=== PATIENT | female | born 1965 | race Caucasian/White ===

== ENCOUNTER → 2016-10-01 | Outpatient (CLI) | payer BC ==
--- NOTE | 2016-10-02 16:27 | MR ---
MRI brain with and without contrast, MR C-spine without contrast HISTORY: Multiple sclerosis, neck pain Multiplanar multisequence and postcontrast images obtained through the brain following 14 cc MultiHan ce IV, multiplanar multisequence imaging obtained through the cervical spine. Correlation to prior MR brain and cervical spine 17 September 2015 FINDINGS: MR brain with and without contrast: Corpus callosum, pituitary, cervical medullary junction are tristin l. There is no restricted diffusion to suggest subacute ischemia. No hemorrhage or hydrocephalus. Sca ttered hyperintensities within the deep white matter on inversion recovery sequences and T2-weighted sequences are noted, approximately 5-10 lesions are present in the frontal lobes. Findings are stable . No abnormal enhancement. The orbits show symmetric appearance. Mild mucosal disease present in the maxillary sinus, ethmoid air cells. IMPRESSION: Stable brain MRI, no significant interval change. Cervical spine MRI: Brain signal is stable. There is no significant spinal stenosis, neural foraminal encroachment, or evident disc herniation. Mild spondylosis is loss of disc height and signal especia lly at C5-6 is stable. IMPRESSION: Stable cervical spine MRI
== END | disposition home or self-care (01) ==
LOC: RADMRIMAIN 20:32
PROVIDERS: ATTEND Nurse Practitioner Acute Care
DX: G35 Multiple sclerosis (principal); M54.2 Cervicalgia
CPT/HCPCS: 70553; 72141; A9577

== ENCOUNTER → 2016-11-07 | Outpatient (CLI) | payer BC ==
[2016-11-07 12:39] LABS: Basophils % (A) 0 %; CH 28.9; CHCM 31.1; Eosinophils # (A) 0.1 k/uL (0-0.7); Eosinophils % (A) 1 %; HCT 48.7 % (34.0-46.0); HDW 2.52; Hypochromasia Slight; Luc # (Auto) 0.11; Luc % (Auto) 2; Lymphocytes # (A) 2.3 k/uL (1.0-4.8); Lymphocytes % (A) 31 %; MCH 28.7 pg (25.0-35.0); MCHC 30.8 g/dL (31.0-37.0); MCV 93.3 fL (80.0-100.0); Mean Platelet Volume 7.9; Monocytes # (A) 0.4 k/uL (0-1.0); Monocytes % (A) 5 %; Neutrophils # (A) 4.4 k/uL (1.3-7.7); Neutrophils % (A) 60 %; RBC 5.22 m/uL (3.80-5.40); RDW 14.1 % (11.5-15.5); WBC 7.3 k/uL (3.8-10.6); WBC (Perox) 7.26
[2016-11-18 10:24] LABS: Mis test requested (Blood) Stratify JCV w/Index
== END | disposition home or self-care (01) ==
LOC: LABWHC1 12:01
PROVIDERS: ATTEND Nurse Practitioner Acute Care
DX: G35 Multiple sclerosis (principal)
CPT/HCPCS: 36415; 85025

== ENCOUNTER → 2016-12-01 | Outpatient (CLI) | payer BC ==
[2016-12-01 12:55] LABS: CH 29.4; CHCM 33.3; HCT 46.3 % (34.0-46.0); HDW 2.78; HGB 15.4 gm/dL (11.4-16.0); MCH 29.5 pg (25.0-35.0); MCHC 33.3 g/dL (31.0-37.0); MCV 88.7 fL (80.0-100.0); Mean Platelet Volume 7.3; RBC 5.22 m/uL (3.80-5.40); RDW 14.2 % (11.5-15.5); WBC 7.5 k/uL (3.8-10.6)
[2016-12-01 13:18] LABS: ALT 18 U/L (9-52); AST 19 U/L (14-36); Alkaline Phosphatase 77 U/L (38-126); Anion Gap 7 mmol/L; Blood Urea Nitrogen 11 mg/dL (7-17); Calcium 9.6 mg/dL (8.4-10.2); Carbon Dioxide 24 mmol/L (22-30); Chloride 111 mmol/L (98-107); Cholesterol 207 mg/dL (<200); Glucose 94 mg/dL (74-99); HDL Cholesterol 44 mg/dL (40-60); Non-African American GFR(MDRD) 52 (>60 ml/min/1.73 sqM); Sodium 142 mmol/L (137-145); Total Bilirubin 0.6 mg/dL (0.2-1.3); Triglycerides 210 mg/dL (<150)
[2016-12-01 14:04] LABS: Hemoglobin A1C 4.9 % (4.2-6.1)
== END ==
LOC: LABWHC1 12:28
PROVIDERS: ATTEND Family Medicine
DX: Z00.00 Encounter for general adult medical examination without abnormal findings (principal); E04.9 Nontoxic goiter, unspecified
CPT/HCPCS: 36415; 80053; 80061; 82306; 83036; 84439; 84443; 85027

== ENCOUNTER → 2016-12-15 | Outpatient (CLI) | payer BC ==
--- NOTE | 2016-12-15 19:25 | US ---
EXAMINATION TYPE: US thyroid st tissue head/neck DATE OF EXAM: 12/15/2016 COMPARISON: 03/27/2013 CLINICAL HISTORY: Goiter E04.9. GLAND SIZE: Right Lobe: 6.3 x 1.8 x 2.4 cm Overall Parenchyma: heterogenous Left Lobe: 6.0 x 1.8 x 1.9 cm Overall Parenchyma: heterogeneous Isthmus Thickness: 0.3 cm NODULES RIGHT: # of nodules measured on right: 0 multiple subcentimeter nodules , nodular affect upper pole on traverse images does not reproduce on s agittal images. LEFT: # of nodules measured on left: 1 1. 1.0 X 0.9 x 0.8 cm isoechoic solid nodule at the upper pole with well-defined margins; . This n odule is taller than wide and shows no intranodular vascularity. Prior size: 0.9 x 1.0 x 0.8 cm ISTHMUS: # of nodules measured in the isthmus: 0 Bilateral neck scanned, no evidence of lymphadenopathy. IMPRESSION: Thyroid gland is large and somewhat heterogeneous consistent with multinodular goiter. No dominant th yroid mass. There is no change in size allowing for error of measurement compared to old exam.
== END | disposition home or self-care (01) ==
LOC: RADUSWWP 16:44
PROVIDERS: ATTEND Family Medicine
DX: E04.9 Nontoxic goiter, unspecified (principal)
CPT/HCPCS: 76536

== ENCOUNTER → 2017-09-03 | Outpatient (CLI) | payer BC ==
--- NOTE | 2017-09-03 09:35 | MR ---
EXAMINATION TYPE: MR brain/cspine wo/w DATE OF EXAM: 09/03/2017 COMPARISON: 10/01/2016 HISTORY: MS TECHNIQUE: Multiplanar, multisequence images of the brain and brainstem is performed without and with IV contras t, utilizing 7 mL intravenous Gadavist . FINDINGS: Diffusion weighted images demonstrate no evidence of a recent infarct or other diffusion ab normality. There is no extra-axial fluid collection or significant white matter signal abnormality. The ventricular system and cisternal spaces are normal in size and appearance. The brain volume is age appropriate. Midline structures demonstrate normal morphology. The craniocervical junction appears within normal limits. Post contrast images demonstrate no abnormal enhancement. WHITE MATTER: There are total of approximately 10 lesions within the white matter scattered bilaterally which are s table in size, morphology and position from the prior exam. No callosal lesions. No lesions perpendicular to ventricular system. No enhancing lesions IMPRESSION: 1. Stable white matter lesions unchanged in size, number or morphology from the prior exam. No enhanc ing lesions. EXAMINATION TYPE: MR brain/cspine wo/w DATE OF EXAM: 09/03/2017 COMPARISON: 10/01/2016 HISTORY: MS CONTRAST: 7 mL Gadavist TECHNIQUE: T1 sagittal and coronal, T2 sagittal, and gradient echo axial, postcontrast T1 axial and s agittal views of the cervical spine are submitted. FINDINGS: The cranial cervical junction is preserved. There is no abnormal signal seen within the sp inal cord or paraspinal soft tissues. Thyroid gland is heterogeneous and demonstrates subcentimeter n odularity bilaterally. At C2-3 there is no disc herniation, canal stenosis or foraminal encroachment. At C3-4 there is no disc herniation, canal stenosis or foraminal encroachment At C4-5 there is no disc herniation, canal stenosis or foraminal encroachment At C5-6 there is there is posterior spondylosis and mild degenerative disc disease. No Canal stenosis . Neural foramina remain patent. No focal disc herniation broad-based central disc bulging stable. At C6-7 there is no disc herniation, canal stenosis or foraminal encroachment At C7-T1 there is no disc herniation, canal stenosis or foraminal encroachment IMPRESSION: 1. Stable degenerative disc disease, disc bulging and cervical spondylosis C5-C6 unchanged from prio r exam. 2. Thyroid gland is heterogeneous with subcentimeter nodularity correlate for thyroiditis.
== END | disposition home or self-care (01) ==
LOC: RADMRIMAIN 07:59
PROVIDERS: ATTEND Psychiatry & Neurology Neurology
DX: G93.9 Disorder of brain, unspecified (principal); R90.82 White matter disease, unspecified; G35 Multiple sclerosis; M50.30 Other cervical disc degeneration, unspecified cervical region; M50.20 Other cervical disc displacement, unspecified cervical region; M47.812 Spondylosis without myelopathy or radiculopathy, cervical region; Z88.8 Allergy status to other drugs, medicaments and biological substances
CPT/HCPCS: 70553; 72156; A9581

== ENCOUNTER → 2017-09-21 | Outpatient (CLI) | payer BC | END | disposition home or self-care (01) | LOC: LABWHC1 11:26 | PROVIDERS: ATTEND Nurse Practitioner Acute Care | DX: G35 Multiple sclerosis (principal); E55.9 Vitamin D deficiency, unspecified | CPT/HCPCS: 36415; 82306 ==

== ENCOUNTER → 2017-09-21 | Outpatient (CLI) | payer BC ==
--- NOTE | 2017-09-21 22:45 | MR ---
EXAMINATION TYPE: MR thoracic spine wo/w con DATE OF EXAM: 09/21/2017 COMPARISON: MRI thoracic spine August 11, 2013. HISTORY: MS with pain in thoracic spine per order TECHNIQUE: Multiplanar, multisequence imaging of thoracic spine is performed without and with IV cont rast, patient is injected with 7 cc of gadavist for this study. MS protocol with additional PD sagitt al sequence of spine acquired. FINDINGS: Spinal cord shows redemonstrates overall diminished caliber as it courses the thoracic spin e without suspicious area of focal abnormal signal. No significant change from prior. Vertebral body heights and alignment are satisfactory. There is heterogeneous increased T1 and T2 signal involving T10 vertebra could reflect hemangioma or radiation treatment change and there is such history. This i s more prominent from prior. Disc space heights are maintained. No suspicious posterior disc herniati ons are identified on sagittal images. No abnormal postcontrast enhancement is seen. Review of the axial images shows no significant spinal canal stenosis or neural foraminal narrowing at any thoracic level. There is overall diminished AP diameter of 6 cord as it courses thoracic spin e, this is unchanged from prior MRI. Dependent small gallstones are identified and partially imaged g allbladder. IMPRESSION: Diffuse AP diameter narrowing of thoracic spinal cord unchanged from prior MRI without daily spicious focal cord signal or enhancement to suggest demyelinating disease involvement.
== END | disposition home or self-care (01) ==
LOC: RADMRIMAIN 09-20 12:16
PROVIDERS: ATTEND Psychiatry & Neurology Neurology
DX: M48.04 Spinal stenosis, thoracic region (principal); M54.2 Cervicalgia; G35 Multiple sclerosis; Z88.8 Allergy status to other drugs, medicaments and biological substances
CPT/HCPCS: 72157; A9581

== ENCOUNTER 2018-12-14 14:33 | Inpatient (IN) | payer BC ==
[2018-12-14] MEDS ORDERED: SODIUM CHLORIDE 0.9% 1,000 ML IV STA ×2 (15:05)
[2018-12-14] MEDS ORDERED: IPRATROPIUM-ALBUTEROL 3 ML NEB INHALATION STA (16:05)
[2018-12-14] MEDS ORDERED: ACETAMINOPHEN TAB 500 MG TAB PO STA (16:05)
[2018-12-14 16:11] LABS: Albumin 3.6 g/dL (3.5-5.0); Calcium 8.6 mg/dL (8.4-10.2); Potassium 3.9 mmol/L (3.5-5.1); Total Bilirubin 0.9 mg/dL (0.2-1.3); Total Protein 6.2 g/dL (6.3-8.2)
[2018-12-14 16:19] LABS: INR 0.9 (<1.2); Prothrombin Time 9.4 sec (9.0-12.0)
[2018-12-14 16:27] LABS: Partial Thromboplastin Time 21.3 sec (22.0-30.0)
[2018-12-14 16:37] LABS: Anisocytosis Slight; Basophils % (A) 0 %; Eosinophils # (A) 0.1 k/uL (0-0.7); Eosinophils % (A) 1 %; HCT 42.1 % (34.0-46.0); HGB 13.2 gm/dL (11.4-16.0); Hypochromasia Slight; Lymphocytes # (A) 0.8 k/uL (1.0-4.8); Lymphocytes % (A) 15 %; MCH 26.1 pg (25.0-35.0); MCHC 31.3 g/dL (31.0-37.0); MCV 83.4 fL (80.0-100.0); Mean Platelet Volume 6.9; Monocytes # (A) 0.2 k/uL (0-1.0); Monocytes % (A) 4 %; Neutrophils # (A) 4.2 k/uL (1.3-7.7); Neutrophils % (A) 78 %; Platelet Count 104 k/uL (150-450); RBC 5.04 m/uL (3.80-5.40); RDW 16.8 % (11.5-15.5); WBC 5.4 k/uL (3.8-10.6)
--- NOTE | 2018-12-14 16:40 | ED ---
Weakness HPI - General Chief complaint: Weakness Stated complaint: Numbness in Face/Arm/leg Time Seen by Provider: 12/14/18 15:05 Source: patient, RN notes reviewed, old records reviewed Mode of arrival: wheelchair Limitations: no limitations - History of Present Illness Initial comments: Patient is a 53-year-old female presents prescribed today with generalized joint pains, discomfort, weakness as well as numbness and tingling in her arms legs and face. She reports she has a history of MS. She was treated with IV steroids outpatient effusions and was recently started on oral steroids. She reports that she stopped these on Wednesday she felt like her throat was closing at that time. Patient that she's had occasional chest discomfort. She arrives emergency department somewhat tachycardic, complains of occasional shortness of breath coughing. She is a heavy smoker. - Related Data Home Medications Medication Instructions Recorded Confirmed Aspirin EC [Ecotrin Low Dose] 81 mg PO HS 11/02/13 12/14/18 Oxybutynin Chloride [Ditropan XL] 15 mg PO HS 11/02/13 12/14/18 Topiramate [Topamax] 25 mg PO HS 11/02/13 12/14/18 Cholecalciferol (Vitamin D3) 2,000 unit PO DAILY 12/14/18 12/14/18 [Vitamin D3] Citalopram Hydrobromide [CeleXA] 20 mg PO HS 12/14/18 12/14/18 Donepezil [Aricept] 5 mg PO DAILY 12/14/18 12/14/18 Gabapentin [Neurontin] 300 mg PO TID 12/14/18 12/14/18 Memantine [Namenda] 5 mg PO DAILY 12/14/18 12/14/18 QUEtiapine FUMARATE [SEROquel] 75 mg PO HS 12/14/18 12/14/18 Zolpidem [Ambien] 10 mg PO HS 12/14/18 12/14/18 fentaNYL [Duragesic 50MCG/HR] 1 patch TRANSDERM Q72H 12/14/18 12/14/18 risperiDONE [RisperDAL] 0.5 mg PO BID 12/14/18 12/14/18 Allergies Allergy/AdvReac Type Severity Reaction Status Date / Time blue dye Allergy Rash/Hives Verified 12/14/18 15:32 Neuromuscular Blockers, AdvReac Nausea & Verified 12/14/18 15:32 Steroidal Vomiting [Steroidal Neuromuscular Blockers] Review of Systems ROS Statement: Those systems with pertinent positive or pertinent negative responses have been documented in the HPI. ROS Other: All systems not noted in ROS Statement are negative. Past Medical History Past Medical History: Cancer, Deep Vein Thrombosis (DVT), Fibromyalgia, Memory Impairment, Pneumonia, Renal Disease Additional Past Medical History / Comment(s): MIGRANES, MULTIPLE SCLEROSIS, BRAIN LESIONS, PVD, SOB, CONSTIPATION, DIARRHEA, KIDNEY INFECTION, UTI, BACK PAIN, ANEMIA, HYPERTHYROID, CERVICAL CA, CARPAL TUNNEL,septicemia,polyneuropathy,HADHEMODIALYSIS TWICE, HAD CHEMOTHERAPY FOR TX OF MS, MOTORIZED CHAIR-ABLE TO STAND TO TRANSFER. History of Any Multi-Drug Resistant Organisms: None Reported Past Surgical History: Heart Catheterization, Tonsillectomy, Tubal Ligation Additional Past Surgical History / Comment(s): DIALYSIS CATHETER (REMOVED), BIOPSY (UNKNOWN TYPE), CRYO SURGERY FOR CERVICAL CA, D&C. Past Anesthesia/Blood Transfusion Reactions: No Reported Reaction Past Psychological History: Anxiety, Bipolar, Depression Smoking Status: Current every day smoker Past Alcohol Use History: None Reported Past Drug Use History: None Reported - Past Family History Father Family Medical History: Cancer Additional Family Medical History / Comment(s): BRAIN Mother Family Medical History: Cancer Additional Family Medical History / Comment(s): BREAST General Exam - General Exam Comments Initial Comments: Patient 3-year-old female. Patient has odor of smoke, and poor hygiene noted. Limitations: no limitations General appearance: alert, in no apparent distress Head exam: Present: atraumatic, normocephalic, normal inspection Eye exam: Present: normal appearance, PERRL, EOMI. Absent: scleral icterus, conjunctival injection, periorbital swelling ENT exam: Present: normal exam, mucous membranes moist Neck exam: Present: normal inspection. Absent: tenderness, meningismus, lymphadenopathy Respiratory exam: Present: normal lung sounds bilaterally. Absent: respiratory distress, wheezes, rales, rhonchi, stridor Cardiovascular Exam: Present: regular rate, normal rhythm, normal heart sounds. Absent: systolic murmur, diastolic murmur, rubs, gallop, clicks GI/Abdominal exam: Present: soft, normal bowel sounds. Absent: distended, tenderness, guarding, rebound, rigid Extremities exam: Present: normal inspection, full ROM, normal capillary refill. Absent: tenderness, pedal edema, joint swelling, calf tenderness Back exam: Present: normal inspection Neurological exam: Present: alert, oriented X3, CN II-XII intact Expanded Patient oriented to: Present: person, place, time Speech: Present: fluid speech Cranial nerves: EOM's Intact: Normal, Facial Sensation: Normal Cerebellar function: Finger to Nose: Normal Upper motor neuron: Tao Neglect: Normal, Pronator Drift: Normal Sensory exam: Upper Extremity Light Touch: Normal, Lower Extremity Light Touch: Normal Motor strength exam: RUE: 4, LUE: 4, RLE: 4, LLE: 4 (Patient denies generalized weakness in all 4 extremity's.) Eye Response: (4) open spontaneously Motor Response: (6) obeys commands Verbal Response: (5) oriented Servando Total: 15 Psychiatric exam: Present: normal affect, normal mood Skin exam: Present: warm, dry, intact, normal color. Absent: rash Course Vital Signs 12/14/18 12/14/18 12/14/18 14:41 15:02 16:20 Temperature 98.4 F Pulse Rate 127 H 98 Respiratory 18 18 Rate Blood Pressure 101/63 O2 Sat by Pulse 97 Oximetry 12/14/18 12/14/18 16:27 17:27 Temperature 98.2 F Pulse Rate 104 H 111 H Respiratory 18 Rate Blood Pressure 131/84 O2 Sat by Pulse 99 Oximetry Medical Decision Making - Medical Decision Making Patient is a 53-year-old female presents for insulin today for generalized weakness. She was tingling in her arms, and face. She states is different than previous MS exacerbations. She was treated on oral steroids for the past week. At this time is also complaining of slight chest pain, denies any significant coughing. She reports her generalized body aches and fatigue have been going on for the past 4 days. At this time patient's labwork was reviewed, unremarkable. Patient's EKG showed sinus tachycardia ossific ST-T that amount. Patient urinalysis negative for infection. Troponin test was auricular detoxification specialist. Blood cultures were completed on Patient. At this time Patient has no other significant complaints his hands weakness and body aches. Patient has 4/5 upper and lower extremity strength. Discussed possibility of MS exacerbation. We'll treat the Patient for MS with IV steroids. Consults having neurology for generalized weakness. - Lab Data Result diagrams: 12/14/18 15:46 12/14/18 15:46 Lab Results 12/14/18 12/14/18 12/14/18 Range/Units 15:46 15:46 15:46 WBC 5.4 (3.8-10.6) k/uL RBC 5.04 (3.80-5.40) m/uL Hgb 13.2 (11.4-16.0) gm/dL Hct 42.1 (34.0-46.0) % MCV 83.4 (80.0-100.0) fL MCH 26.1 (25.0-35.0) pg MCHC 31.3 (31.0-37.0) g/dL RDW 16.8 H (11.5-15.5) % Plt Count 104 L (150-450) k/uL Neutrophils % 78 % Lymphocytes % 15 % Monocytes % 4 % Eosinophils % 1 % Basophils % 0 % Neutrophils # 4.2 (1.3-7.7) k/uL Lymphocytes # 0.8 L (1.0-4.8) k/uL Monocytes # 0.2 (0-1.0) k/uL Eosinophils # 0.1 (0-0.7) k/uL Basophils # 0.0 (0-0.2) k/uL Hypochromasia Slight Anisocytosis Slight PT (9.0-12.0) sec INR (<1.2) APTT (22.0-30.0) sec Sodium 142 (137-145) mmol/L Potassium 3.9 (3.5-5.1) mmol/L Chloride 113 H (98-107) mmol/L Carbon Dioxide 26 (22-30) mmol/L Anion Gap 3 mmol/L BUN 9 (7-17) mg/dL Creatinine 1.03 (0.52-1.04) mg/dL Est GFR (CKD-EPI)AfAm 72 (>60 ml/min/1.73 sqM) Est GFR (CKD-EPI)NonAf 62 (>60 ml/min/1.73 sqM) Glucose 116 H (74-99) mg/dL Plasma Lactic Acid Dion 1.6 (0.7-2.0) mmol/L Calcium 8.6 (8.4-10.2) mg/dL Total Bilirubin 0.9 (0.2-1.3) mg/dL AST 20 (14-36) U/L ALT 7 L (9-52) U/L Alkaline Phosphatase 69 (38-126) U/L Troponin I (0.000-0.034) ng/mL Total Protein 6.2 L (6.3-8.2) g/dL Albumin 3.6 (3.5-5.0) g/dL Urine Color Urine Appearance (Clear) Urine pH (5.0-8.0) Ur Specific [place] (1.001-1.035) Urine Protein (Negative) Urine Glucose (UA) (Negative) Urine Ketones (Negative) Urine Blood (Negative) Urine Nitrite (Negative) Urine Bilirubin (Negative) Urine Urobilinogen (<2.0) mg/dL Ur Leukocyte Esterase (Negative) Urine RBC (0-5) /hpf Urine WBC (0-5) /hpf Ur Squamous Epith Cells (0-4) /hpf Urine Mucus (None) /hpf 12/14/18 12/14/18 12/14/18 Range/Units 15:46 15:46 16:45 WBC (3.8-10.6) k/uL RBC (3.80-5.40) m/uL Hgb (11.4-16.0) gm/dL Hct (34.0-46.0) % MCV (80.0-100.0) fL MCH (25.0-35.0) pg MCHC (31.0-37.0) g/dL RDW (11.5-15.5) % Plt Count (150-450) k/uL Neutrophils % % Lymphocytes % % Monocytes % % Eosinophils % % Basophils % % Neutrophils # (1.3-7.7) k/uL Lymphocytes # (1.0-4.8) k/uL Monocytes # (0-1.0) k/uL Eosinophils # (0-0.7) k/uL Basophils # (0-0.2) k/uL Hypochromasia Anisocytosis PT 9.4 (9.0-12.0) sec INR 0.9 (<1.2) APTT 21.3 L (22.0-30.0) sec Sodium (137-145) mmol/L Potassium (3.5-5.1) mmol/L Chloride (98-107) mmol/L Carbon Dioxide (22-30) mmol/L Anion Gap mmol/L BUN (7-17) mg/dL Creatinine (0.52-1.04) mg/dL Est GFR (CKD-EPI)AfAm (>60 ml/min/1.73 sqM) Est GFR (CKD-EPI)NonAf (>60 ml/min/1.73 sqM) Glucose (74-99) mg/dL Plasma Lactic Acid Dion (0.7-2.0) mmol/L Calcium (8.4-10.2) mg/dL Total Bilirubin (0.2-1.3) mg/dL AST (14-36) U/L ALT (9-52) U/L Alkaline Phosphatase (38-126) U/L Troponin I <0.012 (0.000-0.034) ng/mL Total Protein (6.3-8.2) g/dL Albumin (3.5-5.0) g/dL Urine Color Light Yellow Urine Appearance Clear (Clear) Urine pH 7.0 (5.0-8.0) Ur Specific [place] 1.003 (1.001-1.035) Urine Protein Negative (Negative) Urine Glucose (UA) Negative (Negative) Urine Ketones Negative (Negative) Urine Blood Small H (Negative) Urine Nitrite Negative (Negative) Urine Bilirubin Negative (Negative) Urine Urobilinogen <2.0 (<2.0) mg/dL Ur Leukocyte Esterase Negative (Negative) Urine RBC 4 (0-5) /hpf Urine WBC <1 (0-5) /hpf Ur Squamous Epith Cells 1 (0-4) /hpf Urine Mucus Rare H (None) /hpf 12/14/18 16:50 EKG shows sinus tachycardia, nonspecific ST and T-wave abnormality. Prolonged QT noted. Ventricular rate of 112 bpm. AL interval is 80 ms. QS duration 452/652 ms. - Radiology Data Radiology results: report reviewed Disposition Clinical Impression: Generalized weakness, Chest pain Disposition: ADMITTED IP TO THIS [facility] Condition: Stable Is patient prescribed a controlled substance at d/c from ED?: No Referrals: Abhishek Beltran DO [Primary Care Provider] - 1-2 days Time of Disposition: 17:54
--- NOTE | 2018-12-14 17:20 | XR ---
EXAMINATION: XR chest 2V DATE AND TIME: 12/14/2018 4:49 PM CLINICAL INDICATION: PHH; Pain TECHNIQUE: Departmental protocol COMPARISON: 09/12/2015 FINDINGS: The lungs are clear. The pleural spaces are negative. The cardiac silhouette is not enlarged. The remainder of the mediastinal silhouette is unremarkable. The skeletal structures and soft tissues are negative for acute findings. IMPRESSION: NO ACUTE PROCESS.
[2018-12-14 17:29] LABS: Appearance,Urine Clear (Clear); Bilirubin,Urine Negative (Negative); Blood,Urine Small (Negative); Color,Urine Light Yellow; Glucose,Urine (UA) Negative (Negative); Ketones,Urine Negative (Negative); Leukocyte Esterase,Urine Negative (Negative); Mucus,Urine Rare /hpf; Nitrite,Urine Negative (Negative); Protein,Urine Negative (Negative); RBC,Urine 4 /hpf (0-5); Specific Gravity,Urine 1.003 (1.001-1.035); Squamous Epithelial Cell,Urine 1 /hpf (0-4); Urobilinogen,Urine <2.0 mg/dL (<2.0); WBC,Urine <1 /hpf (0-5)
[2018-12-14] MEDS ORDERED: methylPREDNISolone SOD SUCCI 250 MG in SODIUM CHLORIDE 0.9% 100 ML IVPB STA (17:55)
[2018-12-14] MEDS ORDERED: NALOXONE 0.4 MG/ML 1 ML VIAL IV PRN (17:57)
[2018-12-14] MEDS ORDERED: MORPHINE SULFATE 4 MG/ML SYRINGE IV PRN (17:57)
[2018-12-14] MEDS ORDERED: ONDANSETRON 4 MG/2 ML VIAL IVP PRN (17:57)
[2018-12-14] MEDS ORDERED: IBUPROFEN 400 MG TAB PO PRN (17:57)
[2018-12-14] MEDS ORDERED: ACETAMINOPHEN TAB 325 MG TAB PO PRN (17:57)
[2018-12-14] MEDS ORDERED: KETOROLAC 30 MG/ML 1 ML VIAL IVP PRN (17:57)
[2018-12-14] MEDS: SODIUM CHLORIDE 0.9% 1,000 ML IV SCH (21:17)
[2018-12-15] MEDS ORDERED: ZOLPIDEM 5 MG TAB PO PRN (00:32)
[2018-12-15] MEDS: SODIUM CHLORIDE 0.9% 1,000 ML IV SCH ×3 (04:23→22:57)
[2018-12-15] MEDS ORDERED: PANTOPRAZOLE 40 MG/10 ML VIAL IV SCH (09:00)
--- NOTE | 2018-12-15 14:30 | P.HPIM ---
History of Present Illness 53-year-old the clinic [facility] female came in with the compressive generalized weakness in both hands and legs and tingling and numbness in the legs and face. Patient was started on IV steroids feeling much better now. Patient did not have any focal weakness APS to have some increased weakness in the right and right hand. Patient denied any fever chills dysuria cough runny nose. Patient can use to smoke. Review of Systems REVIEW OF SYSTEMS: CONSTITUTIONAL: No fever, no malaise, no fatigue. HEENT: No recent visual problems or hearing problems. Denied any sore throat. CARDIOVASCULAR: No chest pain, orthopnea, PND, no palpitations, no syncope. PULMONARY: No shortness of breath, no cough, no hemoptysis. GASTROINTESTINAL: No diarrhea, no nausea, no vomiting, no abdominal pain. NEUROLOGICAL: as mentioned in HPI HEMATOLOGICAL: Denies any bleeding or petechiae. GENITOURINARY: Denies any burning micturition, frequency, or urgency. MUSCULOSKELETAL/RHEUMATOLOGICAL: Denies any joint pain, swelling, or any muscle pain. ENDOCRINE: Denies any polyuria or polydipsia. The rest of the 14-point review of systems is negative. Past Medical History Past Medical History: Cancer, Deep Vein Thrombosis (DVT), Fibromyalgia, Memory Impairment, Pneumonia, Renal Disease Additional Past Medical History / Comment(s): MIGRANES, MULTIPLE SCLEROSIS, BRAIN LESIONS, PVD, SOB, CONSTIPATION, DIARRHEA, KIDNEY INFECTION, UTI, BACK PAIN, ANEMIA, HYPERTHYROID, CERVICAL CA, CARPAL TUNNEL,septicemia,polyneuropathy,HADHEMODIALYSIS TWICE, HAD CHEMOTHERAPY FOR TX OF MS, MOTORIZED CHAIR-ABLE TO STAND TO TRANSFER. History of Any Multi-Drug Resistant Organisms: None Reported Past Surgical History: Tonsillectomy, Tubal Ligation Additional Past Surgical History / Comment(s): DIALYSIS CATHETER (REMOVED), BIOPSY (UNKNOWN TYPE), CRYO SURGERY FOR CERVICAL CA, D&C. Past Anesthesia/Blood Transfusion Reactions: No Reported Reaction Past Psychological History: Anxiety, Bipolar, Depression Smoking Status: Current every day smoker Past Alcohol Use History: None Reported Past Drug Use History: None Reported - Past Family History Father Family Medical History: Cancer Additional Family Medical History / Comment(s): BRAIN Mother Family Medical History: Cancer Additional Family Medical History / Comment(s): BREAST Medications and Allergies Home Medications Medication Instructions Recorded Confirmed Type Aspirin EC [Ecotrin Low Dose] 81 mg PO HS 11/02/13 12/14/18 History Oxybutynin Chloride [Ditropan XL] 15 mg PO HS 11/02/13 12/14/18 History Topiramate [Topamax] 25 mg PO HS 11/02/13 12/14/18 History Cholecalciferol (Vitamin D3) 2,000 unit PO DAILY 12/14/18 12/14/18 History [Vitamin D3] Citalopram Hydrobromide [CeleXA] 20 mg PO HS 12/14/18 12/14/18 History Donepezil [Aricept] 5 mg PO DAILY 12/14/18 12/14/18 History Gabapentin [Neurontin] 300 mg PO TID 12/14/18 12/14/18 History Memantine [Namenda] 5 mg PO DAILY 12/14/18 12/14/18 History QUEtiapine FUMARATE [SEROquel] 75 mg PO HS 12/14/18 12/14/18 History Zolpidem [Ambien] 10 mg PO HS 12/14/18 12/14/18 History fentaNYL [Duragesic 50MCG/HR] 1 patch TRANSDERM Q72H 12/14/18 12/14/18 History risperiDONE [RisperDAL] 0.5 mg PO BID 12/14/18 12/14/18 History Allergies Allergy/AdvReac Type Severity Reaction Status Date / Time blue dye Allergy Rash/Hives Verified 12/14/18 20:50 Neuromuscular Blockers, AdvReac Nausea & Verified 12/14/18 20:50 Steroidal Vomiting [Steroidal Neuromuscular Blockers] Physical Exam Vitals: Vital Signs Temp Pulse Pulse Resp BP BP Pulse Ox 12/15/18 12:00 97 16 12/15/18 08:00 97.9 F 97 16 117/81 94 L 12/15/18 04:00 18 12/15/18 00:00 98.6 F 106 H 18 112/76 95 12/14/18 20:20 97.6 F 107 H 18 104/72 97 12/14/18 20:00 107 H 18 12/14/18 19:48 98.0 F 105 H 18 111/76 98 12/14/18 18:47 105 H 18 114/74 99 12/14/18 17:27 98.2 F 111 H 18 131/84 99 12/14/18 16:27 104 H 12/14/18 16:20 98 12/14/18 15:02 18 12/14/18 14:41 98.4 F 127 H 18 101/63 97 Intake and Output 12/14/18 12/15/18 12/15/18 22:59 06:59 14:59 Intake Total 1100 1200 Output Total 90 Balance -90 1100 1200 Intake: Intake, IV Titration 500 Amount Sodium Chloride 0.9% 1, 500 000 ml @ 100 mls/hr IV . Q10H [facility] Rx#:[id number] Oral 600 1200 Output: Urine 90 Other: Voiding Method Bedpan Bedpan Bedpan # Voids 1 1 2 PHYSICAL EXAMINATION: GENERAL: The patient is alert and oriented x3, not in any acute distress. Well developed, well nourished. HEENT: Pupils are round and equally reacting to light. EOMI. No scleral icterus. No conjunctival pallor. Normocephalic, atraumatic. No pharyngeal erythema. No thyromegaly. CARDIOVASCULAR: S1 and S2 present. No murmurs, rubs, or gallops. PULMONARY: Chest is clear to auscultation, no wheezing or crackles. ABDOMEN: Soft, nontender, nondistended, normoactive bowel sounds. No palpable organomegaly. MUSCULOSKELETAL: No joint swelling or deformity. EXTREMITIES: No cyanosis, clubbing, or pedal edema. NEUROLOGICAL: as mentioned in HPI SKIN: No rashes. Results CBC & Chem 7: 12/14/18 15:46 12/14/18 15:46 Labs: Abnormal Lab Results - Last 24 Hours (Table) 12/14/18 12/14/18 12/14/18 Range/Units 15:46 15:46 15:46 RDW 16.8 H (11.5-15.5) % Plt Count 104 L (150-450) k/uL Lymphocytes # 0.8 L (1.0-4.8) k/uL APTT 21.3 L (22.0-30.0) sec Chloride 113 H (98-107) mmol/L Glucose 116 H (74-99) mg/dL ALT 7 L (9-52) U/L Total Protein 6.2 L (6.3-8.2) g/dL Urine Blood (Negative) Urine Mucus (None) /hpf 12/14/18 Range/Units 16:45 RDW (11.5-15.5) % Plt Count (150-450) k/uL Lymphocytes # (1.0-4.8) k/uL APTT (22.0-30.0) sec Chloride (98-107) mmol/L Glucose (74-99) mg/dL ALT (9-52) U/L Total Protein (6.3-8.2) g/dL Urine Blood Small H (Negative) Urine Mucus Rare H (None) /hpf Thrombosis Risk Factor Assmnt - Choose All That Apply Each Factor Represents 1 point: Age 41-60 years Each Risk Factor Represents 3 Points: History of DVT/PE Thrombosis Risk Factor Assessment Total Risk Factor Score: 4 Thrombosis Risk Factor Assessment Level: Moderate Risk Assessment and Plan Plan: -possible multiple sclerosis exacerbation continued cystic steroids GI prophylaxis, further plan depending on neurological evaluation -history of DVT in the past patient is presently not on any anticoagulation patient will be on DVT prophylaxis next and haven't Vibramycin -Nicotine abuse: Counseling was provided -Bipolar disorder Patient will need pharmacologic GI and DVT prophylaxis
--- NOTE | 2018-12-15 15:46 | P.CNNES ---
History of Present Illness Consult date: 12/15/18 Reason for Consult: MS exacerbation History of Present Illness: Patient is a 53-year-old female who was diagnosed with MS about 10 years ago, when she had presented with numbness in the legs and hands. She had an abnormal MRI and lumbar puncture. She follows up with a neurologist, the name she does not remember. Patient states that she has been on injectables in the past, but lately has been on Tecfidera, however her insurance stoppe thed approving this medication and she has been off Tecfidera for the past 4 months. Patient states that she probably has an MS exacerbation that started on 12/11/2018. She woke up fine but as the day progressed, she started feeling exhausted, face was numb arms and legs felt numb. She was feeling generalized weakness, sore and achy. Yesterday was really bad, and she was feeling worse therefore she decided to come to the ER. Chest x-ray was normal, EKG showed sinus tachycardia, prolonged QT and nonspecific ST and T-wave abnormality. Patient's blood test shows normal CBC, normal differential. Normal PT/PTT,'s Chem-7 . Liver panel is normal. UA negative for any infection. Patient has smoked 2 packs per day since age 13, still actively smoker. She just has not smoked in the last 4 days. Denies any alcohol use. Patient states that she has been on a motorized wheelchair for last 5 years. Prior to that, she used a cane and a walker for brief period of time before she went directly to the motorized wheelchair. Patient's last thyroid functions were normal on 12/01/2016. Hemoglobin A1c 4.9. Patient had JCV antibodies checked 09/23/2017, which was 0.21, which is indete rminate level. Positive is >0.40. Patient's last MRI of the brain and cervical spine with and without contrast from showed stable white matter lesions unchanged in size, number or morphology from the prior exam. No enhancing lesions. Patient's last B12 was 465 on 03/05/2016. Review of Systems As per HPI. Denies any chest pain shortness of breath. Denies any diplopia. Denies any headache. Past Medical History Past Medical History: Cancer, Deep Vein Thrombosis (DVT), Fibromyalgia, Memory Impairment, Pneumonia, Renal Disease Additional Past Medical History / Comment(s): MIGRANES, MULTIPLE SCLEROSIS, BRAIN LESIONS, PVD, SOB, CONSTIPATION, DIARRHEA, KIDNEY INFECTION, UTI, BACK PAIN, ANEMIA, HYPERTHYROID, CERVICAL CA, CARPAL TUNNEL,septicemia,polyneuropathy,HADHEMODIALYSIS TWICE, HAD CHEMOTHERAPY FOR TX OF MS, MOTORIZED CHAIR-ABLE TO STAND TO TRANSFER. History of Any Multi-Drug Resistant Organisms: None Reported Past Surgical History: Tonsillectomy, Tubal Ligation Additional Past Surgical History / Comment(s): DIALYSIS CATHETER (REMOVED), BIOPSY (UNKNOWN TYPE), CRYO SURGERY FOR CERVICAL CA, D&C. Past Anesthesia/Blood Transfusion Reactions: No Reported Reaction Past Psychological History: Anxiety, Bipolar, Depression Smoking Status: Current every day smoker Past Alcohol Use History: None Reported Past Drug Use History: None Reported - Past Family History Father Family Medical History: Cancer Additional Family Medical History / Comment(s): BRAIN Mother Family Medical History: Cancer Additional Family Medical History / Comment(s): BREAST Medications and Allergies Home Medications Medication Instructions Recorded Confirmed Type Aspirin EC [Ecotrin Low Dose] 81 mg PO HS 11/02/13 12/14/18 History Oxybutynin Chloride [Ditropan XL] 15 mg PO HS 11/02/13 12/14/18 History Topiramate [Topamax] 25 mg PO HS 11/02/13 12/14/18 History Cholecalciferol (Vitamin D3) 2,000 unit PO DAILY 12/14/18 12/14/18 History [Vitamin D3] Citalopram Hydrobromide [CeleXA] 20 mg PO HS 12/14/18 12/14/18 History Donepezil [Aricept] 5 mg PO DAILY 12/14/18 12/14/18 History Gabapentin [Neurontin] 300 mg PO TID 12/14/18 12/14/18 History Memantine [Namenda] 5 mg PO DAILY 12/14/18 12/14/18 History QUEtiapine FUMARATE [SEROquel] 75 mg PO HS 12/14/18 12/14/18 History Zolpidem [Ambien] 10 mg PO HS 12/14/18 12/14/18 History fentaNYL [Duragesic 50MCG/HR] 1 patch TRANSDERM Q72H 12/14/18 12/14/18 History risperiDONE [RisperDAL] 0.5 mg PO BID 12/14/18 12/14/18 History Allergies Allergy/AdvReac Type Severity Reaction Status Date / Time blue dye Allergy Rash/Hives Verified 12/14/18 20:50 Neuromuscular Blockers, AdvReac Nausea & Verified 12/14/18 20:50 Steroidal Vomiting [Steroidal Neuromuscular Blockers] Physical Examination - Vital Signs Vital Signs: Vital Signs Temp Pulse Pulse Resp BP BP Pulse Ox 12/15/18 12:00 97 16 12/15/18 08:00 97.9 F 97 16 117/81 94 L 12/15/18 04:00 18 12/15/18 00:00 98.6 F 106 H 18 112/76 95 12/14/18 20:20 97.6 F 107 H 18 104/72 97 12/14/18 20:00 107 H 18 12/14/18 19:48 98.0 F 105 H 18 111/76 98 12/14/18 18:47 105 H 18 114/74 99 12/14/18 17:27 98.2 F 111 H 18 131/84 99 12/14/18 16:27 104 H 12/14/18 16:20 98 Intake and Output 12/15/18 12/15/18 12/15/18 06:59 14:59 22:59 Intake Total 1100 1200 Balance 1100 1200 Intake: Intake, IV Titration 500 Amount Sodium Chloride 0.9% 1, 500 000 ml @ 100 mls/hr IV . Q10H [facility] Rx#:[id number] Oral 600 1200 Other: Voiding Method Bedpan Bedpan # Voids 1 2 On examination patient is a middle aged female, in no acute distress. Patient is alert and awake. Speech and language functions are normal. Attention and concentration fund of knowledge adequate. On cranial nerve examination, her pupils are round and reacting visual orr are full. Extraocular muscles intact with no nystagmus. Face is symmetric and tongue protrudes midline. On muscle strength testing there is no drift. The strength appears normal in both arms distally and proximally. In the lower limbs her hip flexion is 4/4+, knee extension 5/5, ankle dorsiflexion 4/5, toe extension 4/5. Sensory touch is equal in the arms, but decreased in the right leg as compared to the left. Patient has some dysmetria for fcttly-is-puoc testing bilaterally. There is moderate ataxia for [id number] testing bilaterally. Tone is slightly increased in the legs. Reflexes are 1 in the upper limbs, 0 at the right knee, 1+ left knee. Ankles are absent. Plantars are upgoing bilaterally. Results - Laboratory Findings CBC and BMP: 12/14/18 15:46 12/14/18 15:46 Abnormal Lab Findings: Abnormal Labs 12/14/18 12/14/18 12/14/18 15:46 15:46 15:46 RDW 16.8 H Plt Count 104 L Lymphocytes # 0.8 L APTT 21.3 L Chloride 113 H Glucose 116 H ALT 7 L Total Protein 6.2 L Urine Blood Urine Mucus 12/14/18 16:45 RDW Plt Count Lymphocytes # APTT Chloride Glucose ALT Total Protein Urine Blood Small H Urine Mucus Rare H Assessment and Plan Assessment: * Probable MS exacerbation. No evidence of a metabolic dysfunction or UTI that would produce unmasking of old lesions. * Tobacco user. * Obesity. Plan: * Solu-Medrol 1 g IV PB daily for 5 days. * We will check TSH, free T4, B12, vitamin D level. * We will follow.
[2018-12-15] MEDS: GABAPENTIN 300 MG CAP PO SCH ×2 (16:14→22:57)
[2018-12-15] MEDS: HEPARIN SODIUM,PORCINE 5,000 UNIT/ML 1 ML VIAL SQ SCH ×2 (16:14→22:57)
[2018-12-15] MEDS: methylPREDNISolone SOD SUCC 1,000 MG in SODIUM CHLORIDE 0.9% 250 ML IVPB SCH (17:46)
[2018-12-15] MEDS: OXYBUTYNIN 15 MG TAB.ER.24 PO SCH (20:22)
[2018-12-15] MEDS: CITALOPRAM HYDROBROMIDE 20 MG TAB PO SCH (20:22)
[2018-12-15] MEDS: QUEtiapine 25 MG TAB PO SCH (20:22)
[2018-12-15] MEDS: ASPIRIN 81 MG PO SCH (20:22)
[2018-12-15] MEDS: TOPIRAMATE 25 MG TAB PO SCH (20:22)
[2018-12-15] MEDS: risperiDONE 0.5 MG TAB PO SCH (20:23)
[2018-12-15] MEDS ORDERED: ZOLPIDEM 10 MG TAB PO PRN (21:00)
[2018-12-16] MEDS: GABAPENTIN 300 MG CAP PO SCH ×3 (09:59→21:14)
[2018-12-16] MEDS: methylPREDNISolone SOD SUCC 1,000 MG in SODIUM CHLORIDE 0.9% 250 ML IVPB SCH (09:59)
[2018-12-16] MEDS: MEMANTINE 5 MG TAB PO SCH (10:00)
[2018-12-16] MEDS: risperiDONE 0.5 MG TAB PO SCH ×2 (10:00→21:14)
[2018-12-16] MEDS: HEPARIN SODIUM,PORCINE 5,000 UNIT/ML 1 ML VIAL SQ SCH ×3 (10:00→23:16)
[2018-12-16] MEDS: PANTOPRAZOLE 40 MG TABLET PO SCH (10:00)
[2018-12-16] MEDS: SODIUM CHLORIDE 0.9% 1,000 ML IV SCH (10:11)
[2018-12-16 11:09] LABS: Folate, Serum 1.9 ng/mL
[2018-12-16] MEDS: CYANOCOBALAMIN 1,000 MCG/ML 1 ML VIAL IM SCH (15:51)
--- NOTE | 2018-12-16 16:01 | P.PN ---
Subjective Progress Note Date: 12/16/18 No new complaints. Patient is tolerating Solu-Medrol 1 g IV PB daily. Patient's blood test shows vitamin B12 156 (200-944), folic acid 1.9 (> 5.38), TSH is normal. Vitamin D 36.9. Objective - Vital Signs Vital signs: Vital Signs Temp 98.1 F 12/16/18 08:00 Pulse 89 12/16/18 12:00 Resp 18 12/16/18 12:00 BP 107/71 12/16/18 08:00 Pulse Ox 92 L 12/16/18 08:00 Intake & Output 12/15/18 12/16/18 12/16/18 18:59 06:59 18:59 Intake Total 1440 Balance 1440 Intake: Oral 1440 Other: Voiding Method Bedpan Bedpan Bedpan Diaper Diaper # Voids 2 1 - Exam No change. - Labs CBC & Chem 7: 12/14/18 15:46 12/14/18 15:46 Labs: Abnormal Lab Results - Last 24 Hours (Table) 12/16/18 Range/Units 05:42 Vitamin B12 156.0 L (200.0-944.0) pg/mL Microbiology - Last 24 Hours (Table) 12/14/18 15:40 Blood Culture - Preliminary Blood No Growth after 24 hours Assessment and Plan Assessment: * Probable MS exacerbation. No evidence of a metabolic dysfunction or UTI that would produce unmasking of old lesions. * Vitamin B12 deficiency * Folate deficiency. * Tobacco user. * Obesity. Plan: * Solu-Medrol 1 g IV PB daily for 5 days. * TSH 1.9, vitamin D normal 36.9. * B12 very low 156 (200-944). Patient started on vitamin B12 replacement 1000 g IM daily for now. * Romo acid was also low 1.9 (> 5.3) patient will be started on folate 1 mg daily from tomorrow. * We will follow.
--- NOTE | 2018-12-16 16:30 | P.PN ---
Subjective 53-year-old was admitted for possible multiple sclerosis exacerbation and patient's symptoms improved significantly. Neurology is recommending continues to have antibiotics total of 5 days. Patient B12 and folate were low and these are being supplemented as well. Constitutional: Denied any fatigue denied any fever. Cardio vascular: denied any chest pain, palpitations Gastrointestinal denied any nausea vomiting Pulmonary: Denied any shortness of breath cough Neurologic denied any new focal deficits All inpatient medications were reviewed and appropriate changes in these medications as dictated in the interval history and assessment and plan. Objective - Vital Signs Vital signs: Vital Signs Temp 97.9 F 12/16/18 16:00 Pulse 92 12/16/18 16:00 Resp 18 12/16/18 12:00 BP 117/77 12/16/18 16:00 Pulse Ox 91 L 12/16/18 16:00 Intake & Output 12/15/18 12/16/18 12/16/18 18:59 06:59 18:59 Intake Total 1440 Balance 1440 Intake: Oral 1440 Other: Voiding Method Bedpan Bedpan Bedpan Diaper Diaper # Voids 2 1 - Exam PHYSICAL EXAMINATION: GENERAL: The patient is alert and oriented x3, not in any acute distress. Well developed, well nourished. HEENT: Pupils are round and equally reacting to light. EOMI. No scleral icterus. No conjunctival pallor. Normocephalic, atraumatic. No pharyngeal erythema. No thyromegaly. CARDIOVASCULAR: S1 and S2 present. No murmurs, rubs, or gallops. PULMONARY: Chest is clear to auscultation, no wheezing or crackles. ABDOMEN: Soft, nontender, nondistended, normoactive bowel sounds. No palpable organomegaly. MUSCULOSKELETAL: No joint swelling or deformity. EXTREMITIES: No cyanosis, clubbing, or pedal edema. NEUROLOGICAL: Patient's weakness improved SKIN: No rashes. - Labs CBC & Chem 7: 12/14/18 15:46 12/14/18 15:46 Labs: Abnormal Lab Results - Last 24 Hours (Table) 12/16/18 Range/Units 05:42 Vitamin B12 156.0 L (200.0-944.0) pg/mL Microbiology - Last 24 Hours (Table) 12/14/18 15:40 Blood Culture - Preliminary Blood No Growth after 24 hours Assessment and Plan Plan: -possible multiple sclerosis exacerbation continued to stomach steroids GI prophylaxis, plan is to continue with systemic steroids for total of 5 days -B12 deficiency which will be supplemented -history of DVT in the past patient is presently not on any anticoagulation patient will be on DVT prophylaxis next and haven't Vibramycin -Nicotine abuse: Counseling was provided -Bipolar disorder Patient will need pharmacologic GI and DVT prophylaxis
[2018-12-16] MEDS: QUEtiapine 25 MG TAB PO SCH (21:14)
[2018-12-16] MEDS: TOPIRAMATE 25 MG TAB PO SCH (21:14)
[2018-12-16] MEDS: CITALOPRAM HYDROBROMIDE 20 MG TAB PO SCH (21:14)
[2018-12-16] MEDS: OXYBUTYNIN 15 MG TAB.ER.24 PO SCH (21:14)
[2018-12-16] MEDS: ASPIRIN 81 MG PO SCH (21:14)
[2018-12-17] MEDS: SODIUM CHLORIDE 0.9% 1,000 ML IV SCH ×3 (00:39→20:02)
[2018-12-17 07:51] LABS: Glucose,Whole Blood 207 mg/dL (75-99)
[2018-12-17] MEDS: methylPREDNISolone SOD SUCC 1,000 MG in SODIUM CHLORIDE 0.9% 250 ML IVPB SCH (08:44)
[2018-12-17] MEDS: INSULIN ASPART (NovoLOG) 100 UNIT/ML VIAL SQ SCH ×4 (08:44→23:37)
[2018-12-17] MEDS: GABAPENTIN 300 MG CAP PO SCH ×3 (08:45→23:34)
[2018-12-17] MEDS: risperiDONE 0.5 MG TAB PO SCH ×2 (08:45→23:34)
[2018-12-17] MEDS: FOLIC ACID 1 MG TAB PO SCH (08:45)
[2018-12-17] MEDS: HEPARIN SODIUM,PORCINE 5,000 UNIT/ML 1 ML VIAL SQ SCH ×3 (08:45→23:36)
[2018-12-17] MEDS: PANTOPRAZOLE 40 MG TABLET PO SCH (08:45)
[2018-12-17] MEDS: MEMANTINE 5 MG TAB PO SCH (08:47)
[2018-12-17] MEDS: CYANOCOBALAMIN 1,000 MCG/ML 1 ML VIAL IM SCH (08:54)
--- NOTE | 2018-12-17 11:09 | P.PN ---
Subjective 53-year-old was admitted for possible multiple sclerosis exacerbation and patient's symptoms improved significantly. Neurology is recommending continues to have antibiotics total of 5 days. Patient B12 and folate were low and these are being supplemented as well. 12/17/2018 An overnight events patient is clinically doing well and the her strength in both upper limbs is cleared and she says she still has some weakness in lower limbs Constitutional: Denied any fatigue denied any fever. Cardio vascular: denied any chest pain, palpitations Gastrointestinal denied any nausea vomiting Pulmonary: Denied any shortness of breath cough Neurologic denied any new focal deficits All inpatient medications were reviewed and appropriate changes in these medications as dictated in the interval history and assessment and plan. Objective - Vital Signs Vital signs: Vital Signs Temp 98.0 F 12/17/18 08:00 Pulse 93 12/17/18 08:00 Resp 18 12/17/18 08:00 BP 120/80 12/17/18 08:00 Pulse Ox 92 L 12/17/18 08:00 Intake & Output 12/16/18 12/17/18 12/17/18 18:59 06:59 18:59 Intake Total 200 Balance 200 Intake: Oral 200 Other: Voiding Method Bedpan Bedpan Bedpan Diaper Diaper Diaper # Voids 1 1 - Exam PHYSICAL EXAMINATION: GENERAL: The patient is alert and oriented x3, not in any acute distress. Well developed, well nourished. HEENT: Pupils are round and equally reacting to light. EOMI. No scleral icterus. No conjunctival pallor. Normocephalic, atraumatic. No pharyngeal erythema. No thyromegaly. CARDIOVASCULAR: S1 and S2 present. No murmurs, rubs, or gallops. PULMONARY: Chest is clear to auscultation, no wheezing or crackles. ABDOMEN: Soft, nontender, nondistended, normoactive bowel sounds. No palpable organomegaly. MUSCULOSKELETAL: No joint swelling or deformity. EXTREMITIES: No cyanosis, clubbing, or pedal edema. NEUROLOGICAL: Patient's weakness improved SKIN: No rashes. - Labs CBC & Chem 7: 12/14/18 15:46 12/14/18 15:46 Labs: Abnormal Lab Results - Last 24 Hours (Table) 12/16/18 12/17/18 Range/Units 05:42 07:44 POC Glucose (mg/dL) 207 H (75-99) mg/dL Vitamin B12 156.0 L (200.0-944.0) pg/mL Microbiology - Last 24 Hours (Table) 12/14/18 15:40 Blood Culture - Preliminary Blood No Growth after 48 hours Assessment and Plan Plan: -possible multiple sclerosis exacerbation continued to stomach steroids GI prophylaxis, plan is to continue with systemic steroids for total of 5 days, Wednesday will be last dose and after that patient will be discharged -B12 deficiency which will be supplemented -history of DVT in the past patient is presently not on any anticoagulation patient will be on DVT prophylaxis next and haven't Vibramycin -Nicotine abuse: Counseling was provided -Bipolar disorder Patient will need pharmacologic GI and DVT prophylaxis
[2018-12-17 11:35] LABS: Glucose,Whole Blood 101 mg/dL (75-99)
--- NOTE | 2018-12-17 13:58 | P.PN ---
Subjective Progress Note Date: 12/17/18 No new complaints. Patient is tolerating Solu-Medrol 1 g IV PB daily. Patient's blood test shows vitamin B12 156 (200-944), folic acid 1.9 (> 5.38), TSH is normal. Vitamin D 36.9. RPR negative Patient has been started on B12 and folate replacement. Patient states her numbness of her lips, and face has improved. Her arms and legs feels stronger. Objective - Vital Signs Vital signs: Vital Signs Temp 97.8 F 12/17/18 12:33 Pulse 78 12/17/18 12:33 Resp 20 12/17/18 12:33 BP 127/65 12/17/18 12:33 Pulse Ox 92 L 12/17/18 12:33 Intake & Output 12/16/18 12/17/18 12/17/18 18:59 06:59 18:59 Intake Total 200 Balance 200 Intake: Oral 200 Other: Voiding Method Bedpan Bedpan Bedpan Diaper Diaper Diaper # Voids 1 1 - Exam Patient's mental status speech and language functions are normal. Cranial nerves are normal. Muscle strength appears stronger in the arms and legs. Patient has bilateral Babinski. - Labs CBC & Chem 7: 12/14/18 15:46 12/14/18 15:46 Labs: Abnormal Lab Results - Last 24 Hours (Table) 12/17/18 12/17/18 Range/Units 07:44 11:34 POC Glucose (mg/dL) 207 H 101 H (75-99) mg/dL Microbiology - Last 24 Hours (Table) 12/14/18 15:40 Blood Culture - Preliminary Blood No Growth after 48 hours Assessment and Plan Assessment: * Probable MS exacerbation. No evidence of a metabolic dysfunction or UTI that would produce unmasking of old lesions. * Vitamin B12 deficiency * Folate deficiency. * Tobacco user. * Obesity. Plan: * Solu-Medrol 1 g IV PB daily for 5 days, then may discharge. * TSH 1.9, vitamin D normal 36.9. RPR negative * B12 very low 156 (200-944). Continue vitamin B12 replacement 1000 g IM daily for now. * Folic acid was also low 1.9 (> 5.3), start folate 1 mg daily. * We will follow.
[2018-12-17 17:08] LABS: Glucose,Whole Blood 163 mg/dL (75-99)
[2018-12-17 20:09] LABS: Glucose,Whole Blood 167 mg/dL (75-99)
[2018-12-17] MEDS: ASPIRIN 81 MG PO SCH (23:32)
[2018-12-17] MEDS: CITALOPRAM HYDROBROMIDE 20 MG TAB PO SCH (23:32)
[2018-12-17] MEDS: QUEtiapine 25 MG TAB PO SCH (23:33)
[2018-12-17] MEDS: OXYBUTYNIN 15 MG TAB.ER.24 PO SCH (23:33)
[2018-12-17] MEDS: TOPIRAMATE 25 MG TAB PO SCH (23:34)
[2018-12-18] MEDS: SODIUM CHLORIDE 0.9% 1,000 ML IV SCH ×3 (03:16→21:14)
[2018-12-18 07:22] LABS: Glucose,Whole Blood 158 mg/dL (75-99)
[2018-12-18] MEDS: INSULIN ASPART (NovoLOG) 100 UNIT/ML VIAL SQ SCH ×4 (08:23→21:13)
[2018-12-18] MEDS: HEPARIN SODIUM,PORCINE 5,000 UNIT/ML 1 ML VIAL SQ SCH ×3 (08:23→23:08)
[2018-12-18] MEDS: GABAPENTIN 300 MG CAP PO SCH ×3 (08:24→21:14)
[2018-12-18] MEDS: methylPREDNISolone SOD SUCC 1,000 MG in SODIUM CHLORIDE 0.9% 250 ML IVPB SCH (08:24)
[2018-12-18] MEDS: PANTOPRAZOLE 40 MG TABLET PO SCH (08:24)
[2018-12-18] MEDS: CYANOCOBALAMIN 1,000 MCG/ML 1 ML VIAL IM SCH (08:30)
[2018-12-18] MEDS: risperiDONE 0.5 MG TAB PO SCH ×2 (08:31→21:14)
[2018-12-18] MEDS: FOLIC ACID 1 MG TAB PO SCH (08:31)
[2018-12-18] MEDS: MEMANTINE 5 MG TAB PO SCH (08:32)
[2018-12-18 11:05] LABS: Glucose,Whole Blood 107 mg/dL (75-99)
[2018-12-18 11:58] VITALS: RESP 18
--- NOTE | 2018-12-18 15:02 | P.PN ---
Subjective 53-year-old was admitted for possible multiple sclerosis exacerbation and patient's symptoms improved significantly. Neurology is recommending continues to have antibiotics total of 5 days. Patient B12 and folate were low and these are being supplemented as well. 12/17/2018 An overnight events patient is clinically doing well and the her strength in both upper limbs is cleared and she says she still has some weakness in lower limbs 12/18/2018 Patient the be discharged tomorrow after her fifth dose of Solu-Medrol no overnight events and increased weakness. Patient has physical therapy at home. Constitutional: Denied any fatigue denied any fever. Cardio vascular: denied any chest pain, palpitations Gastrointestinal denied any nausea vomiting Pulmonary: Denied any shortness of breath cough Neurologic denied any new focal deficits All inpatient medications were reviewed and appropriate changes in these medications as dictated in the interval history and assessment and plan. Objective - Vital Signs Vital signs: Vital Signs Temp 97.8 F 12/18/18 11:57 Pulse 76 12/18/18 11:57 Resp 18 12/18/18 11:57 BP 120/75 12/18/18 11:57 Pulse Ox 95 12/18/18 11:57 Intake & Output 12/17/18 12/18/18 12/18/18 18:59 06:59 18:59 Intake Total 250 1740 Balance 250 1740 Intake: Intake, IV Titration 250 1200 Amount Sodium Chloride 0.9% 1, 1200 000 ml @ 100 mls/hr IV . Q10H [facility] Rx#:[id number] methylPREDNISolone SOD 250 SUCC 1,000 mg In Sodium Chloride 0.9% 250 ml @ 125 mls/hr IVPB DAILY [facility] Rx#:[id number] Oral 540 Other: Voiding Method Bedpan Bedpan Bedpan Diaper Diaper Diaper # Voids 2 3 - Exam PHYSICAL EXAMINATION: GENERAL: The patient is alert and oriented x3, not in any acute distress. Well developed, well nourished. HEENT: Pupils are round and equally reacting to light. EOMI. No scleral icterus. No conjunctival pallor. Normocephalic, atraumatic. No pharyngeal erythema. No thyromegaly. CARDIOVASCULAR: S1 and S2 present. No murmurs, rubs, or gallops. PULMONARY: Chest is clear to auscultation, no wheezing or crackles. ABDOMEN: Soft, nontender, nondistended, normoactive bowel sounds. No palpable organomegaly. MUSCULOSKELETAL: No joint swelling or deformity. EXTREMITIES: No cyanosis, clubbing, or pedal edema. NEUROLOGICAL: Patient's weakness improved SKIN: No rashes. - Labs CBC & Chem 7: 12/14/18 15:46 12/14/18 15:46 Labs: Abnormal Lab Results - Last 24 Hours (Table) 12/17/18 12/17/18 12/18/18 Range/Units 17:06 20:07 07:21 POC Glucose (mg/dL) 163 H 167 H 158 H (75-99) mg/dL 12/18/18 Range/Units 11:03 POC Glucose (mg/dL) 107 H (75-99) mg/dL Microbiology - Last 24 Hours (Table) 12/14/18 15:40 Blood Culture - Preliminary Blood No Growth after 72 hours Assessment and Plan Plan: -possible multiple sclerosis exacerbation continued to stomach steroids GI prophylaxis, plan is to continue with systemic steroids for total of 5 days, Wednesday will be last dose and after that patient will be discharged -B12 deficiency which will be supplemented -history of DVT in the past patient is presently not on any anticoagulation patient will be on DVT prophylaxis next and haven't Vibramycin -Nicotine abuse: Counseling was provided -Bipolar disorder Patient will need pharmacologic GI and DVT prophylaxis
[2018-12-18 16:59] LABS: Glucose,Whole Blood 213 mg/dL (75-99)
[2018-12-18 20:28] LABS: Glucose,Whole Blood 237 mg/dL (75-99)
[2018-12-18] MEDS: ASPIRIN 81 MG PO SCH (21:13)
[2018-12-18] MEDS: CITALOPRAM HYDROBROMIDE 20 MG TAB PO SCH (21:13)
[2018-12-18] MEDS: OXYBUTYNIN 15 MG TAB.ER.24 PO SCH (21:13)
[2018-12-18] MEDS: QUEtiapine 25 MG TAB PO SCH (21:13)
[2018-12-18] MEDS: TOPIRAMATE 25 MG TAB PO SCH (21:14)
--- NOTE | 2018-12-18 22:19 | P.PN ---
Subjective Progress Note Date: 12/18/18 Patient complains of weakness in the legs, cannot pivot or walk. Patient is having significant pain in bilateral lower extremities. She is also feeling like a lump in the throat. Patient is tolerating Solu-Medrol 1 g IV PB daily. Patient's blood test shows vitamin B12 156 (200-944), folic acid 1.9 (> 5.38), TSH is normal. Vitamin D 36.9. RPR negative Patient has been started on B12 and folate replacement. Patient states her numbness of her lips, and face has improved. Also complaining of significant low back pain. Rates it 02/11. Objective - Vital Signs Vital signs: Vital Signs Temp 97.8 F 12/18/18 11:57 Pulse 76 12/18/18 11:57 Resp 18 12/18/18 11:57 BP 120/75 12/18/18 11:57 Pulse Ox 95 12/18/18 11:57 Intake & Output 12/18/18 12/18/18 12/19/18 06:59 18:59 06:59 Intake Total 1740 Balance 1740 Intake: Intake, IV Titration 1200 Amount Sodium Chloride 0.9% 1, 1200 000 ml @ 100 mls/hr IV . Q10H [facility] Rx#:[id number] Oral 540 Other: Voiding Method Bedpan Bedpan Diaper Diaper # Voids 2 3 - Exam Patient's mental status speech and language functions are normal. On oral examination patient has very obvious oral and pharyngeal thrush. Cranial nerves are normal. Muscle strength appears normal in the arms, and legs except right ankle dorsiflexion, which is slightly weak 5-on the right, normal on left. Patient has bilateral Babinski. - Labs CBC & Chem 7: 12/14/18 15:46 12/14/18 15:46 Labs: Abnormal Lab Results - Last 24 Hours (Table) 12/18/18 12/18/18 12/18/18 Range/Units 07:21 11:03 16:57 POC Glucose (mg/dL) 158 H 107 H 213 H (75-99) mg/dL Microbiology - Last 24 Hours (Table) 12/14/18 15:40 Blood Culture - Preliminary Blood No Growth after 96 hours Assessment and Plan Assessment: * Probable MS exacerbation. No evidence of a metabolic dysfunction or UTI that would produce unmasking of old lesions. * Oral thrush. * Significant low back pain with radiation to the legs. * Vitamin B12 deficiency * Folate deficiency. * Tobacco user. * Obesity. Plan: * Solu-Medrol 1 g IV PB daily for 5 days. Tomorrow will be the last dose. No further doses of steroids. * Patient needs treatment for oral thrush. Probably will need Diflucan. May need EGD. * MRI of the lumbar spine for severe pain with radicular features. * TSH 1.9, vitamin D normal 36.9. RPR negative * B12 very low 156 (200-944). Continue vitamin B12 replacement 1000 g IM daily for now. * Folic acid was also low 1.9 (> 5.3), start folate 1 mg daily. * Patient to follow up with Dr. Salomon Thomason from morning.
[2018-12-18] MEDS ORDERED: FLUCONAZOLE 100 MG TAB PO SCH (23:00)
[2018-12-19 06:45] LABS: Glucose,Whole Blood 330 mg/dL (75-99)
[2018-12-19] MEDS: INSULIN ASPART (NovoLOG) 100 UNIT/ML VIAL SQ SCH ×2 (07:50→11:09)
[2018-12-19] MEDS: MEMANTINE 5 MG TAB PO SCH (07:51)
[2018-12-19] MEDS: HEPARIN SODIUM,PORCINE 5,000 UNIT/ML 1 ML VIAL SQ SCH (07:51)
[2018-12-19] MEDS: CYANOCOBALAMIN 1,000 MCG/ML 1 ML VIAL IM SCH (07:51)
[2018-12-19] MEDS: PANTOPRAZOLE 40 MG TABLET PO SCH (07:51)
[2018-12-19] MEDS: GABAPENTIN 300 MG CAP PO SCH (07:51)
[2018-12-19] MEDS: risperiDONE 0.5 MG TAB PO SCH (07:52)
[2018-12-19] MEDS: SODIUM CHLORIDE 0.9% 1,000 ML IV SCH (07:52)
[2018-12-19] MEDS: FOLIC ACID 1 MG TAB PO SCH (07:52)
[2018-12-19] MEDS: methylPREDNISolone SOD SUCC 1,000 MG in SODIUM CHLORIDE 0.9% 250 ML IVPB SCH (07:52)
--- NOTE | 2018-12-19 08:08 | P.CONS ---
History of Present Illness - Chief Complaint Gait disturbance - History of Present Illness I had the opportunity to see patient for inpatient rehab consultation with regard to gait disturbance. She was admitted to [facility] December 15 acute onset gait disturbance. Chest x-ray negative. Seen by Dr. ott for neurology for MS exacerbation. PT reports supervision for bed mobility minimal assistance transfers. OT prescribed. Previous functional history as elicited from patient: 53-year-old left-handed white female who is lives in one floor home with and daughter and grandson. does the cooking, laundry, driving. Son does the driving of patient van. Daughter physically assist patient with bathing and dressing. Last week, patient performing pivot transfer in and out of [facility]. Review of Systems Review of systems: ENT: Denies sneezes or discharge. Eyes: Denies discharge or photophobia. Cardiac: Denies chest pain or palpitation. Pulmonary: Denies cough or shortness of breath. Breast: Denies discharge or lumps. Gastrointestinal: Denies nausea, emesis, constipation, diarrhea. Genitourinary: Denies discharge or frequency. Musculoskeletal: Denies muscle or bone aches. Neurologic: Weakness especially lowers. Numbness throughout. Endocrine: Denies shakes or sweats. Oncology: Denies cancers. Dermatologic: Denies rash, itching, pruritus. ALLERGY/immunology: Denies sneezes, rashes. Past Medical History Past Medical History: Cancer, Deep Vein Thrombosis (DVT), Fibromyalgia, Memory Impairment, Pneumonia, Renal Disease Additional Past Medical History / Comment(s): MIGRANES, MULTIPLE SCLEROSIS, BRAIN LESIONS, PVD, SOB, CONSTIPATION, DIARRHEA, KIDNEY INFECTION, UTI, BACK PAIN, ANEMIA, HYPERTHYROID, CERVICAL CA, CARPAL TUNNEL,septicemia,polyneuropathy,HADHEMODIALYSIS TWICE, HAD CHEMOTHERAPY FOR TX OF MS, MOTORIZED CHAIR-ABLE TO STAND TO TRANSFER. History of Any Multi-Drug Resistant Organisms: None Reported Past Surgical History: Tonsillectomy, Tubal Ligation Additional Past Surgical History / Comment(s): DIALYSIS CATHETER (REMOVED), BIOPSY (UNKNOWN TYPE), CRYO SURGERY FOR CERVICAL CA, D&C. Past Anesthesia/Blood Transfusion Reactions: No Reported Reaction Past Psychological History: Anxiety, Bipolar, Depression Smoking Status: Current every day smoker Past Alcohol Use History: None Reported Past Drug Use History: None Reported - Past Family History Father Family Medical History: Cancer Additional Family Medical History / Comment(s): BRAIN Mother Family Medical History: Cancer Additional Family Medical History / Comment(s): BREAST Medications and Allergies Home Medications Medication Instructions Recorded Confirmed Type Aspirin EC [Ecotrin Low Dose] 81 mg PO HS 11/02/13 12/14/18 History Oxybutynin Chloride [Ditropan XL] 15 mg PO HS 11/02/13 12/14/18 History Topiramate [Topamax] 25 mg PO HS 11/02/13 12/14/18 History Cholecalciferol (Vitamin D3) 2,000 unit PO DAILY 12/14/18 12/14/18 History [Vitamin D3] Citalopram Hydrobromide [CeleXA] 20 mg PO HS 12/14/18 12/14/18 History Donepezil [Aricept] 5 mg PO DAILY 12/14/18 12/14/18 History Gabapentin [Neurontin] 300 mg PO TID 12/14/18 12/14/18 History Memantine [Namenda] 5 mg PO DAILY 12/14/18 12/14/18 History QUEtiapine FUMARATE [SEROquel] 75 mg PO HS 12/14/18 12/14/18 History Zolpidem [Ambien] 10 mg PO HS 12/14/18 12/14/18 History fentaNYL [Duragesic 50MCG/HR] 1 patch TRANSDERM Q72H 12/14/18 12/14/18 History risperiDONE [RisperDAL] 0.5 mg PO BID 12/14/18 12/14/18 History Allergies Allergy/AdvReac Type Severity Reaction Status Date / Time blue dye Allergy Rash/Hives Verified 12/14/18 20:50 Neuromuscular Blockers, AdvReac Nausea & Verified 12/14/18 20:50 Steroidal Vomiting [Steroidal Neuromuscular Blockers] Physical Exam Vitals: Vital Signs Temp Pulse Pulse Resp BP Pulse Ox 12/19/18 04:55 97.9 F 111 H 18 127/81 92 L 12/18/18 21:00 98.5 F 96 18 119/80 94 L 12/18/18 11:57 97.8 F 76 18 120/75 95 Intake and Output 12/18/18 12/19/18 12/19/18 22:59 06:59 14:59 Intake Total 940 Balance 940 Intake: Intake, IV Titration 400 Amount Sodium Chloride 0.9% 1, 400 000 ml @ 100 mls/hr IV . Q10H GEM Rx#:[id number] Oral 540 Other: Voiding Method Bedpan Diaper Diaper Incontinent # Voids 2 3 Skin: Good color, texture, turgor. General: Obese build and comfortable appearance. Head: Normocephalic, atraumatic. Eyes: Symmetric. Pupils equal round. Ears: Symmetric. Hearing within normal limits. Mouth: Clear. Neck: Supple. Carotid without bruit. Cardiac: Regular rate and rhythm. Lungs: Clear anteriorly and posteriorly. Abdomen: Soft active nontender. Extremities: Normal tone. Neurological: Mental status: Alert, cooperative, pleasant. Cranial nerves: Symmetric facial tone and trapezius. Motor: Can actively elevate arms and legs are less than antigravity. Sensation: Intact throughout but at least mildly depressed. DTRs: Symmetric and equal throughout. Mobility: Requires physical assistance for bed mobility. Results CBC & Chem 7: 12/14/18 15:46 12/14/18 15:46 Labs: Abnormal Lab Results - Last 24 Hours (Table) 12/18/18 12/18/18 12/18/18 Range/Units 11:03 16:57 20:16 POC Glucose (mg/dL) 107 H 213 H 237 H (75-99) mg/dL 12/19/18 Range/Units 06:43 POC Glucose (mg/dL) 330 H (75-99) mg/dL Microbiology - Last 24 Hours (Table) 12/14/18 15:40 Blood Culture - Preliminary Blood No Growth after 96 hours Assessment and Plan (1) Generalized weakness Current Visit: Yes Status: Acute Code(s): R53.1 - WEAKNESS SNOMED Code(s): 79670840 Plan: Impression: 1. Gait disturbance. 2. MS exacerbation. 2. Chronic kidney disease. 4. Fibromyalgia. 5. History of cancer, DVT, memory impairment. Constant plan: At this time PT ongoing and OT prescribed. Have discussed with patient possible inpatient rehab goals and she suggests that she was transferr ing independently last week. This would be started developing inpatient rehab goals. Overweight OT evaluation.
[2018-12-19 11:04] LABS: Glucose,Whole Blood 81 mg/dL (75-99)
--- NOTE | 2018-12-19 11:12 | FL ---
EXAMINATION TYPE: FL barium swallow DATE OF EXAM: 12/19/2018 CLINICAL HISTORY: Difficulty swallowing. TECHNIQUE: A single contrast esophagram is performed utilizing barium. A total of 1.27 minutes of f luoroscopic time was utilized during procedure. 28 spot images are saved. COMPARISON: Prior esophagram April 26, 2013 FINDINGS: The esophagus shows marked dysmotility with poor peristalsis and abnormal secondary and ter tiary contractions. Drinking began at 10:52.44 and last images saved 4 minutes later showed persiste nt contrast filled mid to distal esophagus up to level of clavicles just above aortic knob. No eviden ce of esophageal stricture. Small sliding-type hiatal hernia identified. Some proximal reflux of cont rast was observed during real-time scanning. IMPRESSION: Marked esophageal dysmotility suspicious for underlying achalasia is likely culprit for p atient's symptoms.
[2018-12-19 12:12] VITALS: BP 131/84; PULSE 102; TEMP 98
--- NOTE | 2018-12-19 14:15 | P.DS ---
Providers Date of admission: 12/16/18 11:06 Attending physician: Mani Dockery Consults: 12/14/18 17:56 Consult Physician Stat Consulting Provider: Daniel Conroy Consult Reason/Comments: MS exacerbation Do you want consulting provider notified?: Yes 12/18/18 20:12 Consult Physician Routine Consulting Provider: Lisandro Tang Consult Reason/Comments: Weakness, MS exacerbation Do you want consulting provider notified?: Yes, Notify in am Primary care physician: [facility] Course: 53-year-old was admitted for possible multiple sclerosis exacerbation and patient's symptoms improved significantly. Neurology is recommending continues to have antibiotics total of 5 days. Patient B12 and folate were low and these are being supplemented as well. 12/17/2018 An overnight events patient is clinically doing well and the her strength in both upper limbs is cleared and she says she still has some weakness in lower limbs 12/18/2018 Patient the be discharged tomorrow after her fifth dose of Solu-Medrol no overnight events and increased weakness. Patient has physical therapy at home. 12/19/2018 Patient was comparing of swallow problems and global sensation in the throat area because of which obtained a barium esophagogram which showed esophageal dysmotility probably secondary to multiple sclerosis. Therapy will be consulted after that patient probably can be discharged home. Physical therapy evaluated the patient patient is declining to go to subacute rehab patient will be discharged home with home care. Patient doesn't have any more oral thrush will be discharged on 5 more days of nystatin swish and swallow PHYSICAL EXAMINATION: GENERAL: The patient is alert and oriented x3, not in any acute distress. Well developed, well nourished. HEENT: Pupils are round and equally reacting to light. EOMI. No scleral icterus. No conjunctival pallor. Normocephalic, atraumatic. No pharyngeal erythema. No thyromegaly. CARDIOVASCULAR: S1 and S2 present. No murmurs, rubs, or gallops. PULMONARY: Chest is clear to auscultation, no wheezing or crackles. ABDOMEN: Soft, nontender, nondistended, normoactive bowel sounds. No palpable organomegaly. MUSCULOSKELETAL: No joint swelling or deformity. EXTREMITIES: No cyanosis, clubbing, or pedal edema. NEUROLOGICAL: Patient's weakness improved SKIN: No rashes. Assessment and Plan Plan: -possible multiple sclerosis exacerbation, received 5 days of high-dose steroids. -B12 deficiency which will be supplemented -history of DVT in the past patient is presently not on any anticoagulation patient will be on DVT prophylaxis next and haven't Vibramycin -Nicotine abuse: Counseling was provided -Bipolar disorder -Oral thrush, nystatin swish and swallow -Mildly worsened the kidney function patient will be increased to drink water at home Patient Condition at Discharge: Stable Plan - Discharge Summary Discharge Rx Participant: No New Discharge Prescriptions: Continue Aspirin EC [Ecotrin Low Dose] 81 mg PO HS Topiramate [Topamax] 25 mg PO HS Oxybutynin Chloride [Ditropan XL] 15 mg PO HS risperiDONE [RisperDAL] 0.5 mg PO BID QUEtiapine FUMARATE [SEROquel] 75 mg PO HS Memantine [Namenda] 5 mg PO DAILY Zolpidem [Ambien] 10 mg PO HS Donepezil [Aricept] 5 mg PO DAILY Cholecalciferol (Vitamin D3) [Vitamin D3] 2,000 unit PO DAILY fentaNYL [Duragesic 50MCG/HR] 1 patch TRANSDERM Q72H Citalopram Hydrobromide [CeleXA] 20 mg PO HS Gabapentin [Neurontin] 300 mg PO TID Discharge Medication List Aspirin EC [Ecotrin Low Dose] 81 mg PO HS 11/02/13 [History] Oxybutynin Chloride [Ditropan XL] 15 mg PO HS 11/02/13 [History] Topiramate [Topamax] 25 mg PO HS 11/02/13 [History] Cholecalciferol (Vitamin D3) [Vitamin D3] 2,000 unit PO DAILY 12/14/18 [History] Citalopram Hydrobromide [CeleXA] 20 mg PO HS 12/14/18 [History] Donepezil [Aricept] 5 mg PO DAILY 12/14/18 [History] Gabapentin [Neurontin] 300 mg PO TID 12/14/18 [History] Memantine [Namenda] 5 mg PO DAILY 12/14/18 [History] QUEtiapine FUMARATE [SEROquel] 75 mg PO HS 12/14/18 [History] Zolpidem [Ambien] 10 mg PO HS 12/14/18 [History] fentaNYL [Duragesic 50MCG/HR] 1 patch TRANSDERM Q72H 12/14/18 [History] risperiDONE [RisperDAL] 0.5 mg PO BID 12/14/18 [History] Follow up Appointment(s)/Referral(s): Abhishek Beltran DO [Primary Care Provider] - 12/27/18 10:20 am (with [employer] Dionne) [facility] Visiting Nurse, [NON-STAFF] - 1-2 Days Patient Instructions/Handouts: Multiple Sclerosis (DC) Discharge Disposition: HOME WITH HOME HEALTH SERVICES
--- NOTE | 2018-12-19 15:12 | MR ---
EXAMINATION TYPE: MR lumbar spine wo/w con DATE OF EXAM: 12/19/2018 COMPARISON: MRI lumbar spine August 30, 2014 HISTORY: Low back pain TECHNIQUE: Multiplanar, multisequence images of the lumbar spine is performed without and with IV contrast, util izing 8.5 mL intravenous Gadavist FINDINGS: Sagittal images of the lumbar spine show vertebral body heights and alignment to remain sat isfactory. Multilevel disc desiccation is redemonstrated but this space heights are fairly well-maint ained. Annular tear L5-S1 level is redemonstrated. No new disc herniations are evident on sagittal im ages. The conus medullaris remains normal in position and signal ending at T12-L1 disc space level. T here is increased prominence of posterior epidural fat in the lower lumbar spine from prior MRI. The bone marrow signal intensity is within normal limits. No suspicious enhancement is seen. Axial images show the T12-L1, L1-L2, and L2-L3 levels all to appear within normal limits. Axial images at the L3-L4 level show facet degenerative changes bilaterally otherwise are unremarkabl e. Axial images at the L4-L5 level show increased prominence of epidural fat and mild facet degenerative change bilaterally. There is diminished size of spinal canal this level due to increased epidural fa t. Axial images at the L5-S1 level show marked prominence of epidural fat in the more prominent than jo or MRI. Bilateral neural foramina are patent. IMPRESSION: Increasing epidural lipomatosis lower lumbar spine causes spinal canal narrowing into the sacrum. Correlate clinically for possible causes of glucocorticoid excess.
== END 2018-12-19 14:55 | disposition home health service (06) | DRG 59 ==
LOC: EC 14:33 → 1SOBS 19:36 → OBSVTOIN 12-16 11:06 → 3NMEDONC 12-17 09:50
PROVIDERS: ADMIT Hospitalist; ATTEND Hospitalist
DX: G35 Multiple sclerosis (principal); B37.0 Candidal stomatitis; E53.8 Deficiency of other specified B group vitamins; E66.9 Obesity, unspecified; F17.200 Nicotine dependence, unspecified, uncomplicated; F31.9 Bipolar disorder, unspecified; F41.9 Anxiety disorder, unspecified; I73.9 Peripheral vascular disease, unspecified; K22.4 Dyskinesia of esophagus; M79.7 Fibromyalgia; N18.9 Chronic kidney disease, unspecified; Z79.899 Other long term (current) drug therapy; Z85.41 Personal history of malignant neoplasm of cervix uteri; Z86.718 Personal history of other venous thrombosis and embolism; Z79.82 Long term (current) use of aspirin; Z88.8 Allergy status to other drugs, medicaments and biological substances
CPT/HCPCS: 36415; 71046; 72158; 74220; 80053; 81001; 82306; 82565; 82607; 82746; 83605; 84443; 84484; 84520; 85025; 85379; 85610; 85730; 86780; 87040; 93005; 94640; 94760; 96360; 96361; 99285

== ENCOUNTER 2019-02-07 11:03 | Inpatient (IN) | payer BC ==
[2019-02-07] MEDS ORDERED: SODIUM CHLORIDE 0.9% 1,000 ML IV STA ×2 (11:33→12:52)
--- NOTE | 2019-02-07 11:38 | ED ---
General Adult HPI - General Chief complaint: Weakness Stated complaint: Hypotension Time Seen by Provider: 02/07/19 11:14 Source: patient, EMS, RN notes reviewed Mode of arrival: EMS Limitations: no limitations - History of Present Illness Initial comments: Patient is a pleasant 53-year-old female presenting to the emergency Department with generalized weakness. Symptoms are most part started this morning. Patient has had some increased weakness over the past month or couple of months associated with EMS. Patient has not been able to make it to the restroom by herself recently and needs help for activities of daily living. Patient did have some urinary incontinence today. No back pain. No abdominal pain or chest pain. No isolated area of weakness. No confusion. Patient does have severe multiple sclerosis. Patient went to her neurologist today was found to be hypotensive with systolic blood pressure in the 80s. No dyspnea. Patient states she has been not eating or drinking well the past several days. - Related Data Home Medications Medication Instructions Recorded Confirmed Aspirin EC [Ecotrin Low Dose] 81 mg PO HS 11/02/13 02/07/19 Topiramate [Topamax] 25 mg PO HS 11/02/13 02/07/19 Cholecalciferol (Vitamin D3) 2,000 unit PO DAILY 12/14/18 02/07/19 [Vitamin D3] Citalopram Hydrobromide [CeleXA] 40 mg PO HS 12/14/18 02/07/19 Donepezil [Aricept] 5 mg PO DAILY 12/14/18 02/07/19 Gabapentin [Neurontin] 300 mg PO TID 12/14/18 02/07/19 Memantine [Namenda] 5 mg PO DAILY 12/14/18 02/07/19 QUEtiapine FUMARATE [SEROquel] 75 mg PO HS 12/14/18 02/07/19 Zolpidem [Ambien] 10 mg PO HS 12/14/18 02/07/19 risperiDONE [RisperDAL] 0.5 mg PO BID 12/14/18 02/07/19 Baclofen 10 mg PO TID PRN 02/07/19 02/07/19 Dimethyl Fumarate [Tecfidera] 240 mg PO BID 02/07/19 02/07/19 Ibuprofen 800 mg PO BID PRN 02/07/19 02/07/19 Ranitidine HCl [Zantac] 150 mg PO DAILY 02/07/19 02/07/19 fentaNYL [Duragesic 37.5 MCG/HR] 1 patch TOPICAL Q72H 02/07/19 02/07/19 Allergies Allergy/AdvReac Type Severity Reaction Status Date / Time blue dye Allergy Rash/Hives Verified 02/07/19 13:15 Neuromuscular Blockers, AdvReac Nausea & Verified 02/07/19 13:15 Steroidal Vomiting [Steroidal Neuromuscular Blockers] Review of Systems ROS Statement: Those systems with pertinent positive or pertinent negative responses have been documented in the HPI. ROS Other: All systems not noted in ROS Statement are negative. Constitutional: Denies: fever Eyes: Denies: eye pain ENT: Denies: ear pain Respiratory: Denies: cough, dyspnea Cardiovascular: Denies: chest pain Endocrine: Reports: fatigue Gastrointestinal: Denies: abdominal pain, vomiting Genitourinary: Denies: dysuria Musculoskeletal: Denies: back pain Skin: Denies: rash Neurological: Reports: as per HPI, weakness. Denies: headache, confusion Past Medical History Past Medical History: Cancer, Deep Vein Thrombosis (DVT), Fibromyalgia, Memory Impairment, Pneumonia, Renal Disease Additional Past Medical History / Comment(s): MIGRANES, MULTIPLE SCLEROSIS, BRAIN LESIONS, PVD, SOB, CONSTIPATION, DIARRHEA, KIDNEY INFECTION, UTI, BACK PAIN, ANEMIA, HYPERTHYROID, CERVICAL CA, CARPAL TUNNEL,septicemia,polyneuropathy,HADHEMODIALYSIS TWICE, HAD CHEMOTHERAPY FOR TX OF MS, MOTORIZED CHAIR-ABLE TO STAND TO TRANSFER. History of Any Multi-Drug Resistant Organisms: None Reported Past Surgical History: Tonsillectomy, Tubal Ligation Additional Past Surgical History / Comment(s): DIALYSIS CATHETER (REMOVED), BIOP SY (UNKNOWN TYPE), CRYO SURGERY FOR CERVICAL CA, D&C. Past Anesthesia/Blood Transfusion Reactions: No Reported Reaction Past Psychological History: Anxiety, Bipolar, Depression Smoking Status: Former smoker Past Alcohol Use History: None Reported Past Drug Use History: None Reported - Past Family History Father Family Medical History: Cancer Additional Family Medical History / Comment(s): BRAIN Mother Family Medical History: Cancer Additional Family Medical History / Comment(s): BREAST General Exam Limitations: no limitations General appearance: alert, in no apparent distress Head exam: Present: atraumatic Eye exam: Present: normal appearance, PERRL, EOMI. Absent: nystagmus ENT exam: Present: normal oropharynx Neck exam: Present: normal inspection Respiratory exam: Present: rhonchi Cardiovascular Exam: Present: tachycardia GI/Abdominal exam: Present: soft. Absent: distended, tenderness, guarding, rebound, rigid, pulsatile mass Extremities exam: Present: normal inspection. Absent: pedal edema, calf tenderness Neurological exam: Present: alert, oriented X3, CN II-XII intact Expanded Neurological exam: Present: protecting the airway Patient oriented to: Present: person, place, time Speech: Present: fluid speech Cranial nerves: EOM's Intact: Normal Motor strength exam: RUE: 4, LUE: 4, RLE: 4, LLE: 4 Eye Response: (4) open spontaneously Motor Response: (6) obeys commands Verbal Response: (5) oriented Psychiatric exam: Present: normal affect, normal mood Skin exam: Present: normal color Course Vital Signs 02/07/19 02/07/19 02/07/19 11:06 11:10 11:30 Temperature 98.5 F Pulse Rate 130 H 130 H Respiratory 22 20 Rate Blood Pressure 104/93 122/90 O2 Sat by Pulse 87 L 92 L 92 L Oximetry 02/07/19 02/07/19 02/07/19 11:40 11:50 12:00 Temperature Pulse Rate 131 H 129 H Respiratory 20 22 Rate Blood Pressure 111/70 111/70 111/70 O2 Sat by Pulse 84 L Oximetry 02/07/19 02/07/19 02/07/19 12:10 13:00 13:10 Temperature Pulse Rate 130 H 123 H 123 H Respiratory 20 20 16 Rate Blood Pressure 112/83 128/95 98/82 O2 Sat by Pulse 95 96 Oximetry 02/07/19 02/07/19 02/07/19 13:40 13:50 16:03 Temperature Pulse Rate 118 H 118 H 115 H Respiratory 20 20 22 Rate Blood Pressure 103/91 104/71 118/82 O2 Sat by Pulse 96 98 97 Oximetry - Reevaluation(s) Reevaluation #1: 02/07/19 16:20 Patient reevaluated. Patient family updated. Daughter states patient has been drowsy intermittently. Patient and daughter are receptive to computed tomography scan of the head. Patient still denies dyspnea. After long discussion patient later states that earlier this morning she did feel somewhat short of breath. Case was discussed with Dr. hines, who will admit covering for Dr. Beltran. Pulmonary will be placed on consult. EKG Findings - EKG Comments: EKG Findings:: Sinus tachycardia 131. AR 122. QRS 82. QT 286. QTc 422. Normal axis. Normal QRS. No acute ST change Medical Decision Making - Lab Data Result diagrams: 02/07/19 11:16 02/07/19 11:16 Lab Results 02/07/19 02/07/19 02/07/19 Range/Units 11:16 11:16 11:16 WBC 7.9 (3.8-10.6) k/uL RBC 5.38 (3.80-5.40) m/uL Hgb 13.6 (11.4-16.0) gm/dL Hct 44.4 (34.0-46.0) % MCV 82.6 (80.0-100.0) fL MCH 25.3 (25.0-35.0) pg MCHC 30.6 L (31.0-37.0) g/dL RDW 15.8 H (11.5-15.5) % Plt Count 181 D (150-450) k/uL Neutrophils % 77 % Lymphocytes % 17 % Monocytes % 4 % Eosinophils % 1 % Basophils % 0 % Neutrophils # 6.1 (1.3-7.7) k/uL Lymphocytes # 1.3 (1.0-4.8) k/uL Monocytes # 0.3 (0-1.0) k/uL Eosinophils # 0.1 (0-0.7) k/uL Basophils # 0.0 (0-0.2) k/uL Hypochromasia Marked PT (9.0-12.0) sec INR (<1.2) APTT (22.0-30.0) sec Sodium 143 (137-145) mmol/L Potassium 3.3 L (3.5-5.1) mmol/L Chloride 107 (98-107) mmol/L Carbon Dioxide 25 (22-30) mmol/L Anion Gap 11 mmol/L BUN 11 (7-17) mg/dL Creatinine 1.65 H (0.52-1.04) mg/dL Est GFR (CKD-EPI)AfAm 41 (>60 ml/min/1.73 sqM) Est GFR (CKD-EPI)NonAf 35 (>60 ml/min/1.73 sqM) Glucose 160 H (74-99) mg/dL Plasma Lactic Acid Dion 1.8 (0.7-2.0) mmol/L Calcium 9.3 (8.4-10.2) mg/dL Phosphorus 4.5 (2.5-4.5) mg/dL Magnesium 1.6 (1.6-2.3) mg/dL Total Bilirubin 0.4 (0.2-1.3) mg/dL AST 18 (14-36) U/L ALT 13 (9-52) U/L Alkaline Phosphatase 90 (38-126) U/L Creatine Kinase 47 (30-135) U/L Troponin I (0.000-0.034) ng/mL Total Protein 6.4 (6.3-8.2) g/dL Albumin 3.6 (3.5-5.0) g/dL TSH 1.620 (0.465-4.680) mIU/L Free T4 1.41 (0.78-2.19) ng/dL Free T3 pg/mL 3.5 (2.8-5.3) pg/ml Urine Color Urine Appearance (Clear) Urine pH (5.0-8.0) Ur Specific [place] (1.001-1.035) Urine Protein (Negative) Urine Glucose (UA) (Negative) Urine Ketones (Negative) Urine Blood (Negative) Urine Nitrite (Negative) Urine Bilirubin (Negative) Urine Urobilinogen (<2.0) mg/dL Ur Leukocyte Esterase (Negative) Urine RBC (0-5) /hpf Urine WBC (0-5) /hpf Ur Squamous Epith Cells (0-4) /hpf Hyaline Casts (0-2) /lpf Urine Mucus (None) /hpf 02/07/19 02/07/19 02/07/19 Range/Units 11:16 11:16 12:57 WBC (3.8-10.6) k/uL RBC (3.80-5.40) m/uL Hgb (11.4-16.0) gm/dL Hct (34.0-46.0) % MCV (80.0-100.0) fL MCH (25.0-35.0) pg MCHC (31.0-37.0) g/dL RDW (11.5-15.5) % Plt Count (150-450) k/uL Neutrophils % % Lymphocytes % % Monocytes % % Eosinophils % % Basophils % % Neutrophils # (1.3-7.7) k/uL Lymphocytes # (1.0-4.8) k/uL Monocytes # (0-1.0) k/uL Eosinophils # (0-0.7) k/uL Basophils # (0-0.2) k/uL Hypochromasia PT 10.4 (9.0-12.0) sec INR 1.0 (<1.2) APTT 18.2 L (22.0-30.0) sec Sodium (137-145) mmol/L Potassium (3.5-5.1) mmol/L Chloride (98-107) mmol/L Carbon Dioxide (22-30) mmol/L Anion Gap mmol/L BUN (7-17) mg/dL Creatinine (0.52-1.04) mg/dL Est GFR (CKD-EPI)AfAm (>60 ml/min/1.73 sqM) Est GFR (CKD-EPI)NonAf (>60 ml/min/1.73 sqM) Glucose (74-99) mg/dL Plasma Lactic Acid Dion (0.7-2.0) mmol/L Calcium (8.4-10.2) mg/dL Phosphorus (2.5-4.5) mg/dL Magnesium (1.6-2.3) mg/dL Total Bilirubin (0.2-1.3) mg/dL AST (14-36) U/L ALT (9-52) U/L Alkaline Phosphatase (38-126) U/L Creatine Kinase (30-135) U/L Troponin I <0.012 (0.000-0.034) ng/mL Total Protein (6.3-8.2) g/dL Albumin (3.5-5.0) g/dL TSH (0.465-4.680) mIU/L Free T4 (0.78-2.19) ng/dL Free T3 pg/mL (2.8-5.3) pg/ml Urine Color Yellow Urine Appearance Clear (Clear) Urine pH 5.5 (5.0-8.0) Ur Specific [place] 1.009 (1.001-1.035) Urine Protein Trace H (Negative) Urine Glucose (UA) Negative (Negative) Urine Ketones Negative (Negative) Urine Blood Trace H (Negative) Urine Nitrite Negative (Negative) Urine Bilirubin Negative (Negative) Urine Urobilinogen <2.0 (<2.0) mg/dL Ur Leukocyte Esterase Negative (Negative) Urine RBC 1 (0-5) /hpf Urine WBC 5 (0-5) /hpf Ur Squamous Epith Cells <1 (0-4) /hpf Hyaline Casts 7 H (0-2) /lpf Urine Mucus Rare H (None) /hpf Disposition Clinical Impression: Generalized weakness, Hypotensive episode Disposition: ADMITTED IP TO THIS HOSP Is patient prescribed a controlled substance at d/c from ED?: No Referrals: Abhishek Beltran DO [Primary Care Provider] - 1-2 days Decision Time: 16:22
--- NOTE | 2019-02-07 11:54 | XR ---
EXAMINATION TYPE: XR chest 2V DATE OF EXAM: 02/07/2019 COMPARISON: 12/14/2018 TECHNIQUE: PA and lateral views submitted. HISTORY: Weakness and hypotension FINDINGS: The lungs are clear and there is no pneumothorax, pleural effusion, or focal pneumonia. IMPRESSION: 1. No acute process.
[2019-02-07 12:00] LABS: Albumin 3.6 g/dL (3.5-5.0); Calcium 9.3 mg/dL (8.4-10.2); Magnesium 1.6 mg/dL (1.6-2.3); Phosphorus 4.5 mg/dL (2.5-4.5); Potassium 3.3 mmol/L (3.5-5.1); Total Bilirubin 0.4 mg/dL (0.2-1.3); Total Protein 6.4 g/dL (6.3-8.2)
[2019-02-07 12:04] LABS: Basophils % (A) 0 %; Eosinophils # (A) 0.1 k/uL (0-0.7); Eosinophils % (A) 1 %; HCT 44.4 % (34.0-46.0); HGB 13.6 gm/dL (11.4-16.0); Hypochromasia Marked; Lymphocytes # (A) 1.3 k/uL (1.0-4.8); Lymphocytes % (A) 17 %; MCH 25.3 pg (25.0-35.0); MCHC 30.6 g/dL (31.0-37.0); MCV 82.6 fL (80.0-100.0); Mean Platelet Volume 7.4; Monocytes # (A) 0.3 k/uL (0-1.0); Monocytes % (A) 4 %; Neutrophils # (A) 6.1 k/uL (1.3-7.7); Neutrophils % (A) 77 %; RBC 5.38 m/uL (3.80-5.40); RDW 15.8 % (11.5-15.5); WBC 7.9 k/uL (3.8-10.6)
[2019-02-07 12:06] LABS: Platelet Count 181 k/uL (150-450)
[2019-02-07 12:08] LABS: Prothrombin Time 10.4 sec (9.0-12.0)
[2019-02-07 12:14] LABS: Partial Thromboplastin Time 18.2 sec (22.0-30.0)
[2019-02-07 12:16] LABS: T4, Free (Free Thyroxine) 1.41 ng/dL (0.78-2.19)
[2019-02-07 13:20] LABS: Appearance,Urine Clear (Clear); Bilirubin,Urine Negative (Negative); Blood,Urine Trace (Negative); Color,Urine Yellow; Glucose,Urine (UA) Negative (Negative); Hyaline Casts,Urine 7 /lpf (0-2); Ketones,Urine Negative (Negative); Leukocyte Esterase,Urine Negative (Negative); Mucus,Urine Rare /hpf; Nitrite,Urine Negative (Negative); PH, Urine 5.5 (5.0-8.0); Protein,Urine Trace (Negative); RBC,Urine 1 /hpf (0-5); Specific Gravity,Urine 1.009 (1.001-1.035); Squamous Epithelial Cell,Urine <1 /hpf (0-4); Urobilinogen,Urine <2.0 mg/dL (<2.0); WBC,Urine 5 /hpf (0-5)
--- NOTE | 2019-02-07 15:58 | NM ---
EXAMINATION TYPE: NM pul vent and perfuse DATE OF EXAM: 02/07/2019 COMPARISON: Chest x-ray 619 HISTORY: Hypoxia TECHNIQUE: Utilizing inhalation of 34.3 mCi Tc 99m DTPA aerosol and intravenous injection of 5.17 mC i of Tc 99m MAA, ventilation and perfusion images are acquired post injection in multiple projections . FINDINGS: There is very little uptake within the lungs on ventilation images due to central clumping of radiotr acer which results in nearly nondiagnostic. Could not exclude reduced perfusion of the right lower lo be. IMPRESSION: 1. Nearly nondiagnostic exam due to little or no uptake within the lungs secondary to central clumpin g of the radiotracer likely in the basis of COPD. Cannot exclude a area of reduced perfusion to the r ight lower lobe recommend pulmonary CTA given the limitation of this exam.
[2019-02-07] MEDS ORDERED: NALOXONE 0.4 MG/ML 1 ML VIAL IV PRN (16:23)
--- NOTE | 2019-02-07 17:39 | CT ---
EXAMINATION: CT brain wo con DATE AND TIME: 02/07/2019 5:23 PM CLINICAL INDICATION: PHH; ams TECHNIQUE: Standard departmental protocol.; 1115.4; COMPARISON: CT 09/07/2013 FINDINGS: The calvarium is intact. There is no intracranial hemorrhage. There is no intracranial mass or mass effect. No definite new intra-axial or extra-axial attenuation defect. The paranasal sinuses, middle ear cavities, and mastoid sinus air cells are clear. The orbits are unremarkable. IMPRESSION: NO ACUTE PROCESS.
[2019-02-07] MEDS: SODIUM CHLORIDE 0.9% 1,000 ML IV SCH (17:56)
[2019-02-07] MEDS ORDERED: HEPARIN SODIUM,PORCINE 5,000 UNIT/ML 1 ML VIAL IV PRN (18:04)
[2019-02-07] MEDS ORDERED: HEPARIN SODIUM,PORCINE 10,000 UNIT/ML 1 ML VIAL IV ONE ×2 (18:04→20:00)
[2019-02-07 19:22] VITALS: BMI 24.5
[2019-02-07] MEDS: HEPARIN SOD,PORK IN 0.45% NACL 25,000 UNIT in 0.45% NACL 1 250ML.BAG IV SCH (19:56)
[2019-02-07] MEDS ORDERED: IBUPROFEN 800 MG TAB PO PRN (20:33)
[2019-02-07] MEDS ORDERED: QUEtiapine 25 MG TAB PO SCH (21:00)
[2019-02-07] MEDS ORDERED: ZOLPIDEM 10 MG TAB PO SCH (21:00)
[2019-02-07] MEDS: ASPIRIN 81 MG PO SCH (21:37)
[2019-02-07] MEDS: GABAPENTIN 300 MG CAP PO SCH (21:37)
[2019-02-07] MEDS: risperiDONE 0.5 MG TAB PO SCH (21:38)
[2019-02-07] MEDS: CITALOPRAM HYDROBROMIDE 20 MG TAB PO SCH (21:38)
[2019-02-07] MEDS: TOPIRAMATE 25 MG TAB PO SCH (21:38)
[2019-02-07] MEDS ORDERED: Dimethyl Fumarate [Tecfidera] PO SCH (22:00)
[2019-02-08] MEDS: SODIUM CHLORIDE 0.9% 1,000 ML IV SCH ×3 (00:57→17:20)
[2019-02-08] MEDS: BACLOFEN 10 MG TAB PO PRN ×2 (01:01→22:00)
[2019-02-08] MEDS ORDERED: NON FORMULARY DRUG (Dimethyl Fumarate [Tecfidera] 240 MG) PO SCH (09:00)
[2019-02-08] MEDS ORDERED: MEMANTINE 5 MG TAB PO SCH (09:00)
[2019-02-08] MEDS: FAMOTIDINE 20 MG TAB PO SCH (09:13)
[2019-02-08] MEDS: DONEPEZIL 5 MG TAB PO SCH (09:13)
[2019-02-08] MEDS: CHOLECALCIFEROL 1,000 UNIT TAB PO SCH (09:13)
[2019-02-08] MEDS: GABAPENTIN 300 MG CAP PO SCH ×2 (09:14→21:58)
[2019-02-08] MEDS: risperiDONE 0.5 MG TAB PO SCH (09:15)
[2019-02-08 09:55] LABS: Calcium 8.3 mg/dL (8.4-10.2); Potassium 3.3 mmol/L (3.5-5.1)
[2019-02-08 10:03] LABS: Anisocytosis Slight; Basophils % (A) 0 %; Eosinophils # (A) 0.1 k/uL (0-0.7); Eosinophils % (A) 2 %; HCT 36.9 % (34.0-46.0); HGB 11.3 gm/dL (11.4-16.0); Hypochromasia Marked; Lymphocytes # (A) 1.8 k/uL (1.0-4.8); Lymphocytes % (A) 35 %; MCH 25.9 pg (25.0-35.0); MCHC 30.6 g/dL (31.0-37.0); MCV 84.7 fL (80.0-100.0); Mean Platelet Volume 7.8; Monocytes # (A) 0.2 k/uL (0-1.0); Monocytes % (A) 4 %; Neutrophils % (A) 58 %; Platelet Count 137 k/uL (150-450); Poikilocytosis Slight; RBC 4.36 m/uL (3.80-5.40); RDW 16.2 % (11.5-15.5); WBC 5.2 k/uL (3.8-10.6)
--- NOTE | 2019-02-08 12:05 | CONS ---
CONSULTATION PULMONARY/CRITICAL CARE CONSULTATION: DATE OF SERVICE: 02/08/2019 This is a 53-year-old female who we were asked to see in consultation. The patient is very lethargic and sleepy, barely arousable. I can get no history from her. Apparently she was placed on our list because of concerns of possible pulmonary embolism. The patient apparently mentioned in the emergency room that she had generalized weakness. Apparently, she has been weak for at least a day or so prior to admission and her weakness had apparently been going on for more than a month, but more so over the day prior to admission. Anyway, she was brought in by EMS. She apparently was not able to make it to the restroom by herself because of weakness and fatigue. She apparently also had some urinary incontinence. The history is very vague. The patient, like I say is currently very confused and disoriented. On deep sternal rub and yelling at the patient, she does arouse and seems very sleepy. Looking at her med list, she is on multiple drugs which have an effect on depressing the central nervous system. Anyway, apparently she was also found to have some mild desaturation or low blood oxygen levels, and for that reason I was consulted. A chest x-ray was done. Also a ventilation-perfusion lung scan was done and was nondiagnostic. The patient does have a history of MS. She also was seen by her neurologist on the day of admission. Blood pressure was apparently low and for that reason, she was directed to the ER by EMS. Again, she is barely arousable. She does arouse on deep sternal rub or when one yells at the patient. HOME MEDICATIONS: Include aspirin, Topamax, vitamin D3, Celexa, Aricept, Neurontin, Namenda, Seroquel, Ambien, Risperdal, baclofen, Tecfidera, ibuprofen, Zantac, and fentanyl patch. ALLERGIES: Include BLUE DYES, NEUROMUSCULAR BLOCKERS and STEROIDS. MEDICAL HISTORY: Positive for cervical cancer, deep venous thrombosis, fibromyalgia, dementia, pneumonia, chronic kidney disease, migraine, multiple sclerosis, peripheral vascular disease, constipation, diarrhea, UTI, kidney infection, back pain, hyperthyroidism, carpal tunnel syndrome, septicemia, neuropathy, and generalized muscle weakness. SURGICAL HISTORY: Includes among other things, tonsillectomy, tubal ligation, a dialysis catheter insertion and subsequent removal, some sort of biopsy, cryosurgery for cervical cancer, and D and C. SOCIAL HISTORY: Positive for previous tobacco use. Apparently there is no illicit drug use or alcohol use. FAMILY HISTORY: Positive for father with brain cancer and a mother with breast cancer. OCCUPATIONAL HISTORY: She currently is disabled and does not work. REVIEW OF SYSTEMS: The patient is barely able to give any sort of history at all. Review of systems accordingly is very limited. It appears based on the documentation so far in the medical record that her major reason for coming into the emergency room was weakness, particularly in her extremities. There is also some vague history of possible shortness of breath or low blood saturations. PHYSICAL EXAMINATION: Current vital signs are reviewed. Temperature is 98.6, heart rate 106, respiratory rate 18, blood pressure 102/69 mean 84, 4 L saturation 97%. Appears in no acute distress. Again she barely arouses. No audible wheezing. No use of accessory muscles. HEENT: Examination is grossly unremarkable. Nasal O2 in place. NECK: Supple. Full range of motion. No adenopathy or thyromegaly. Neck veins are flat. CARDIOVASCULAR: Examination reveals regular rhythm and rate. S1, S2 normal. No S3, S4, or murmur. Heart rate is 105 heart beats per minute. LUNGS: Reveal mostly clear breath sounds. She does not take real deep breaths. A few scattered rhonchi. No wheezes or crackles. ABDOMEN: Soft. Bowel sounds are heard. EXTREMITIES: Intact. Mild edema. SKIN: Without rash. NEUROLOGIC: Examination is very difficult to assess. LAB DATA: Reviewed. White count 5.6, hemoglobin 9.3, hematocrit 26.9, platelet count 137,000. PTT 53.6, INR is normal. Sodium 143, potassium 3.3, chloride is 112, CO2 is 27. BUN and creatinine were 10 and 1.55 and anion gap is 4. The rest of the metabolic profile is normal. Urine is essentially negative. Chest x-ray in my opinion is normal. Perfusion lung scan is certainly not diagnostic. Medications are reviewed. ASSESSMENT: 1. Mental status changes, which may be on the basis of hypoventilation from excessive medications which can be central to the pressing effect on the nervous system. 2. Suspect alveolar hypoventilation. 3. Excessive sedative drugs. 4. Multiple sclerosis. 5. History of cervical cancer. 6. History of deep venous thrombosis. 7. History of fibromyalgia. 8. History of dementia. 9. Previous history of pneumonia. 10.History of migraine cephalgia. 11.History of peripheral vascular disease. 12.History of constipation, history of kidney infections and urinary tract infections. 13.History of chronic back pain. 14.Hyperthyroidism. 15.History of carpal tunnel. PLAN: I am going to go through the medications and they should discontinue any medication that would have a central depressing effect. Will get a routine blood gas on the patient. I do not believe she has had a pulmonary embolism. If possible, CT angiogram should be done. Alternatively Dopplers of the lower extremities could be ordered. Additional recommendations and suggestions are forthcoming. She looks pretty stable to me at this time. Will continue to follow. MMODL / IJN: [id number] /
[2019-02-08] MEDS: HEPARIN SOD,PORK IN 0.45% NACL 25,000 UNIT in 0.45% NACL 1 250ML.BAG IV SCH (13:29)
[2019-02-08 13:58] LABS: ABG Base Excess -3.8 mmol/L; ABG HCO3 23 mmol/L (21-25); ABG Oxygen Saturation 95.4 % (94-97); ABG PCO2 51 mmHg (35-45); ABG PH 7.27 (7.35-7.45); ABG PO2 79 mmHg (83-108); ABG TCO2 25 mmol/L (19-24); Allen Test Performed? Yes
[2019-02-08] MEDS ORDERED: METOPROLOL TARTRATE 25 MG TAB PO STA (13:58)
--- NOTE | 2019-02-08 13:59 | P.CNNES ---
History of Present Illness Consult date: 02/08/19 Reason for Consult: MS; Generalized Weakness Chief complaint: MS; Generalized Weakness History of Present Illness: REFERRING PHYSICIAN: Dr. Timi Cervantes HISTORY OF PRESENT ILLNESS: Thank you for allowing me to evaluate Ms. Jada Faustin. Ms. Jada Faustin is a 53-year-old woman with past medical history of DVT, fibromyalgia, memory impairment, migraines, multiple sclerosis, polyneuropathy, renal disease, presented to the [facility] for generalized weakness. Patient states that she was diagnosed with multiple sclerosis about 10 years ago. Patient states that she only had one MS flare where she required IV steroids, and this was in December 2018. Prior to that, patient's initial symptoms were that of lotion when the weakness and difficulty with gait, and patient was never able to return to her baseline. Patient has been on Tecfidera, but because her insurance stopped approving this medication, patient had been off Tecfidera since about 5 months ago. During her last MS flare, patient felt exhausted when she woke up and her face arms and legs felt numb. At the time she was also feeling generalized weakness, sore and feeling achy. Patient states that the weakness she had yesterday was not like her MS flare. During her MS flare, patient felt like her arm were under a massive gravity effect where she could not move her arms against gravity. She had no worsening focal weakness of arms or legs with this episode. Patient denies any recent fever, sickness, coughing, sneezing. However patient reports nausea, vomiting, diarrhea and constipation for about a week. Patient remember eating a day out of the ordinary. No one is sick at home. Patient has not traveled recently. Patient denies ever having visual deficits. PAST MEDICAL HISTORY: DVT, fibromyalgia, memory impairment, migraines, multiple sclerosis, polyneuropathy, end-stage renal disease on hemodialysis PAST SURGICAL HISTORY: Tonsillectomy, tubal ligation HOME MEDICATIONS: Aspirin 81, Topamax 25 daily at bedtime, Risperdal 0.5 mg twice a day, Seroquel 75 mg daily at bedtime, Memantine 5 mg daily, donepezil 5 mg daily, zolpidem 10 mg daily at bedtime, vitamin D 3, citalopram 40 mg daily at bedtime, gabapentin 300 mg twice a day, Tecfidera 2040 mg daily, fentanyl patch to 72 hours, baclofen 10 mg when necessary, Zantac 150 mg daily, ibuprofen when necessary ALLERGIES: Blue dye, neuromuscular blockers, steroidal SOCIAL HISTORY: Current smoker. 2 packs per day since age 13. Denies any alcohol use. Patient has been using a motorized wheelchair for last 5 years. Patient lives with her and daughter and grandson, and the all help take care of the patient. FAMILY HISTORY: Father had brain cancer and mother had breast cancer REVIEW OF SYSTEMS: The 14 systems are reviewed and no additional points are identified compared to the review of systems documented history and physical PHYSICAL EXAMINATION: VITAL SIGNS: Temperature 98.6 pulse rate 106 respiratory rate 18 blood pressure 102/69 oxygen saturation 97% on nasal cannula 4 L GEN.: NAD, pleasant and cooperative HEENT: NCAT, sclera without icterus NECK: Supple SKIN AND EXTREMITIES: Warm to touch, no edema NEURO: MENTAL STATUS: Patient alert and oriented to self, place, time. Able to name the current president. Speech fluent, able to name and repeat, following all commands readily but at times takes a little time to answer questions. CRANIAL NERVES II THROUGH XII: II: Pupils are equal and reactive to light symmetrically. Visual orr are intact. III, IV, : No ptosis. Extraocular movements full. No nystagmus. V: Facial sensation intact from V1-3. VII. No clear facial asymmetry. VIII: Hearing intact to finger rub bilaterally. IX, X: Symmetric palate elevation. XII: Shoulder shrug intact. XII: Tongue midline without fasciculation or atrophy. MOTOR: Normal bulk/tone. No pronator drift or tremor. Strength is 5/5 grossly in her bilateral upper extremities except for her interossei which are about 4 minus/5. patient also has a mild wrist drop. 4+/5 strength in bilateral lower extremity SENSORY: Intact to light touch, temperature in all 4 extremities. REFLEXES: 1+ throughout. Toes are mute No clonus. Bambi's is absent COORDINATION: Finger to nose. No dysmetria. GAIT: Deferred as patient states that she is barely able to stand for about 2-3 seconds before she has to sit. Patient stated that she is unable to walk. DIAGNOSTIC TESTING: LABORATORY: WBC 7.9 1113.6 platelets 181 PT 10.4 INR 1.0 sodium 143 potassium 3.3 chloride 107 BUN 11 creatinine 1.65 calcium 9.3 AST 18 ALT 13 alk phos 90 troponins <0.012 TSH 1.62 free T4 1 0.41 urinalysis negative IMAGING: CT brain without contrast 02/07/2019: No acute process. MRI lumbar spine with and without contrast 12/19/2018: Increasing epidural lipomatosis lower lumbar spine causes spinal cord narrowing into the sacrum. Correlate clinically for possible cause of glucocorticoid excess. A few simple appearing cysts scattered throughout the visualized portion of the left kidney largest measures 2.7 cm. There is suggestion of spinal medical he was splenic study to lower pole level of left medial same axial image. ASSESSMENT and PLAN: Ms. Jada Faustin is a 53-year-old woman with past medical history of DVT, fibromyalgia, memory impairment, migraines, multiple sclerosis, polyneuropathy, renal disease, presented to the [facility] for generalized weakness. Patient reporting one week of nausea and vomiting along with diarrhea and constipation. Patient was found with systolic blood pressure in the 80s in outpatient clinic. Her blood pressure has been more stable in the 100-130s. Patient states that she feels better with extra oxygen being provided. Patient recently underwent 5 days of steroid course in December 2018. Patient continues to be off her MS medications. This patient states that she feels better already with oxygen, and this episode is very different from her previous MS flare, no history this time. Unclear what her last MRI of brain with and without contrast loss. On our record, last brain MRI and C-spine MRI was on 09/03/2017 which showed stable white matter lesions unchanged in size number morphology. Patient needs a follow-up neurology appointment with her primary neurologist for r estarting or choosing a different MS medication and also for repeat MRI brain and C-spine with and without contrast if not done recently. Neurology will sign off at this time. Please feel free to contact Neurology again if with additional questions or concerns. Past Medical History Past Medical History: Cancer, Deep Vein Thrombosis (DVT), Fibromyalgia, Memory Impairment, Pneumonia, Renal Disease Additional Past Medical History / Comment(s): MIGRANES, MULTIPLE SCLEROSIS, BRAIN LESIONS, PVD, SOB, CONSTIPATION, DIARRHEA, KIDNEY INFECTION, UTI, BACK PAIN, ANEMIA, HYPERTHYROID, CERVICAL CA, CARPAL TUNNEL,septicemia,danish yneuropathy,HADHEMODIALYSIS TWICE, HAD CHEMOTHERAPY FOR TX OF MS, MOTORIZED CHAIR-ABLE TO STAND TO TRANSFER. History of Any Multi-Drug Resistant Organisms: None Reported Past Surgical History: Tonsillectomy, Tubal Ligation Additional Past Surgical History / Comment(s): DIALYSIS CATHETER (REMOVED), BIOPSY (UNKNOWN TYPE), CRYO SURGERY FOR CERVICAL CA, D&C. Past Anesthesia/Blood Transfusion Reactions: No Reported Reaction Past Psychological History: Anxiety, Bipolar, Depression Smoking Status: Former smoker Past Alcohol Use History: None Reported Past Drug Use History: None Reported - Past Family History Father Family Medical History: Cancer Additional Family Medical History / Comment(s): BRAIN Mother Family Medical History: Cancer Additional Family Medical History / Comment(s): BREAST Medications and Allergies Home Medications Medication Instructions Recorded Confirmed Type Aspirin EC [Ecotrin Low Dose] 81 mg PO HS 11/02/13 02/07/19 History Topiramate [Topamax] 25 mg PO HS 11/02/13 02/07/19 History Cholecalciferol (Vitamin D3) 2,000 unit PO DAILY 12/14/18 02/07/19 History [Vitamin D3] Citalopram Hydrobromide [CeleXA] 40 mg PO HS 12/14/18 02/07/19 History Donepezil [Aricept] 5 mg PO DAILY 12/14/18 02/07/19 History Gabapentin [Neurontin] 300 mg PO BID 12/14/18 02/07/19 History Memantine [Namenda] 5 mg PO DAILY 12/14/18 02/07/19 History QUEtiapine FUMARATE [SEROquel] 75 mg PO HS 12/14/18 02/07/19 History Zolpidem [Ambien] 10 mg PO HS 12/14/18 02/07/19 History risperiDONE [RisperDAL] 0.5 mg PO BID 12/14/18 02/07/19 History Baclofen 10 mg PO TID PRN 02/07/19 02/07/19 History Dimethyl Fumarate [Tecfidera] 240 mg PO DAILY 02/07/19 02/07/19 History Ibuprofen 800 mg PO BID PRN 02/07/19 02/07/19 History Ranitidine HCl [Zantac] 150 mg PO DAILY 02/07/19 02/07/19 History fentaNYL [Duragesic 37.5 MCG/HR] 1 patch TOPICAL Q72H 02/07/19 02/07/19 History Allergies Allergy/AdvReac Type Severity Reaction Status Date / Time blue dye Allergy Rash/Hives Verified 02/07/19 19:01 Neuromuscular Blockers, AdvReac Nausea & Verified 02/07/19 19:01 Steroidal Vomiting [Steroidal Neuromuscular Blockers] Physical Examination - Vital Signs Vital Signs: Vital Signs Temp Pulse Pulse Resp BP BP Pulse Ox 02/08/19 04:35 98.6 F 106 H 18 102/69 97 02/07/19 22:03 14 94 L 02/07/19 21:59 12 79 L 02/07/19 19:58 97.9 F 115 H 18 116/78 91 L 02/07/19 18:14 113 H 16 117/79 99 02/07/19 17:20 98.0 F 110 H 18 118/86 99 02/07/19 17:00 112 H 18 115/79 99 02/07/19 16:40 113 H 20 119/91 96 02/07/19 16:20 115 H 20 118/76 92 L 02/07/19 16:03 115 H 22 118/82 97 02/07/19 14:00 118 H 18 104/71 96 02/07/19 13:50 118 H 20 104/71 98 02/07/19 13:40 118 H 20 103/91 96 02/07/19 13:10 123 H 16 98/82 96 02/07/19 13:00 123 H 20 128/95 95 02/07/19 12:10 130 H 20 112/83 02/07/19 12:00 129 H 22 111/70 02/07/19 11:50 111/70 02/07/19 11:40 131 H 20 111/70 84 L 02/07/19 11:30 130 H 20 122/90 92 L 02/07/19 11:10 98.5 F 130 H 22 104/93 92 L 02/07/19 11:06 87 L Intake and Output 02/07/19 02/08/19 02/08/19 22:59 06:59 14:59 Intake Total 1805 604.416 Balance 1805 604.416 Intake: Intake, IV Titration 625 604.416 Amount Heparin Sod,Pork in 0.45% 104.416 NaCl 25,000 unit In 0.45 % NaCl 1 250ml.bag @ 18 UNITS/KG/HR 13.59 mls/hr IV .[id number] [facility] Rx#: [id number] Sodium Chloride 0.9% 1, 625 500 000 ml @ 125 mls/hr IV . Q8H [facility] Rx#:[id number] Oral 1180 Other: Voiding Method Diaper Incontinent # Voids 1 1 Weight 75.5 kg Results - Laboratory Findings CBC and BMP: 02/08/19 08:41 02/08/19 08:41 Abnormal Lab Findings: Abnormal Labs 02/07/19 02/07/19 02/07/19 11:16 11:16 11:16 MCHC 30.6 L RDW 15.8 H APTT 18.2 L Potassium 3.3 L Creatinine 1.65 H Glucose 160 H Urine Protein Urine Blood Hyaline Casts Urine Mucus 02/07/19 02/08/19 12:57 02:07 MCHC RDW APTT 53.6 H Potassium Creatinine Glucose Urine Protein Trace H Urine Blood Trace H Hyaline Casts 7 H Urine Mucus Rare H
--- NOTE | 2019-02-08 14:14 | US ---
EXAMINATION TYPE: US venous doppler duplex LE BI DATE OF EXAM: 02/08/2019 1:59 PM COMPARISON: NONE CLINICAL HISTORY: R/O DVT. No pain, no hx of DVT SIDE PERFORMED: Bilateral TECHNIQUE: The lower extremity deep venous system is examined utilizing real time linear array sonog pardeep with graded compression, doppler sonography and color-flow sonography. VESSELS IMAGED: External Iliac Vein (EIV) Common Femoral Vein Deep Femoral Vein Greater Saphenous Vein * Femoral Vein Popliteal Vein Small Saphenous Vein * Proximal Calf Veins (* superficial vessels) Grayscale, color doppler, spectral doppler imaging performed of the deep veins of the lower extremiti es. There is normal flow, compressibility, vascular waveforms. Right Leg: Negative for DVT Left Leg: Negative for DVT IMPRESSION: No sonographic evidence of deep venous thrombosis within the bilateral lower extremities .
[2019-02-08] MEDS ORDERED: POTASSIUM CHLORIDE ER 20 MEQ TAB.ER PO STA (16:16)
--- NOTE | 2019-02-08 20:54 | P.HPIM ---
History of Present Illness H&P Date: 02/08/19 Chief Complaint: Weakness History of presenting complaint: This is a pleasant 52-year-old patient of Dr. Beltran. Follows with a neurologist Dr. Garsia. Patient presented to the ER. With her major complaint of feeling generalized weakness. Some the symptoms have been progressive coming on for close to a month. She says that she is able to get around [facility] with help for activities of daily living. There is no focal weakness. Just feel tired and rundown. She also went to see her neurologist yesterday was found to be hypertensive with a blood pressure running in the 80s. No shortness of breath. For last few days her appetite and oral intake is gone down. No fever and chills. There is no focal neurological weakness. No cough or shortness of breath. No palpitation. Patient is good chronic double incontinence. Some vision is also affected by the multiple sclerosis. She presented she was rather lethargic tired rundown. Admitted for the same. From the ER there was a question about pulmonary embolism and had ordered a VQ scan. Patient's Duragesi c patch had been held off. When I saw this patient this morning patient is actually able to give a historyi though bit tired. At a baseline patient has a motorized chair patient is able to stand and transfer Review of systems: GEN.: Generalized tiredness EYES: None HEENT: None NECK: None RESPIRATORY: None CARDIOVASCULAR: None GASTROINTESTINAL: Incontinence to GENITOURINARY: And continent urine MUSCULOSKELETAL: Generalized aches and pains LYMPHATICS: None HEMATOLOGICAL: None PSYCHIATRY: But anxious NEUROLOGICAL: MS has affected in different parts of the body including the vision Past medical history: DVT, fibromyalgia, memory impairment, multiple sclerosis, migraines, constipation, back pain, hypothyroid, cervical cancer, carpal tunnel, polyneuropathy, has had hemodialysis in the past chemotherapy treatment for MS, bipolar disorder Social history: Patient does smoke in the past. Lives with her . Family history: Brain cancer Physical examination: VITAL SIGNS: 98.5, 1:30, 22, 104/93, 92% room air. Was documented of a pulse ox of 84% on presentation GENERAL: BMI 24.6, laying in bed tired but able to answer questions. EYES: Pupils equal. Conjunctiva normal. HEENT: External appearance of nose and ears normal, oral cavity grossly normal. NECK: JVD not raised; masses not palpable. HEART: First and second heart sounds are normal; no edema. LUNGS: Respiratory rate normal; clear to auscultation. ABDOMEN: Soft, nontender, liver spleen not palpable, no masses palpable. PSYCH: Tired but able to answer questionsl. NEUROLOGICAL: Cranial nerves grossly intact; no facial asymmetry, power and sensation grossly intact. LYMPHATICS: No lymph nodes palpable in the axilla and neck EXTREMITY: Some abnormal contracture of the hands INVESTIGATIONS, reviewed in the clinical context: White count 7.9 potassium 3.3 creatinine 1.65 Creatinine 1.03 on December 14 Chest x-ray film personally reviewed by me shows lung orr to be clear EKG tracing personally reviewed by me shows sinus tachycardia Computed tomography scan of the brain unremarkable Assessment: -Acute on chronic metabolic encephalopathy from multiple sedating medications. Note that patient is on Risperdal, fentanyl patch of 37.5, Ambien 10 mg at night, Seroquel 75 mg at night Celexa and baclofen 10 mg 3 times a day when necessary when necessary. Patient's fentanyl patch was held on admission. And patient is more awake this morning. -Chronic kidney disease, possible stage III from nephrosclerosis. Also noted that patient is on Motrin at home. We'll check if there is an acute component. We'll hold off the same. -Chronic medical debility from underlying multiple sclerosis -Multiple sclerosis. This presentation does not appear to be that of MS. 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 There are no predominant was probably symptoms. Initial hypoxia could be from respiratory depression from multiple medications with the sedative effect. Plan: Patient Duragesic patch was discontinued. We'll also DC patient's Ambien at night. We'll try to adjust patient's sleep hygiene. Patient is Motrin also be discontinued. Patient is getting IV fluids. Repeat of that lites in the morning. Doppler ultrasound was ordered earlier today. Initially a consultatio n to pulmonary and neurology is was done. I did discuss this at length with the patient this morning. Questions were answered. Lovenox for DVT prophylaxis. Past Medical History Past Medical History: Cancer, Deep Vein Thrombosis (DVT), Fibromyalgia, Memory I mpairment, Pneumonia, Renal Disease Additional Past Medical History / Comment(s): MIGRANES, MULTIPLE SCLEROSIS, BRAIN LESIONS, PVD, SOB, CONSTIPATION, DIARRHEA, KIDNEY INFECTION, UTI, BACK PAIN, ANEMIA, HYPERTHYROID, CERVICAL CA, CARPAL TUNNEL,septicemia,polyneuropathy,HADHEMODIALYSIS TWICE, HAD CHEMOTHERAPY FOR TX OF MS, MOTORIZED CHAIR-ABLE TO STAND TO TRANSFER. History of Any Multi-Drug Resistant Organisms: None Reported Past Surgical History: Tonsillectomy, Tubal Ligation Additional Past Surgical History / Comment(s): DIALYSIS CATHETER (REMOVED), BIOPSY (UNKNOWN TYPE), CRYO SURGERY FOR CERVICAL CA, D&C. Past Anesthesia/Blood Transfusion Reactions: No Reported Reaction Past Psychological History: Anxiety, Bipolar, Depression Smoking Status: Former smoker Past Alcohol Use History: None Reported Past Drug Use History: None Reported - Past Family History Father Family Medical History: Cancer Additional Family Medical History / Comment(s): BRAIN Mother Family Medical History: Cancer Additional Family Medical History / Comment(s): BREAST Medications and Allergies Home Medications Medication Instructions Recorded Confirmed Type Aspirin EC [Ecotrin Low Dose] 81 mg PO HS 11/02/13 02/07/19 History Topiramate [Topamax] 25 mg PO HS 11/02/13 02/07/19 History Cholecalciferol (Vitamin D3) 2,000 unit PO DAILY 12/14/18 02/07/19 History [Vitamin D3] Citalopram Hydrobromide [CeleXA] 40 mg PO HS 12/14/18 02/07/19 History Donepezil [Aricept] 5 mg PO DAILY 12/14/18 02/07/19 History Gabapentin [Neurontin] 300 mg PO BID 12/14/18 02/07/19 History Memantine [Namenda] 5 mg PO DAILY 12/14/18 02/07/19 History QUEtiapine FUMARATE [SEROquel] 75 mg PO HS 12/14/18 02/07/19 History Zolpidem [Ambien] 10 mg PO HS 12/14/18 02/07/19 History risperiDONE [RisperDAL] 0.5 mg PO BID 12/14/18 02/07/19 History Baclofen 10 mg PO TID PRN 02/07/19 02/07/19 History Dimethyl Fumarate [Tecfidera] 240 mg PO DAILY 02/07/19 02/07/19 History Ibuprofen 800 mg PO BID PRN 02/07/19 02/07/19 History Ranitidine HCl [Zantac] 150 mg PO DAILY 02/07/19 02/07/19 History fentaNYL [Duragesic 37.5 MCG/HR] 1 patch TOPICAL Q72H 02/07/19 02/07/19 History Allergies Allergy/AdvReac Type Severity Reaction Status Date / Time blue dye Allergy Rash/Hives Verified 02/07/19 19:01 Neuromuscular Blockers, AdvReac Nausea & Verified 02/07/19 19:01 Steroidal Vomiting [Steroidal Neuromuscular Blockers] Physical Exam Vitals: Vital Signs Temp Pulse Pulse Resp BP BP Pulse Ox 02/08/19 04:35 98.6 F 106 H 18 102/69 97 02/07/19 22:03 14 94 L 02/07/19 21:59 12 79 L 02/07/19 19:58 97.9 F 115 H 18 116/78 91 L 02/07/19 18:14 113 H 16 117/79 99 02/07/19 17:20 98.0 F 110 H 18 118/86 99 02/07/19 17:00 112 H 18 115/79 99 02/07/19 16:40 113 H 20 119/91 96 02/07/19 16:20 115 H 20 118/76 92 L 02/07/19 16:03 115 H 22 118/82 97 02/07/19 14:00 118 H 18 104/71 96 02/07/19 13:50 118 H 20 104/71 98 02/07/19 13:40 118 H 20 103/91 96 02/07/19 13:10 123 H 16 98/82 96 02/07/19 13:00 123 H 20 128/95 95 02/07/19 12:10 130 H 20 112/83 02/07/19 12:00 129 H 22 111/70 02/07/19 11:50 111/70 02/07/19 11:40 131 H 20 111/70 84 L 02/07/19 11:30 130 H 20 122/90 92 L 02/07/19 11:10 98.5 F 130 H 22 104/93 92 L 02/07/19 11:06 87 L Intake and Output 02/07/19 02/08/19 02/08/19 22:59 06:59 14:59 Intake Total 1805 604.416 Balance 1805 604.416 Intake: Intake, IV Titration 625 604.416 Amount Heparin Sod,Pork in 0.45% 104.416 NaCl 25,000 unit In 0.45 % NaCl 1 250ml.bag @ 18 UNITS/KG/HR 13.59 mls/hr IV .[id number] GEM Rx#: [id number] Sodium Chloride 0.9% 1, 625 500 000 ml @ 125 mls/hr IV . Q8H GEM Rx#:[id number] Oral 1180 Other: Voiding Method Diaper Incontinent # Voids 1 1 Weight 75.5 kg Results CBC & Chem 7: 02/08/19 08:41 02/08/19 08:41 Labs: Abnormal Lab Results - Last 24 Hours (Table) 02/07/19 02/07/19 02/07/19 Range/Units 11:16 11:16 11:16 Hgb (11.4-16.0) gm/dL MCHC 30.6 L (31.0-37.0) g/dL RDW 15.8 H (11.5-15.5) % Plt Count (150-450) k/uL APTT 18.2 L (22.0-30.0) sec Potassium 3.3 L (3.5-5.1) mmol/L Chloride (98-107) mmol/L Creatinine 1.65 H (0.52-1.04) mg/dL Glucose 160 H (74-99) mg/dL Calcium (8.4-10.2) mg/dL Urine Protein (Negative) Urine Blood (Negative) Hyaline Casts (0-2) /lpf Urine Mucus (None) /hpf 02/07/19 02/08/19 02/08/19 Range/Units 12:57 02:07 08:41 Hgb 11.3 L (11.4-16.0) gm/dL MCHC 30.6 L (31.0-37.0) g/dL RDW 16.2 H (11.5-15.5) % Plt Count 137 L (150-450) k/uL APTT 53.6 H (22.0-30.0) sec Potassium (3.5-5.1) mmol/L Chloride (98-107) mmol/L Creatinine (0.52-1.04) mg/dL Glucose (74-99) mg/dL Calcium (8.4-10.2) mg/dL Urine Protein Trace H (Negative) Urine Blood Trace H (Negative) Hyaline Casts 7 H (0-2) /lpf Urine Mucus Rare H (None) /hpf 02/08/19 Range/Units 08:41 Hgb (11.4-16.0) gm/dL MCHC (31.0-37.0) g/dL RDW (11.5-15.5) % Plt Count (150-450) k/uL APTT (22.0-30.0) sec Potassium 3.3 L (3.5-5.1) mmol/L Chloride 112 H (98-107) mmol/L Creatinine 1.55 H (0.52-1.04) mg/dL Glucose (74-99) mg/dL Calcium 8.3 L (8.4-10.2) mg/dL Urine Protein (Negative) Urine Blood (Negative) Hyaline Casts (0-2) /lpf Urine Mucus (None) /hpf Thrombosis Risk Factor Assmnt - Choose All That Apply Any of the Below Risk Factors Present?: Yes Each Factor Represents 1 point: Age 41-60 years, Medical pt on bed rest, Obesity (BMI >25) Other Risk Factors: Yes Each Risk Factor Represents 2 Points: Patient confined to bed Each Risk Factor Represents 3 Points: History of DVT/PE Other congenital or acquired thrombophilia - If yes, enter type in comment: No Thrombosis Risk Factor Assessment Total Risk Factor Score: 8 Thrombosis Risk Factor Assessment Level: High Risk
[2019-02-08] MEDS: METOPROLOL TARTRATE 12.5 MG TAB PO SCH (21:57)
[2019-02-08] MEDS: Dimethyl Fumarate [Tecfidera] PO SCH (21:58)
[2019-02-08] MEDS: CITALOPRAM HYDROBROMIDE 20 MG TAB PO SCH (21:58)
[2019-02-08] MEDS: TOPIRAMATE 25 MG TAB PO SCH (21:58)
[2019-02-08] MEDS: QUEtiapine 50 MG TAB PO SCH (21:58)
[2019-02-08] MEDS: ASPIRIN 81 MG PO SCH (21:58)
[2019-02-09] MEDS: METOPROLOL TARTRATE 12.5 MG TAB PO SCH ×2 (07:55→21:25)
[2019-02-09] MEDS: Dimethyl Fumarate [Tecfidera] PO SCH ×2 (07:55→21:25)
[2019-02-09] MEDS: CHOLECALCIFEROL 1,000 UNIT TAB PO SCH (07:55)
[2019-02-09] MEDS: BACLOFEN 10 MG TAB PO PRN ×2 (07:55→17:02)
[2019-02-09] MEDS: DONEPEZIL 5 MG TAB PO SCH (07:56)
[2019-02-09] MEDS: FAMOTIDINE 20 MG TAB PO SCH (07:56)
[2019-02-09] MEDS: GABAPENTIN 300 MG CAP PO SCH ×2 (07:56→21:25)
[2019-02-09 08:46] LABS: Calcium 8.5 mg/dL (8.4-10.2); Potassium 3.9 mmol/L (3.5-5.1)
[2019-02-09] MEDS ORDERED: METOPROLOL TARTRATE 25 MG TAB PO SCH (09:00)
--- NOTE | 2019-02-09 10:48 | PN ---
PROGRESS NOTE DATE OF SERVICE: February 09, 2019 This is a 54-year-old female who we saw in consultation yesterday. We were asked to see her because of possible pulmonary embolism. The patient had a nondiagnostic V/Q scan and Dopplers of the lower extremities were negative. Her biggest issue was she was hypoxemic from alveolar hypoventilation secondary to excessive medications. She was on a whole host of different medications, most of which caused significant mental status changes and respiratory depression. We did a blood gas. Her pCO2 was elevated and her pH was a bit low confirming the diagnosis of drug-induced alveolar hypoventilation and I asked the nurse to talk to the primary service about stopping most or many of these medications. Surprisingly, this morning she is much more awake and alert. She is able to converse. The patient denies any difficulty breathing, chest pain, chest discomfort, cough, wheezing, phlegm production, or any other cardiopulmonary complaints. Yesterday, I could barely arouse her even on deep sternal rub. She does have a history of multiple medical problems including excessive sedative drugs, multiple sclerosis, cervical cancer, DVT, fibromyalgia, dementia, pneumonia, migraine cephalgia, PVOD, chronic constipation, kidney infections, urinary tract infections, chronic back pain, and carpal tunnel syndrome. Again currently, she is feeling much better. She is much more awake and alert. PHYSICAL EXAMINATION: VITAL SIGNS: Current vital signs include a temperature 97.8, heart rate 76, respiratory rate 18, blood pressure 104/66, mean 78 and 2 L saturation 97%. She really appears in no acute distress. She is much more awake and alert. She arouses appropriately. She appears oriented x3. HEENT: Examination is grossly unremarkable. Nasal O2 in place at 2 L. NECK: Supple. Full range of motion. No adenopathy, thyromegaly or neck vein distention. CARDIOVASCULAR: Examination reveals regular rhythm and rate. Heart rate 76. It is regular. S1, S2 normal. There is no murmur. LUNGS: Are clear. Breath sounds equal. ABDOMEN: Soft. Bowel sounds are heard. EXTREMITIES: Are intact. No cyanosis, clubbing, or edema. SKIN: Without rash. She had venous Dopplers of the lower extremities which were negative. Brain CT was negative. Lung scan was nondiagnostic. LABORATORY DATA: Laboratory data is reviewed. Her PTT was 21.5. Sodium 145, potassium 3.9, chloride 115, CO2 is 27. Anion gap 3. BUN and creatinine were 11 and 1.32. Blood gas yesterday on room air showed a pO2 of 79, pCO2 of 51, and pH 7.27. This suggests hypoxemia, hypercapnia and mild respiratory acidosis. This is all from alveolar hypoventilation. MEDICATIONS: Medications are reviewed. They have been pared down. ASSESSMENT: 1. Acute hypoxemia and acute hypercapnia with mild respiratory acidosis, related to alveolar hypoventilation, secondary to medications depressing the central nervous system and respiratory drive. 2. Mental status changes, likely on the basis of hypoventilation, acute hypercarbia and multiple medications which affect mental status. 3. Excessive sedative drugs. 4. Multiple sclerosis. 5. History of cervical cancer. 6. History of deep venous thrombosis. 7. History of fibromyalgia. 8. History of dementia. 9. Previous history of pneumonia. 10.History of migraine cephalgia. 11.Peripheral vascular occlusive disease. 12.History of chronic constipation. 13.History of kidney and urinary tract infections. 14.History of chronic back pain. 15.History of carpal tunnel. PLAN: The patient is doing much better today. Her medications have been tapered down. She is not short of breath. She is much more arousable, awake and alert. She is able to answer questions appropriately. Additional recommendations and suggestions forthcoming. Dopplers that I suggested were negative. I doubt that she has had a pulmonary embolism. Additional recommendations and suggestions are forthcoming. MMODL / IJN: [id number] /
[2019-02-09] MEDS: SODIUM CHLORIDE 0.9% 1,000 ML IV SCH ×2 (11:08→11:09)
[2019-02-09] MEDS: LACTATED RINGERS 1,000 ML IV SCH ×2 (12:00→21:29)
--- NOTE | 2019-02-09 15:11 | P.PN ---
Progress Note - Text Progress Note Date: 02/09/19 SUBJECTIVE/INTERVAL EVENTS: No acute overnight events. There was note from yesterday where patient apparently became somewhat confused. Unable to clarify this event. Patient states that she feels the same as she did yesterday. Patient and her sister noticed that her fingers going to a strange position (slightly like a [place]ington's sign). Patient reports that she has significant carpal tunnel syndrome in her left arm not so much on the right side. PHYSICAL EXAMINATION: VITAL SIGNS: Temperature 97.8 pulse rate 102 respiratory rate 16 blood pressure 89/50 02 saturation 67% on room air which resolved to 96% with 2 L of nasal cannula GEN.: NAD, pleasant and cooperative HEENT: NCAT, sclera without icterus NECK: Supple SKIN AND EXTREMITIES: Warm to touch, no edema NEURO: MENTAL STATUS: Patient alert and oriented to self, place, time. Able to name the current president. Speech fluent, able to name and repeat, following all commands readily but at times takes a little time to answer questions. CRANIAL NERVES II THROUGH XII: II: Pupils are equal and reactive to light symmetrically. Visual orr are intact. III, IV, : No ptosis. Extraocular movements full. No nystagmus. V: Facial sensation intact from V1-3. VII. No clear facial asymmetry. VIII: Hearing intact to finger rub bilaterally. IX, X: Symmetric palate elevation. XII: Shoulder shrug intact. XII: Tongue midline without fasciculation or atrophy. MOTOR: Normal bulk/tone. No pronator drift or tremor. Strength is 5/5 grossly in her bilateral upper extremities except for her interossei which are about 4 minus/5. patient also has a mild wrist drop. 4+/5 strength in bilateral lower extremity SENSORY: Intact to light touch, temperature in all 4 extremities. REFLEXES: 1+ throughout. Toes are mute No clonus. Bambi's is absent COORDINATION: Finger to nose. No dysmetria. GAIT: Deferred as patient states that she is barely able to stand for about 2-3 seconds before she has to sit. Patient stated that she is unable to walk. DIAGNOSTIC TESTING: IMAGING: CT brain without contrast 02/07/2019: No acute process. MRI lumbar spine with and without contrast 12/19/2018: Increasing epidural lipomatosis lower lumbar spine causes spinal cord narrowing into the sacrum. Correlate clinically for possible cause of glucocorticoid excess. A few simple appearing cysts scattered throughout the visualized portion of the left kidney largest measures 2.7 cm. There is suggestion of spinal medical he was splenic study to lower pole level of left medial same axial image. ASSESSMENT and PLAN: Ms. Jada Faustin is a 53-year-old woman with past medical history of DVT, fibromyalgia, memory impairment, migraines, multiple sclerosis, polyneuropathy, renal disease, presented to the [facility] for generalized weakness. I evaluated the patient yesterday, during which time I was not concerned about an MS flare in this patient. On chart review this morning, there was a note from pulmonary consultation stating the patient was less alert and having difficulty with breathing. Patient underwent possible pulmonary embolism rule out. US Doppler LE negative for DVT. Assist the patient again today. Patient states that she is feeling better today. Patient and sister noted some abnormal posturing of her hands bilaterally which patient states started about 2 days ago. Patient is still able to fully close it fully open her hands. When I checked for Tinel's sign, patient with carpal tunnel syndrome-like pain along with the positioning of her hand like that of Farm[place]'s sign, which could result from median nerve neuropathy. On our record, last brain MRI and C-spine MRI was on 09/03/2017 which showed stable white matter lesions unchanged in size number morphology. Patient states that she is actually on Tecfidera, was restarted after her MS flare. Patient should also get repeat MRI brain and C- spine with and without contrast as outpatient if not done recently. Neurology will sign off at this time. Please feel free to contact Neurology again if with additional questions or concerns.
[2019-02-09] MEDS: CITALOPRAM HYDROBROMIDE 20 MG TAB PO SCH (21:25)
[2019-02-09] MEDS: QUEtiapine 50 MG TAB PO SCH (21:25)
[2019-02-09] MEDS: ASPIRIN 81 MG PO SCH (21:25)
[2019-02-09] MEDS: TOPIRAMATE 25 MG TAB PO SCH (21:25)
--- NOTE | 2019-02-09 22:21 | P.PN ---
Progress Note - Text Progress Note Date: 02/09/19 Chief Complaint: Weakness History: This is a pleasant 52-year-old patient of Dr. Beltran. Follows with a neurologist Dr. Garsia. Patient presented to the ER. With her major complaint of feeling generalized weakness. Some the symptoms have been progressive coming on for close to a month. She says that she is able to get around [facility] with help for activities of daily living. There is no focal weakness. Just feel tired and rundown. She also went to see her neurologist yesterday was found to be hypertensive with a blood pressure running in the 80s. No shortness of breath. For last few days her appetite and oral intake is gone down. No fever and chills. There is no focal neurological weakness. No cough or shortness of breath. No palpitation. Patient is good chronic double incontinence. Some vision is also affected by the multiple sclerosis. She presented she was rather lethargic tired rundown. Admitted for the same. From the ER there was a question about pulmonary embolism and had ordered a VQ scan. Patient's Duragesic patch had been held off. At a baseline patient has a motorized chair patient is able to stand and transfer Today-more awake. Answering questions. Did tolerate her diet. Did not sleep well last night. Some cramping in the hands. Review of systems: Was done for constitutional, cardiovascular, GI, pulmonary. relevant finding as above Active Medications Aspirin (Aspirin) 81 mg PO [facility] Last Admin: 02/09/19 21:25 Dose: 81 mg Documented by: Baclofen (Lioresal) 10 mg PO TID PRN PRN Reason: Muscle Spasm Last Admin: 02/09/19 17:02 Dose: 10 mg Documented by: Cholecalciferol (Vitamin D3 (25 Mcg = 1000 Iu)) 2,000 unit PO DAILY [facility] Last Admin: 02/09/19 07:55 Dose: 2,000 unit Documented by: Citalopram Hydrobromide (Celexa) 40 mg PO [facility] Last Admin: 02/09/19 21:25 Dose: 40 mg Documented by: Donepezil HCl (Aricept) 5 mg PO DAILY [facility] Last Admin: 02/09/19 07:56 Dose: 5 mg Documented by: Famotidine (Pepcid) 20 mg PO DAILY [facility] Last Admin: 02/09/19 07:56 Dose: 20 mg Documented by: Gabapentin (Neurontin) 300 mg PO BID [facility] Last Admin: 02/09/19 21:25 Dose: 300 mg Documented by: Lactated Ringer's (Lactated Ringers) 1,000 mls @ 75 mls/hr IV .[id number] [facility] Last Admin: 02/09/19 21:29 Dose: 75 mls/hr Documented by: Metoprolol Tartrate (Lopressor) 12.5 mg PO BID [facility] Last Admin: 02/09/19 21:25 Dose: 12.5 mg Documented by: Naloxone HCl (Narcan) 0.2 mg IV Q2M PRN PRN Reason: Opioid Reversal Dimethyl Fumarate [ (Tecfidera]) 240 mg PO BID [facility] Last Admin: 02/09/19 21:25 Dose: 240 mg Documented by: Quetiapine Fumarate (Seroquel) 50 mg PO [facility] Last Admin: 02/09/19 21:25 Dose: 50 mg Documented by: Topiramate (Topamax) 25 mg PO HS [facility] Last Admin: 02/09/19 21:25 Dose: 25 mg Documented by: Physical examination: VITAL SIGNS: 97.8, 102, 16, 89 x 50, 96% on 2 L. Earlier patient was noted to be hypoxic. That record. GENERAL: Laying in bed, answering questions. EYES: Pupils equal. Conjunctiva normal. HEENT: External appearance of nose and ears normal, oral cavity grossly normal. NECK: JVD not raised; masses not palpable. HEART: First and second heart sounds are normal; no edema. LUNGS: Respiratory rate normal; clear to auscultation. ABDOMEN: Soft, nontender, liver spleen not palpable, no masses palpable. PSYCH: Tired but able to answer questionsl. NEUROLOGICAL: Cranial nerves grossly intact; no facial asymmetry, power and sensation grossly intact. EXTREMITY: Some abnormal contracture of the hands INVESTIGATIONS, reviewed in the clinical context: Creatinine 32 chloride 115 Previous labs White count 7.9 potassium 3.3 creatinine 1.65 Creatinine 1.03 on December 14 Chest x-ray film personally reviewed by me shows lung orr to be clear EKG tracing personally reviewed by me shows sinus tachycardia Computed tomography scan of the brain unremarkable Assessment: -Acute on chronic metabolic encephalopathy from multiple sedating medications. Note that patient is on Risperdal, fentanyl patch of 37.5, Ambien 10 mg at night, Seroquel 75 mg at night Celexa and baclofen 10 mg 3 times a day when necessary when necessary. Patient's fentanyl patch was held on admission. And patient is more awake this morning. -Chronic kidney disease, possible stage III from nephrosclerosis. Also noted that patient is on Motrin at home. We'll check if there is an acute component. We'll hold off the same. -Chronic medical debility from underlying multiple sclerosis -Multiple sclerosis. This presentation does not appear to be that of MS. 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 There are no predominant was probably symptoms. Initial hypoxia could be from respiratory depression from multiple medications with the sedative effect. Plan: We'll check patient's magnesium and ionized calcium. Continue with IV fluids. Change from normal saline to LR. Cut back on the fluid rate. We will let pulmonary follow-up with hypoxia. Spoke to the nurse Jada to convey this to Dr. Little.
[2019-02-10 07:36] LABS: Basophils % (A) 0 %; Eosinophils # (A) 0.1 k/uL (0-0.7); Eosinophils % (A) 3 %; HCT 34.6 % (34.0-46.0); HGB 10.7 gm/dL (11.4-16.0); Hypochromasia Marked; Lymphocytes % (A) 29 %; MCH 26.2 pg (25.0-35.0); MCV 84.3 fL (80.0-100.0); Mean Platelet Volume 7.7; Monocytes # (A) 0.3 k/uL (0-1.0); Monocytes % (A) 8 %; Neutrophils # (A) 2.1 k/uL (1.3-7.7); Neutrophils % (A) 59 %; Platelet Count 125 k/uL (150-450); Poikilocytosis Slight; RDW 15.8 % (11.5-15.5); WBC 3.5 k/uL (3.8-10.6)
[2019-02-10 07:43] LABS: Ionized Calcium 5.6 mg/dL (4.5-5.3)
[2019-02-10 07:55] LABS: Magnesium 1.7 mg/dL (1.6-2.3); Potassium 4.1 mmol/L (3.5-5.1)
--- NOTE | 2019-02-10 10:27 | CDI ---
Documentation Clarification Form Date: 02/10/2019 10:10:29 AM From: Sylvia Bonilla RN, CCDS Admit Date: 02/09/2019 2:47:00 PM Patient Name: Jada Faustin Visit Number: [id number] ATTENTION: The Clinical Documentation Specialists (CDI) and [facility] Coding Staff appreciate your assistance in clarifying documentation. Please respond to the clarification below the line at the bottom and electronically sign. The CDI & [facility] Coding staff will review the response and follow-up if needed. Please note: Queries are made part of the Legal Health Record. If you have any questions, please contact the author of this message via ITS. Dr. Kyle Delatorre A diagnosis of anemia lacks specificity to accurately reflect your patients severity of condition and clarification is needed. History/Risk Factors: Anemia, renal disease with a hx of hemodialysis, Migraines, MS, Fibromyalgia Clinical indicators: Hemoglobin: 13.6/11.3/10.7 Hematocrit: 44.4/36.9/34.6 Treatment: 2L IVF Bolus Iv Heparin Protocol AM Labs Daily In order to capture the severity of condition, please clarify the type of anemia and etiology if known: Acute blood loss anemia Acute on chronic blood loss anemia Chronic blood loss anemia Iron deficiency anemia Drug induced anemia Nutritional anemia Anemia of chronic kidney disease Anemia of chronic disease (please specify) Unable to determine Other, please specify (Last Revision: April 2017) anemia of chronic kidney disease MTDD
[2019-02-10] MEDS: CHOLECALCIFEROL 1,000 UNIT TAB PO SCH (10:28)
[2019-02-10] MEDS: FAMOTIDINE 20 MG TAB PO SCH (10:28)
[2019-02-10] MEDS: DONEPEZIL 5 MG TAB PO SCH (10:28)
[2019-02-10] MEDS: Dimethyl Fumarate [Tecfidera] PO SCH ×2 (10:28→20:54)
[2019-02-10] MEDS: METOPROLOL TARTRATE 12.5 MG TAB PO SCH ×2 (10:28→20:53)
[2019-02-10] MEDS: GABAPENTIN 300 MG CAP PO SCH ×2 (10:29→20:53)
--- NOTE | 2019-02-10 16:55 | P.PN ---
Subjective Progress Note Date: 02/10/19 Principal diagnosis: Acute hypoxemic/hypercapnic respiratory failure. Robert is seen today 02/10/2018 in follow-up on the regular medical floor. She is currently awake and alert and oriented 3. He denies any worsening shortness of breath, cough or congestion. Maintaining good O2 saturations in the 90s on 2 L/m per nasal cannula. She's been afebrile. Hemodynamically stable. I count 2.5. Hemoglobin 10.7. Platelet count 125,000. Bicarb 28. Creatinine 1.23. Objective - Vital Signs Vital signs: Vital Signs Temp 97.7 F 02/10/19 04:22 Pulse 89 02/10/19 04:22 Resp 16 02/10/19 09:20 BP 116/79 02/10/19 04:22 Pulse Ox 97 02/10/19 04:22 Intake & Output 02/09/19 02/10/19 02/10/19 18:59 06:59 18:59 Intake Total 850 940 Output Total 1100 1100 Balance -250 -160 Intake: Intake, IV Titration 500 350 Amount Lactated Ringers 1,000 ml 250 350 @ 75 mls/hr IV .[id number] EGM Rx#:[id number] Sodium Chloride 0.9% 1, 250 000 ml @ 125 mls/hr IV . Q8H GEM Rx#:[id number] Oral 350 590 Output: Urine 1100 1100 Other: Voiding Method Diaper Diaper Diaper Incontinent Incontinent Incontinent # Voids 2 4 # Bowel Movements 1 - Exam GENERAL EXAM: Alert, active, comfortable 54-year-old female patient in no apparent distress. HEAD: Normocephalic. EYES: Normal reaction of pupils, equal size. NOSE: Clear with pink turbinates. THROAT: No erythema or exudates. NECK: No masses, no JVD. CHEST: No chest wall deformity. LUNGS: Equal air entry with no crackles, wheeze, rhonchi or dullness. CVS: S1 and S2 normal with no audible murmur, regular rhythm. ABDOMEN: No hepatosplenomegaly, normal bowel sounds, no guarding or rigidity. SPINE: No scoliosis or deformity SKIN: No rashes CENTRAL NERVOUS SYSTEM: No focal deficits, tone is normal in all 4 extremities. EXTREMITIES: There is no peripheral edema. No clubbing, no cyanosis. Peripheral pulses are intact. - Labs CBC & Chem 7: 02/10/19 07:12 02/10/19 07:12 Labs: Abnormal Lab Results - Last 24 Hours (Table) 02/10/19 02/10/19 Range/Units 07:12 07:12 WBC 3.5 L (3.8-10.6) k/uL Hgb 10.7 L (11.4-16.0) gm/dL RDW 15.8 H (11.5-15.5) % Plt Count 125 L (150-450) k/uL Chloride 114 H (98-107) mmol/L Creatinine 1.23 H (0.52-1.04) mg/dL Ionized Calcium [place] 5.6 H (4.5-5.3) mg/dL Assessment and Plan Assessment: Impression: #1 Acute hypoxemic/hypercapnic respiratory failure with mild respiratory acidosis secondary to alveolar hypoventilation, secondary to medications depressed central nervous system the respiratory drive. Much more awake and alert after most of his medications have been discontinued. #2 Altered mental status secondary to hypoventilation, acute hypercarbia, recovered. #3 Multiple sclerosis. #4 History of cervical cancer. #5 History of DVT. #6 History of fibromyalgia. #7 History of dementia. #8 History of migraine cephalgia. #9 Peripheral vascular occlusive disease. #10 Chronic pain syndrome. Plan: The patient was seen and evaluated by Dr. Little. She is currently stable from the pulmonary standpoint. Recommendations have been made previously regarding cautious use of narcotics, anxiolytics and muscle relaxants. He is cleared for transfer to an inpatient rehabilitation once cleared medically. I, the cosigning physician, performed a history & physical examination of the patient. Lungs sounds are clear. Maintaining good O2 saturations in the 90s on 2 L per nasal cannula. I discussed the assessment and plan of care with my nurse practitioner, Kaur Parekh. I attest to the above note as dictated by her.
--- NOTE | 2019-02-10 19:13 | ECHOF ---
Referral Reason:Rule out shunt MEASUREMENTS -------- HEIGHT: 175.3 cm WEIGHT: 75.3 kg BP: IVSd: 1.4 cm (0.6 - 1.1) LVIDd: 4.5 cm (3.9 - 5.3) LVPWd: 1.0 cm (0.6 - 1.1) IVSs: 1.5 cm LVIDs: 3.2 cm LVPWs: 1.2 cm LA Diam: 3.4 cm (2.7 - 3.8) LAESV Index (A-L): 26.80 ml/m Ao Diam: 3.0 cm (2.0 - 3.7) AV Cusp: 1.8 cm (1.5 - 2.6) LA Diam: 2.6 cm (2.7 - 3.8) MV EXCURSION: 16.659 mm (> 18.000) MV EF SLOPE: 73 mm/s (70 - 150) EPSS: 0.4 cm MV E Fransico: 0.68 m/s MV DecT: 225 ms MV A Fransico: 0.73 m/s MV E/A Ratio: 0.93 RAP: 5.00 mmHg RVSP: 30.04 mmHg FINDINGS -------- Sinus rhythm. This was a technically adequate study. The left ventricular size is normal. There is mild concentric left ventricular hypertrophy. Overa ll left ventricular systolic function is low-normal with, an EF between 50 - 55 %. The right ventricle is normal in size. The left atrial size is normal. The right atrial size is normal. There is mild aortic valve sclerosis. Mild mitral annular calcification present. Mild mitral regurgitation is present. Mild tricuspid regurgitation present. There is no evidence of pulmonary hypertension. The right v entricular systolic pressure, as measured by Doppler, is 30.04mmHg. There is no pulmonic regurgitation present. There is no pericardial effusion. Bubble Study Done to R/O Shunt. CONCLUSIONS -------- 1. Sinus rhythm. 2. This was a technically adequate study. 3. The left ventricular size is normal. 4. There is mild concentric left ventricular hypertrophy. 5. Overall left ventricular systolic function is low-normal with, an EF between 50 - 55 %. 6. The right ventricle is normal in size. 7. The left atrial size is normal. 8. The right atrial size is normal. 9. There is mild aortic valve sclerosis. 10. Mild mitral annular calcification present. 11. Mild mitral regurgitation is present. 12. Mild tricuspid regurgitation present. 13. There is no evidence of pulmonary hypertension. 14. The right ventricular systolic pressure, as measured by Doppler, is 30.04mmHg. 15. There is no pulmonic regurgitation present. 16. There is no pericardial effusion. 17. Bubble Study Done to R/O Shunt. PIPING SUPERVISOR: Kaila Driscoll RDCS
[2019-02-10] MEDS: ASPIRIN 81 MG PO SCH (20:53)
[2019-02-10] MEDS: CITALOPRAM HYDROBROMIDE 20 MG TAB PO SCH (20:53)
[2019-02-10] MEDS: QUEtiapine 50 MG TAB PO SCH (20:55)
[2019-02-10] MEDS: TOPIRAMATE 25 MG TAB PO SCH (20:55)
[2019-02-10] MEDS ORDERED: SODIUM CHLORIDE 0.9% 1,000 ML IV SCH (21:30)
--- NOTE | 2019-02-10 21:30 | P.PN ---
Progress Note - Text Progress Note Date: 02/10/19 Chief Complaint: Weakness History: This is a pleasant 52-year-old patient of Dr. Beltran. Follows with a neurologist Dr. Garsia. Patient presented to the ER. With her major complaint of feeling generalized weakness. Some the symptoms have been progressive coming on for close to a month. She says that she is able to get around [facility] with help for activities of daily living. There is no focal weakness. Just feel tired and rundown. She also went to see her neurologist yesterday was found to be hypertensive with a blood pressure running in the 80s. No shortness of breath. For last few days her appetite and oral intake is gone down. No fever and chills. There is no focal neurological weakness. No cough or shortness of breath. No palpitation. Patient is good chronic double incontinence. Some vision is also affected by the multiple sclerosis. She presented she was rather lethargic tired rundown. Admitted for the same. From the ER there was a question about pulmonary embolism and had ordered a VQ scan. Clinical picture was not at all compatible with the same. Patient's Duragesic patch had been held off. At a baseline patient has a motorized chair patient is able to stand and transfer. Patient did well came around after that some of the medications were cut back. Awake alert Today-feeling much better. Seen by physical therapy. Looking at possibly into inpatient rehab. Tolerating a diet. Cramping in the limbs is much improved. Review of systems: Was done for constitutional, cardiovascular, GI, pulmonary. relevant finding as above Active Medications Aspirin (Aspirin) 81 mg PO [facility] Last Admin: 02/10/19 20:53 Dose: 81 mg Documented by: Baclofen (Lioresal) 10 mg PO TID PRN PRN Reason: Muscle Spasm Last Admin: 02/09/19 17:02 Dose: 10 mg Documented by: Cholecalciferol (Vitamin D3 (25 Mcg = 1000 Iu)) 2,000 unit PO DAILY [facility] Last Admin: 02/10/19 10:28 Dose: 2,000 unit Documented by: Citalopram Hydrobromide (Celexa) 40 mg PO [facility] Last Admin: 02/10/19 20:53 Dose: 40 mg Documented by: Donepezil HCl (Aricept) 5 mg PO DAILY [facility] Last Admin: 02/10/19 10:28 Dose: 5 mg Documented by: Famotidine (Pepcid) 20 mg PO DAILY [facility] Last Admin: 02/10/19 10:28 Dose: 20 mg Documented by: Gabapentin (Neurontin) 300 mg PO BID [facility] Last Admin: 02/10/19 20:53 Dose: 300 mg Documented by: Metoprolol Tartrate (Lopressor) 12.5 mg PO BID [facility] Last Admin: 02/10/19 20:53 Dose: 12.5 mg Documented by: Naloxone HCl (Narcan) 0.2 mg IV Q2M PRN PRN Reason: Opioid Reversal Dimethyl Fumarate [ (Tecfidera]) 240 mg PO BID [facility] Last Admin: 02/10/19 20:54 Dose: 240 mg Documented by: Quetiapine Fumarate (Seroquel) 50 mg PO [facility] Last Admin: 02/10/19 20:55 Dose: 50 mg Documented by: Topiramate (Topamax) 25 mg PO [facility] Last Admin: 02/10/19 20:55 Dose: 25 mg Documented by: Physical examination: VITAL SIGNS: 97.7, 89, 18, 11 6 x 79, 97% on 2 L GENERAL: Laying in bed, awake, more comfortable. EYES: Pupils equal. Conjunctiva normal. HEENT: External appearance of nose and ears normal, oral cavity grossly normal. NECK: JVD not raised; masses not palpable. HEART: First and second heart sounds are normal; no edema. LUNGS: Respiratory rate normal; clear to auscultation. ABDOMEN: Soft, nontender, liver spleen not palpable, no masses palpable. PSYCH: Tired but able to answer questionsl. NEUROLOGICAL: Cranial nerves grossly intact; no facial asymmetry, power and sensation grossly intact. EXTREMITY: No further cramping in the limbs INVESTIGATIONS, reviewed in the clinical context: White count 3.5 hemoglobin 10.7 platelets 125 Creatinine 1.23 Ionized calcium 5.6, magnesium 1.7 Previous labs White count 7.9 potassium 3.3 creatinine 1.65 Creatinine 1.03 on December 14 Chest x-ray film personally reviewed by me shows lung orr to be clear EKG tracing personally reviewed by me shows sinus tachycardia Computed tomography scan of the brain unremarkable Assessment: -Acute on chronic metabolic encephalopathy from multiple sedating medications. Note that patient is on Risperdal, fentanyl patch of 37.5, Ambien 10 mg at night, Seroquel 75 mg at night Celexa and baclofen 10 mg 3 times a day when necessary when necessary. Patient's fentanyl patch was held on admission. And patient is more awake this morning. -Chronic kidney disease, possible stage III from nephrosclerosis. Also noted that patient is on Motrin at home. We'll check if there is an acute component. We'll hold off the same. -Chronic medical debility from underlying multiple sclerosis -Multiple sclerosis. This presentation does not appear to be that of MS. 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 There are no predominant was probably symptoms. Initial hypoxia could be from respiratory depression from multiple medications with the sedative effect. -Hypercalcemia note patient is on vitamin D3. Plan: discontinue vitamin D3. Spoke to the hospice case manager and social director. Pending discharge to inpatient rehab. Pulmonary team aware of episode of hypoxia. Nothing further to be done at this point but then. Pulse ox to be followed.
[2019-02-11] MEDS: FAMOTIDINE 20 MG TAB PO SCH (09:01)
[2019-02-11] MEDS: Dimethyl Fumarate [Tecfidera] PO SCH ×2 (09:01→20:50)
[2019-02-11] MEDS: GABAPENTIN 300 MG CAP PO SCH ×2 (09:01→20:50)
[2019-02-11] MEDS: METOPROLOL TARTRATE 12.5 MG TAB PO SCH ×2 (09:01→20:50)
[2019-02-11] MEDS: DONEPEZIL 5 MG TAB PO SCH (09:02)
--- NOTE | 2019-02-11 09:37 | P.PN ---
Subjective Progress Note Date: 02/11/19 Principal diagnosis: Acute hypoxemic/hypercapnic respiratory failure. The patient is seen today 02/11/2019 in follow-up on the regular medical floor. She is currently sitting up in a chair at the bedside. Feeling better today as compared to yesterday. O2 saturations in the 90s on room air. She's afebrile. Hemodynamically stable. Objective - Vital Signs Vital signs: Vital Signs Temp 98.2 F 02/11/19 04:10 Pulse 98 02/11/19 04:10 Resp 17 02/11/19 04:10 BP 92/62 02/11/19 04:10 Pulse Ox 95 02/11/19 04:10 Intake & Output 02/10/19 02/11/19 02/11/19 18:59 06:59 18:59 Intake Total 840 Balance 840 Intake: Intake, IV Titration 600 Amount Sodium Chloride 0.9% 1, 600 000 ml @ 75 mls/hr IV . [id number] GEM Rx#:[id number] Oral 240 Other: Voiding Method Diaper Diaper Incontinent Incontinent # Voids 4 1 - Exam GENERAL EXAM: Alert, active, comfortable 54-year-old female patient in no apparent distress. On room air. HEAD: Normocephalic. EYES: Normal reaction of pupils, equal size. NOSE: Clear with pink turbinates. THROAT: No erythema or exudates. NECK: No masses, no JVD. CHEST: No chest wall deformity. LUNGS: Equal air entry with no crackles, wheeze, rhonchi or dullness. CVS: S1 and S2 normal with no audible murmur, regular rhythm. ABDOMEN: No hepatosplenomegaly, normal bowel sounds, no guarding or rigidity. SPINE: No scoliosis or deformity SKIN: No rashes CENTRAL NERVOUS SYSTEM: No focal deficits, tone is normal in all 4 extremities. EXTREMITIES: There is no peripheral edema. No clubbing, no cyanosis. Peripheral pulses are intact. - Labs CBC & Chem 7: 02/10/19 07:12 02/10/19 07:12 Assessment and Plan Assessment: Impression: #1 Acute hypoxemic/hypercapnic respiratory failure with mild respiratory acidosis secondary to alveolar hypoventilation, secondary to medications de pressed central nervous system the respiratory drive. Much more awake and alert after most of her medications have been discontinued. #2 Altered mental status secondary to hypoventilation, acute hypercarbia, recovered. #3 Multiple sclerosis. #4 History of cervical cancer. #5 History of DVT. #6 History of fibromyalgia. #7 History of dementia. #8 History of migraine cephalgia. #9 Peripheral vascular occlusive disease. #10 Chronic pain syndrome. Plan: The patient was seen and evaluated by Dr. Little. She is currently stable from the pulmonary standpoint. Recommendations have been made previously regarding cautious use of narcotics, anxiolytics and muscle relaxants. She is cleared for transfer to an inpatient rehabilitation. I, the cosigning physician, performed a history & physical examination of the patient. Lungs sounds are clear. Maintaining good O2 saturations in the 90s on room air. I discussed the assessment and plan of care with my nurse practitio babar, Kaur Parekh. I attest to the above note as dictated by her.
[2019-02-11] MEDS: PSYLLIUM HUSK 100% 6 GM PACKET PO SCH ×2 (17:33→20:59)
[2019-02-11] MEDS: TOPIRAMATE 25 MG TAB PO SCH (20:50)
[2019-02-11] MEDS: ASPIRIN 81 MG PO SCH (20:50)
[2019-02-11] MEDS: QUEtiapine 50 MG TAB PO SCH (20:50)
[2019-02-11] MEDS: CITALOPRAM HYDROBROMIDE 20 MG TAB PO SCH (20:50)
--- NOTE | 2019-02-11 21:54 | P.PN ---
Progress Note - Text Progress Note Date: 02/11/19 Chief Complaint: Weakness Interval History: This is a pleasant 52-year-old patient of Dr. Beltran. Follows with a neurologist Dr. Garsia. Patient presented to the ER. With her major complaint of feeling generalized weakness. Some the symptoms have been progressive coming on for close to a month. She says that she is able to get around [facility] with help for activities of daily living. There is no focal weakness. Just feel tired and rundown. She also went to see her neurologist yesterday was found to be hypertensive with a blood pressure running in the 80s. No shortness of breath. For last few days her appetite and oral intake is gone down. No fever and chills. There is no focal neurological weakness. No cough or shortness of breath. No palpitation. Patient is good chronic double incontinence. Some vision is also affected by the multiple sclerosis. She presented she was rather lethargic tired rundown. Admitted for the same. From the ER there was a question about pulmonary embolism and had ordered a VQ scan. Clinical picture was not at all compatible with the same. Patient's Duragesic patch had been held off. At a baseline patient has a motorized chair patient is able to stand and transfer. Patient did well came around after that some of the medications were cut back. Awake alert Today-feeling much better. Sitting up in a chair. Feeding to go to inpatient rehab. No new issues. Tolerating a diet. Cramping is gone. Review of systems: Was done for constitutional, cardiovascular, GI, pulmonary. relevant finding as above Active Medications Aspirin (Aspirin) 81 mg PO [facility] Last Admin: 02/11/19 20:50 Dose: 81 mg Documented by: Baclofen (Lioresal) 10 mg PO TID PRN PRN Reason: Muscle Spasm Last Admin: 02/09/19 17:02 Dose: 10 mg Documented by: Citalopram Hydrobromide (Celexa) 40 mg PO [facility] Last Admin: 02/11/19 20:50 Dose: 40 mg Documented by: Donepezil HCl (Aricept) 5 mg PO DAILY [facility] Last Admin: 02/11/19 09:02 Dose: 5 mg Documented by: Famotidine (Pepcid) 20 mg PO DAILY [facility] Last Admin: 02/11/19 09:01 Dose: 20 mg Documented by: Gabapentin (Neurontin) 300 mg PO BID [facility] Last Admin: 02/11/19 20:50 Dose: 300 mg Documented by: Metoprolol Tartrate (Lopressor) 12.5 mg PO BID [facility] Last Admin: 02/11/19 20:50 Dose: 12.5 mg Documented by: Naloxone HCl (Narcan) 0.2 mg IV Q2M PRN PRN Reason: Opioid Reversal Dimethyl Fumarate [ (Tecfidera]) 240 mg PO BID [facility] Last Admin: 02/11/19 20:50 Dose: 240 mg Documented by: Psyllium Hydrophilic Mucilloid (Metamucil) 6 gm PO BID [facility] Last Admin: 02/11/19 20:59 Dose: Not Given Documented by: Quetiapine Fumarate (Seroquel) 50 mg PO [facility] Last Admin: 02/11/19 20:50 Dose: 50 mg Documented by: Topiramate (Topamax) 25 mg PO [facility] Last Admin: 02/11/19 20:50 Dose: 25 mg Documented by: Physical examination: VITAL SIGNS: 98.2, 98, 17, 92 x 62, 95% on 2 L GENERAL: Sitting up in a chair, comfortable. EYES: Pupils equal. Conjunctiva normal. HEENT: External appearance of nose and ears normal, oral cavity grossly normal. NECK: JVD not raised; masses not palpable. HEART: First and second heart sounds are normal; no edema. LUNGS: Respiratory rate normal; clear to auscultation. ABDOMEN: Soft, nontender, liver spleen not palpable, no masses palpable. PSYCH: Tired but able to answer questionsl. NEUROLOGICAL: Cranial nerves grossly intact; no facial asymmetry, power and sensation grossly intact. INVESTIGATIONS, reviewed in the clinical context: Ionized calcium down to 5.3 Previous labs White count 7.9 potassium 3.3 creatinine 1.65 Creatinine 1.03 on December 14 Chest x-ray film personally reviewed by me shows lung orr to be clear EKG tracing personally reviewed by me shows sinus tachycardia Computed tomography scan of the brain unremarkable Ionized calcium 5.6, magnesium 1.7 Assessment: -Acute on chronic metabolic encephalopathy from multiple sedating medications. Note that patient is on Risperdal, fentanyl patch of 37.5, Ambien 10 mg at night, Seroquel 75 mg at night Celexa and baclofen 10 mg 3 times a day when necessary when necessary. Patient's fentanyl patch was held on admission. Patient much alert. -Chronic kidney disease, possible stage III from nephrosclerosis. Also noted that patient is on Motrin at home. -Acute renal failure likely prerenal creatinine did come down from 1.6-1.2 -Chronic medical debility from underlying multiple sclerosis -Multiple sclerosis. This presentation does not appear to be that of MS. 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 There are no predominant was probably symptoms. Initial hypoxia could be from respiratory depression from multiple medications with the sedative effect. -Hypercalcemia note patient is on vitamin D3., Improved Plan: looking much better. Awaiting to go to rehab. Care was discussed with the patient. Continue current medication treatment plan.
[2019-02-12] MEDS: FAMOTIDINE 20 MG TAB PO SCH (11:04)
[2019-02-12] MEDS: GABAPENTIN 300 MG CAP PO SCH ×2 (11:04→20:52)
[2019-02-12] MEDS: METOPROLOL TARTRATE 12.5 MG TAB PO SCH ×2 (11:04→20:52)
[2019-02-12] MEDS: DONEPEZIL 5 MG TAB PO SCH (11:05)
[2019-02-12] MEDS: Dimethyl Fumarate [Tecfidera] PO SCH ×2 (11:05→20:52)
[2019-02-12] MEDS: PSYLLIUM HUSK 100% 6 GM PACKET PO SCH ×2 (11:06→20:53)
--- NOTE | 2019-02-12 17:41 | P.PN ---
Progress Note - Text Progress Note Date: 02/12/19 Chief Complaint: Weakness Interval History: This is a pleasant 52-year-old patient of Dr. Beltran. Follows with a neurologist Dr. Garsia. Patient presented to the ER. With her major complaint of feeling generalized weakness. Some the symptoms have been progressive coming on for close to a month. She says that she is able to get around [facility] with help for activities of daily living. There is no focal weakness. Just feel tired and rundown. She also went to see her neurologist yesterday was found to be hypertensive with a blood pressure running in the 80s. No shortness of breath. For last few days her appetite and oral intake is gone down. No fever and chills. There is no focal neurological weakness. No cough or shortness of breath. No palpitation. Patient is good chronic double incontinence. Some vision is also affected by the multiple sclerosis. She presented she was rather lethargic tired rundown. Admitted for the same. From the ER there was a question about pulmonary embolism and had ordered a VQ scan. Clinical picture was not at all compatible with the same. Patient's Duragesic patch had been held off. At a baseline patient has a motorized chair patient is able to stand and transfer. Patient did well came around after that some of the medications were cut back. Awake alert Today-feeling much better. sitting up in a chair. Feeling much better tolerating a diet. Sleeping is improving Review of systems: Was done for constitutional, cardiovascular, GI, pulmonary. relevant finding as above Active Medications Aspirin (Aspirin) 81 mg PO [facility] Last Admin: 02/11/19 20:50 Dose: 81 mg Documented by: Baclofen (Lioresal) 10 mg PO TID PRN PRN Reason: Muscle Spasm Last Admin: 02/09/19 17:02 Dose: 10 mg Documented by: Citalopram Hydrobromide (Celexa) 40 mg PO [facility] Last Admin: 02/11/19 20:50 Dose: 40 mg Documented by: Donepezil HCl (Aricept) 5 mg PO DAILY [facility] Last Admin: 02/12/19 11:05 Dose: 5 mg Documented by: Famotidine (Pepcid) 20 mg PO DAILY [facility] Last Admin: 02/12/19 11:04 Dose: 20 mg Documented by: Gabapentin (Neurontin) 300 mg PO BID [facility] Last Admin: 02/12/19 11:04 Dose: 300 mg Documented by: Metoprolol Tartrate (Lopressor) 12.5 mg PO BID [facility] Last Admin: 02/12/19 11:04 Dose: 12.5 mg Documented by: Naloxone HCl (Narcan) 0.2 mg IV Q2M PRN PRN Reason: Opioid Reversal Dimethyl Fumarate [ (Tecfidera]) 240 mg PO BID [facility] Last Admin: 02/12/19 11:05 Dose: Not Given Documented by: Psyllium Hydrophilic Mucilloid (Metamucil) 6 gm PO BID [facility] Last Admin: 02/12/19 11:06 Dose: Not Given Documented by: Quetiapine Fumarate (Seroquel) 50 mg PO [facility] Last Admin: 02/11/19 20:50 Dose: 50 mg Documented by: Topiramate (Topamax) 25 mg PO [facility] Last Admin: 02/11/19 20:50 Dose: 25 mg Documented by: Physical examination: VITAL SIGNS: 96.7, 85, 18, 110/72, 96% on 2 L GENERAL: Sitting up in a chair, comfortable. EYES: Pupils equal. Conjunctiva normal. HEENT: External appearance of nose and ears normal, oral cavity grossly normal. NECK: JVD not raised; masses not palpable. HEART: First and second heart sounds are normal; no edema. LUNGS: Respiratory rate normal; clear to auscultation. ABDOMEN: Soft, nontender, liver spleen not palpable, no masses palpable. PSYCH: Tired but able to answer questionsl. NEUROLOGICAL: Cranial nerves grossly intact; no facial asymmetry, power and sensation grossly intact. INVESTIGATIONS, reviewed in the clinical context: Previous labs White count 7.9 potassium 3.3 creatinine 1.65 Creatinine 1.03 on December 14 Chest x-ray film personally reviewed by me shows lung orr to be clear EKG tracing personally reviewed by me shows sinus tachycardia Computed tomography scan of the brain unremarkable Ionized calcium 5.6, magnesium 1.7 Assessment: -Acute on chronic metabolic encephalopathy from multiple sedating medications. Note that patient is on Risperdal, fentanyl patch of 37.5, Ambien 10 mg at night, Seroquel 75 mg at night Celexa and baclofen 10 mg 3 times a day when nec essary when necessary. Patient's fentanyl patch was held on admission. Patient much alert.something medications were cut back -Chronic kidney disease, possible stage III from nephrosclerosis. Also noted that patient is on Motrin at home. -Acute renal failure likely prerenal creatinine did come down from 1.6-1.2 -Chronic medical debility from underlying multiple sclerosis -Multiple sclerosis. This presentation does not appear to be that of MS. 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 There are no predominant was probably symptoms. Initial hypoxia could be from respiratory depression from multiple medications with the sedative effect. -Hypercalcemia note patient is on vitamin D3., Improved Plan: continue current medication treatment plan. Awaiting patient to go to rehab.
[2019-02-12] MEDS: BACLOFEN 10 MG TAB PO PRN (19:29)
[2019-02-12] MEDS: ASPIRIN 81 MG PO SCH (20:52)
[2019-02-12] MEDS: CITALOPRAM HYDROBROMIDE 20 MG TAB PO SCH (20:52)
[2019-02-12] MEDS: QUEtiapine 50 MG TAB PO SCH (20:52)
[2019-02-12] MEDS: TOPIRAMATE 25 MG TAB PO SCH (20:52)
[2019-02-13] MEDS: Dimethyl Fumarate [Tecfidera] PO SCH ×2 (08:40→20:56)
[2019-02-13] MEDS: METOPROLOL TARTRATE 12.5 MG TAB PO SCH ×2 (08:41→20:56)
[2019-02-13] MEDS: PSYLLIUM HUSK 100% 6 GM PACKET PO SCH ×2 (08:41→20:58)
[2019-02-13] MEDS: GABAPENTIN 300 MG CAP PO SCH ×2 (08:41→20:56)
[2019-02-13] MEDS: FAMOTIDINE 20 MG TAB PO SCH (08:41)
[2019-02-13] MEDS: DONEPEZIL 5 MG TAB PO SCH (08:43)
--- NOTE | 2019-02-13 14:30 | P.PN ---
Progress Note - Text Progress Note Date: 02/13/19 SUBJECTIVE/INTERVAL EVENTS: No acute overnight events. Patient looks great today. The abnormal positioning of her hands have improved significantly. Pt answering questions readily. I was contacted by the nurse as there was concern about difficulty of administering patient's MS medication, Tecfidera, at the rehab facility. Also notified that patient has been taking it once a day. When I asked the patient about her reason for taking it once a day, she states that she's been taking it at that dose ever since she was diagnosed. However, her MS specialist does not know that she's been taking it once a day only. There was a time when she could not get her medication due to insurance denial. Informed patient about the importance of taking the medication at the recommended dose, and patient agreed. Also, patient has a hx of MS flare when patient came off Tecfidera (which occurred due to insurance denial of this medication). Patient needs to continue taking this medication. PHYSICAL EXAMINATION: VITAL SIGNS: Temperature 97.7 pulse rate 102 respiratory rate 16 blood pressure 98/64 O2 saturation 91% on nasal cannula at 2 L GEN.: NAD, pleasant and cooperative HEENT: NCAT, sclera without icterus NECK: Supple SKIN AND EXTREMITIES: Warm to touch, no edema NEURO: MENTAL STATUS: Patient alert and oriented to self, place, time. Able to name the current president. Speech fluent, able to name and repeat, following all commands readily but at times takes a little time to answer questions. CRANIAL NERVES II THROUGH XII: II: Pupils are equal and reactive to light symmetrically. Visual orr are intact. III, IV, : No ptosis. Extraocular movements full. No nystagmus. V: Facial sensation intact from V1-3. VII. No clear facial asymmetry. VIII: Hearing intact to finger rub bilaterally. IX, X: Symmetric palate elevation. XII: Shoulder shrug intact. XII: Tongue midline without fasciculation or atrophy. MOTOR: Normal bulk/tone. No pronator drift or tremor. Strength is 5/5 grossly in her bilateral upper extremities except for her interossei which are about 4 minus/5. patient also has a mild wrist drop. 4+/5 strength in bilateral lower extremity SENSORY: Intact to light touch, temperature in all 4 extremities. REFLEXES: 1+ throughout. Toes are mute No clonus. Bambi's is absent COORDINATION: Finger to nose. No dysmetria. GAIT: Deferred as patient states that she is barely able to stand for about 2-3 seconds before she has to sit. Patient stated that she is unable to walk. DIAGNOSTIC TESTING: IMAGING: CT brain without contrast 02/07/2019: No acute process. MRI lumbar spine with and without contrast 12/19/2018: Increasing epidural lipomatosis lower lumbar spine causes spinal cord narrowing into the sacrum. Correlate clinically for possible cause of glucocorticoid excess. A few simple appearing cysts scattered throughout the visualized portion of the left kidney largest measures 2.7 cm. There is suggestion of spinal medical he was splenic study to lower pole level of left medial same axial image. ASSESSMENT and PLAN: Ms. Jada Faustin is a 53-year-old woman with past medical history of DVT, fibromyalgia, memory impairment, migraines, multiple sclerosis, polyneuropathy, renal disease, presented to the [facility] for generalized weakness. I evaluated the patient yesterday, during which time I was not concerned about an MS flare in this patient. On chart review this morning, there was a note from pulmonary consultation stating the patient was less alert and having difficulty with breathing. Patient underwent possible pulmonary embolism rule out. US Doppler LE negative for DVT. Assist the patient again today. Patient states that she is feeling better today. Patient and sister noted some abnormal posturing of her hands bilaterally which patient states started about 2 days ago. Patient is still able to fully close it fully open her hands. When I checked for Tinel's sign, patient with carpal tunnel syndrome-like pain along with the positioning of her hand like that of [place]'s sign, which could result from median nerve neuropathy. On our record, last brain MRI and C-spine MRI was on 09/03/2017 which showed stable white matter lesions unchanged in size number morphology. Patient states that she is actually on Tecfidera, was restarted after her MS flare. Patient should also get repeat MRI brain and C- spine with and without contrast as outpatient if not done recently. Patient must continue to take her disease modifying medication, Tecfidera, this patient has a history of MS flare while off Tecfidera. Neurology will sign off at this time. Please feel free to contact Neurology again if with additional questions or concerns.
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
--- NOTE | 2019-02-13 18:03 | PN ---
PROGRESS NOTE ADDENDUM: Please add to the previous progress note: EXAM: Pulse is 102, blood pressure 98/64, respirations 16, temperature 97.7, pulse ox 91 percent on 2 L. HEENT is conjunctivae normal. NECK: No JVD. CARDIOVASCULAR: S1, S2 muffled. RESPIRATIONS: Breath sounds diminished in the bases. A few scattered rhonchi and crackles. ABDOMEN is soft, nontender. LEGS: No edema. No swelling. CENTRAL NERVOUS SYSTEM: Diffusely weak. Reflexes diminished. LAB INVESTIGATION: At this time shows: WBC 3.2, hemoglobin 10.7 and ABGs noted. Sodium 140, potassium 4.1. ASSESSMENT: 1. Multiple sclerosis, acute exacerbation. 2. Generalized weakness. 3. Change in mental status acute metabolic encephalopathy, possibly medication induced. 4. Chronic kidney disease stage III. 5. Acute renal failure possibly prerenal factors. 6. Chronic medical debility. 7. Chronic fibromyalgia. 8. Bkpy-ws-zergdeqz cognitive impairment. 9. Hypothyroidism. 10.Polyneuropathy. 11.History of bipolar. 12.Hypercalcemia. 13.Mild leukopenia. 14.Thrombocytopenia. RECOMMENDATIONS AND DISCUSSION: Recommend to continue current medications, management and symptomatic treatment, PT, OT evaluation as mentioned earlier. The patient requests a Tecfidera because of MS exacerbation as well as due to weakness during the hospitalization and needs nursing management for response to medications of the patient. Recur inpatient rehab or ECF rehab, which were discussed. I discussed at length with the patient as well as staff and we will continue to monitor. 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 We will continue to monitor. Further recommendations to follow. MMODL / IJN: [id number] / MTDD
--- NOTE | 2019-02-13 18:34 | PN ---
PROGRESS NOTE DATE OF SERVICE: 02/13/2019 I am covering for Dr. Delatorre. This 54-year-old woman who was admitted with acute on chronic metabolic encephalopathy, also had multiple episodes of acute exacerbation. Patient is extremely weak and unsteady. PT/OT is evaluating the patient and recommended rehab, but however the patient was also seen by Neurology and Neurology has recommended Tecfidera which is rather costly medication with the rehab but the local rehabs are not able to cover, however please refer to the case management. MMODL / IJN: [id number] /
[2019-02-13] MEDS: BACLOFEN 10 MG TAB PO PRN (20:56)
[2019-02-13] MEDS: CITALOPRAM HYDROBROMIDE 20 MG TAB PO SCH (20:56)
[2019-02-13] MEDS: ASPIRIN 81 MG PO SCH (20:56)
[2019-02-13] MEDS: TOPIRAMATE 25 MG TAB PO SCH (20:56)
[2019-02-13 21:00] VITALS: RESP 18; TEMP 98.4
[2019-02-13] MEDS: QUEtiapine 50 MG TAB PO SCH (22:34)
[2019-02-14 06:07] VITALS: BP 99/57
[2019-02-14] MEDS: GABAPENTIN 300 MG CAP PO SCH (08:42)
[2019-02-14] MEDS: METOPROLOL TARTRATE 12.5 MG TAB PO SCH (08:42)
[2019-02-14] MEDS: FAMOTIDINE 20 MG TAB PO SCH (08:42)
[2019-02-14] MEDS: DONEPEZIL 5 MG TAB PO SCH (08:42)
[2019-02-14] MEDS: Dimethyl Fumarate [Tecfidera] PO SCH (08:43)
[2019-02-14] MEDS: PSYLLIUM HUSK 100% 6 GM PACKET PO SCH (08:53)
[2019-02-14 10:31] VITALS: PULSE 81
--- NOTE | 2019-02-14 18:09 | P.DS ---
Providers Date of admission: 02/09/19 14:47 Attending physician: Kyle Delatorre Consults: 02/07/19 16:23 Consult Physician Urgent Consulting Provider: Bonnie Berg Consult Reason/Comments: ms, gen weakness Do you want consulting provider notified?: Yes 02/07/19 16:24 Consult Physician Urgent Consulting Provider: Jeff Little Consult Reason/Comments: dyspnea Do you want consulting provider notified?: Yes 02/13/19 14:40 Consult Physician Urgent Consulting Provider: Lisandro Tang Consult Reason/Comments: possible ipr Do you want consulting provider notified?: Yes Primary care physician: [facility] Course: was admitted for emesis exacerbation patient was evaluated by neurology in the recommending time with iron fumarate patient does have some chronic Sensorimotor deficits, her MS patient is cleared for discharge patient will be discharged today patient is requiring oxygen does have COPDtoday patient will be given prescription for as needed albuterol PHYSICAL EXAMINATION: GENERAL: The patient is alert and oriented x3, not in any acute distress. Well developed, well nourished. HEENT: Pupils are round and equally reacting to light. EOMI. No scleral icterus. No conjunctival pallor. Normocephalic, atraumatic. No pharyngeal erythema. No thyromegaly. CARDIOVASCULAR: S1 and S2 present. No murmurs, rubs, or gallops. PULMONARY: Chest is clear to auscultation, no wheezing or crackles. ABDOMEN: Soft, nontender, nondistended, normoactive bowel sounds. No palpable organomegaly. MUSCULOSKELETAL: No joint swelling or deformity. EXTREMITIES: No cyanosis, clubbing, or pedal edema. NEUROLOGICAL: patient does have focal deficits as mentioned above SKIN: No rashes. please refer to dictation from Dr. Dockery and Dr. barr further details of hospitalization course. Plan - Discharge Summary Discharge Rx Participant: Yes New Discharge Prescriptions: New Metoprolol Tartrate [Lopressor] 12.5 mg PO BID tab Continue Aspirin EC [Ecotrin Low Dose] 81 mg PO HS Topiramate [Topamax] 25 mg PO HS Memantine [Namenda] 5 mg PO DAILY Donepezil [Aricept] 5 mg PO DAILY Citalopram Hydrobromide [CeleXA] 40 mg PO HS Dimethyl Fumarate [Tecfidera] 240 mg PO DAILY Ranitidine HCl [Zantac] 150 mg PO DAILY Baclofen 10 mg PO TID PRN #9 tablet PRN Reason: Muscle Spasm Gabapentin [Neurontin] 300 mg PO BID #6 capsule Changed risperiDONE [RisperDAL] 0.5 mg PO HS #3 tab QUEtiapine FUMARATE [SEROquel] 50 mg PO HS #3 tablet Discontinued Zolpidem [Ambien] 10 mg PO HS Cholecalciferol (Vitamin D3) [Vitamin D3] 2,000 unit PO DAILY fentaNYL [Duragesic 37.5 MCG/HR] 1 patch TOPICAL Q72H Ibuprofen 800 mg PO BID PRN PRN Reason: Pain Discharge Medication List Aspirin EC [Ecotrin Low Dose] 81 mg PO HS 11/02/13 [History] Topiramate [Topamax] 25 mg PO HS 11/02/13 [History] Citalopram Hydrobromide [CeleXA] 40 mg PO HS 12/14/18 [History] Donepezil [Aricept] 5 mg PO DAILY 12/14/18 [History] Memantine [Namenda] 5 mg PO DAILY 12/14/18 [History] Dimethyl Fumarate [Tecfidera] 240 mg PO DAILY 02/07/19 [History] Ranitidine HCl [Zantac] 150 mg PO DAILY 02/07/19 [History] Baclofen 10 mg PO TID PRN #9 tablet 02/10/19 [Rx] Gabapentin [Neurontin] 300 mg PO BID #6 capsule 02/10/19 [Rx] Metoprolol Tartrate [Lopressor] 12.5 mg PO BID tab 02/10/19 [Rx] QUEtiapine FUMARATE [SEROquel] 50 mg PO HS #3 tablet 02/10/19 [Rx] risperiDONE [RisperDAL] 0.5 mg PO HS #3 tab 02/10/19 [Rx] Follow up Appointment(s)/Referral(s): Abhishek Beltran DO [Primary Care Provider] - 02/14/19 11:40 am Discharge Disposition: HOME WITH HOME HEALTH SERVICES
== END 2019-02-14 15:27 | disposition home health service (06) | DRG 91 ==
LOC: EC 11:03 → 3NMEDONC 16:32 → OBSVTOIN 02-09 14:47
PROVIDERS: ADMIT Hospitalist; ATTEND Hospitalist
DX: G92 Toxic encephalopathy (principal); J96.01 Acute respiratory failure with hypoxia; J96.02 Acute respiratory failure with hypercapnia; E87.2 Acidosis; N17.9 Acute kidney failure, unspecified; G35 Multiple sclerosis; G62.9 Polyneuropathy, unspecified; G89.4 Chronic pain syndrome; I73.9 Peripheral vascular disease, unspecified; M79.7 Fibromyalgia; D69.6 Thrombocytopenia, unspecified; D72.819 Decreased white blood cell count, unspecified; E05.90 Thyrotoxicosis, unspecified without thyrotoxic crisis or storm; T42.6X5A Adverse effect of other antiepileptic and sedative-hypnotic drugs, initial encounter; E88.2 Lipomatosis, not elsewhere classified; F03.90 Unspecified dementia, unspecified severity, without behavioral disturbance, psychotic disturbance, mood disturbance, and anxiety; Z87.891 Personal history of nicotine dependence; F31.9 Bipolar disorder, unspecified; F41.9 Anxiety disorder, unspecified; G43.909 Migraine, unspecified, not intractable, without status migrainosus; G56.02 Carpal tunnel syndrome, left upper limb; G56.10 Other lesions of median nerve, unspecified upper limb; K59.09 Other constipation; N28.1 Cyst of kidney, acquired; R32 Unspecified urinary incontinence; Z79.899 Other long term (current) drug therapy; Z80.3 Family history of malignant neoplasm of breast; Z80.8 Family history of malignant neoplasm of other organs or systems; Z85.41 Personal history of malignant neoplasm of cervix uteri; Z86.718 Personal history of other venous thrombosis and embolism; Z87.01 Personal history of pneumonia (recurrent); Z92.21 Personal history of antineoplastic chemotherapy; Z79.1 Long term (current) use of non-steroidal anti-inflammatories (NSAID); Z79.891 Long term (current) use of opiate analgesic; D63.1 Anemia in chronic kidney disease; N18.3 Chronic kidney disease, stage 3 (moderate); I95.2 Hypotension due to drugs; E83.51 Hypocalcemia
CPT/HCPCS: 36415; 36600; 51701; 70450; 71046; 78582; 80048; 80053; 81001; 82330; 82550; 82805; 83605; 83735; 84100; 84439; 84443; 84481; 84484; 85025; 85610; 85730; 93005; 93306; 93970; 94760; 96360; 96361; 99285

== ENCOUNTER 2019-09-23 22:56 | Inpatient (IN) | payer BC ==
[2019-09-23] MEDS ORDERED: SODIUM CHLORIDE 0.9% 1,000 ML IV STA (23:24)
[2019-09-23] MEDS ORDERED: HYDROmorphone 1 MG/ML 1 ML SYRINGE IVP STA (23:24)
[2019-09-23] MEDS ORDERED: ONDANSETRON 4 MG/2 ML VIAL IVP STA (23:24)
[2019-09-23] MEDS ORDERED: PANTOPRAZOLE 40 MG/10 ML VIAL IVP STA (23:24)
[2019-09-23 23:47] LABS: Basophils % (A) 0 %; Eosinophils # (A) 0.1 k/uL (0-0.7); Eosinophils % (A) 0 %; HCT 51.8 % (34.0-46.0); HGB 16.5 gm/dL (11.4-16.0); Lymphocytes # (A) 1.6 k/uL (1.0-4.8); Lymphocytes % (A) 6 %; MCH 25.7 pg (25.0-35.0); MCHC 31.9 g/dL (31.0-37.0); MCV 80.6 fL (80.0-100.0); Mean Platelet Volume 8.6; Monocytes # (A) 0.8 k/uL (0-1.0); Monocytes % (A) 3 %; Neutrophils # (A) 24.9 k/uL (1.3-7.7); Neutrophils % (A) 90 %; Platelet Count 347 k/uL (150-450); RBC 6.42 m/uL (3.80-5.40); RDW 14.6 % (11.5-15.5); WBC 27.7 k/uL (3.8-10.6)
[2019-09-23 23:58] LABS: Albumin 5.1 g/dL (3.5-5.0); Calcium 10.8 mg/dL (8.4-10.2); Potassium 3.5 mmol/L (3.5-5.1); Total Bilirubin 1.2 mg/dL (0.2-1.3); Total Protein 8.4 g/dL (6.3-8.2)
[2019-09-24] MEDS ORDERED: SODIUM CHLORIDE 0.9% 1,000 ML IV ONE (00:15)
--- NOTE | 2019-09-24 00:15 | XR ---
EXAMINATION TYPE: XR chest 2V DATE OF EXAM: 09/24/2019 COMPARISON: NONE HISTORY: cough TECHNIQUE: FINDINGS: Normal heart and mediastinum. Lungs clear. Diaphragm normal. Bony thorax normal. IMPRESSION: Normal chest. There is clearing of subsegmental atelectasis left lower lobe.
[2019-09-24] MEDS ORDERED: PIPERACILLIN-TAZOBACTAM 3.375 GM in SODIUM CHLORIDE 0.9% 100 ML IVPB ONE (00:30)
--- NOTE | 2019-09-24 00:43 | ED ---
General Adult HPI - General Chief complaint: Abdominal Pain Stated complaint: Vomiting, abdominal pain Time Seen by Provider: 09/23/19 23:13 Source: patient, RN notes reviewed, old records reviewed Mode of arrival: ambulatory Limitations: no limitations - History of Present Illness Initial comments: 54-year-old female patient with past history of multiple sclerosis, wheelchair- bound, incontinent of urine chronic kidney disease, patient reports that she had a provoked DVT in 1982 however is not had any blood clots and is not on any current blood thinners presents to ED for chief complaint 2 days of epigastric abdominal pain nausea and vomiting. Reports after vomiting she has coughed after emesis but denies any cough at baseline. Denies any chest pain or shortness of breath. Denies any headache or changes in vision. Denies any other complaints at this time. Systemic: Pt denies fatigue, fever/chills, rash. Pt denies weakness, night sweats, weight loss. Neuro: Pt denies headache, visual disturbances, syncope or pre-syncope. HEENT: Pt denies ocular discharge or irritation, otalgia, rhinorrhea, pharyngitis or notable lymphadenopathy. Cardiopulmonary: Pt denies chest pain, SOB, heart palpitations, dyspnea on exertion. : Pt denies dysuria, burning w/ urination, frequency/urgency. Denies new onset urinary or bowel incontinence. MSK: Pt denies myalgia, loss of strength or function in extremities. Neuro: Pt denies new onset weakness, paresthesias. - Related Data Home Medications Medication Instructions Recorded Confirmed Aspirin EC [Ecotrin Low Dose] 81 mg PO HS 11/02/13 02/07/19 Topiramate [Topamax] 25 mg PO HS 11/02/13 02/07/19 Citalopram Hydrobromide [CeleXA] 40 mg PO HS 12/14/18 02/07/19 Donepezil [Aricept] 5 mg PO DAILY 12/14/18 02/07/19 Memantine [Namenda] 5 mg PO DAILY 12/14/18 02/07/19 Dimethyl Fumarate [Tecfidera] 240 mg PO DAILY 02/07/19 02/07/19 Ranitidine HCl [Zantac] 150 mg PO DAILY 02/07/19 02/07/19 Previous Rx's Medication Instructions Recorded Baclofen 10 mg PO TID PRN #9 tablet 02/10/19 Gabapentin [Neurontin] 300 mg PO BID #6 capsule 02/10/19 Metoprolol Tartrate [Lopressor] 12.5 mg PO BID tab 02/10/19 QUEtiapine FUMARATE [SEROquel] 50 mg PO HS #3 tablet 02/10/19 risperiDONE [RisperDAL] 0.5 mg PO HS #3 tab 02/10/19 Albuterol Inhaler [Ventolin Hfa 1 - 2 puff INHALATION Q6HR PRN #1 02/14/19 Inhaler] inhaler Allergies Allergy/AdvReac Type Severity Reaction Status Date / Time blue dye Allergy Rash/Hives Verified 09/23/19 23:07 Neuromuscular Blockers, AdvReac Nausea & Verified 09/23/19 23:07 Steroidal Vomiting [Steroidal Neuromuscular Blockers] Review of Systems ROS Statement: Those systems with pertinent positive or pertinent negative responses have been documented in the HPI. ROS Other: All systems not noted in ROS Statement are negative. Past Medical History Past Medical History: Cancer, Deep Vein Thrombosis (DVT), Fibromyalgia, Memory Impairment, Pneumonia, Renal Disease Additional Past Medical History / Comment(s): MIGRANES, MULTIPLE SCLEROSIS, BRAIN LESIONS, PVD, SOB, CONSTIPATION, DIARRHEA, KIDNEY INFECTION, UTI, BACK PAIN, ANEMIA, HYPERTHYROID, CERVICAL CA, CARPAL TUNNEL,septice catarina,polyneuropathy,HADHEMODIALYSIS TWICE, HAD CHEMOTHERAPY FOR TX OF MS, MOTORIZED CHAIR-ABLE TO STAND TO TRANSFER. History of Any Multi-Drug Resistant Organisms: None Reported Past Surgical History: Tonsillectomy, Tubal Ligation Additional Past Surgical History / Comment(s): DIALYSIS CATHETER (REMOVED), BIOPSY (UNKNOWN TYPE), CRYO SURGERY FOR CERVICAL CA, D&C. Past Anesthesia/Blood Transfusion Reactions: No Reported Reaction Past Psychological History: Anxiety, Bipolar, Depression Smoking Status: Former smoker Past Alcohol Use History: None Reported Past Drug Use History: None Reported - Past Family History Father Family Medical History: Cancer Additional Family Medical History / Comment(s): BRAIN Mother Family Medical History: Cancer Additional Family Medical History / Comment(s): BREAST General Exam - General Exam Comments Initial Comments: Constitutional: NAD, AOX3, Pt has pleasant affect. HEENT: NC/AT, trachea midline, neck supple, no lymphadenopathy. Posterior p harynx non erythematous, without exudates. External ears appear normal, without discharge. Mucous membranes moist. Eyes PERRLA, EOM intact. There is no scleral icterus. No pallor noted. Cardiopulmonary: RRR, no murmurs, rubs or gallops, no JVD noted. Lungs CTAB in anterior and posterior orr. No peripheral edema. Abdominal exam: Abdomen soft and non-distended. Abdomen mildly tender to palpation epigastric region. No other areas of abdominal tenderness. No guarding or rigidity. RPt exam displayed nontender abdomen. Bowel sounds active in LLQ. No hepatosplenomegaly. No ecchymosis Neuro: CN II-XII grossly intact. No nuchal rigidity. No raccon eyes, no guzmán sign, no hemotympanum. No cervical spinal tenderness. MSK: No posterior calf tenderness bilaterally, homans sign negative bilaterally. Posterior tibialis and radial pulse +2 bilaterally. Sensation intact in upper and lower extremities. Full active ROM in upper and lower extremities, 5/5 stregnth. Limitations: no limitations Course Vital Signs 09/23/19 09/24/19 09/24/19 23:08 00:29 00:32 Temperature 98.2 F 98.8 F Pulse Rate 145 H 120 H Respiratory 20 18 Rate Blood Pressure 133/81 129/74 O2 Sat by Pulse 99 90 L 98 Oximetry 09/24/19 09/24/19 02:56 03:07 Temperature 100.2 F H Pulse Rate 112 H Respiratory 18 Rate Blood Pressure 122/91 O2 Sat by Pulse 95 Oximetry Medical Decision Making - Medical Decision Making 54-year-old female patient with past history of multiple sclerosis, wheelchair- bound, incontinent of urine chronic kidney disease, patient reports that she had a provoked DVT in 1982 however is not had any blood clots and is not on any current blood thinners presents to ED for chief complaint 2 days of epigastric abdominal pain nausea and vomiting. Reports after vomiting she has coughed after emesis but denies any cough at baseline. Denies any chest pain or shortness of breath. Denies any headache or changes in vision. Denies any other complaints at this time. Patient vital signs displayed Mild tachycardia. Physical exam initially displayed mild epigastric tenderness. Repeat abdominal exam revealed nontender abdomen. Laboratory investigations revealed a leukocytosis of 27.7, creatinine of 1.77, glucose of 234, lactic acid 12.5, troponin is negative. UA revealed tract infection. Patient was rehydrated with IV fluids, if he lactic acid is 5.8. CT abdomen and pelvis revealed nonacute abdomen pelvis. Mild splenomegaly is unchanged. Patient diagnosed with urosepsis. Patient initiated on Zosyn. Initially admitted , case discussed with Dr. Martin. - Lab Data Result diagrams: 09/23/19 23:32 09/23/19 23:32 Lab Results 09/23/19 09/23/19 09/23/19 Range/Units 23:32 23:32 23:32 WBC 27.7 H (3.8-10.6) k/uL RBC 6.42 H (3.80-5.40) m/uL Hgb 16.5 H (11.4-16.0) gm/dL Hct 51.8 H (34.0-46.0) % MCV 80.6 (80.0-100.0) fL MCH 25.7 (25.0-35.0) pg MCHC 31.9 (31.0-37.0) g/dL RDW 14.6 (11.5-15.5) % Plt Count 347 (150-450) k/uL Neutrophils % 90 % Lymphocytes % 6 % Monocytes % 3 % Eosinophils % 0 % Basophils % 0 % Neutrophils # 24.9 H (1.3-7.7) k/uL Lymphocytes # 1.6 (1.0-4.8) k/uL Monocytes # 0.8 (0-1.0) k/uL Eosinophils # 0.1 (0-0.7) k/uL Basophils # 0.0 (0-0.2) k/uL Sodium 142 (137-145) mmol/L Potassium 3.5 (3.5-5.1) mmol/L Chloride 96 L (98-107) mmol/L Carbon Dioxide 21 L (22-30) mmol/L Anion Gap 25 mmol/L BUN 14 (7-17) mg/dL Creatinine 1.77 H (0.52-1.04) mg/dL Est GFR (CKD-EPI)AfAm 37 (>60 ml/min/1.73 sqM) Est GFR (CKD-EPI)NonAf 32 (>60 ml/min/1.73 sqM) Glucose 234 H (74-99) mg/dL Plasma Lactic Acid Dion 12.5 H* (0.7-2.0) mmol/L Calcium 10.8 H (8.4-10.2) mg/dL Total Bilirubin 1.2 (0.2-1.3) mg/dL AST 45 H (14-36) U/L ALT 30 (4-34) U/L Alkaline Phosphatase 110 (38-126) U/L Troponin I (0.000-0.034) ng/mL Total Protein 8.4 H (6.3-8.2) g/dL Albumin 5.1 H (3.5-5.0) g/dL Lipase 80 (23-300) U/L Urine Color Urine Appearance (Clear) Urine pH (5.0-8.0) Ur Specific [facility] (1.001-1.035) Urine Protein (Negative) Urine Glucose (UA) (Negative) Urine Ketones (Negative) Urine Blood (Negative) Urine Nitrite (Negative) Urine Bilirubin (Negative) Urine Urobilinogen (<2.0) mg/dL Ur Leukocyte Esterase (Negative) Urine RBC (0-5) /hpf Urine WBC (0-5) /hpf Ur Squamous Epith Cells (0-4) /hpf Urine Bacteria (None) /hpf Urine Mucus (None) /hpf 09/23/19 09/24/19 09/24/19 Range/Units 23:32 01:10 01:22 WBC (3.8-10.6) k/uL RBC (3.80-5.40) m/uL Hgb (11.4-16.0) gm/dL Hct (34.0-46.0) % MCV (80.0-100.0) fL MCH (25.0-35.0) pg MCHC (31.0-37.0) g/dL RDW (11.5-15.5) % Plt Count (150-450) k/uL Neutrophils % % Lymphocytes % % Monocytes % % Eosinophils % % Basophils % % Neutrophils # (1.3-7.7) k/uL Lymphocytes # (1.0-4.8) k/uL Monocytes # (0-1.0) k/uL Eosinophils # (0-0.7) k/uL Basophils # (0-0.2) k/uL Sodium (137-145) mmol/L Potassium (3.5-5.1) mmol/L Chloride (98-107) mmol/L Carbon Dioxide (22-30) mmol/L Anion Gap mmol/L BUN (7-17) mg/dL Creatinine (0.52-1.04) mg/dL Est GFR (CKD-EPI)AfAm (>60 ml/min/1.73 sqM) Est GFR (CKD-EPI)NonAf (>60 ml/min/1.73 sqM) Glucose (74-99) mg/dL Plasma Lactic Acid Dion 5.8 H* (0.7-2.0) mmol/L Calcium (8.4-10.2) mg/dL Total Bilirubin (0.2-1.3) mg/dL AST (14-36) U/L ALT (4-34) U/L Alkaline Phosphatase (38-126) U/L Troponin I <0.012 (0.000-0.034) ng/mL Total Protein (6.3-8.2) g/dL Albumin (3.5-5.0) g/dL Lipase (23-300) U/L Urine Color Light Yellow Urine Appearance Clear (Clear) Urine pH 7.5 (5.0-8.0) Ur Specific [facility] 1.031 (1.001-1.035) Urine Protein Negative (Negative) Urine Glucose (UA) Negative (Negative) Urine Ketones Negative (Negative) Urine Blood Small H (Negative) Urine Nitrite Negative (Negative) Urine Bilirubin Negative (Negative) Urine Urobilinogen <2.0 (<2.0) mg/dL Ur Leukocyte Esterase Moderate H (Negative) Urine RBC 2 (0-5) /hpf Urine WBC 23 H (0-5) /hpf Ur Squamous Epith Cells 1 (0-4) /hpf Urine Bacteria Rare H (None) /hpf Urine Mucus Rare H (None) /hpf - EKG Data -: EKG Interpreted by Me (and Dr. Martin) EKG Comments: Ventricular 120, painful and 72, QRS 70, QT/QTc 436/616. Sinus tachycardia short CA. No concern for acute ischemia at this time. Critical Care Time Critical Care Time: Yes Total Critical Care Time: 33 Disposition Clinical Impression: Sepsis, UTI (urinary tract infection) Disposition: ADMITTED IP TO THIS HOSP Condition: Serious Is patient prescribed a controlled substance at d/c from ED?: No Referrals: Abhishek Beltran, [Primary Care Provider] - 1-2 days
--- NOTE | 2019-09-24 00:43 | CT ---
EXAMINATION TYPE: CT abdomen pelvis w con DATE OF EXAM: 09/24/2019 COMPARISON: 09.12.15. HISTORY: epigastric pain. CT DLP: mGycm Automated exposure control for dose reduction was used. CONTRAST: Performed , patient injected with mL of . isovue 80ml Mild subsegmental atelectasis right lung base. normal heart. no pleural fluid enlarged spleen 14.3cm. normal liver. normal bile ducts. normal gallbladder. Hiatal hernia increased compared to old exam. 2.5 cm left renal parapelvic cyst.multiple small left renal cysts. no solid renal mass. No hydroneph rosis. no retroperitoneal adenopathy. ureters are not dilated. normal retroverted uterus. normal urinary bladder. no inguinal hernia. no ascites or free air. No bow el obstruction. No sign of appendicitis. Bony structures intact. Impression: Mild atelectasis at the lung bases improved compared to old exam. Non acute abdomen and pelvis. Mild splenomegally unchanged. Hiatal hernia increased compared to old exam.
[2019-09-24 01:27] LABS: Appearance,Urine Clear (Clear); Bacteria,Urine Rare /hpf; Bilirubin,Urine Negative (Negative); Blood,Urine Small (Negative); Color,Urine Light Yellow; Glucose,Urine (UA) Negative (Negative); Ketones,Urine Negative (Negative); Leukocyte Esterase,Urine Moderate (Negative); Mucus,Urine Rare /hpf; Nitrite,Urine Negative (Negative); PH, Urine 7.5 (5.0-8.0); Protein,Urine Negative (Negative); RBC,Urine 2 /hpf (0-5); Specific Gravity,Urine 1.031 (1.001-1.035); Squamous Epithelial Cell,Urine 1 /hpf (0-4); Urobilinogen,Urine <2.0 mg/dL (<2.0); WBC,Urine 23 /hpf (0-5)
[2019-09-24] MEDS ORDERED: HYDROmorphone 0.5 MG/0.5 ML SYRINGE IVP STA (03:09)
[2019-09-24] MEDS ORDERED: METOCLOPRAMIDE 5 MG/ML 2 ML VIAL IVP STA (03:09)
[2019-09-24] MEDS ORDERED: ACETAMINOPHEN TAB 325 MG TAB PO STA (03:16)
[2019-09-24] MEDS ORDERED: ACETAMINOPHEN TAB 325 MG TAB PO PRN (03:17)
[2019-09-24] MEDS ORDERED: HYDROmorphone 0.5 MG/0.5 ML SYRINGE IVP PRN (03:29)
[2019-09-24] MEDS ORDERED: METOCLOPRAMIDE 5 MG/ML 2 ML VIAL IM PRN (03:34)
[2019-09-24] MEDS ORDERED: METOCLOPRAMIDE 5 MG/ML 2 ML VIAL IVP PRN (03:35)
[2019-09-24] MEDS ORDERED: TRIMETHOBENZAMIDE 100 MG/ML 2 ML VIAL IM PRN (03:36)
[2019-09-24] MEDS: SODIUM CHLORIDE 0.9% 1,000 ML IV SCH ×3 (03:43→17:36)
[2019-09-24 06:30] LABS: Basophils % (A) 0 %; Eosinophils % (A) 0 %; HCT 42.1 % (34.0-46.0); Lymphocytes # (A) 1.2 k/uL (1.0-4.8); Lymphocytes % (A) 8 %; MCH 25.6 pg (25.0-35.0); MCHC 31.8 g/dL (31.0-37.0); MCV 80.5 fL (80.0-100.0); Mean Platelet Volume 8.4; Monocytes # (A) 0.7 k/uL (0-1.0); Monocytes % (A) 5 %; Neutrophils % (A) 86 %; Platelet Count 210 k/uL (150-450); RBC 5.23 m/uL (3.80-5.40); RDW 14.6 % (11.5-15.5); WBC 15.2 k/uL (3.8-10.6)
[2019-09-24 06:43] LABS: Albumin 3.6 g/dL (3.5-5.0); Calcium 8.6 mg/dL (8.4-10.2); Potassium 3.5 mmol/L (3.5-5.1); Total Bilirubin 1.1 mg/dL (0.2-1.3); Total Protein 6.4 g/dL (6.3-8.2)
[2019-09-24 06:46] LABS: HGB 13.4 gm/dL (11.4-16.0)
[2019-09-24] MEDS: PIPERACILLIN-TAZOBACTAM 3.375 GM in SODIUM CHLORIDE 0.9% 100 ML IVPB SCH ×3 (08:12→22:18)
[2019-09-24] MEDS ORDERED: PANTOPRAZOLE 40 MG/10 ML VIAL IV SCH (09:00)
[2019-09-24] MEDS ORDERED: BACLOFEN 10 MG TAB PO PRN (11:13)
[2019-09-24] MEDS ORDERED: FAMOTIDINE 20 MG TAB PO SCH (11:15)
[2019-09-24] MEDS: Dimethyl Fumarate [Tecfidera] PO SCH (12:40)
[2019-09-24] MEDS: risperiDONE 0.5 MG TAB PO SCH ×2 (15:53→20:22)
[2019-09-24] MEDS: GABAPENTIN 300 MG CAP PO SCH ×3 (15:53→20:22)
[2019-09-24] MEDS: ENOXAPARIN 40 MG/0.4 ML SYRINGE SQ SCH (15:54)
[2019-09-24] MEDS: MONTELUKAST 10 MG TAB PO SCH (20:22)
[2019-09-24] MEDS: CITALOPRAM HYDROBROMIDE 20 MG TAB PO SCH (20:22)
[2019-09-24] MEDS: ASPIRIN 81 MG PO SCH (20:22)
[2019-09-24] MEDS: QUEtiapine 25 MG TAB PO SCH (20:22)
[2019-09-24] MEDS: DONEPEZIL 5 MG TAB PO SCH (20:23)
--- NOTE | 2019-09-24 20:35 | P.HPIM ---
History of Present Illness H&P Date: 09/24/19 Chief Complaint: Nausea vomiting abdominal pain History of presenting complaint: This is a pleasant 54-year-old patient of Dr. Beltran. Follows with a neurologist Dr. Garsia. Chronic stable medical conditions include chronic kidney disease stage III, chronic medical debility from multiple sclerosis, chronic fibromyalgia, cognitive impairment, hypothyroid, polyneuropathy, bipolar disorder, chronic double incontinence. baseline patient has a motorized chair patient is able to stand and transfer. At baseline she is weak in her arms but able to feed herself. Presents with one-day history of nausea vomiting or abdominal pain. Some fever. Had a bowel movement yesterday. No diarrhea. Had nausea today no vomiting. Some upper abdominal discomfort still present. Doing better Review of systems: GEN.: Generalized tiredness EYES: None HEENT: None NECK: None RESPIRATORY: None CARDIOVASCULAR: None GASTROINTESTINAL: As above GENITOURINARY: Double incontinence MUSCULOSKELETAL: Generalized aches and pains LYMPHATICS: None HEMATOLOGICAL: None PSYCHIATRY: But anxious NEUROLOGICAL: MS has affected in different parts of the body including weakness in the arms Past medical history: DVT, fibromyalgia, memory impairment, multiple sclerosis, migraines, constipation, back pain, hypothyroid, cervical cancer, carpal tunnel, polyneuropathy, has had hemodialysis in the past chemotherapy treatment for MS, bipolar disorder Social history: Patient does smoke in the past. Lives with her . Family history: Brain cancer Physical examination: VITAL SIGNS: 100.2, 112, 18, blood pressure 122/91, 95% room air GENERAL: BMI 19.5, laying in bed, tired appearing EYES: Pupils equal. Conjunctiva normal. HEENT: External appearance of nose and ears normal, oral cavity grossly normal. NECK: JVD not raised; masses not palpable. HEART: First and second heart sounds are normal; no edema. LUNGS: Respiratory rate normal; clear to auscultation. ABDOMEN: Soft, mild epigastric tenderness, no guarding or rigidity, liver spleen not palpable, no masses palpable. PSYCH: Able to answer questions NEUROLOGICAL: Cranial nerves grossly intact; no facial asymmetry, weakness of both the upper and lower extremities, generalized LYMPHATICS: No lymph nodes palpable in the axilla and neck EXTREMITY: Some contracture of the hands INVESTIGATIONS, reviewed in the clinical context: White count 27.7 hemoglobin 16.5 platelets 347 potassium 3.5 creatinine 1.77 lactic acid 12.5 UA positive for leukoesterase, WBC EKG tracing personally reviewed by me-normal sinus rhythm nonspecific changes Computed tomography scan abdomen and pelvis with contrast-hiatal hernia, mild splenomegaly Previous testing Labs from February 2019 Hemoglobin 10.7 creatinine 1.23 Assessment: -Acute kidney injury, likely prerenal from nausea vomiting diarrhea, POA -Suspect acute gastroenteritis with sepsis picture, POA -Chronic kidney disease, possible stage III from nephrosclerosis. Also noted t hat patient is on Motrin at home. -Chronic medical debility from underlying multiple sclerosis -Multiple sclerosis. 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 Home medications resumed. Scaled back to clear liquids and advance as tolerated. Lovenox for DVT prophylaxis. Care was discussed with the patient. Past Medical History Past Medical History: Cancer, Deep Vein Thrombosis (DVT), Fibromyalgia, Memory Impairment, Pneumonia, Renal Disease Additional Past Medical History / Comment(s): MIGRANES, MULTIPLE SCLEROSIS, BRAIN LESIONS, PVD, SOB, CONSTIPATION, DIARRHEA, KIDNEY INFECTION, UTI, BACK PAIN, ANEMIA, HYPERTHYROID, CERVICAL CA, CARPAL TUNNEL,septicemia,polyneuropathy,HADHEMODIALYSIS TWICE, HAD CHEMOTHERAPY FOR TX OF MS, MOTORIZED CHAIR-ABLE TO STAND TO TRANSFER. History of Any Multi-Drug Resistant Organisms: None Reported Past Surgical History: Tonsillectomy, Tubal Ligation Additional Past Surgical History / Comment(s): DIALYSIS CATHETER (REMOVED), BIOPSY (UNKNOWN TYPE), CRYO SURGERY FOR CERVICAL CA, D&C. Past Anesthesia/Blood Transfusion Reactions: No Reported Reaction Smoking Status: Former smoker - Past Family History Father Family Medical History: Cancer Additional Family Medical History / Comment(s): BRAIN Mother Family Medical History: Cancer Additional Family Medical History / Comment(s): BREAST Medications and Allergies Home Medications Medication Instructions Recorded Confirmed Type Aspirin EC [Ecotrin Low Dose] 81 mg PO HS 11/02/13 09/24/19 History Citalopram Hydrobromide [CeleXA] 40 mg PO HS 12/14/18 09/24/19 History Donepezil [Aricept] 5 mg PO HS 12/14/18 09/24/19 History Dimethyl Fumarate [Tecfidera] 240 mg PO DAILY 02/07/19 09/24/19 History Baclofen 10 mg PO TID PRN #9 tablet 02/10/19 09/24/19 Rx Albuterol Inhaler [Ventolin Hfa 1 - 2 puff INHALATION Q6HR PRN #1 02/14/19 09/24/19 Rx Inhaler] inhaler Famotidine 20 mg PO DAILY 09/24/19 09/24/19 History Gabapentin [Neurontin] 300 mg PO TID 09/24/19 09/24/19 History Montelukast [Singulair] 10 mg PO HS 09/24/19 09/24/19 History QUEtiapine FUMARATE [SEROquel] 75 mg PO HS 09/24/19 09/24/19 History risperiDONE [RisperDAL] 0.5 mg PO BID 09/24/19 09/24/19 History Allergies Allergy/AdvReac Type Severity Reaction Status Date / Time blue dye Allergy Rash/Hives Verified 09/24/19 10:44 Neuromuscular Blockers, AdvReac Nausea & Verified 09/24/19 10:44 Steroidal Vomiting [Steroidal Neuromuscular Blockers] Physical Exam Vitals: Vital Signs Temp Pulse Pulse Resp BP BP Pulse Ox 09/24/19 12:07 98.2 F 103 H 18 120/60 99 09/24/19 08:14 98.4 F 123 H 18 116/64 95 09/24/19 04:05 99.2 F 114 H 18 122/68 95 09/24/19 03:48 100.2 F H 112 H 18 122/91 95 09/24/19 03:07 112 H 18 122/91 95 09/24/19 02:56 100.2 F H 09/24/19 00:32 98 09/24/19 00:29 98.8 F 120 H 18 129/74 90 L 09/23/19 23:08 98.2 F 145 H 20 133/81 99 Intake and Output 09/23/19 09/24/19 09/24/19 22:59 06:59 14:59 Intake Total 110 230 Balance 110 230 Intake: Oral 110 230 Other: Voiding Method Indwelling Catheter Weight 60 kg Results CBC & Chem 7: 09/24/19 05:34 09/24/19 05:34 Labs: Abnormal Lab Results - Last 24 Hours (Table) 09/23/19 09/23/19 09/23/19 Range/Units 23:32 23:32 23:32 WBC 27.7 H (3.8-10.6) k/uL RBC 6.42 H (3.80-5.40) m/uL Hgb 16.5 H (11.4-16.0) gm/dL Hct 51.8 H (34.0-46.0) % Neutrophils # 24.9 H (1.3-7.7) k/uL Chloride 96 L (98-107) mmol/L Carbon Dioxide 21 L (22-30) mmol/L Creatinine 1.77 H (0.52-1.04) mg/dL Glucose 234 H (74-99) mg/dL Plasma Lactic Acid Dion 12.5 H* (0.7-2.0) mmol/L Calcium 10.8 H (8.4-10.2) mg/dL AST 45 H (14-36) U/L Total Protein 8.4 H (6.3-8.2) g/dL Albumin 5.1 H (3.5-5.0) g/dL Urine Blood (Negative) Ur Leukocyte Esterase (Negative) Urine WBC (0-5) /hpf Urine Bacteria (None) /hpf Urine Mucus (None) /hpf 09/24/19 09/24/19 09/24/19 Range/Units 01:10 01:22 05:34 WBC 15.2 H (3.8-10.6) k/uL RBC (3.80-5.40) m/uL Hgb (11.4-16.0) gm/dL Hct (34.0-46.0) % Neutrophils # 13.0 H (1.3-7.7) k/uL Chloride (98-107) mmol/L Carbon Dioxide (22-30) mmol/L Creatinine (0.52-1.04) mg/dL Glucose (74-99) mg/dL Plasma Lactic Acid Dion 5.8 H* (0.7-2.0) mmol/L Calcium (8.4-10.2) mg/dL AST (14-36) U/L Total Protein (6.3-8.2) g/dL Albumin (3.5-5.0) g/dL Urine Blood Small H (Negative) Ur Leukocyte Esterase Moderate H (Negative) Urine WBC 23 H (0-5) /hpf Urine Bacteria Rare H (None) /hpf Urine Mucus Rare H (None) /hpf 09/24/19 Range/Units 05:34 WBC (3.8-10.6) k/uL RBC (3.80-5.40) m/uL Hgb (11.4-16.0) gm/dL Hct (34.0-46.0) % Neutrophils # (1.3-7.7) k/uL Chloride (98-107) mmol/L Carbon Dioxide (22-30) mmol/L Creatinine 1.66 H (0.52-1.04) mg/dL Glucose (74-99) mg/dL Plasma Lactic Acid Dion (0.7-2.0) mmol/L Calcium (8.4-10.2) mg/dL AST (14-36) U/L Total Protein (6.3-8.2) g/dL Albumin (3.5-5.0) g/dL Urine Blood (Negative) Ur Leukocyte Esterase (Negative) Urine WBC (0-5) /hpf Urine Bacteria (None) /hpf Urine Mucus (None) /hpf Microbiology - Last 24 Hours (Table) 09/24/19 01:10 Urine Culture - Preliminary Urine,Catheterized Thrombosis Risk Factor Assmnt - Choose All That Apply Any of the Below Risk Factors Present?: Yes Each Factor Represents 1 point: Age 41-60 years, Medical pt on bed rest, Obesity (BMI >25), Sepsis (< 1month) Thrombosis Risk Factor Assessment Total Risk Factor Score: 4 Thrombosis Risk Factor Assessment Level: Moderate Risk
[2019-09-24] MEDS: LACTATED RINGERS 1,000 ML IV SCH (22:01)
[2019-09-25] MEDS: LACTATED RINGERS 1,000 ML IV SCH ×3 (05:56→18:07)
[2019-09-25] MEDS: PANTOPRAZOLE 40 MG TABLET PO SCH ×2 (05:57→09:58)
[2019-09-25 06:20] LABS: Calcium 8.3 mg/dL (8.4-10.2); Potassium 3.5 mmol/L (3.5-5.1)
[2019-09-25] MEDS: PIPERACILLIN-TAZOBACTAM 3.375 GM in SODIUM CHLORIDE 0.9% 100 ML IVPB SCH ×2 (09:55→18:19)
[2019-09-25] MEDS: ENOXAPARIN 40 MG/0.4 ML SYRINGE SQ SCH (09:58)
[2019-09-25] MEDS: GABAPENTIN 300 MG CAP PO SCH ×3 (09:59→20:22)
[2019-09-25] MEDS: Dimethyl Fumarate [Tecfidera] PO SCH (11:40)
[2019-09-25] MEDS: risperiDONE 0.5 MG TAB PO SCH ×2 (11:45→20:16)
--- NOTE | 2019-09-25 18:42 | P.PN ---
Progress Note - Text Progress Note Date: 09/25/19 Chief Complaint: Nausea vomiting abdominal pain History of presenting complaint: This is a pleasant 54-year-old patient of Dr. Beltran. Follows with a neurologist Dr. Garsia. Chronic stable medical conditions include chronic kidney disease stage III, chronic medical debility from multiple sclerosis, chronic fibromyalgia, cognitive impairment, hypothyroid, polyneuropathy, bipolar disorder, chronic double incontinence. baseline patient has a motorized chair patient is able to stand and transfer. At baseline she is weak in her arms but able to feed herself. Presents with one-day history of nausea vomiting or abdominal pain. Some fever. Had a bowel movement yesterday. No diarrhea. Had nausea today no vomiting. Some upper abdominal discomfort still present. Doing better Today-feeling better. No nausea vomiting. Abdominal pain greatly improved. Complaining of some pain across the chest. She feels it is gas pains. Overall feeling better. Review of systems: Was done for constitutional, cardiovascular, GI, pulmonary. relevant finding as above Active Medications Acetaminophen (Tylenol Tab) 650 mg PO Q6HR PRN PRN Reason: Fever and/ or Pain Aspirin (Aspirin) 81 mg PO [facility] Last Admin: 09/24/19 20:22 Dose: 81 mg Documented by: Baclofen (Lioresal) 10 mg PO TID PRN PRN Reason: Muscle Spasm Ciprofloxacin (Cipro) 500 mg PO BID [facility] Citalopram Hydrobromide (Celexa) 40 mg PO [facility] Last Admin: 09/24/19 20:22 Dose: 40 mg Documented by: Donepezil HCl (Aricept) 5 mg PO [facility] Last Admin: 09/24/19 20:23 Dose: 5 mg Documented by: Enoxaparin Sodium (Lovenox) 40 mg SQ DAILY [facility] Last Admin: 09/25/19 09:58 Dose: 40 mg Documented by: Gabapentin (Neurontin) 300 mg PO TID [facility] Last Admin: 09/25/19 18:19 Dose: 300 mg Documented by: Lactated Ringer's (Lactated Ringers) 1,000 mls @ 125 mls/hr IV .Q8H [facility] Last Admin: 09/25/19 18:07 Dose: 125 mls/hr Documented by: Metronidazole (Flagyl) 500 mg PO TID [facility] Montelukast Sodium (Singulair) 10 mg PO [facility] Last Admin: 09/24/19 20:22 Dose: 10 mg Documented by: Dimethyl Fumarate [ (Tecfidera]) 240 mg PO DAILY [facility] Last Admin: 09/25/19 11:40 Dose: Not Given Documented by: Pantoprazole Sodium (Protonix) 40 mg PO AC-BRKFST [facility] Last Admin: 09/25/19 09:58 Dose: 40 mg Documented by: Quetiapine Fumarate (Seroquel) 75 mg PO [facility] Last Admin: 09/24/19 20:22 Dose: 75 mg Documented by: Risperidone (Risperdal) 0.5 mg PO BID [facility] Last Admin: 09/25/19 11:45 Dose: 0.5 mg Documented by: Trimethobenzamide HCl (Tigan) 200 mg IM Q8HR PRN PRN Reason: nausea Last Admin: 09/24/19 13:00 Dose: 200 mg Documented by: Physical examination: VITAL SIGNS: 98.1, 104, 16, 96/67, 94% on room air GENERAL: BMI 19.5, laying in bed, more comfortable EYES: Pupils equal. Conjunctiva normal. HEENT: External appearance of nose and ears normal, oral cavity grossly normal. NECK: JVD not raised; masses not palpable. HEART: First and second heart sounds are normal; no edema. LUNGS: Respiratory rate normal; clear to auscultation. ABDOMEN: Soft, mild epigastric tenderness, no guarding or rigidity, liver spleen not palpable, no masses palpable. PSYCH: Able to answer questions NEUROLOGICAL: Cranial nerves grossly intact; no facial asymmetry, weakness of both the upper and lower extremities, generalized EXTREMITY: Some contracture of the hands INVESTIGATIONS, reviewed in the clinical context: Sodium 146 potassium 3.5 creatinine 1.54 Previous testing White count 27.7 hemoglobin 16.5 platelets 347 potassium 3.5 creatinine 1.77 lactic acid 12.5 UA positive for leukoesterase, WBC EKG tracing personally reviewed by me-normal sinus rhythm nonspecific changes Computed tomography scan abdomen and pelvis with contrast-hiatal hernia, mild splenomegaly Previous testing Labs from February 2019 Hemoglobin 10.7 creatinine 1.23 Assessment: -Acute kidney injury, likely prerenal from nausea vomiting diarrhea, POA -Suspect acute gastroenteritis with sepsis picture, POA -Anterior chest wall pain. Doubt cardiac.-Rule out the same -Chronic kidney disease, possible stage III from nephrosclerosis. Also noted that patient is on Motrin at home. -Chronic medical debility from underlying multiple sclerosis -Multiple sclerosis. 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 DC Zosyn. Start the patient on Cipro and Flagyl. EKG ordered did not show any acute findings. Troponin pending. Repeat labs in the morning.
[2019-09-25] MEDS: QUEtiapine 25 MG TAB PO SCH (20:16)
[2019-09-25] MEDS: DONEPEZIL 5 MG TAB PO SCH (20:16)
[2019-09-25] MEDS: metroNIDAZOLE 500 MG TAB PO SCH ×2 (20:16→20:19)
[2019-09-25] MEDS: CIPROFLOXACIN HCL 500 MG TAB PO SCH (20:16)
[2019-09-25] MEDS: CITALOPRAM HYDROBROMIDE 20 MG TAB PO SCH (20:16)
[2019-09-25] MEDS: ASPIRIN 81 MG PO SCH (20:16)
[2019-09-25] MEDS: MONTELUKAST 10 MG TAB PO SCH (20:16)
[2019-09-26] MEDS: LACTATED RINGERS 1,000 ML IV SCH (02:25)
[2019-09-26 06:02] LABS: Calcium 8.6 mg/dL (8.4-10.2); Potassium 3.5 mmol/L (3.5-5.1)
[2019-09-26] MEDS: CIPROFLOXACIN HCL 500 MG TAB PO SCH (09:07)
[2019-09-26] MEDS: ENOXAPARIN 40 MG/0.4 ML SYRINGE SQ SCH (09:07)
[2019-09-26] MEDS: metroNIDAZOLE 500 MG TAB PO SCH ×2 (09:08→14:50)
[2019-09-26] MEDS: GABAPENTIN 300 MG CAP PO SCH ×2 (09:08→14:50)
[2019-09-26] MEDS: risperiDONE 0.5 MG TAB PO SCH (09:08)
[2019-09-26 09:40] VITALS: RESP 16
[2019-09-26] MEDS: Dimethyl Fumarate [Tecfidera] PO SCH (11:12)
[2019-09-26 12:04] VITALS: BP 109/66; PULSE 89; TEMP 98.3
--- NOTE | 2019-09-26 20:16 | P.DS ---
Providers Date of admission: 09/24/19 02:59 Expected date of discharge: 09/26/19 Attending physician: Kyle Delatorre Primary care physician: Abhishek Beltran [facility] Course: Chief Complaint: Nausea vomiting abdominal pain History of presenting complaint: This is a pleasant 54-year-old patient of Dr. Beltran. Follows with a neurologist Dr. Garsia. Chronic stable medical conditions include chronic kidney disease stage III, chronic medical debility from multiple sclerosis, chronic fibromyalgia, cognitive impairment, hypothyroid, polyneuropathy, bipolar disorder, chronic double incontinence. baseline patient has a motorized chair patient is able to stand and transfer. At baseline she is weak in her arms but able to feed herself. Presents with one-day history of nausea vomiting or abdominal pain. Some fever. Had a bowel movement yesterday. No diarrhea. Had nausea today no vomiting. Some upper abdominal discomfort still present. Doing better Admitted with-acute kidney injury, from acute gastroenteritis. Treated with IV fluids and Cipro and Flagyl. Today-Much improved. Nearly back to baseline.. Eating better. Advised to remain on a soft bland diet Physical examination: VITAL SIGNS: 98.3, 89, 16, 109/66, 97% on 2 L GENERAL: Laying in bed, comfortable EYES: Pupils equal. Conjunctiva normal. HEENT: External appearance of nose and ears normal, oral cavity grossly normal. NECK: JVD not raised; masses not palpable. HEART: First and second heart sounds are normal; no edema. LUNGS: Respiratory rate normal; clear to auscultation. ABDOMEN: Soft, no tenderness, no guarding or rigidity, liver spleen not palpable, no masses palpable. PSYCH: Able to answer questions NEUROLOGICAL: Cranial nerves grossly intact; no facial asymmetry, weakness of both the upper and lower extremities, generalized EXTREMITY: Some contracture of the hands INVESTIGATIONS, reviewed in the clinical context: Potassium 3.5 creatinine 1.28 Previous testing White count 27.7 hemoglobin 16.5 platelets 347 potassium 3.5 creatinine 1.77 lactic acid 12.5 UA positive for leukoesterase, WBC EKG tracing personally reviewed by me-normal sinus rhythm nonspecific changes Computed tomography scan abdomen and pelvis with contrast-hiatal hernia, mild splenomegaly Labs from February 2019: Hemoglobin 10.7 creatinine 1.23 Assessment: -Acute kidney injury, likely prerenal from nausea vomiting diarrhea, POA -acute gastroenteritis with sepsis picture, POA -Musculoskeletal chest. -Chronic kidney disease, possible stage III from nephrosclerosis. Also noted that patient is on Motrin at home. -Chronic medical debility from underlying multiple sclerosis -Multiple sclerosis. 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 -Bipolar disorder Disposition: Home Patient Condition at Discharge: Stable Plan - Discharge Summary New Discharge Prescriptions: New Ciprofloxacin HCl [Cipro] 500 mg PO BID #4 tab metroNIDAZOLE [Flagyl] 500 mg PO TID #6 tab Continue Aspirin EC [Ecotrin Low Dose] 81 mg PO HS Donepezil [Aricept] 5 mg PO HS Citalopram Hydrobromide [CeleXA] 40 mg PO HS Dimethyl Fumarate [Tecfidera] 240 mg PO DAILY Baclofen 10 mg PO TID PRN #9 tablet PRN Reason: Muscle Spasm Albuterol Inhaler [Ventolin Hfa Inhaler] 1 - 2 puff INHALATION Q6HR PRN #1 inhaler PRN Reason: Shortness Of Breath Or Wheezing risperiDONE [RisperDAL] 0.5 mg PO BID QUEtiapine FUMARATE [SEROquel] 75 mg PO HS Gabapentin [Neurontin] 300 mg PO TID Famotidine 20 mg PO DAILY Montelukast [Singulair] 10 mg PO HS Discharge Medication List Aspirin EC [Ecotrin Low Dose] 81 mg PO HS 11/02/13 [History] Citalopram Hydrobromide [CeleXA] 40 mg PO HS 12/14/18 [History] Donepezil [Aricept] 5 mg PO HS 12/14/18 [History] Dimethyl Fumarate [Tecfidera] 240 mg PO DAILY 02/07/19 [History] Baclofen 10 mg PO TID PRN #9 tablet 02/10/19 [Rx] Albuterol Inhaler [Ventolin Hfa Inhaler] 1 - 2 puff INHALATION Q6HR PRN #1 inhaler 02/14/19 [Rx] Famotidine 20 mg PO DAILY 09/24/19 [History] Gabapentin [Neurontin] 300 mg PO TID 09/24/19 [History] Montelukast [Singulair] 10 mg PO HS 09/24/19 [History] QUEtiapine FUMARATE [SEROquel] 75 mg PO HS 09/24/19 [History] risperiDONE [RisperDAL] 0.5 mg PO BID 09/24/19 [History] Ciprofloxacin HCl [Cipro] 500 mg PO BID #4 tab 09/26/19 [Rx] metroNIDAZOLE [Flagyl] 500 mg PO TID #6 tab 09/26/19 [Rx] Follow up Appointment(s)/Referral(s): Abhishek Beltran DO [Primary Care Provider] - 09/28/19 10:00 am Patient Instructions/Handouts: Urinary Tract Infection in Women (GEN), Sepsis (GEN) Discharge Disposition: HOME SELF-CARE
== END 2019-09-26 15:35 | disposition home or self-care (01) | DRG 872 ==
LOC: EC 22:56 → 3SCARD 09-24 02:59
PROVIDERS: ADMIT Hospitalist; ATTEND Hospitalist
DX: A41.9 Sepsis, unspecified organism (principal); N17.9 Acute kidney failure, unspecified; E03.9 Hypothyroidism, unspecified; F31.9 Bipolar disorder, unspecified; G35 Multiple sclerosis; G62.9 Polyneuropathy, unspecified; I73.9 Peripheral vascular disease, unspecified; R53.81 Other malaise; R41.89 Other symptoms and signs involving cognitive functions and awareness; K52.9 Noninfective gastroenteritis and colitis, unspecified; M79.7 Fibromyalgia; R07.89 Other chest pain; N18.3 Chronic kidney disease, stage 3 (moderate); Z79.899 Other long term (current) drug therapy; Z80.8 Family history of malignant neoplasm of other organs or systems; Z85.41 Personal history of malignant neoplasm of cervix uteri; Z86.718 Personal history of other venous thrombosis and embolism; Z87.891 Personal history of nicotine dependence; Z92.21 Personal history of antineoplastic chemotherapy; Z88.8 Allergy status to other drugs, medicaments and biological substances; Z91.09 Other allergy status, other than to drugs and biological substances
CPT/HCPCS: 36415; 51702; 71046; 74177; 80048; 80053; 81001; 83605; 83690; 84484; 85025; 87040; 87086; 93005; 96361; 96365; 96375; 96376; 99291

== ENCOUNTER 2019-09-29 13:25 | Emergency (ER) | payer BC ==
[2019-09-29] MEDS ORDERED: SODIUM CHLORIDE 0.9% 1,000 ML IV STA (13:56)
[2019-09-29] MEDS ORDERED: ONDANSETRON 4 MG/2 ML VIAL IVP STA (13:56)
--- NOTE | 2019-09-29 14:08 | ED ---
Abdominal Pain HPI - General Chief Complaint: Abdominal Pain Stated Complaint: NVD Time Seen by Provider: 09/29/19 13:35 Source: patient Mode of arrival: wheelchair Limitations: no limitations - History of Present Illness Initial Comments: Patient is a 54-year-old female, with history of MS, presenting to emergency Department with complaints of abdominal pain, nausea, vomiting, diarrhea for one day. Patient states she was recently discharged 4 days ago after being admitted for urosepsis. She has completed all of her antibiotics. Patient states ye evening she started having nausea, vomiting. Patient states she has had diarrhea since being in the hospital earlier this week. She states she's been having 5-6 episodes a day. Denies hematochezia. She currently wears a diaper and does not know when she has to urinate or defecate. Patient denies having a fever. She denies chest pain, shortness of breath, cough. She states her belly pain is mostly on the top. She states it just started when the vomiting started. She has not been able to eat or drink much. She has no other complaints at this time. - Related Data Home Medications Medication Instructions Recorded Confirmed Aspirin EC [Ecotrin Low Dose] 81 mg PO HS 11/02/13 09/24/19 Citalopram Hydrobromide [CeleXA] 40 mg PO HS 12/14/18 09/24/19 Donepezil [Aricept] 5 mg PO HS 12/14/18 09/24/19 Dimethyl Fumarate [Tecfidera] 240 mg PO DAILY 02/07/19 09/24/19 Famotidine 20 mg PO DAILY 09/24/19 09/24/19 Gabapentin [Neurontin] 300 mg PO TID 09/24/19 09/24/19 Montelukast [Singulair] 10 mg PO HS 09/24/19 09/24/19 QUEtiapine FUMARATE [SEROquel] 75 mg PO HS 09/24/19 09/24/19 risperiDONE [RisperDAL] 0.5 mg PO BID 09/24/19 09/24/19 Previous Rx's Medication Instructions Recorded Baclofen 10 mg PO TID PRN #9 tablet 02/10/19 Albuterol Inhaler [Ventolin Hfa 1 - 2 puff INHALATION Q6HR PRN #1 02/14/19 Inhaler] inhaler Ciprofloxacin HCl [Cipro] 500 mg PO BID #4 tab 09/26/19 metroNIDAZOLE [Flagyl] 500 mg PO TID #6 tab 09/26/19 Ondansetron Odt [Zofran Odt] 4 mg PO Q8HR PRN #10 tab 09/29/19 Allergies Allergy/AdvReac Type Severity Reaction Status Date / Time blue dye Allergy Rash/Hives Verified 09/29/19 13:30 Neuromuscular Blockers, AdvReac Nausea & Verified 09/29/19 13:30 Steroidal Vomiting [Steroidal Neuromuscular Blockers] Review of Systems ROS Statement: Those systems with pertinent positive or pertinent negative responses have been documented in the HPI. ROS Other: All systems not noted in ROS Statement are negative. Past Medical History Past Medical History: Cancer, Deep Vein Thrombosis (DVT), Fibromyalgia, Memory Impairment, Pneumonia, Renal Disease Additional Past Medical History / Comment(s): MIGRANES, MULTIPLE SCLEROSIS, BRAIN LESIONS, PVD, SOB, CONSTIPATION, DIARRHEA, KIDNEY INFECTION, UTI, BACK PAIN, ANEMIA, HYPERTHYROID, CERVICAL CA, CARPAL TUNNEL,septicemia,polyneuro bhavesh,HADHEMODIALYSIS TWICE, HAD CHEMOTHERAPY FOR TX OF MS, MOTORIZED CHAIR-ABLE TO STAND TO TRANSFER. History of Any Multi-Drug Resistant Organisms: None Reported Past Surgical History: Tonsillectomy, Tubal Ligation Additional Past Surgical History / Comment(s): DIALYSIS CATHETER (REMOVED), BIOPSY (UNKNOWN TYPE), CRYO SURGERY FOR CERVICAL CA, D&C. Past Anesthesia/Blood Transfusion Reactions: No Reported Reaction Past Psychological History: Anxiety, Bipolar, Depression Smoking Status: Former smoker Past Alcohol Use History: None Reported Past Drug Use History: None Reported - Past Family History Father Family Medical History: Cancer Additional Family Medical History / Comment(s): BRAIN Mother Family Medical History: Cancer Additional Family Medical History / Comment(s): BREAST General Exam - General Exam Comments Initial Comments: GENERAL: Well-appearing, well-nourished and in no acute distress, appears uncomfortable. HEAD: Atraumatic, normocephalic. EYES: Pupils equal round and reactive to light, extraocular movements intact, sclera anicteric, conjunctiva are normal. ENT: TMs normal, nares patent, oropharynx clear without exudates. Moist mucous membranes. NECK: Normal range of motion, supple without lymphadenopathy or JVD. LUNGS: Breath sounds clear to auscultation bilaterally and equal. No wheezes rales or rhonchi. HEART: Regular rate and rhythm without murmurs, rubs or gallops. ABDOMEN: Generalized abdominal tenderness, increased upper portion. Soft, normoactive bowel sounds. No guarding, no rebound. No masses appreciated. : Deferred EXTREMITIES: Normal range of motion, no pitting or edema. No clubbing or cyanosis. PSYCH: Normal mood, normal affect. SKIN: Warm, Dry, normal turgor, no rashes or lesions noted. Limitations: no limitations Course Vital Signs 09/29/19 09/29/19 09/29/19 13:28 14:15 15:30 Temperature 98.4 F 97.9 F Pulse Rate 124 H 111 H 102 H Respiratory 22 18 18 Rate Blood Pressure 105/71 138/85 132/85 O2 Sat by Pulse 96 96 95 Oximetry Medical Decision Making - Medical Decision Making Patient is a 54-year-old female here for nausea, vomiting, diarrhea. Patient was slightly tachycardia at 124 on arrival, rest of vitals normal. Lab work shows no acute abnormalities. No leukocytosis, lactic acid is normal. Lipase is normal. Urine shows no signs of infection. Patient was given fluids as well as Protonix and Zofran. She reports improvement in her symptoms. I discussed with patient this most likely viral in nature or related to dehydration. Patient is stable for discharge at this time. We'll give her prescription for Zofran to use as needed for nausea. She will follow-up with her doctor. Return parameters were discussed with the patient she verbalized understanding. Case discussed with Dr. Schaefer. - Lab Data Result diagrams: 09/29/19 14:06 09/29/19 14:06 Lab Results 09/29/19 09/29/19 09/29/19 Range/Units 14:06 14:06 14:06 WBC 7.4 (3.8-10.6) k/uL RBC 5.39 (3.80-5.40) m/uL Hgb 13.9 (11.4-16.0) gm/dL Hct 43.3 (34.0-46.0) % MCV 80.3 (80.0-100.0) fL MCH 25.7 (25.0-35.0) pg MCHC 32.0 (31.0-37.0) g/dL RDW 15.1 (11.5-15.5) % Plt Count 209 (150-450) k/uL Neutrophils % 76 % Lymphocytes % 15 % Monocytes % 6 % Eosinophils % 1 % Basophils % 0 % Neutrophils # 5.6 (1.3-7.7) k/uL Lymphocytes # 1.1 (1.0-4.8) k/uL Monocytes # 0.4 (0-1.0) k/uL Eosinophils # 0.1 (0-0.7) k/uL Basophils # 0.0 (0-0.2) k/uL Sodium 142 (137-145) mmol/L Potassium 3.8 (3.5-5.1) mmol/L Chloride 109 H (98-107) mmol/L Carbon Dioxide 28 (22-30) mmol/L Anion Gap 5 mmol/L BUN 5 L (7-17) mg/dL Creatinine 1.22 H (0.52-1.04) mg/dL Est GFR (CKD-EPI)AfAm 58 (>60 ml/min/1.73 sqM) Est GFR (CKD-EPI)NonAf 50 (>60 ml/min/1.73 sqM) Glucose 119 H (74-99) mg/dL Plasma Lactic Acid Dion 1.9 (0.7-2.0) mmol/L Calcium 9.6 (8.4-10.2) mg/dL Total Bilirubin 0.6 (0.2-1.3) mg/dL AST 22 (14-36) U/L ALT 12 (4-34) U/L Alkaline Phosphatase 62 (38-126) U/L Total Protein 6.4 (6.3-8.2) g/dL Albumin 3.6 (3.5-5.0) g/dL Amylase <30 L (30-110) U/L Lipase 99 (23-300) U/L Urine Color Urine Appearance (Clear) Urine pH (5.0-8.0) Ur Specific Harbert (1.001-1.035) Urine Protein (Negative) Urine Glucose (UA) (Negative) Urine Ketones (Negative) Urine Blood (Negative) Urine Nitrite (Negative) Urine Bilirubin (Negative) Urine Urobilinogen (<2.0) mg/dL Ur Leukocyte Esterase (Negative) 09/29/19 Range/Units 14:06 WBC (3.8-10.6) k/uL RBC (3.80-5.40) m/uL Hgb (11.4-16.0) gm/dL Hct (34.0-46.0) % MCV (80.0-100.0) fL MCH (25.0-35.0) pg MCHC (31.0-37.0) g/dL RDW (11.5-15.5) % Plt Count (150-450) k/uL Neutrophils % % Lymphocytes % % Monocytes % % Eosinophils % % Basophils % % Neutrophils # (1.3-7.7) k/uL Lymphocytes # (1.0-4.8) k/uL Monocytes # (0-1.0) k/uL Eosinophils # (0-0.7) k/uL Basophils # (0-0.2) k/uL Sodium (137-145) mmol/L Potassium (3.5-5.1) mmol/L Chloride (98-107) mmol/L Carbon Dioxide (22-30) mmol/L Anion Gap mmol/L BUN (7-17) mg/dL Creatinine (0.52-1.04) mg/dL Est GFR (CKD-EPI)AfAm (>60 ml/min/1.73 sqM) Est GFR (CKD-EPI)NonAf (>60 ml/min/1.73 sqM) Glucose (74-99) mg/dL Plasma Lactic Acid Dion (0.7-2.0) mmol/L Calcium (8.4-10.2) mg/dL Total Bilirubin (0.2-1.3) mg/dL AST (14-36) U/L ALT (4-34) U/L Alkaline Phosphatase (38-126) U/L Total Protein (6.3-8.2) g/dL Albumin (3.5-5.0) g/dL Amylase (30-110) U/L Lipase (23-300) U/L Urine Color Light Yellow Urine Appearance Clear (Clear) Urine pH 8.0 (5.0-8.0) Ur Specific Harbert 1.003 (1.001-1.035) Urine Protein Negative (Negative) Urine Glucose (UA) Negative (Negative) Urine Ketones Negative (Negative) Urine Blood Negative (Negative) Urine Nitrite Negative (Negative) Urine Bilirubin Negative (Negative) Urine Urobilinogen <2.0 (<2.0) mg/dL Ur Leukocyte Esterase Negative (Negative) Disposition Clinical Impression: Abdominal pain, Nausea vomiting and diarrhea Disposition: HOME SELF-CARE Condition: Stable Instructions (If sedation given, give patient instructions): Acute Nausea and Vomiting (ED) Additional Instructions: Please return to the Emergency Department if symptoms worsen or any other concerns. Follow-up with PCP as discussed. Continue to increase fluid intake. Take Zofran as needed for additional nausea. Prescriptions: Ondansetron Odt [Zofran Odt] 4 mg PO Q8HR PRN #10 tab PRN Reason: Nausea Is patient prescribed a controlled substance at d/c from ED?: No Referrals: Abhishek Beltran DO [Primary Care Provider] - 1-2 days
[2019-09-29 14:35] VITALS: RESP 18
[2019-09-29 14:41] LABS: Basophils % (A) 0 %; Eosinophils # (A) 0.1 k/uL (0-0.7); Eosinophils % (A) 1 %; HCT 43.3 % (34.0-46.0); HGB 13.9 gm/dL (11.4-16.0); Lymphocytes # (A) 1.1 k/uL (1.0-4.8); Lymphocytes % (A) 15 %; MCH 25.7 pg (25.0-35.0); MCV 80.3 fL (80.0-100.0); Mean Platelet Volume 8.3; Monocytes # (A) 0.4 k/uL (0-1.0); Monocytes % (A) 6 %; Neutrophils # (A) 5.6 k/uL (1.3-7.7); Neutrophils % (A) 76 %; Platelet Count 209 k/uL (150-450); RBC 5.39 m/uL (3.80-5.40); RDW 15.1 % (11.5-15.5); WBC 7.4 k/uL (3.8-10.6)
--- NOTE | 2019-09-29 14:43 | XR ---
EXAMINATION TYPE: XR KUB DATE OF EXAM: 09/29/2019 Comparison: 09/06/2013 Clinical History: 54-year-old female pain, n/v/d Findings: Lung bases are clear. Supine imaging limited for assessment of free air. Scattered colonic air throughout. No dilated small bowel identified. Some vascular calcification suggested in the pelvis. Impression: Overall nonobstructive bowel gas pattern. No significant stool burden.
[2019-09-29 14:44] LABS: Appearance,Urine Clear (Clear); Bilirubin,Urine Negative (Negative); Blood,Urine Negative (Negative); Color,Urine Light Yellow; Glucose,Urine (UA) Negative (Negative); Ketones,Urine Negative (Negative); Leukocyte Esterase,Urine Negative (Negative); Nitrite,Urine Negative (Negative); Protein,Urine Negative (Negative); Specific Gravity,Urine 1.003 (1.001-1.035); Urobilinogen,Urine <2.0 mg/dL (<2.0)
[2019-09-29 14:52] LABS: ALT 12 U/L (4-34); AST 22 U/L (14-36); African American GFR (CKD) 58 (>60 ml/min/1.73 sqM); Albumin 3.6 g/dL (3.5-5.0); Alkaline Phosphatase 62 U/L (38-126); Amylase <30 U/L (30-110); Anion Gap 5 mmol/L; Blood Urea Nitrogen 5 mg/dL (7-17); Calcium 9.6 mg/dL (8.4-10.2); Carbon Dioxide 28 mmol/L (22-30); Chloride 109 mmol/L (98-107); Glucose 119 mg/dL (74-99); Non-African American GFR(CKD) 50 (>60 ml/min/1.73 sqM); Potassium 3.8 mmol/L (3.5-5.1); Sodium 142 mmol/L (137-145); Total Bilirubin 0.6 mg/dL (0.2-1.3); Total Protein 6.4 g/dL (6.3-8.2)
[2019-09-29] MEDS ORDERED: PANTOPRAZOLE 40 MG/10 ML VIAL IVP STA (15:45)
[2019-09-29 15:58] VITALS: BP 132/85; PULSE 102; TEMP 97.9
== END 2019-09-29 15:59 | disposition home or self-care (01) ==
LOC: EC 13:25
DX: R11.2 Nausea with vomiting, unspecified (principal); R10.9 Unspecified abdominal pain; R19.7 Diarrhea, unspecified; R00.0 Tachycardia, unspecified; M79.7 Fibromyalgia; G31.84 Mild cognitive impairment of uncertain or unknown etiology; G35 Multiple sclerosis; G62.9 Polyneuropathy, unspecified; F31.9 Bipolar disorder, unspecified; F41.9 Anxiety disorder, unspecified; Z87.891 Personal history of nicotine dependence; Z88.8 Allergy status to other drugs, medicaments and biological substances; Z91.048 Other nonmedicinal substance allergy status; Z79.82 Long term (current) use of aspirin; Z79.899 Other long term (current) drug therapy; Z87.01 Personal history of pneumonia (recurrent); Z86.69 Personal history of other diseases of the nervous system and sense organs; Z85.41 Personal history of malignant neoplasm of cervix uteri; Z92.21 Personal history of antineoplastic chemotherapy; Z87.448 Personal history of other diseases of urinary system; Z98.890 Other specified postprocedural states
CPT/HCPCS: 36415; 80053; 82150; 83605; 83690; 85025; 81003; 74018; 99284; 96374; 96375; 96361 ×2; J2405; C9113

== ENCOUNTER → 2020-03-12 | Outpatient (CLI) | payer BC ==
--- NOTE | 2020-03-13 08:02 | US ---
EXAMINATION TYPE: US kidneys/renal and bladder DATE OF EXAM: 03/12/2020 COMPARISON: CT 09/24/2019 CLINICAL HISTORY: 55-year-old female N18.3 chronic kidney disease. CKD stage 3 TECHNIQUE: Multiple sonographic images of the kidneys and bladder are obtained. FINDINGS: EXAM MEASUREMENTS: Right Kidney: 8.2 x 3.5 x 4.0 cm Left Kidney: 8.6 x 4.4 x 4.2 cm No hydronephrosis on either side. Right Kidney: small in size, cortical thinning Left Kidney: small in size, cortical thinning, multiple cysts seen with largest measuring 2.6cm Bladder: wnl Bilateral Jets seen: no IMPRESSION: Changes of chronic medical renal disease. No hydronephrosis. Left-sided renal cysts measuring up to 2 .6 cm.
== END | disposition home or self-care (01) ==
LOC: RADUSWWP 15:43
PROVIDERS: ATTEND Internal Medicine
DX: N28.1 Cyst of kidney, acquired (principal); N18.3 Chronic kidney disease, stage 3 (moderate)
CPT/HCPCS: 76770

== ENCOUNTER 2020-10-17 16:13 | Inpatient (IN) | payer BC ==
--- NOTE | 2020-10-17 17:12 | ED ---
General Adult HPI - General Chief complaint: Headache Stated complaint: Weakness Time Seen by Provider: 10/17/20 16:32 Source: patient, EMS Mode of arrival: EMS Limitations: no limitations - History of Present Illness Initial comments: Dictation was produced using [employer] dictation software. please excuse any grammatical, word or spelling errors. This patient was cared for during a federal and state declared state of emergency secondary to Covid 19 Chief Complaint: 55-year-old female past medical history of DVT, fibromyalgia, pneumonia presents with 9 days of generalized weakness. History of Present Illness: 55-year-old female she has multiple comorbidities. She wears 3 L of nasal cannula at home. She has chronic lung disease. She states that she is here in emergency department for feeling generally weak. She has poor appetite is been having these mild headaches. She received her vaccine 10 days ago. She began having symptoms 9 days ago. States that she got the first shot of a series of COVID-19 vaccine. She has no pain complaints. She does feel mildly short of breath. She read via ambulance. She denies taking any anticoagulation medications. The ROS documented in this emergency department record has been reviewed and confirmed by me. Those systems with pertinent positive or negative responses have been documented in the HPI. All other systems are other negative and/or noncontributory. PHYSICAL EXAM: General Impression: Alert and oriented x3, not in acute distress, resting comfortably at bedside watching TV, not dyspneic HEENT: Normocephalic atraumatic, extra-ocular movements intact, pupils equal and reactive to light bilaterally, mucous membranes moist. Cardiovascular: Heart regular rate and rhythm Chest: Able to complete full sentences, no retractions, no tachypnea, clear to auscultation bilaterally Abdomen: abdomen soft, non-tender, non-distended, no organomegaly Musculoskeletal: Pulses present and equal in all extremities, no peripheral edema Motor: no focal deficits noted Neurological: CN II-XII grossly intact, no focal motor or sensory deficits noted Skin: Intact with no visualized rashes Psych: Normal affect and mood ED course: 55-year-old male presents to the emergency department for generalized weakness, poor appetite. Vital signs upon arrival shows 90% on 3 L nasal ca nnula, rest of vital signs within acceptable limits. Physical examination is benign. Patient is well-appearing at bedside. Laboratory evaluation obtained. CBC within acceptable limits. D-dimer is 4.59. Metabolic panel shows potassium of 5.8. Creatinine is 2.54 which is increased from her baseline. Urinalysis negative. COVID-19 test is negative. Chest x- ray shows no acute processes. Given elevated dimer patient sent for VQ scan which showed low probability. Reevaluated at 9:20 PM found to be stable medical condition. Patient be admitted for acute kidney injury. Patient at bedside does not have any respiratory distress. Denies any cough. Patient given intravenous fluids. Case discussed with Dr. Fernandes who is willing to accept patient care behalf of Dr. Delatorre - Related Data Home Medications Medication Instructions Recorded Confirmed Aspirin EC [Ecotrin Low Dose] 81 mg PO HS 11/02/13 10/17/20 Citalopram Hydrobromide [CeleXA] 40 mg PO HS 12/14/18 10/17/20 Donepezil [Aricept] 5 mg PO HS 12/14/18 10/17/20 Dimethyl Fumarate [Tecfidera] 240 mg PO BID 02/07/19 10/17/20 Gabapentin [Neurontin] 300 mg PO TID PRN 09/24/19 10/17/20 Montelukast [Singulair] 5 mg PO HS 09/24/19 10/17/20 QUEtiapine FUMARATE [SEROquel] 75 mg PO HS 09/24/19 10/17/20 risperiDONE [RisperDAL] 0.5 mg PO BID 09/24/19 10/17/20 Diazepam [Valium] 5 mg PO BID PRN 10/17/20 10/17/20 Memantine [Namenda] 5 mg PO DAILY 10/17/20 10/17/20 Multivitamins, Thera [Multivitamin 1 tab PO DAILY 10/17/20 10/17/20 (formulary)] Topiramate [Topamax] 25 mg PO DAILY 10/17/20 10/17/20 Allergies Allergy/AdvReac Type Severity Reaction Status Date / Time blue dye Allergy Rash/Hives Verified 10/17/20 20:08 Neuromuscular Blockers, AdvReac Nausea & Verified 10/17/20 20:08 Steroidal Vomiting [Steroidal Neuromuscular Blockers] Review of Systems ROS Statement: Those systems with pertinent positive or pertinent negative responses have been documented in the HPI. ROS Other: All systems not noted in ROS Statement are negative. Past Medical History Past Medical History: Cancer, Deep Vein Thrombosis (DVT), Fibromyalgia, Memory Impairment, Pneumonia, Renal Disease Additional Past Medical History / Comment(s): MIGRANES, MULTIPLE SCLEROSIS, BRAIN LESIONS, PVD, SOB, CONSTIPATION, DIARRHEA, KIDNEY INFECTION, UTI, BACK PAIN, ANEMIA, HYPERTHYROID, CERVICAL CA, CARPAL TUNNEL,septicemia,polyneuropathy,HADHEMODIALYSIS TWICE, HAD CHEMOTHERAPY FOR TX OF MS, MOTORIZED CHAIR-ABLE TO STAND TO TRANSFER. History of Any Multi-Drug Resistant Organisms: None Reported Past Surgical History: Tonsillectomy, Tubal Ligation Additional Past Surgical History / Comment(s): DIALYSIS CATHETER (REMOVED), BI OPSY (UNKNOWN TYPE), CRYO SURGERY FOR CERVICAL CA, D&C. Past Anesthesia/Blood Transfusion Reactions: No Reported Reaction Past Psychological History: Anxiety, Bipolar, Depression Smoking Status: Former smoker Past Alcohol Use History: None Reported Past Drug Use History: None Reported - Past Family History Father Family Medical History: Cancer Additional Family Medical History / Comment(s): BRAIN Mother Family Medical History: Cancer Additional Family Medical History / Comment(s): BREAST General Exam Limitations: no limitations Course Vital Signs 10/17/20 10/17/20 16:21 18:35 Temperature 98.5 F Pulse Rate 97 86 Respiratory 16 18 Rate Blood Pressure 109/75 106/67 O2 Sat by Pulse 92 L 94 L Oximetry Medical Decision Making - Lab Data Result diagrams: 10/17/20 17:21 10/17/20 18:01 Lab Results 10/17/20 10/17/20 10/17/20 Range/Units 17:21 17:21 17:21 WBC 8.6 (3.8-10.6) k/uL RBC 4.53 (3.80-5.40) m/uL Hgb 10.9 L (11.4-16.0) gm/dL Hct 36.0 (34.0-46.0) % MCV 79.5 L (80.0-100.0) fL MCH 24.0 L (25.0-35.0) pg MCHC 30.2 L (31.0-37.0) g/dL RDW 16.7 H (11.5-15.5) % Plt Count 186 (150-450) k/uL MPV 8.7 Neutrophils % (Manual) 84 % Band Neuts % (Manual) 1 % Lymphocytes % (Manual) 11 % Monocytes % (Manual) 2 % Eosinophils % (Manual) 1 % Metamyelocytes % 1 % Neutrophils # (Manual) 7.30 (1.3-7.7) k/uL Lymphocytes # (Manual) 0.95 L (1.0-4.8) k/uL Monocytes # (Manual) 0.17 (0-1.0) k/uL Eosinophils # (Manual) 0.09 (0-0.7) k/uL Metamyelocytes # (Man) 0.09 H (0) k/uL Nucleated RBCs 7 H (0-0) /100 WBC Polychromasia Present Hypochromasia Moderate Poikilocytosis Slight Anisocytosis Slight Anisocytosis (manual) Present D-Dimer 4.59 H (<0.60) mg/L FEU Sodium 133 L (137-145) mmol/L Potassium 5.8 H (3.5-5.1) mmol/L Chloride 97 L (98-107) mmol/L Carbon Dioxide 30 (22-30) mmol/L Anion Gap 6 mmol/L BUN 37 H (7-17) mg/dL Creatinine 2.54 H (0.52-1.04) mg/dL Est GFR (CKD-EPI)AfAm 24 (>60 ml/min/1.73 sqM) Est GFR (CKD-EPI)NonAf 21 (>60 ml/min/1.73 sqM) Glucose 91 (74-99) mg/dL Calcium 8.2 L (8.4-10.2) mg/dL Magnesium 2.4 H (1.6-2.3) mg/dL Total Bilirubin 1.0 (0.2-1.3) mg/dL AST 25 (14-36) U/L ALT 16 (4-34) U/L Alkaline Phosphatase 65 (38-126) U/L Total Protein 6.0 L (6.3-8.2) g/dL Albumin 3.5 (3.5-5.0) g/dL Urine Color Urine Appearance (Clear) Urine pH (5.0-8.0) Ur Specific [place] (1.001-1.035) Urine Protein (Negative) Urine Glucose (UA) (Negative) Urine Ketones (Negative) Urine Blood (Negative) Urine Nitrite (Negative) Urine Bilirubin (Negative) Urine Urobilinogen (<2.0) mg/dL Ur Leukocyte Esterase (Negative) Urine RBC (0-5) /hpf Urine WBC (0-5) /hpf Ur Squamous Epith Cells (0-4) /hpf Urine Bacteria (None) /hpf Urine Mucus (None) /hpf Coronavirus (PCR) (Not Detectd) 10/17/20 10/17/20 10/17/20 Range/Units 17:21 18:01 18:19 WBC (3.8-10.6) k/uL RBC (3.80-5.40) m/uL Hgb (11.4-16.0) gm/dL Hct (34.0-46.0) % MCV (80.0-100.0) fL MCH (25.0-35.0) pg MCHC (31.0-37.0) g/dL RDW (11.5-15.5) % Plt Count (150-450) k/uL MPV Neutrophils % (Manual) % Band Neuts % (Manual) % Lymphocytes % (Manual) % Monocytes % (Manual) % Eosinophils % (Manual) % Metamyelocytes % % Neutrophils # (Manual) (1.3-7.7) k/uL Lymphocytes # (Manual) (1.0-4.8) k/uL Monocytes # (Manual) (0-1.0) k/uL Eosinophils # (Manual) (0-0.7) k/uL Metamyelocytes # (Man) (0) k/uL Nucleated RBCs (0-0) /100 WBC Polychromasia Hypochromasia Poikilocytosis Anisocytosis Anisocytosis (manual) D-Dimer (<0.60) mg/L FEU Sodium (137-145) mmol/L Potassium 5.7 H (3.5-5.1) mmol/L Chloride (98-107) mmol/L Carbon Dioxide (22-30) mmol/L Anion Gap mmol/L BUN (7-17) mg/dL Creatinine (0.52-1.04) mg/dL Est GFR (CKD-EPI)AfAm (>60 ml/min/1.73 sqM) Est GFR (CKD-EPI)NonAf (>60 ml/min/1.73 sqM) Glucose (74-99) mg/dL Calcium (8.4-10.2) mg/dL Magnesium (1.6-2.3) mg/dL Total Bilirubin (0.2-1.3) mg/dL AST (14-36) U/L ALT (4-34) U/L Alkaline Phosphatase (38-126) U/L Total Protein (6.3-8.2) g/dL Albumin (3.5-5.0) g/dL Urine Color Yellow Urine Appearance Clear (Clear) Urine pH 5.5 (5.0-8.0) Ur Specific [place] 1.003 (1.001-1.035) Urine Protein Negative (Negative) Urine Glucose (UA) Negative (Negative) Urine Ketones Negative (Negative) Urine Blood Trace H (Negative) Urine Nitrite Negative (Negative) Urine Bilirubin Negative (Negative) Urine Urobilinogen <2.0 (<2.0) mg/dL Ur Leukocyte Esterase Negative (Negative) Urine RBC 1 (0-5) /hpf Urine WBC <1 (0-5) /hpf Ur Squamous Epith Cells 1 (0-4) /hpf Urine Bacteria Rare H (None) /hpf Urine Mucus Rare H (None) /hpf Coronavirus (PCR) Not Detected (Not Detectd) Disposition Clinical Impression: DONALDO (acute kidney injury) Disposition: [facility] Condition: Fair Referrals: Abhishek Beltran DO [Primary Care Provider] - 1-2 days Decision Time: 21:23
[2020-10-17 17:31] LABS: Anisocytosis Slight; HGB 10.9 gm/dL (11.4-16.0); Hypochromasia Moderate; MCHC 30.2 g/dL (31.0-37.0); MCV 79.5 fL (80.0-100.0); Mean Platelet Volume 8.7; Platelet Count 186 k/uL (150-450); Poikilocytosis Slight; RBC 4.53 m/uL (3.80-5.40); RDW 16.7 % (11.5-15.5)
[2020-10-17 17:41] LABS: Albumin 3.5 g/dL (3.5-5.0); Calcium 8.2 mg/dL (8.4-10.2); Magnesium 2.4 mg/dL (1.6-2.3); Potassium 5.8 mmol/L (3.5-5.1)
[2020-10-17 18:00] LABS: Band Neutrophils % 1 %; Eosinophils # (M) 0.09 k/uL (0-0.7); Metamyelocytes # (M) 0.09 k/uL (0); Metamyelocytes % 1 %; Neutrophils % (M) 84 %; Nucleated Red Blood Cells 7 /100 WBC (0-0); Total Cells Counted 100
[2020-10-17 18:01] LABS: Anisocytosis (M) Present; Lymphocytes # (M) 0.95 k/uL (1.0-4.8); Monocytes # (M) 0.17 k/uL (0-1.0); Polychromasia Present; WBC 8.6 k/uL (3.8-10.6)
--- NOTE | 2020-10-17 18:03 | XR ---
EXAMINATION: XR chest 1V portable DATE AND TIME: 10/17/2020 5:33 PM CLINICAL INDICATION: PHH; covid symptoms TECHNIQUE: AP upright portable COMPARISON: 09/24/2019 FINDINGS: The radiograph is RPO rotated, and the overlying soft tissues are prominent. The left lung is clear. The right mid and lower lung zone shows consolidative opacity consistent with airlessness. Left pleural space is negative, but the lower right pleural space cannot be evaluated for effusion on this rotated radiograph. The study is negative for pneumothorax. The cardiac silhouette appears mildly enlarged, similar to the prior study. The remainder of the mediastinal silhouette is unremarkable. The skeletal structures and soft tissues are negative for acute findings. IMPRESSION: Airlessness throughout the right mid and lower lung zones with silhouetting right heart border and ri ght hemidiaphragm; consistent with prominent atelectasis with infiltrates consistent with a clinical diagnosis of bronchopneumonia.
[2020-10-17 18:26] LABS: Appearance,Urine Clear (Clear); Bacteria,Urine Rare /hpf; Bilirubin,Urine Negative (Negative); Blood,Urine Trace (Negative); Color,Urine Yellow; Glucose,Urine (UA) Negative (Negative); Ketones,Urine Negative (Negative); Leukocyte Esterase,Urine Negative (Negative); Mucus,Urine Rare /hpf; Nitrite,Urine Negative (Negative); PH, Urine 5.5 (5.0-8.0); Protein,Urine Negative (Negative); RBC,Urine 1 /hpf (0-5); Specific Gravity,Urine 1.003 (1.001-1.035); Squamous Epithelial Cell,Urine 1 /hpf (0-4); Urobilinogen,Urine <2.0 mg/dL (<2.0); WBC,Urine <1 /hpf (0-5)
[2020-10-17] MEDS ORDERED: SODIUM CHLORIDE 0.9% 1,000 ML IV STA (19:17)
[2020-10-17] MEDS ORDERED: SODIUM POLYSTYRENE SULFONATE 15 GM/60 ML BOTTLE PO STA (20:01)
--- NOTE | 2020-10-17 20:39 | NM ---
EXAMINATION TYPE: NM pul vent and perfuse DATE OF EXAM: 10/17/2020 COMPARISON: Chest radiograph 10/17/2020 HISTORY: Elevated d-dimer, dyspnea TECHNIQUE: Utilizing inhalation of 37.9 mCi Tc 99m DTPA aerosol and intravenous injection of 5.3 mCi of Tc 99m MAA, ventilation and perfusion images are acquired post injection in multiple projections. FINDINGS: 8 multiplanar perfusion scintigrams were obtained and 8 multiplanar ventilation scintigrams were obtained. On the right there are scattered matched defects within the mid and lower lung zone. There are no mis matched defects. On the left, there are no matched defects, but mild heterogeneity of the radiotracer is no evidence o f the images. IMPRESSION: Low probability for the diagnosis of pulmonary embolism.
[2020-10-17] MEDS ORDERED: ACETAMINOPHEN TAB 325 MG TAB PO PRN (21:20)
[2020-10-17] MEDS ORDERED: NALOXONE 0.4 MG/ML 1 ML VIAL IV PRN (21:20)
[2020-10-17] MEDS: SODIUM CHLORIDE 0.9% 1,000 ML IV SCH ×2 (22:53→23:00)
[2020-10-18 08:36] LABS: African American GFR (CKD) 31 (>60 ml/min/1.73 sqM); Anion Gap 3 mmol/L; Blood Urea Nitrogen 34 mg/dL (7-17); Calcium 8.1 mg/dL (8.4-10.2); Carbon Dioxide 33 mmol/L (22-30); Chloride 102 mmol/L (98-107); Glucose 128 mg/dL (74-99); Magnesium 2.3 mg/dL (1.6-2.3); Non-African American GFR(CKD) 27 (>60 ml/min/1.73 sqM); Potassium 3.8 mmol/L (3.5-5.1); Sodium 138 mmol/L (137-145)
[2020-10-18] MEDS ORDERED: diazePAM 5 MG TAB PO PRN (10:29)
[2020-10-18] MEDS: MULTIVITAMINS, THERA 1 EACH TAB PO SCH (11:22)
[2020-10-18] MEDS: DIMETHYL FUMARATE 240 MG PO SCH ×2 (11:23→20:28)
[2020-10-18] MEDS: METOPROLOL TARTRATE 12.5 MG TAB PO SCH ×2 (11:23→21:11)
[2020-10-18] MEDS: risperiDONE 0.5 MG TAB PO SCH ×2 (11:23→21:10)
--- NOTE | 2020-10-18 11:44 | P.NPCON ---
History of Present Illness - Reason for Consult acute renal failure, chronic renal failure - History of Present Illness Reason for consult: Acute kidney injury on chronic kidney disease History of present illness: Patient is a 55-year-old female seen in renal consultation for acute kidney injury on chronic kidney disease. Patient has chronic kidney disease stage IIIB with baseline creatinine near 1.4. Etiology is nephrosclerosis. Patient presented to the hospital with generalized weakness and poor appetite. She did receive the first coronavirus vaccine about 10 days ago. Over the last 1 week s he hasn't been feeling well overall. She does a history of COPD and is maintained on home oxygen. No history of diabetes. Does admit to taking ibuprofen daily at night. Currently on 2 L nasal cannula. Blood pressure this morning was 97/66. Has been voiding. No hematuria or dysuria. Creatinine was 2.54 on admission and is 2.04 today. She is maintained on IV fluids. She also received a bolus of normal saline on admission. Potassium was high at 5.8 on admission and is 3.8 today. Coronavirus PCR was negative. Vital signs are stable. General: The patient appeared well nourished and normally developed. HEENT: Head exam is unremarkable. Neck is without jugular venous distension. LUNGS: Breath sounds decreased. HEART: Rate and Rhythm are regular. ABDOMEN: Soft, no distention. EXTREMITITES: No edema. Past Medical History Past Medical History: Cancer, Deep Vein Thrombosis (DVT), Fibromyalgia, Memory Impairment, Pneumonia, Renal Disease Additional Past Medical History / Comment(s): MIGRANES, MULTIPLE SCLEROSIS, BRAIN LESIONS, PVD, SOB, CONSTIPATION, DIARRHEA, KIDNEY INFECTION, UTI, BACK PAIN, ANEMIA, HYPERTHYROID, CERVICAL CA, CARPAL TUNNEL,septicemia, polyneuropathy ,HADHEMODIALYSIS TWICE, HAD CHEMOTHERAPY FOR TX OF MS, MOTORIZED CHAIR-ABLE TO STAND TO TRANSFER. History of Any Multi-Drug Resistant Organisms: None Reported Past Surgical History: Tonsillectomy, Tubal Ligation Additional Past Surgical History / Comment(s): DIALYSIS CATHETER (REMOVED), BIOPSY (UNKNOWN TYPE), CRYO SURGERY FOR CERVICAL CA, D&C. Past Anesthesia/Blood Transfusion Reactions: No Reported Reaction Past Psychological History: Anxiety, Bipolar, Depression Smoking Status: Former smoker Past Alcohol Use History: None Reported Past Drug Use History: None Reported - Past Family History Father Family Medical History: Cancer Additional Family Medical History / Comment(s): BRAIN Mother Family Medical History: Cancer Additional Family Medical History / Comment(s): BREAST Medications and Allergies Home Medications Medication Instructions Recorded Confirmed Type Aspirin EC [Ecotrin Low Dose] 81 mg PO HS 11/02/13 10/17/20 History Citalopram Hydrobromide [CeleXA] 40 mg PO HS 12/14/18 10/17/20 History Donepezil [Aricept] 5 mg PO HS 12/14/18 10/17/20 History Dimethyl Fumarate [Tecfidera] 240 mg PO BID 02/07/19 10/17/20 History Gabapentin [Neurontin] 300 mg PO TID PRN 09/24/19 10/17/20 History Montelukast [Singulair] 5 mg PO HS 09/24/19 10/17/20 History QUEtiapine FUMARATE [SEROquel] 75 mg PO HS 09/24/19 10/17/20 History risperiDONE [RisperDAL] 0.5 mg PO BID 09/24/19 10/17/20 History Diazepam [Valium] 5 mg PO BID PRN 10/17/20 10/17/20 History Memantine [Namenda] 5 mg PO DAILY 10/17/20 10/17/20 History Metoprolol Tartrate [Lopressor] 25 mg PO DAILY 10/17/20 10/17/20 History Multivitamins, Thera [Multivitamin 1 tab PO DAILY 10/17/20 10/17/20 History (formulary)] Topiramate [Topamax] 25 mg PO HS 10/17/20 10/17/20 History Allergies Allergy/AdvReac Type Severity Reaction Status Date / Time blue dye Allergy Rash/Hives Verified 10/17/20 20:08 Neuromuscular Blockers, AdvReac Nausea & Verified 10/17/20 20:08 Steroidal Vomiting [Steroidal Neuromuscular Blockers] Physical Exam Vitals: Vital Signs Temp Pulse Pulse Resp BP BP Pulse Ox 10/18/20 11:23 114 H 97/66 94 L 10/18/20 05:00 98.3 F 110 H 18 99/66 94 L 10/17/20 23:45 18 10/17/20 22:40 98.4 F 103 H 18 103/56 93 L 10/17/20 21:42 103 H 16 125/73 98 10/17/20 18:35 86 18 106/67 94 L 10/17/20 16:21 98.5 F 97 16 109/75 92 L Intake and Output 10/17/20 10/18/20 10/18/20 22:59 06:59 14:59 Intake Total 1320 Balance 1320 Intake: Intake, IV Titration 1200 Amount Sodium Chloride 0.9% 1, 1200 000 ml @ 120 mls/hr IV . Q8H20M [facility] Rx#:[id number] Oral 120 Other: Voiding Method Diaper Diaper Incontinent Incontinent # Voids 1 # Bowel Movements 1 Weight 79.379 kg Results - Lab Results Most recent lab results Calcium 8.1 mg/dL (8.4-10.2) L 10/18/20 08:11 Magnesium 2.3 mg/dL (1.6-2.3) 10/18/20 08:11 10/17/20 17:21 10/18/20 08:11 Assessment and Plan Plan: Assessment: 1. Acute kidney injury mostly prerenal secondary to poor oral intake and nons teroidals, improving with IV hydration. Creatinine 2.54 on admission and is 2.04 today. 2. Chronic kidney disease stage III of a baseline creatinine near 1.4 secondary to nephrosclerosis. No proteinuria on UA. 3. Hyperkalemia secondary to acute kidney injury. Improved. 4. Home oxygen dependent COPD. 5. Questionable pneumonia. Plan: Decreased rate of normal saline to 75 mL an hour. Check renal ultrasound. Avoid nephrotoxins. Continue to monitor renal function and urine output. Thank you for the consultation. I will continue to follow the patient with you during her hospital stay.
--- NOTE | 2020-10-18 14:21 | US ---
EXAMINATION TYPE: US kidneys/renal and bladder DATE OF EXAM: 10/18/2020 COMPARISON: US & CT CLINICAL HISTORY: андрей. EXAM MEASUREMENTS: Right Kidney: 8.6 x 4.4 x 5.1 cm Left Kidney: 9.8 x 3.6 x 4.7 cm Right Kidney: No hydronephrosis or masses seen Left Kidney: lower pole cyst measures 2.6 x 2.4 x 2.2 cm Bladder: wnl Bilateral Jets seen: Yes Incidental note is made of gallstones and enlarged spleen. No hydronephrosis or nephrolithiasis. IMPRESSION: 1. No hydronephrosis or nephrolithiasis. Incidental note made of gallstones and splenomegaly. 2. Small left renal cyst.
[2020-10-18] MEDS: SODIUM CHLORIDE 0.9% 1,000 ML IV SCH (15:08)
--- NOTE | 2020-10-18 20:47 | P.HPIM ---
History of Present Illness H&P Date: 10/18/20 Chief Complaint: Tired History of presenting complaint: This is a pleasant 55-year-old patient of Dr. Beltran./ neurologist Dr. Garsia. Chronic stable medical conditions include chronic kidney disease stage III, chronic medical debility from multiple sclerosis, chronic fibromyalgia, cognitive impairment, hypothyroid, polyneuropathy, bipolar disorder, chronic double incontinence. baseline patient has a motorized chair patient is able to stand and transfer. At baseline she is weak in her arms but able to feed herself. Patient received a COVID-19 vaccine 10 days ago. Presented with feeling tired and sleepy slight cough no fever. Decreased appetite decreased oral intake. Normally has one bowel movement a day. Patient has urinary incontinence. Patient found to be an acute kidney injury. Denies any fever and chills. No respiratory symptoms Review of systems: GEN.: Generalized tiredness EYES: None HEENT: None NECK: None RESPIRATORY: None CARDIOVASCULAR: None GASTROINTESTINAL: As above GENITOURINARY: Double incontinence MUSCULOSKELETAL: Generalized aches and pains LYMPHATICS: None HEMATOLOGICAL: None PSYCHIATRY: But anxious NEUROLOGICAL: MS has affected in different parts of the body including weakness in the arms Past medical history: DVT, fibromyalgia, memory impairment, multiple sclerosis, migraines, constipation, back pain, hypothyroid, cervical cancer, carpal tunnel, polyneuropathy, has had hemodialysis in the past chemotherapy treatment for MS, bipolar disorder Social history: Patient does smoke in the past. Lives with her . Family history: Brain cancer Physical examination: VITAL SIGNS: 98.5, 77, 16, 109/75, 92% on 3 L GENERAL: BMI 25.8, laying in bed, tired EYES: Pupils equal. Conjunctiva normal. HEENT: External appearance of nose and ears normal, oral cavity dry mucous membranes NECK: JVD not raised; masses not palpable. HEART: First and second heart sounds are normal; no edema. LUNGS: Respiratory rate normal; clear to auscultation. ABDOMEN: Soft, mild epigastric tenderness, no guarding or rigidity, liver spleen not palpable, no masses palpable. PSYCH: Answering questions appropriately NEUROLOGICAL: Cranial nerves grossly intact; no facial asymmetry, weakness of both the upper and lower extremities, generalized LYMPHATICS: No lymph nodes palpable in the axilla and neck EXTREMITY: Some contracture of the hands INVESTIGATIONS, reviewed in the clinical context: WBC 8.6 hemoglobin 10.9 platelets 186 potassium 3.8 bun 34 creatinine 2.04 Admission labs: EKG tracing personally reviewed by me-normal sinus rhythm nonspecific T-wave changes VQ scan: Low probability PE Chest x-ray film personally reviewed by me-some haziness of the basis D-dimer: 4.59 Potassium 5.8 bun 37 creatinine 2.5 for Previous labs: Creatinine 1.28 on September 25 Assessment and plan: -Acute kidney injury, likely prerenal decreased oral intake IV fluids. Follow labs -Chronic kidney disease, possible stage III from nephrosclerosis. Follow labs -Hyperkalemia secondary to chronic kidney disease Received Kayexalate. Improved. IV fluids -Normocytic anemia of chronic kidney disease Follow H&H -Chronic medical debility from underlying multiple sclerosis Patient the baseline uses a wheelchair -Multiple sclerosis, but chronic paresis . 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 -Bipolar disorder On Risperdal, Seroquel, Celexa Care was discussed with the patient. Follow labs. IV fluids. Nephrology consultation. Patient clinically does not have any respiratory symptoms. Past Medical History Past Medical History: Cancer, Deep Vein Thrombosis (DVT), Fibromyalgia, Memory Impairment, Pneumonia, Renal Disease Additional Past Medical History / Comment(s): MIGRANES, MULTIPLE SCLEROSIS, BRAIN LESIONS, PVD, SOB, CONSTIPATION, DIARRHEA, KIDNEY INFECTION, UTI, BACK PAIN, ANEMIA, HYPERTHYROID, CERVICAL CA, CARPAL TUNNEL,septicemia, polyneuropathy ,HADHEMODIALYSIS TWICE, HAD CHEMOTHERAPY FOR TX OF MS, MOTORIZED CHAIR-ABLE TO STAND TO TRANSFER. History of Any Multi-Drug Resistant Organisms: None Reported Past Surgical History: Tonsillectomy, Tubal Ligation Additional Past Surgical History / Comment(s): DIALYSIS CATHETER (REMOVED), BIOPSY (UNKNOWN TYPE), CRYO SURGERY FOR CERVICAL CA, D&C. Past Anesthesia/Blood Transfusion Reactions: No Reported Reaction Past Psychological History: Anxiety, Bipolar, Depression Smoking Status: Former smoker Past Alcohol Use History: None Reported Past Drug Use History: None Reported - Past Family History Father Family Medical History: Cancer Additional Family Medical History / Comment(s): BRAIN Mother Family Medical History: Cancer Additional Family Medical History / Comment(s): BREAST Medications and Allergies Home Medications Medication Instructions Recorded Confirmed Type Aspirin EC [Ecotrin Low Dose] 81 mg PO HS 11/02/13 10/17/20 History Citalopram Hydrobromide [CeleXA] 40 mg PO HS 12/14/18 10/17/20 History Donepezil [Aricept] 5 mg PO HS 12/14/18 10/17/20 History Dimethyl Fumarate [Tecfidera] 240 mg PO BID 02/07/19 10/17/20 History Gabapentin [Neurontin] 300 mg PO TID PRN 09/24/19 10/17/20 History Montelukast [Singulair] 5 mg PO HS 09/24/19 10/17/20 History QUEtiapine FUMARATE [SEROquel] 75 mg PO HS 09/24/19 10/17/20 History risperiDONE [RisperDAL] 0.5 mg PO BID 09/24/19 10/17/20 History Diazepam [Valium] 5 mg PO BID PRN 10/17/20 10/17/20 History Memantine [Namenda] 5 mg PO DAILY 10/17/20 10/17/20 History Metoprolol Tartrate [Lopressor] 25 mg PO DAILY 10/17/20 10/17/20 History Multivitamins, Thera [Multivitamin 1 tab PO DAILY 10/17/20 10/17/20 History (formulary)] Topiramate [Topamax] 25 mg PO HS 10/17/20 10/17/20 History Allergies Allergy/AdvReac Type Severity Reaction Status Date / Time blue dye Allergy Rash/Hives Verified 10/17/20 20:08 Neuromuscular Blockers, AdvReac Nausea & Verified 10/17/20 20:08 Steroidal Vomiting [Steroidal Neuromuscular Blockers] Physical Exam Vitals: Vital Signs Temp Pulse Pulse Resp BP BP Pulse Ox 10/18/20 05:00 98.3 F 110 H 18 99/66 94 L 10/17/20 23:45 18 10/17/20 22:40 98.4 F 103 H 18 103/56 93 L 10/17/20 21:42 103 H 16 125/73 98 10/17/20 18:35 86 18 106/67 94 L 10/17/20 16:21 98.5 F 97 16 109/75 92 L Intake and Output 10/17/20 10/18/2021 22:59 06:59 14:59 Intake Total 1320 Balance 1320 Intake: Intake, IV Titration 1200 Amount Sodium Chloride 0.9% 1, 1200 000 ml @ 120 mls/hr IV . Q8H20M [facility] Rx#:[id number] Oral 120 Other: Voiding Method Diaper Diaper Incontinent Incontinent # Voids 1 # Bowel Movements 1 Weight 79.379 kg Results CBC & Chem 7: 10/17/20 17:21 10/18/20 08:11 Labs: Abnormal Lab Results - Last 24 Hours (Table) 10/17/20 10/17/20 10/17/20 Range/Units 17:21 17:21 17:21 Hgb 10.9 L (11.4-16.0) gm/dL MCV 79.5 L (80.0-100.0) fL MCH 24.0 L (25.0-35.0) pg MCHC 30.2 L (31.0-37.0) g/dL RDW 16.7 H (11.5-15.5) % Lymphocytes # (Manual) 0.95 L (1.0-4.8) k/uL Metamyelocytes # (Man) 0.09 H (0) k/uL Nucleated RBCs 7 H (0-0) /100 WBC D-Dimer 4.59 H (<0.60) mg/L FEU Sodium 133 L (137-145) mmol/L Potassium 5.8 H (3.5-5.1) mmol/L Chloride 97 L (98-107) mmol/L Carbon Dioxide (22-30) mmol/L BUN 37 H (7-17) mg/dL Creatinine 2.54 H (0.52-1.04) mg/dL Glucose (74-99) mg/dL Calcium 8.2 L (8.4-10.2) mg/dL Magnesium 2.4 H (1.6-2.3) mg/dL Total Protein 6.0 L (6.3-8.2) g/dL Urine Blood (Negative) Urine Bacteria (None) /hpf Urine Mucus (None) /hpf 10/17/20 10/17/20 10/18/20 Range/Units 18:01 18:19 08:11 Hgb (11.4-16.0) gm/dL MCV (80.0-100.0) fL MCH (25.0-35.0) pg MCHC (31.0-37.0) g/dL RDW (11.5-15.5) % Lymphocytes # (Manual) (1.0-4.8) k/uL Metamyelocytes # (Man) (0) k/uL Nucleated RBCs (0-0) /100 WBC D-Dimer (<0.60) mg/L FEU Sodium (137-145) mmol/L Potassium 5.7 H (3.5-5.1) mmol/L Chloride (98-107) mmol/L Carbon Dioxide 33 H (22-30) mmol/L BUN 34 H (7-17) mg/dL Creatinine 2.04 H (0.52-1.04) mg/dL Glucose 128 H (74-99) mg/dL Calcium 8.1 L (8.4-10.2) mg/dL Magnesium (1.6-2.3) mg/dL Total Protein (6.3-8.2) g/dL Urine Blood Trace H (Negative) Urine Bacteria Rare H (None) /hpf Urine Mucus Rare H (None) /hpf Thrombosis Risk Factor Assmnt - Choose All That Apply Any of the Below Risk Factors Present?: Yes Each Factor Represents 1 point: Age 41-60 years, Obesity (BMI >25) Each Risk Factor Represents 2 Points: Patient confined to bed Thrombosis Risk Factor Assessment Total Risk Factor Score: 4 Thrombosis Risk Factor Assessment Level: Moderate Risk
[2020-10-18] MEDS: QUEtiapine 25 MG TAB PO SCH (21:07)
[2020-10-18] MEDS: ENOXAPARIN 40 MG/0.4 ML SYRINGE SQ SCH (21:07)
[2020-10-18] MEDS: TOPIRAMATE 25 MG TAB PO SCH (21:08)
[2020-10-18] MEDS: MONTELUKAST 5 MG CHEWABLE PO SCH (21:10)
[2020-10-18] MEDS: ASPIRIN 81 MG PO SCH (21:10)
[2020-10-18] MEDS: DONEPEZIL 5 MG TAB PO SCH (21:11)
[2020-10-18] MEDS: CITALOPRAM HYDROBROMIDE 20 MG TAB PO SCH (21:11)
[2020-10-19] MEDS: SODIUM CHLORIDE 0.9% 1,000 ML IV SCH ×3 (01:57→14:29)
[2020-10-19 06:44] LABS: African American GFR (CKD) 38 (>60 ml/min/1.73 sqM); Anion Gap 4 mmol/L; Blood Urea Nitrogen 28 mg/dL (7-17); Calcium 7.9 mg/dL (8.4-10.2); Carbon Dioxide 30 mmol/L (22-30); Chloride 104 mmol/L (98-107); Glucose 116 mg/dL (74-99); Magnesium 2.2 mg/dL (1.6-2.3); Non-African American GFR(CKD) 33 (>60 ml/min/1.73 sqM); Potassium 3.9 mmol/L (3.5-5.1); Sodium 138 mmol/L (137-145)
[2020-10-19] MEDS: DIMETHYL FUMARATE 240 MG PO SCH ×2 (08:42→20:23)
[2020-10-19] MEDS: ENOXAPARIN 40 MG/0.4 ML SYRINGE SQ SCH (09:39)
[2020-10-19] MEDS: risperiDONE 0.5 MG TAB PO SCH ×2 (09:40→20:20)
[2020-10-19] MEDS: MULTIVITAMINS, THERA 1 EACH TAB PO SCH (09:40)
[2020-10-19] MEDS: METOPROLOL TARTRATE 12.5 MG TAB PO SCH ×2 (09:40→20:20)
--- NOTE | 2020-10-19 17:49 | PN ---
PROGRESS NOTE Patient is seen for followup for acute kidney injury. Her renal function continues to improve with serum creatinine down to 1.72 from about 2.5 mg/dL. She is currently maintained on IV fluids. Patient has had good urine output, although she is incontinent. PHYSICAL EXAMINATION: On examination today, blood pressure was 97/66, heart rate 102 per minute, she is afebrile. Examination of the heart S1, S2. Examination of the lungs, bilateral breath sounds are heard. Abdomen is soft. Examination of lower extremities, no significant edema. LABS: From today show sodium 138, potassium 3.9, chloride 104, CO2 is 30, BUN 28, creatinine 1.72. UA was completely benign. ASSESSMENT: 1. Acute kidney injury, mostly prerenal and secondary to NSAIDs currently improving, continue with IV fluids. 2. Chronic kidney disease stage 3 secondary to nephrosclerosis. Baseline creatinine 1.4. No evidence of proteinuria on UA. 3. Chronic obstructive pulmonary disease, home oxygen dependent. 4. Hyperkalemia associated acute kidney injury, currently improved. PLAN: Continue with IV fluids. Repeat labs in a.m. Continue to avoid nephrotoxic agents. MMODL / IJN: [id number] /
[2020-10-19] MEDS: CITALOPRAM HYDROBROMIDE 20 MG TAB PO SCH (20:20)
[2020-10-19] MEDS: TOPIRAMATE 25 MG TAB PO SCH (20:20)
[2020-10-19] MEDS: QUEtiapine 25 MG TAB PO SCH (20:20)
[2020-10-19] MEDS: MONTELUKAST 5 MG CHEWABLE PO SCH (20:20)
[2020-10-19] MEDS: ASPIRIN 81 MG PO SCH (20:20)
[2020-10-19] MEDS: DONEPEZIL 5 MG TAB PO SCH (20:21)
--- NOTE | 2020-10-19 23:25 | P.PN ---
Progress Note - Text Progress Note Date: 10/19/20 Chief Complaint: Tired History of presenting complaint: This is a pleasant 55-year-old patient of Dr. Beltran./ neurologist Dr. Garsia. Chronic stable medical conditions include chronic kidney disease stage III, chronic medical debility from multiple sclerosis, chronic fibromyalgia, cognitive impairment, hypothyroid, polyneuropathy, bipolar disorder, chronic double incontinence. baseline patient has a motorized chair patient is able to stand and transfer. At baseline she is weak in her arms but able to feed herself. Patient received a COVID-19 vaccine 10 days ago. Presented with feeling tired and sleepy slight cough no fever. Decreased appetite decreased oral intake. Normally has one bowel movement a day. Patient has urinary incontinence. Patient found to be an acute kidney injury. Denies any fever and chills. No respiratory symptoms Today: Feeling better. Decreased appetite. No nausea vomiting. More awake Review of systems: Was done for constitutional, cardiovascular, GI, pulmonary. relevant finding as above Active Medications Acetaminophen (Acetaminophen Tab 325 Mg Tab) 650 mg PO Q6HR PRN PRN Reason: Mild Pain or Fever > 100.5 Aspirin (Aspirin 81 Mg) 81 mg PO [facility] Last Admin: 10/19/20 20:20 Dose: 81 mg Documented by: Citalopram Hydrobromide (Citalopram Hydrobromide 20 Mg Tab) 40 mg PO [facility] Last Admin: 10/19/20 20:20 Dose: 40 mg Documented by: Diazepam (Diazepam 5 Mg Tab) 5 mg PO BID PRN PRN Reason: Anxiety Donepezil HCl (Donepezil 5 Mg Tab) 5 mg PO [facility] Last Admin: 10/19/20 20:21 Dose: 5 mg Documented by: Enoxaparin Sodium (Enoxaparin 40 Mg/0.4 Ml Syringe) 40 mg SQ DAILY [facility] Last Admin: 10/19/20 09:39 Dose: 40 mg Documented by: Sodium Chloride (Saline 0.9%) 1,000 mls @ 130 mls/hr IV .Q7H42M [facility] Last Admin: 10/19/20 14:29 Dose: 130 mls/hr Documented by: Metoprolol Tartrate (Metoprolol Tartrate 12.5 Mg Tab) 12.5 mg PO BID [facility] Last Admin: 10/19/20 20:20 Dose: 12.5 mg Documented by: Montelukast Sodium (Montelukast 5 Mg Chewable) 5 mg PO [facility] Last Admin: 10/19/20 20:20 Dose: 5 mg Documented by: Multivitamins (Multivitamins, Thera 1 Each Tab) 1 each PO DAILY [facility] Last Admin: 10/19/20 09:40 Dose: 1 each Documented by: Naloxone HCl (Naloxone 0.4 Mg/Ml 1 Ml Vial) 0.2 mg IV Q2M PRN PRN Reason: Opioid Reversal Dimethyl Fumarate [ Tecfidera] 240 Mg Capsule.Dr) 240 mg PO BID [facility] Last Admin: 10/19/20 20:23 Dose: Not Given Documented by: Quetiapine Fumarate (Quetiapine 25 Mg Tab) 75 mg PO [facility] Last Admin: 10/19/20 20:20 Dose: 75 mg Documented by: Risperidone (Risperidone 0.5 Mg Tab) 0.5 mg PO BID [facility] Last Admin: 10/19/20 20:20 Dose: 0.5 mg Documented by: Topiramate (Topiramate 25 Mg Tab) 25 mg PO [facility] Last Admin: 10/19/20 20:20 Dose: 25 mg Documented by: Past medical history: DVT, fibromyalgia, memory impairment, multiple sclerosis, migraines, constipation, back pain, hypothyroid, cervical cancer, carpal tunnel, polyneuropathy, has had hemodialysis in the past chemotherapy treatment for MS, bipolar disorder Social history: Patient does smoke in the past. Lives with her . Family history: Brain cancer Physical examination: VITAL SIGNS: 97.8, 87, 14, 88 x 57, 94% on 2 L GENERAL: BMI 25.8, laying in bed, tired EYES: Pupils equal. Conjunctiva normal. HEENT: External appearance of nose and ears normal, oral cavity dry mucous membranes NECK: JVD not raised; masses not palpable. HEART: First and second heart sounds are normal; no edema. LUNGS: Respiratory rate normal; clear to auscultation. ABDOMEN: Soft, mild epigastric tenderness, no guarding or rigidity, liver spleen not palpable, no masses palpable. PSYCH: Answering questions appropriately NEUROLOGICAL: Cranial nerves grossly intact; no facial asymmetry, weakness of both the upper and lower extremities, generalized INVESTIGATIONS, reviewed in the clinical context: October 19: Potassium 3.9 bun 28 creatinine 1.7 to WBC 8.6 hemoglobin 10.9 platelets 186 potassium 3.8 bun 34 creatinine 2.04 Admission labs: EKG tracing personally reviewed by me-normal sinus rhythm nonspecific T-wave changes VQ scan: Low probability PE Chest x-ray film personally reviewed by me-some haziness of the basis D-dimer: 4.59 Potassium 5.8 bun 37 creatinine 2.5 for Previous labs: Creatinine 1.28 on September 25 Assessment and plan: -Acute kidney injury, likely prerenal decreased oral intake-slowly improving Continue IV fluids. Follow labs -Chronic kidney disease, possible stage III from nephrosclerosis. Follow labs -Hyperkalemia secondary to chronic kidney disease Received Kayexalate. Improved. IV fluids -Normocytic anemia of chronic kidney disease Follow H&H -Chronic medical debility from underlying multiple sclerosis Patient the baseline uses a wheelchair -Multiple sclerosis, but chronic paresis . 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 Repeat labs in the morning. Hopefully home tomorrow.
[2020-10-20] MEDS: SODIUM CHLORIDE 0.9% 1,000 ML IV SCH ×3 (04:29→11:21)
[2020-10-20 06:00] LABS: African American GFR (CKD) 45 (>60 ml/min/1.73 sqM); Anion Gap 2 mmol/L; Blood Urea Nitrogen 22 mg/dL (7-17); Calcium 7.9 mg/dL (8.4-10.2); Carbon Dioxide 30 mmol/L (22-30); Chloride 105 mmol/L (98-107); Glucose 82 mg/dL (74-99); Non-African American GFR(CKD) 39 (>60 ml/min/1.73 sqM); Potassium 3.9 mmol/L (3.5-5.1); Sodium 137 mmol/L (137-145)
[2020-10-20] MEDS: MULTIVITAMINS, THERA 1 EACH TAB PO SCH (08:58)
[2020-10-20] MEDS: METOPROLOL TARTRATE 12.5 MG TAB PO SCH (08:58)
[2020-10-20] MEDS: ENOXAPARIN 40 MG/0.4 ML SYRINGE SQ SCH (08:58)
[2020-10-20] MEDS: risperiDONE 0.5 MG TAB PO SCH (08:59)
[2020-10-20] MEDS: DIMETHYL FUMARATE 240 MG PO SCH (08:59)
[2020-10-20 12:02] VITALS: BP 100/66; PULSE 96; RESP 20; TEMP 98.5
--- NOTE | 2020-10-20 12:41 | PN ---
PROGRESS NOTE Patient is seen for followup for acute kidney injury. Renal function continues to improve. Creatinine is down to 1.49. The patient is maintained on IV fluids. PHYSICAL EXAMINATION: On examination today, blood pressure 100/66, heart rate 96 per minute. She is afebrile. Examination of the heart S1, S2. Examination of the lungs, bilateral breath sounds are heard. Decreased breath sounds at bases. Abdomen is soft, nontender. Examination lower extremities shows no evidence of edema. TRIM SETTER exam grossly intact. LAB: Show sodium 137, potassium 3.9, BUN 22, creatinine 1.49. ASSESSMENT: 1. Acute kidney injury prerenal currently improving. Etiology also included NSAIDs. 2. Chronic kidney disease stage III, secondary to nephrosclerosis. Baseline creatinine about 1.4 with no evidence of proteinuria on UA and ultrasound of the kidneys was unremarkable. 3. Left renal cyst, benign appearing. 4. Hyperkalemia associated with acute kidney injury, now resolved. 5. Chronic obstructive pulmonary disease, home oxygen-dependent. PLAN: Encourage increased oral intake. May decrease IV fluids if patient tolerating oral intake well. MMODL / IJN: [id number] /
--- NOTE | 2020-10-22 17:52 | P.DS ---
Providers Date of admission: 10/17/20 21:20 Expected date of discharge: 10/20/20 Attending physician: Kyle Delatorre Consults: 10/17/20 21:21 Consult Physician Routine Consulting Provider: Tim Brumfield Consult Reason/Comments: acute kidney injury Do you want consulting provider notified?: Yes Primary care physician: [facility] Course: Chief Complaint: Tired History of presenting complaint: This is a pleasant 55-year-old patient of Dr. Beltran./ neurologist Dr. Garsia. Chronic stable medical conditions include chronic kidney disease stage III, chronic medical debility from multiple sclerosis, chronic fibromyalgia, cognitive impairment, hypothyroid, polyneuropathy, bipolar disorder, chronic double incontinence. baseline patient has a motorized chair patient is able to stand and transfer. At baseline she is weak in her arms but able to feed herself. Patient received a COVID-19 vaccine 10 days ago. Presented with feeling tired and sleepy slight cough no fever. Decreased appetite decreased oral intake. Normally has one bowel movement a day. Patient has urinary incontinence. Patient found to be an acute kidney injury. Denies any fever and chills. No respiratory symptoms. Given IV fluids. Creatinine initially was 2.54. Did drop down to 1.49. Patient has underlying chronic kidney disease. Hypokalemia corrected. Today: Feeling much improved. Oral intake fair. Care was discussed with the patient. Keen to go home. Consultation: Dr. Hathaway from nephrology Past medical history: DVT, fibromyalgia, memory impairment, multiple sclerosis, migraines, constipation, back pain, hypothyroid, cervical cancer, carpal tunnel, polyneuropathy, has had hemodialysis in the past chemotherapy treatment for MS, bipolar disorder Social history: Patient does smoke in the past. Lives with her . Family history: Brain cancer Physical examination: VITAL SIGNS: 98.5, 96, 20, 100/66, 96% room air GENERAL: BMI 25.8, laying in bed, tired EYES: Pupils equal. Conjunctiva normal. HEENT: External appearance of nose and ears normal, oral cavity dry mucous membranes NECK: JVD not raised; masses not palpable. HEART: First and second heart sounds are normal; no edema. LUNGS: Respiratory rate normal; clear to auscultation. ABDOMEN: Soft, mild epigastric tenderness, no guarding or rigidity, liver spleen not palpable, no masses palpable. PSYCH: AO 3, mood and affect normal NEUROLOGICAL: Cranial nerves grossly intact; no facial asymmetry, weakness of both the upper and lower extremities, generalized INVESTIGATIONS, reviewed in the clinical context: October 20: Potassium 3.9 creatinine 1.49 October 19: Potassium 3.9 bun 28 creatinine 1.7 to WBC 8.6 hemoglobin 10.9 platelets 186 potassium 3.8 bun 34 creatinine 2.04 Admission labs: EKG tracing personally reviewed by me-normal sinus rhythm nonspecific T-wave changes VQ scan: Low probability PE Chest x-ray film personally reviewed by me-some haziness of the basis D-dimer: 4.59 Potassium 5.8 bun 37 creatinine 2.5 for Previous labs: Creatinine 1.28 on September 25 Assessment and plan: -Acute kidney injury, likely prerenal decreased oral improved Continue IV fluids. Follow labs -Chronic kidney disease, possible stage III from nephrosclerosis. Follow labs -Hyperkalemia secondary to chronic kidney disease-corrected Received Kayexalate. Improved. IV fluids -Normocytic anemia of chronic kidney disease Follow H&H -Chronic medical debility from underlying multiple sclerosis Patient the baseline uses a wheelchair -Multiple sclerosis, but chronic paresis . 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 -Bipolar disorder On Risperdal, Seroquel, Celexa Disposition: Home Plan - Discharge Summary New Discharge Prescriptions: Continue Aspirin EC [Ecotrin Low Dose] 81 mg PO HS Donepezil [Aricept] 5 mg PO HS Citalopram Hydrobromide [CeleXA] 40 mg PO HS Dimethyl Fumarate [Tecfidera] 240 mg PO BID risperiDONE [RisperDAL] 0.5 mg PO BID QUEtiapine FUMARATE [SEROquel] 75 mg PO HS Gabapentin [Neurontin] 300 mg PO TID PRN PRN Reason: nerve pain Montelukast [Singulair] 5 mg PO HS Multivitamins, Thera [Multivitamin (formulary)] 1 tab PO DAILY Memantine [Namenda] 5 mg PO DAILY Diazepam [Valium] 5 mg PO BID PRN PRN Reason: Anxiety Topiramate [Topamax] 25 mg PO HS Changed Metoprolol Tartrate [Lopressor] 12.5 mg PO BID #0 Discharge Medication List Aspirin EC [Ecotrin Low Dose] 81 mg PO HS 11/02/13 [History] Citalopram Hydrobromide [CeleXA] 40 mg PO HS 12/14/18 [History] Donepezil [Aricept] 5 mg PO HS 12/14/18 [History] Dimethyl Fumarate [Tecfidera] 240 mg PO BID 02/07/19 [History] Gabapentin [Neurontin] 300 mg PO TID PRN 09/24/19 [History] Montelukast [Singulair] 5 mg PO HS 09/24/19 [History] QUEtiapine FUMARATE [SEROquel] 75 mg PO HS 09/24/19 [History] risperiDONE [RisperDAL] 0.5 mg PO BID 09/24/19 [History] Diazepam [Valium] 5 mg PO BID PRN 10/17/20 [History] Memantine [Namenda] 5 mg PO DAILY 10/17/20 [History] Multivitamins, Thera [Multivitamin (formulary)] 1 tab PO DAILY 10/17/20 [History] Topiramate [Topamax] 25 mg PO HS 10/17/20 [History] Metoprolol Tartrate [Lopressor] 12.5 mg PO BID #0 10/20/20 [Rx] Follow up Appointment(s)/Referral(s): Ariadne Hathaway MD [STAFF PHYSICIAN] - 10 Days (patient to call on wednesday for follow up appt) Abhishek Beltran DO [Primary Care Provider] - 1-2 days (patient to call on wednesday for follow up appt) Patient Instructions/Handouts: Acute Kidney Injury (DC) Activity/Diet/Wound Care/Special Instructions: bmp - 5 days Discharge Disposition: HOME SELF-CARE
== END 2020-10-20 14:26 | disposition home or self-care (01) | DRG 684 ==
LOC: EC 16:13 → 5NMEDONC 21:20
PROVIDERS: ADMIT Hospitalist; ATTEND Hospitalist
DX: N17.9 Acute kidney failure, unspecified (principal); M79.7 Fibromyalgia; G43.909 Migraine, unspecified, not intractable, without status migrainosus; F31.9 Bipolar disorder, unspecified; F41.9 Anxiety disorder, unspecified; G35 Multiple sclerosis; R53.81 Other malaise; E03.9 Hypothyroidism, unspecified; G62.9 Polyneuropathy, unspecified; R32 Unspecified urinary incontinence; E87.5 Hyperkalemia; D63.1 Anemia in chronic kidney disease; J44.9 Chronic obstructive pulmonary disease, unspecified; N18.32 Chronic kidney disease, stage 3b; N28.1 Cyst of kidney, acquired; T39.395A Adverse effect of other nonsteroidal anti-inflammatory drugs [NSAID], initial encounter; Z20.822 Contact with and (suspected) exposure to COVID-19; I73.9 Peripheral vascular disease, unspecified; Z86.718 Personal history of other venous thrombosis and embolism; Z85.41 Personal history of malignant neoplasm of cervix uteri; Z86.19 Personal history of other infectious and parasitic diseases; Z90.89 Acquired absence of other organs; Z98.51 Tubal ligation status; Z87.01 Personal history of pneumonia (recurrent); Z92.21 Personal history of antineoplastic chemotherapy; Z79.899 Other long term (current) drug therapy; Z87.891 Personal history of nicotine dependence; Z99.81 Dependence on supplemental oxygen; Z80.3 Family history of malignant neoplasm of breast; Z80.8 Family history of malignant neoplasm of other organs or systems; Z88.8 Allergy status to other drugs, medicaments and biological substances; Z91.041 Radiographic dye allergy status; Z79.82 Long term (current) use of aspirin
CPT/HCPCS: 36415; 71045; 76770; 78582; 80048; 80053; 81001; 83735; 84132; 84145; 85025; 85379; 87635; 93005; 96360; 96361; 99285

== ENCOUNTER 2020-10-29 15:45 | Inpatient (IN) | payer BC ==
--- NOTE | 2020-10-29 15:58 | ED ---
General Adult HPI - General Stated complaint: AMS Time Seen by Provider: 10/29/20 15:47 Source: patient, EMS, RN notes reviewed, old records reviewed Mode of arrival: EMS Limitations: no limitations - History of Present Illness Initial comments: Patient is a pleasant 55-year-old female presenting to the emergency department with fatigue. Patient is somewhat a poor historian. Unclear onset. Patient does admit to having some leg edema. Patient is having some mild dyspnea. Patient is fatigued and finds it difficult to perform ADLs. Patient does not feel confused. No isolated area of weakness. No chest pain. No fever. - Related Data Home Medications Medication Instructions Recorded Confirmed Aspirin EC [Ecotrin Low Dose] 81 mg PO HS 11/02/13 10/29/20 Citalopram Hydrobromide [CeleXA] 40 mg PO HS 12/14/18 10/29/20 Donepezil [Aricept] 5 mg PO HS 12/14/18 10/29/20 Dimethyl Fumarate [Tecfidera] 240 mg PO BID 02/07/19 10/29/20 Gabapentin [Neurontin] 300 mg PO TID PRN 09/24/19 10/29/20 Montelukast [Singulair] 5 mg PO HS 09/24/19 10/29/20 QUEtiapine FUMARATE [SEROquel] 75 mg PO HS 09/24/19 10/29/20 risperiDONE [RisperDAL] 0.5 mg PO BID 09/24/19 10/29/20 Diazepam [Valium] 5 mg PO BID PRN 10/17/20 10/29/20 Memantine [Namenda] 5 mg PO DAILY 10/17/20 10/29/20 Multivitamins, Thera [Multivitamin 1 tab PO DAILY 10/17/20 10/29/20 (formulary)] Topiramate [Topamax] 25 mg PO HS 10/17/20 10/29/20 Previous Rx's Medication Instructions Recorded Metoprolol Tartrate [Lopressor] 12.5 mg PO BID #0 10/20/20 Allergies Allergy/AdvReac Type Severity Reaction Status Date / Time blue dye Allergy Rash/Hives Verified 10/29/20 16:46 Neuromuscular Blockers, AdvReac Nausea & Verified 10/29/20 16:46 Steroidal Vomiting [Steroidal Neuromuscular Blockers] Review of Systems ROS Statement: Those systems with pertinent positive or pertinent negative responses have been documented in the HPI. ROS Other: All systems not noted in ROS Statement are negative. Constitutional: Denies: fever, chills Eyes: Denies: eye pain ENT: Denies: ear pain Respiratory: Denies: cough, dyspnea Cardiovascular: Denies: chest pain Endocrine: Reports: fatigue Gastrointestinal: Denies: abdominal pain Genitourinary: Reports: other (Decreased urination). Denies: dysuria Musculoskeletal: Denies: back pain Skin: Denies: rash Neurological: Denies: headache Past Medical History Past Medical History: Cancer, Deep Vein Thrombosis (DVT), Fibromyalgia, Memory Impairment, Pneumonia, Renal Disease Additional Past Medical History / Comment(s): MIGRANES, MULTIPLE SCLEROSIS, BRAIN LESIONS, PVD, SOB, CONSTIPATION, DIARRHEA, KIDNEY INFECTION, UTI, BACK PAIN, ANEMIA, HYPERTHYROID, CERVICAL CA, CARPAL TUNNEL,septicemia, polyneuropathy ,HADHEMODIALYSIS TWICE, HAD CHEMOTHERAPY FOR TX OF MS, MOTORIZED CHAIR-ABLE TO STAND TO TRANSFER. History of Any Multi-Drug Resistant Organisms: None Reported Past Surgical History: Tonsillectomy, Tubal Ligation Additional Past Surgical History / Comment(s): DIALYSIS CATHETER (REMOVED), BIOPSY (UNKNOWN TYPE), CRYO SURGERY FOR CERVICAL CA, D&C. Past Anesthesia/Blood Transfusion Reactions: No Reported Reaction Past Psychological History: Anxiety, Bipolar, Depression Smoking Status: Former smoker Past Alcohol Use History: None Reported Past Drug Use History: None Reported - Past Family History Father Family Medical History: Cancer Additional Family Medical History / Comment(s): BRAIN Mother Family Medical History: Cancer Additional Family Medical History / Comment(s): BREAST General Exam Limitations: no limitations General appearance: alert, in no apparent distress Head exam: Present: atraumatic Eye exam: Present: normal appearance, PERRL, EOMI ENT exam: Present: normal oropharynx Neck exam: Present: normal inspection. Absent: meningismus Respiratory exam: Present: rales (Mild bilateral bases) Cardiovascular Exam: Present: regular rate, normal rhythm GI/Abdominal exam: Present: soft. Absent: tenderness, pulsatile mass Extremities exam: Present: pedal edema. Absent: calf tenderness Neurological exam: Present: alert, oriented X3, CN II-XII intact. Absent: motor sensory deficit Psychiatric exam: Present: flat affect Skin exam: Present: normal color Course Vital Signs 10/29/20 10/29/20 10/29/20 15:48 16:07 17:16 Temperature 97.9 F Pulse Rate 103 H 98 Respiratory 20 18 Rate Blood Pressure 101/71 110/73 O2 Sat by Pulse 79 L 95 95 Oximetry EKG Findings - EKG Comments: EKG Findings:: Sinus tachycardia 11. AR 112. QRS 82. QT 326. QTc 422. Right axis. Poor R-wave progression. No acute ST change. Medical Decision Making - Medical Decision Making Chest x-ray with right-sided effusion. Patient is also having renal failure and heart failure. Case was discussed in detail with Dr. Minor, covering Dr. Delatorre, who admits for Dr. Beltran. He will admit. Consult will place with cardiology and nephrology. Potassium level does have some hemolysis and will need to be repeated. Possible consolidation right base. Patient will be covered with antibiotics. Patient does meet sepsis criteria. - Lab Data Result diagrams: 10/29/20 16:08 10/29/20 16:08 Lab Results 10/29/20 10/29/20 10/29/20 Range/Units 16:08 16:08 16:08 WBC 13.0 H (3.8-10.6) k/uL RBC 4.65 (3.80-5.40) m/uL Hgb 11.0 L (11.4-16.0) gm/dL Hct 37.7 (34.0-46.0) % MCV 81.2 (80.0-100.0) fL MCH 23.7 L (25.0-35.0) pg MCHC 29.1 L (31.0-37.0) g/dL RDW 17.5 H (11.5-15.5) % Plt Count 234 (150-450) k/uL MPV 9.4 Neutrophils % 83 % Lymphocytes % 11 % Monocytes % 5 % Eosinophils % 0 % Basophils % 0 % Neutrophils # 10.8 H (1.3-7.7) k/uL Lymphocytes # 1.4 (1.0-4.8) k/uL Monocytes # 0.6 (0-1.0) k/uL Eosinophils # 0.0 (0-0.7) k/uL Basophils # 0.1 (0-0.2) k/uL Hypochromasia Marked Poikilocytosis Moderate Anisocytosis Slight PT 13.1 H (9.0-12.0) sec INR 1.3 H (<1.2) APTT 21.5 L (22.0-30.0) sec Sodium (137-145) mmol/L Potassium (3.5-5.1) mmol/L Chloride (98-107) mmol/L Carbon Dioxide (22-30) mmol/L Anion Gap mmol/L BUN (7-17) mg/dL Creatinine (0.52-1.04) mg/dL Est GFR (CKD-EPI)AfAm (>60 ml/min/1.73 sqM) Est GFR (CKD-EPI)NonAf (>60 ml/min/1.73 sqM) Glucose (74-99) mg/dL Plasma Lactic Acid Dion (0.7-2.0) mmol/L Calcium (8.4-10.2) mg/dL Phosphorus (2.5-4.5) mg/dL Magnesium (1.6-2.3) mg/dL Total Bilirubin (0.2-1.3) mg/dL AST (14-36) U/L ALT (4-34) U/L Alkaline Phosphatase (38-126) U/L Creatine Kinase (30-135) U/L Troponin I (0.000-0.034) ng/mL NT-Pro-B Natriuret Pep pg/mL Total Protein (6.3-8.2) g/dL Albumin (3.5-5.0) g/dL TSH (0.465-4.680) mIU/L Free T4 (0.78-2.19) ng/dL Free T3 pg/mL (2.8-5.3) pg/ml Urine Color Yellow Urine Appearance Cloudy H (Clear) Urine pH 5.5 (5.0-8.0) Ur Specific Ralston 1.009 (1.001-1.035) Urine Protein Trace H (Negative) Urine Glucose (UA) Negative (Negative) Urine Ketones Trace H (Negative) Urine Blood Small H (Negative) Urine Nitrite Negative (Negative) Urine Bilirubin Negative (Negative) Urine Urobilinogen <2.0 (<2.0) mg/dL Ur Leukocyte Esterase Large H (Negative) Urine RBC 2 (0-5) /hpf Urine WBC 7 H (0-5) /hpf Urine WBC Clumps Few H (None) /hpf Ur Squamous Epith Cells 2 (0-4) /hpf Urine Bacteria Occasional H (None) /hpf Hyaline Casts 3 H (0-2) /lpf Urine Mucus Rare H (None) /hpf Urine Yeast (Budding) Few H (None) /hpf Influenza Type A (PCR) (Not Detectd) Influenza Type B (PCR) (Not Detectd) RSV (PCR) (Not Detectd) SARS-CoV-2 (PCR) (Not Detectd) 10/29/20 10/29/20 10/29/20 Range/Units 16:08 16:08 16:08 WBC (3.8-10.6) k/uL RBC (3.80-5.40) m/uL Hgb (11.4-16.0) gm/dL Hct (34.0-46.0) % MCV (80.0-100.0) fL MCH (25.0-35.0) pg MCHC (31.0-37.0) g/dL RDW (11.5-15.5) % Plt Count (150-450) k/uL MPV Neutrophils % % Lymphocytes % % Monocytes % % Eosinophils % % Basophils % % Neutrophils # (1.3-7.7) k/uL Lymphocytes # (1.0-4.8) k/uL Monocytes # (0-1.0) k/uL Eosinophils # (0-0.7) k/uL Basophils # (0-0.2) k/uL Hypochromasia Poikilocytosis Anisocytosis PT (9.0-12.0) sec INR (<1.2) APTT (22.0-30.0) sec Sodium 134 L (137-145) mmol/L Potassium 6.1 H* (3.5-5.1) mmol/L Chloride 102 (98-107) mmol/L Carbon Dioxide 17 L (22-30) mmol/L Anion Gap 15 mmol/L BUN 71 H (7-17) mg/dL Creatinine 3.44 H (0.52-1.04) mg/dL Est GFR (CKD-EPI)AfAm 16 (>60 ml/min/1.73 sqM) Est GFR (CKD-EPI)NonAf 14 (>60 ml/min/1.73 sqM) Glucose 84 (74-99) mg/dL Plasma Lactic Acid Dion 1.3 (0.7-2.0) mmol/L Calcium 8.4 (8.4-10.2) mg/dL Phosphorus 6.5 H (2.5-4.5) mg/dL Magnesium 2.5 H (1.6-2.3) mg/dL Total Bilirubin 2.3 H (0.2-1.3) mg/dL AST 46 H (14-36) U/L ALT 28 (4-34) U/L Alkaline Phosphatase 64 (38-126) U/L Creatine Kinase 30 (30-135) U/L Troponin I 0.079 H* (0.000-0.034) ng/mL NT-Pro-B Natriuret Pep pg/mL Total Protein 6.2 L (6.3-8.2) g/dL Albumin 3.5 (3.5-5.0) g/dL TSH 2.120 (0.465-4.680) mIU/L Free T4 1.30 (0.78-2.19) ng/dL Free T3 pg/mL 2.0 L (2.8-5.3) pg/ml Urine Color Urine Appearance (Clear) Urine pH (5.0-8.0) Ur Specific Ralston (1.001-1.035) Urine Protein (Negative) Urine Glucose (UA) (Negative) Urine Ketones (Negative) Urine Blood (Negative) Urine Nitrite (Negative) Urine Bilirubin (Negative) Urine Urobilinogen (<2.0) mg/dL Ur Leukocyte Esterase (Negative) Urine RBC (0-5) /hpf Urine WBC (0-5) /hpf Urine WBC Clumps (None) /hpf Ur Squamous Epith Cells (0-4) /hpf Urine Bacteria (None) /hpf Hyaline Casts (0-2) /lpf Urine Mucus (None) /hpf Urine Yeast (Budding) (None) /hpf Influenza Type A (PCR) (Not Detectd) Influenza Type B (PCR) (Not Detectd) RSV (PCR) (Not Detectd) SARS-CoV-2 (PCR) (Not Detectd) 10/29/20 10/29/20 Range/Units 16:08 16:08 WBC (3.8-10.6) k/uL RBC (3.80-5.40) m/uL Hgb (11.4-16.0) gm/dL Hct (34.0-46.0) % MCV (80.0-100.0) fL MCH (25.0-35.0) pg MCHC (31.0-37.0) g/dL RDW (11.5-15.5) % Plt Count (150-450) k/uL MPV Neutrophils % % Lymphocytes % % Monocytes % % Eosinophils % % Basophils % % Neutrophils # (1.3-7.7) k/uL Lymphocytes # (1.0-4.8) k/uL Monocytes # (0-1.0) k/uL Eosinophils # (0-0.7) k/uL Basophils # (0-0.2) k/uL Hypochromasia Poikilocytosis Anisocytosis PT (9.0-12.0) sec INR (<1.2) APTT (22.0-30.0) sec Sodium (137-145) mmol/L Potassium (3.5-5.1) mmol/L Chloride (98-107) mmol/L Carbon Dioxide (22-30) mmol/L Anion Gap mmol/L BUN (7-17) mg/dL Creatinine (0.52-1.04) mg/dL Est GFR (CKD-EPI)AfAm (>60 ml/min/1.73 sqM) Est GFR (CKD-EPI)NonAf (>60 ml/min/1.73 sqM) Glucose (74-99) mg/dL Plasma Lactic Acid Dion (0.7-2.0) mmol/L Calcium (8.4-10.2) mg/dL Phosphorus (2.5-4.5) mg/dL Magnesium (1.6-2.3) mg/dL Total Bilirubin (0.2-1.3) mg/dL AST (14-36) U/L ALT (4-34) U/L Alkaline Phosphatase (38-126) U/L Creatine Kinase (30-135) U/L Troponin I (0.000-0.034) ng/mL NT-Pro-B Natriuret Pep 94067 pg/mL Total Protein (6.3-8.2) g/dL Albumin (3.5-5.0) g/dL TSH (0.465-4.680) mIU/L Free T4 (0.78-2.19) ng/dL Free T3 pg/mL (2.8-5.3) pg/ml Urine Color Urine Appearance (Clear) Urine pH (5.0-8.0) Ur Specific R[place] (1.001-1.035) Urine Protein (Negative) Urine Glucose (UA) (Negative) Urine Ketones (Negative) Urine Blood (Negative) Urine Nitrite (Negative) Urine Bilirubin (Negative) Urine Urobilinogen (<2.0) mg/dL Ur Leukocyte Esterase (Negative) Urine RBC (0-5) /hpf Urine WBC (0-5) /hpf Urine WBC Clumps (None) /hpf Ur Squamous Epith Cells (0-4) /hpf Urine Bacteria (None) /hpf Hyaline Casts (0-2) /lpf Urine Mucus (None) /hpf Urine Yeast (Budding) (None) /hpf Influenza Type A (PCR) Not Detected (Not Detectd) Influenza Type B (PCR) Not Detected (Not Detectd) RSV (PCR) Not Detected (Not Detectd) SARS-CoV-2 (PCR) Not Detected (Not Detectd) - Radiology Data Radiology results: report reviewed (Computed tomography scan of the brain shows atrophy. No acute intercranial abdomen abnormality.), image reviewed (Two-view chest x-ray shows pleural fluid and consolidation right lung.) Critical Care Time Critical Care Time: Yes Total Critical Care Time: 32 Disposition Clinical Impression: DONALDO (acute kidney injury), Pleural effusion, CHF (congestive heart failure), Sepsis, Pneumonia Disposition: ADMITTED IP TO THIS [facility] Condition: Serious Is patient prescribed a controlled substance at d/c from ED?: No Referrals: Abhishek Beltran DO [Primary Care Provider] - 1-2 days Decision Time: 18:08
[2020-10-29 16:37] LABS: Albumin 3.5 g/dL (3.5-5.0); Calcium 8.4 mg/dL (8.4-10.2); Magnesium 2.5 mg/dL (1.6-2.3); Phosphorus 6.5 mg/dL (2.5-4.5); Total Bilirubin 2.3 mg/dL (0.2-1.3); Total Protein 6.2 g/dL (6.3-8.2)
--- NOTE | 2020-10-29 16:41 | CT ---
EXAMINATION TYPE: CT brain wo con DATE OF EXAM: 10/29/2020 COMPARISON: 02/07/2019 HISTORY: Patient poor historian. CT DLP: 1094.4 mGycm Automated exposure control for dose reduction was used. There is minimal cerebral atrophy. There is no mass effect nor midline shift. There is no sign of int racranial hemorrhage. Calvarium is intact. There is normal aeration of the mastoid sinuses. IMPRESSION: Cerebral mild atrophy. No acute intracranial abnormality. No change compared to old exam.
--- NOTE | 2020-10-29 16:43 | XR ---
EXAMINATION TYPE: XR chest 2V DATE OF EXAM: 10/29/2020 COMPARISON: 10/17/2020 HISTORY: Weakness TECHNIQUE: 2 views FINDINGS: Blunting right costophrenic angle. There is consolidation right lower lobe. There is opacif ication of 50% right hemithorax. Left lung is fairly clear. There is no heart failure. Heart and medi astinum are deviated to the right side. IMPRESSION: There is combination of pleural fluid and consolidation and atelectasis in the right lung which is slightly worse than recent exam. No heart failure seen.
[2020-10-29 16:44] LABS: Anisocytosis Slight; Basophils # (A) 0.1 k/uL (0-0.2); Basophils % (A) 0 %; Eosinophils % (A) 0 %; HCT 37.7 % (34.0-46.0); Hypochromasia Marked; Lymphocytes # (A) 1.4 k/uL (1.0-4.8); Lymphocytes % (A) 11 %; MCH 23.7 pg (25.0-35.0); MCHC 29.1 g/dL (31.0-37.0); MCV 81.2 fL (80.0-100.0); Mean Platelet Volume 9.4; Monocytes # (A) 0.6 k/uL (0-1.0); Monocytes % (A) 5 %; Neutrophils # (A) 10.8 k/uL (1.3-7.7); Neutrophils % (A) 83 %; Platelet Count 234 k/uL (150-450); Poikilocytosis Moderate; RBC 4.65 m/uL (3.80-5.40); RDW 17.5 % (11.5-15.5)
[2020-10-29 16:48] LABS: INR 1.3 (<1.2)
[2020-10-29 16:49] LABS: Partial Thromboplastin Time 21.5 sec (22.0-30.0); Prothrombin Time 13.1 sec (9.0-12.0)
[2020-10-29 16:50] LABS: Potassium 6.1 mmol/L (3.5-5.1)
[2020-10-29 16:53] LABS: T4, Free (Free Thyroxine) 1.3 ng/dL (0.78-2.19)
[2020-10-29 17:34] LABS: Appearance,Urine Cloudy (Clear); Bacteria,Urine Occasional /hpf; Bilirubin,Urine Negative (Negative); Blood,Urine Small (Negative); Budding Yeast,Urine Few /hpf; Color,Urine Yellow; Glucose,Urine (UA) Negative (Negative); Hyaline Casts,Urine 3 /lpf (0-2); Ketones,Urine Trace (Negative); Leukocyte Esterase,Urine Large (Negative); Mucus,Urine Rare /hpf; Nitrite,Urine Negative (Negative); PH, Urine 5.5 (5.0-8.0); Protein,Urine Trace (Negative); RBC,Urine 2 /hpf (0-5); Specific Gravity,Urine 1.009 (1.001-1.035); Squamous Epithelial Cell,Urine 2 /hpf (0-4); Urobilinogen,Urine <2.0 mg/dL (<2.0); WBC,Urine 7 /hpf (0-5)
[2020-10-29] MEDS ORDERED: AZITHROMYCIN 500 MG in SODIUM CHLORIDE 0.9% 250 ML IVPB STA (18:09)
[2020-10-29] MEDS ORDERED: ASPIRIN 325 MG TAB PO STA (18:09)
[2020-10-29] MEDS ORDERED: PNEUMONIA PROTOCOL UTILIZED 1 EACH MISC PO PRN (18:09)
[2020-10-29] MEDS ORDERED: SODIUM POLYSTYRENE SULFONATE 15 GM/60 ML BOTTLE PO ONE (18:13)
[2020-10-29] MEDS ORDERED: diazePAM 5 MG TAB PO PRN (18:14)
[2020-10-29] MEDS ORDERED: SODIUM POLYSTYRENE SULFONATE 15 GM/60 ML BOTTLE PO STA (18:24)
--- NOTE | 2020-10-29 18:29 | P.HPIM ---
History of Present Illness Patient is a pleasant 55-year-old female came to the emergency department with clear complaints of generalized fatigue and excessive sleepiness. Patient does have history of multiple sclerosis does have some chronic weakness denied any new weakness. Patient had a CT of the head which did not show any significant abnormality. Patient was having increasing pedal edema decreasing urination. Patient was on hemodialysis 2 years ago which was discontinued and the presently found to have elevated creatinine along with the pulmonary edema secondary to most probably end-stage renal disease. Echo cardiac exam is being obtained at this time. Patient also has a chest x-ray which showed significant pleural effusion although I did not see any infiltrate except for pleural effusion on the right side. Patient was given a dose of antibiotics azithromycin will be discontinued patient will be continued on the Rocephin as I cannot completely rule out parapneumonic effusion. Patient has moderate effusion on the right side patient has highly elevated BNP. Echocardiac exam is being obtained as well as echo cardiac exam which was done 2 years ago showed normal ejection fraction. Patient is a fatigued. Patient is also on multiple medications that can cause drowsiness including Seroquel, risperidone, diazepam, Neurontin. She does have leukocytosis no fever. Patient still urinates. is hypokalemic as well. Review of Systems REVIEW OF SYSTEMS: CONSTITUTIONAL: As mentioned in HPI. HEENT: No recent visual problems or hearing problems. Denied any sore throat. CARDIOVASCULAR: No chest pain, orthopnea, PND, no palpitations, no syncope. PULMONARY: No shortness of breath, no cough, no hemoptysis. GASTROINTESTINAL: No diarrhea, no nausea, no vomiting, no abdominal pain. NEUROLOGICAL: No headaches, no weakness, no numbness. HEMATOLOGICAL: Denies any bleeding or petechiae. GENITOURINARY: Denies any burning micturition, frequency, or urgency. MUSCULOSKELETAL/RHEUMATOLOGICAL: Denies any joint pain, swelling, or any muscle pain. ENDOCRINE: Denies any polyuria or polydipsia. The rest of the 14-point review of systems is negative. Past Medical History Past Medical History: Cancer, Deep Vein Thrombosis (DVT), Fibromyalgia, Memory Impairment, Pneumonia, Renal Disease Additional Past Medical History / Comment(s): MIGRANES, MULTIPLE SCLEROSIS, BRAIN LESIONS, PVD, SOB, CONSTIPATION, DIARRHEA, KIDNEY INFECTION, UTI, BACK PAIN, ANEMIA, HYPERTHYROID, CERVICAL CA, CARPAL TUNNEL,septicemia, polyneuropathy ,HADHEMODIALYSIS TWICE, HAD CHEMOTHERAPY FOR TX OF MS, MOTORIZED CHAIR-ABLE TO STAND TO TRANSFER. History of Any Multi-Drug Resistant Organisms: None Reported Past Surgical History: Tonsillectomy, Tubal Ligation Additional Past Surgical History / Comment(s): DIALYSIS CATHETER (REMOVED), BIOPSY (UNKNOWN TYPE), CRYO SURGERY FOR CERVICAL CA, D&C. Past Anesthesia/Blood Transfusion Reactions: No Reported Reaction Past Psychological History: Anxiety, Bipolar, Depression Smoking Status: Former smoker Past Alcohol Use History: None Reported Past Drug Use History: None Reported - Past Family History Father Family Medical History: Cancer Additional Family Medical History / Comment(s): BRAIN Mother Family Medical History: Cancer Additional Family Medical History / Comment(s): BREAST Medications and Allergies Home Medications Medication Instructions Recorded Confirmed Type Aspirin EC [Ecotrin Low Dose] 81 mg PO HS 11/02/13 10/29/20 History Citalopram Hydrobromide [CeleXA] 40 mg PO HS 12/14/18 10/29/20 History Donepezil [Aricept] 5 mg PO HS 12/14/18 10/29/20 History Dimethyl Fumarate [Tecfidera] 240 mg PO BID 02/07/19 10/29/20 History Gabapentin [Neurontin] 300 mg PO TID PRN 09/24/19 10/29/20 History Montelukast [Singulair] 5 mg PO HS 09/24/19 10/29/20 History QUEtiapine FUMARATE [SEROquel] 75 mg PO HS 09/24/19 10/29/20 History risperiDONE [RisperDAL] 0.5 mg PO BID 09/24/19 10/29/20 History Diazepam [Valium] 5 mg PO BID PRN 10/17/20 10/29/20 History Memantine [Namenda] 5 mg PO DAILY 10/17/20 10/29/20 History Multivitamins, Thera [Multivitamin 1 tab PO DAILY 10/17/20 10/29/20 History (formulary)] Topiramate [Topamax] 25 mg PO HS 10/17/20 10/29/20 History Metoprolol Tartrate [Lopressor] 12.5 mg PO BID #0 10/20/20 10/29/20 Rx Allergies Allergy/AdvReac Type Severity Reaction Status Date / Time blue dye Allergy Rash/Hives Verified 10/29/20 16:46 Neuromuscular Blockers, AdvReac Nausea & Verified 10/29/20 16:46 Steroidal Vomiting [Steroidal Neuromuscular Blockers] Physical Exam Vitals: Vital Signs Temp Pulse Resp BP Pulse Ox 10/29/20 17:16 98 18 110/73 95 10/29/20 16:07 95 10/29/20 15:48 97.9 F 103 H 20 101/71 79 L Intake and Output 10/29/20 10/29/20 10/29/20 06:59 14:59 22:59 Other: Weight 95.254 kg PHYSICAL EXAMINATION: GENERAL: The patient is drowsy and oriented x3, not in any acute distress. Well developed, well nourished. HEENT: Pupils are round and equally reacting to light. EOMI. No scleral icterus. No conjunctival pallor. Normocephalic, atraumatic. No pharyngeal erythema. No t hyromegaly. CARDIOVASCULAR: S1 and S2 present. No murmurs, rubs, or gallops. PULMONARY: Chest is clear to auscultation, no wheezing or crackles. ABDOMEN: Soft, nontender, nondistended, normoactive bowel sounds. No palpable organomegaly. MUSCULOSKELETAL: No joint swelling or deformity. EXTREMITIES: No cyanosis, clubbing, or pedal edema. NEUROLOGICAL: Gross neurological examination did not reveal any new new focal deficits. She does have significant bilateral lower limb muscle atrophy and ch ronic focal weaknesses. SKIN: No rashes. Results CBC & Chem 7: 10/29/20 16:08 10/29/20 16:08 Labs: Abnormal Lab Results - Last 24 Hours (Table) 10/29/20 10/29/20 10/29/20 Range/Units 16:08 16:08 16:08 WBC 13.0 H (3.8-10.6) k/uL Hgb 11.0 L (11.4-16.0) gm/dL MCH 23.7 L (25.0-35.0) pg MCHC 29.1 L (31.0-37.0) g/dL RDW 17.5 H (11.5-15.5) % Neutrophils # 10.8 H (1.3-7.7) k/uL PT 13.1 H (9.0-12.0) sec INR 1.3 H (<1.2) APTT 21.5 L (22.0-30.0) sec Sodium (137-145) mmol/L Potassium (3.5-5.1) mmol/L Carbon Dioxide (22-30) mmol/L BUN (7-17) mg/dL Creatinine (0.52-1.04) mg/dL Phosphorus (2.5-4.5) mg/dL Magnesium (1.6-2.3) mg/dL Total Bilirubin (0.2-1.3) mg/dL AST (14-36) U/L Troponin I (0.000-0.034) ng/mL Total Protein (6.3-8.2) g/dL Free T3 pg/mL (2.8-5.3) pg/ml Urine Appearance Cloudy H (Clear) Urine Protein Trace H (Negative) Urine Ketones Trace H (Negative) Urine Blood Small H (Negative) Ur Leukocyte Esterase Large H (Negative) Urine WBC 7 H (0-5) /hpf Urine WBC Clumps Few H (None) /hpf Urine Bacteria Occasional H (None) /hpf Hyaline Casts 3 H (0-2) /lpf Urine Mucus Rare H (None) /hpf Urine Yeast (Budding) Few H (None) /hpf 10/29/20 10/29/20 Range/Units 16:08 16:08 WBC (3.8-10.6) k/uL Hgb (11.4-16.0) gm/dL MCH (25.0-35.0) pg MCHC (31.0-37.0) g/dL RDW (11.5-15.5) % Neutrophils # (1.3-7.7) k/uL PT (9.0-12.0) sec INR (<1.2) APTT (22.0-30.0) sec Sodium 134 L (137-145) mmol/L Potassium 6.1 H* (3.5-5.1) mmol/L Carbon Dioxide 17 L (22-30) mmol/L BUN 71 H (7-17) mg/dL Creatinine 3.44 H (0.52-1.04) mg/dL Phosphorus 6.5 H (2.5-4.5) mg/dL Magnesium 2.5 H (1.6-2.3) mg/dL Total Bilirubin 2.3 H (0.2-1.3) mg/dL AST 46 H (14-36) U/L Troponin I 0.079 H* (0.000-0.034) ng/mL Total Protein 6.2 L (6.3-8.2) g/dL Free T3 pg/mL 2.0 L (2.8-5.3) pg/ml Urine Appearance (Clear) Urine Protein (Negative) Urine Ketones (Negative) Urine Blood (Negative) Ur Leukocyte Esterase (Negative) Urine WBC (0-5) /hpf Urine WBC Clumps (None) /hpf Urine Bacteria (None) /hpf Hyaline Casts (0-2) /lpf Urine Mucus (None) /hpf Urine Yeast (Budding) (None) /hpf Assessment and Plan Plan: -Altered mental status: Secondary to medications and renal failure. Patient appears to have acute renal failure patient baseline creatinine is around 1.2- 1.5 presently 3.44. -Renal failure: Patient was on hemodialysis at one point of time with she was discontinued about 2 years ago. Patient to creatinine has worsened patient may have a competent of acute renal failure. Will do workup with the ultrasound of the kidneys along with the urine random sodium urine random creatinine. Phosphorus levels will be obtained as well. -Anion gap metabolic acidosis secondary to uremia -Right-sided pleural effusion probably secondary to fluid retention from renal dysfunction which is most probably chronic. Patient has abated BNP as well which is secondary to fluid overload from end-stage renal disease patient was started on IV Lasix at a high dose. Although I cannot completely rule out parapneumonic effusion because of which I'll continue with Rocephin -Hyperkalemia secondary to renal failure and hyponatremia secondary to renal failure and the hypervolemic hyponatremia. Patient is presently on Lasix as mentioned above -Mildly elevated troponin secondary to renal failure -Asymptomatic bacteriuria will not require any antibiotics at this time -History of multiple sclerosis not in MS exacerbation at this time continue with home medications for this -History of DVT in the past presently not on any anti-correlation although patient will be started on subcutaneous heparin for DVT prophylaxis -Depression
[2020-10-29] MEDS: FUROSEMIDE 10 MG/ML 10 ML VIAL IV SCH (20:27)
[2020-10-29] MEDS: NITROGLYCERIN OINT 1 INCH/GM PACKET TOPICAL SCH ×2 (20:27→23:03)
[2020-10-29] MEDS: HEPARIN SODIUM,PORCINE/PF 5,000 UNIT/0.5 ML SYRINGE SQ SCH (20:31)
[2020-10-29] MEDS ORDERED: QUEtiapine 25 MG TAB PO SCH (21:00)
[2020-10-29] MEDS ORDERED: QUEtiapine 50 MG TAB PO SCH (21:00)
[2020-10-29] MEDS ORDERED: risperiDONE 0.5 MG TAB PO SCH (21:00)
[2020-10-29] MEDS: DONEPEZIL 5 MG TAB PO SCH (21:36)
[2020-10-29] MEDS: PATIENT'S OWN (Dimethyl Fumarate [Tecfidera] 240 MG Capsule.Dr) PO SCH (21:37)
[2020-10-29] MEDS: MONTELUKAST 10 MG TAB PO SCH (21:38)
[2020-10-29] MEDS: CITALOPRAM HYDROBROMIDE 20 MG TAB PO SCH (21:38)
[2020-10-29] MEDS: METOPROLOL TARTRATE 12.5 MG TAB PO SCH (21:39)
[2020-10-29] MEDS: TOPIRAMATE 25 MG TAB PO SCH (21:39)
--- NOTE | 2020-10-30 07:21 | US ---
EXAMINATION TYPE: US kidneys/renal and bladder DATE OF EXAM: 10/29/2020 COMPARISON: US CLINICAL HISTORY: DONALDO. DONALDO, poor historian. EXAM MEASUREMENTS: Right Kidney: 9.1 x 4.4 x 4.1 cm Left Kidney: 8.8 x 3.9 x 4.0 cm Right Kidney: Cortex appears thin. Left Kidney: Cortex appears thin. Appears slightly small in size. Hypoechoic areas seen. Largest scooter ures: 3.0 x 2.3 x 3.0 cm. Bladder: Appears anechoic. Bilateral Jets seen: No -Free fluid seen adjacent to bladder on right and left. Incidental finding: spleen appears enlarged: 16.9 cm in length. IMPRESSION: 1. Splenomegaly. 2. Bilateral renal cortical thinning. Renal cystic changes left kidney.
[2020-10-30 07:37] LABS: Albumin 3.6 g/dL (3.5-5.0); Calcium 8.4 mg/dL (8.4-10.2); Total Bilirubin 1.8 mg/dL (0.2-1.3); Total Protein 6.4 g/dL (6.3-8.2)
[2020-10-30 08:04] LABS: Anisocytosis Slight; HCT 36.4 % (34.0-46.0); HGB 11.1 gm/dL (11.4-16.0); Hypochromasia Marked; MCH 23.9 pg (25.0-35.0); MCHC 30.4 g/dL (31.0-37.0); MCV 78.6 fL (80.0-100.0); Mean Platelet Volume 9.5; Microcytosis Slight; Platelet Count 207 k/uL (150-450); Poikilocytosis Moderate; RBC 4.63 m/uL (3.80-5.40); RDW 17.7 % (11.5-15.5); WBC 11.2 k/uL (3.8-10.6)
--- NOTE | 2020-10-30 08:43 | US ---
EXAMINATION TYPE: US chest DATE OF EXAM: 10/30/2020 COMPARISON: NONE CLINICAL HISTORY: right pleural effusion. TECHNIQUE: Targeted ultrasound of the posterior lower right hemithorax EXAM MEASUREMENTS: Right Pleural Effusion pocket size: 9.8 cm Right skin surface to fluid distance: 3.2 cm Depth of lun.1cm Right side marked for possible thoracentesis outside the dept. Pulmonologists are able to review the images in the patient?s EMR. IMPRESSIONS: Right pleural effusion
--- NOTE | 2020-10-30 08:47 | XR ---
EXAMINATION TYPE: XR chest 1V DATE OF EXAM: 10/30/2020 COMPARISON: 10/29/2020 HISTORY: Cough TECHNIQUE: Single frontal view of the chest is obtained. FINDINGS: Right-sided consolidation and pleural effusion. Coarsened interstitium. Vague nodularity l ateral margin subsegmental changes left lung base. Heart is enlarged. No pneumothorax. IMPRESSION: Bilateral pleural effusion correlate for pneumonia otherwise consider CHF
[2020-10-30 08:49] LABS: Glucose,Whole Blood 97 mg/dL (75-99)
[2020-10-30] MEDS: MULTIVITAMINS, THERA 1 EACH TAB PO SCH (09:17)
[2020-10-30] MEDS: FUROSEMIDE 10 MG/ML 10 ML VIAL IV SCH ×4 (09:18→20:30)
[2020-10-30] MEDS: HEPARIN SODIUM,PORCINE/PF 5,000 UNIT/0.5 ML SYRINGE SQ SCH ×2 (09:23→20:30)
[2020-10-30] MEDS: METOPROLOL TARTRATE 12.5 MG TAB PO SCH ×2 (09:30→20:29)
[2020-10-30] MEDS: PATIENT'S OWN (Dimethyl Fumarate [Tecfidera] 240 MG Capsule.Dr) PO SCH ×2 (09:32→21:52)
[2020-10-30] MEDS: NITROGLYCERIN OINT 1 INCH/GM PACKET TOPICAL SCH ×3 (09:32→20:21)
--- NOTE | 2020-10-30 09:58 | P.NPCON ---
History of Present Illness - Reason for Consult acute renal failure, chronic renal failure - History of Present Illness Reason for consultation: Acute kidney injury on chronic kidney disease History of present illness: Patient is a 55-year-old female seen in renal consultation for acute kidney injury on chronic kidney disease. Patient has chronic kidney disease stage IIIB with baseline creatinine near 1.5 secondary to nephrosclerosis. No history of diabetes. Creatinine was 3.4 on admission is 2.73 today. Patient presented to the hospital for generalized weakness. She was also having vomiting prior to admission. No episodes of vomiting since she's been in the hospital. She also complains of worsening of swelling in her lower extremities. She is currently maintained on IV Lasix 80 mg twice daily. She has good urine output. No hematuria or dysuria. No history of coronary artery disease. Blood pressure is on the lower side in the systolic 90s to low 100s. No diarrhea. Denies use of nonsteroidals. Potassium was high on admission at 6.1 and is 4.0 this morning. She tested negative for coronavirus. Oral intake has been fair the last few days. No fever or chills. Vital signs are stable. General: The patient appeared well nourished and normally developed. HEENT: Head exam is unremarkable. Neck is without jugular venous distension. LUNGS: Breath sounds decreased. HEART: Rate and Rhythm are regular. ABDOMEN: Soft, nontender. EXTREMITITES: 1+ edema. Past Medical History Past Medical History: Cancer, Deep Vein Thrombosis (DVT), Fibromyalgia, Memory Impairment, Pneumonia, Renal Disease Additional Past Medical History / Comment(s): MIGRANES, MULTIPLE SCLEROSIS, BRAIN LESIONS, PVD, SOB, CONSTIPATION, DIARRHEA, KIDNEY INFECTION, UTI, BACK PAIN, ANEMIA, HYPERTHYROID, CERVICAL CA, CARPAL TUNNEL,septicemia, polyneuropathy ,HADHEMODIALYSIS TWICE, HAD CHEMOTHERAPY FOR TX OF MS, MOTORIZED CHAIR-ABLE TO STAND TO TRANSFER. History of Any Multi-Drug Resistant Organisms: None Reported Past Surgical History: Tonsillectomy, Tubal Ligation Additional Past Surgical History / Comment(s): DIALYSIS CATHETER (REMOVED), BIOPSY (UNKNOWN TYPE), CRYO SURGERY FOR CERVICAL CA, D&C. Past Anesthesia/Blood Transfusion Reactions: No Reported Reaction Past Psychological History: Anxiety, Bipolar, Depression Smoking Status: Former smoker Past Alcohol Use History: None Reported Past Drug Use History: None Reported - Past Family History Father Family Medical History: Cancer Additional Family Medical History / Comment(s): BRAIN Mother Family Medical History: Cancer Additional Family Medical History / Comment(s): BREAST Medications and Allergies Home Medications Medication Instructions Recorded Confirmed Type Aspirin EC [Ecotrin Low Dose] 81 mg PO HS 11/02/13 10/29/20 History Citalopram Hydrobromide [CeleXA] 40 mg PO HS 12/14/18 10/29/20 History Donepezil [Aricept] 5 mg PO HS 12/14/18 10/29/20 History Dimethyl Fumarate [Tecfidera] 240 mg PO BID 02/07/19 10/29/20 History Gabapentin [Neurontin] 300 mg PO TID PRN 09/24/19 10/29/20 History Montelukast [Singulair] 5 mg PO HS 09/24/19 10/29/20 History QUEtiapine FUMARATE [SEROquel] 75 mg PO HS 09/24/19 10/29/20 History risperiDONE [RisperDAL] 0.5 mg PO BID 09/24/19 10/29/20 History Diazepam [Valium] 5 mg PO BID PRN 10/17/20 10/29/20 History Memantine [Namenda] 5 mg PO DAILY 10/17/20 10/29/20 History Multivitamins, Thera [Multivitamin 1 tab PO DAILY 10/17/20 10/29/20 History (formulary)] Topiramate [Topamax] 25 mg PO HS 10/17/20 10/29/20 History Metoprolol Tartrate [Lopressor] 12.5 mg PO BID #0 10/20/20 10/29/20 Rx Allergies Allergy/AdvReac Type Severity Reaction Status Date / Time blue dye Allergy Rash/Hives Verified 10/29/20 16:46 Neuromuscular Blockers, AdvReac Nausea & Verified 10/29/20 16:46 Steroidal Vomiting [Steroidal Neuromuscular Blockers] Physical Exam Vitals: Vital Signs Temp Pulse Pulse Resp BP BP Pulse Ox 10/30/20 09:18 91 18 94/63 96 10/30/20 07:20 97.5 F L 96 18 106/63 98 10/30/20 04:00 98.1 F 95 19 92/60 98 10/30/20 00:00 97.5 F L 95 16 95/65 96 10/29/20 21:32 101/67 10/29/20 20:06 97.6 F 95 20 108/67 96 10/29/20 17:16 98 18 110/73 95 10/29/20 16:07 95 10/29/20 15:48 97.9 F 103 H 20 101/71 79 L Intake and Output 10/29/20 10/30/20 10/30/20 22:59 06:59 14:59 Output Total 700 Balance -700 Output: Urine 700 Other: # Voids 2 Weight 95.254 kg Results - Lab Results Most recent lab results Calcium 8.4 mg/dL (8.4-10.2) 10/30/20 07:05 Phosphorus 6.0 mg/dL (2.5-4.5) H 10/29/20 19:48 Magnesium 2.5 mg/dL (1.6-2.3) H 10/29/20 16:08 10/30/20 07:05 10/30/20 07:05 Assessment and Plan Plan: Assessment: 1. Acute kidney injury mostly prerenal secondary to cardiorenal syndrome. Creatinine 3.4 on admission and 2.73 this morning. Renal ultrasound revealed no evidence of hydronephrosis. Left kidney smaller in size. 2. Chronic kidney disease stage IIIB with baseline creatinine near 1.5 secondary to nephrosclerosis. 3. Volume overload. 4. Acute on chronic diastolic CHF. 5. Hyperkalemia secondary to acute kidney injury and metabolic acidosis. Resolved. 6. Hypotension. Likely from underlying cardiac status. Rule out adrenal insufficiency. 7. Metabolic acidosis secondary to acute kidney injury and Topamax. Improved. Plan: Decrease Lasix to 60 mg IV twice daily. Check a.m. cortisol level. Add midodrine. Avoid nephrotoxins. Continue to monitor renal function and urine output. Thank you for the consultation. I will continue to follow the patient with you during her hospital stay.
--- NOTE | 2020-10-30 10:30 | P.CNPUL ---
History of Present Illness Consult date: 10/30/20 Requesting physician: Kyle Delatorre Reason for consult: dyspnea, abnormal CXR/CT Chief complaint: Fatigue, weakness, shortness of breath History of present illness: This is a 55-year-old female patient who follows with Dr. Beltran as her primary care provider. She has a history of dementia, anxiety/depression, fibromyalgia, DVT, multiple sclerosis, renal failure, former smoker, home oxygen at 2 L/m. She was brought into the emergency room yesterday with altered mental status, fatigue, weakness. CAT scan of the brain revealed cerebral mild atrophy. No acute intracranial abnormality. Chest x-ray revealed a right-sided pleural effusion with some consolidation/atelectasis. White count 11.2. Hemoglobin 11.1. Sodium 142. Potassium 4.0. Creatinine 2.73. Glucose 68. Troponin 0.115, 0.109. ProBNP 23,800. INR 1.3. Influenza screen negative. COVID-19 screen negative. She is seen today in the emergency room. She is awake. Somewhat drowsy. Poor historian. Maintaining O2 saturations in the mid to upper 90s on 4 L/m per nasal cannula. Afebrile. Somewhat hypotensive. She's been initiated on IV diuretics, antibiotics, heparin for DVT prophylaxis. Review of Systems ROS unobtainable: due to mental status Past Medical History Past Medical History: Cancer, Deep Vein Thrombosis (DVT), Fibromyalgia, Memory Impairment, Pneumonia, Renal Disease Additional Past Medical History / Comment(s): MIGRANES, MULTIPLE SCLEROSIS, BRAIN LESIONS, PVD, SOB, CONSTIPATION, DIARRHEA, KIDNEY INFECTION, UTI, BACK PAIN, ANEMIA, HYPERTHYROID, CERVICAL CA, CARPAL TUNNEL,septicemia, poly neuropathy ,HADHEMODIALYSIS TWICE, HAD CHEMOTHERAPY FOR TX OF MS, MOTORIZED CHAIR-ABLE TO STAND TO TRANSFER. History of Any Multi-Drug Resistant Organisms: None Reported Past Surgical History: Tonsillectomy, Tubal Ligation Additional Past Surgical History / Comment(s): DIALYSIS CATHETER (REMOVED), BIOPSY (UNKNOWN TYPE), CRYO SURGERY FOR CERVICAL CA, D&C. Past Anesthesia/Blood Transfusion Reactions: No Reported Reaction Past Psychological History: Anxiety, Bipolar, Depression Smoking Status: Former smoker Past Alcohol Use History: None Reported Past Drug Use History: None Reported - Past Family History Father Family Medical History: Cancer Additional Family Medical History / Comment(s): BRAIN Mother Family Medical History: Cancer Additional Family Medical History / Comment(s): BREAST Medications and Allergies Home Medications Medication Instructions Recorded Confirmed Type Aspirin EC [Ecotrin Low Dose] 81 mg PO HS 11/02/13 10/29/20 History Citalopram Hydrobromide [CeleXA] 40 mg PO HS 12/14/18 10/29/20 History Donepezil [Aricept] 5 mg PO HS 12/14/18 10/29/20 History Dimethyl Fumarate [Tecfidera] 240 mg PO BID 02/07/19 10/29/20 History Gabapentin [Neurontin] 300 mg PO TID PRN 09/24/19 10/29/20 History Montelukast [Singulair] 5 mg PO HS 09/24/19 10/29/20 History QUEtiapine FUMARATE [SEROquel] 75 mg PO HS 09/24/19 10/29/20 History risperiDONE [RisperDAL] 0.5 mg PO BID 09/24/19 10/29/20 History Diazepam [Valium] 5 mg PO BID PRN 10/17/20 10/29/20 History Memantine [Namenda] 5 mg PO DAILY 10/17/20 10/29/20 History Multivitamins, Thera [Multivitamin 1 tab PO DAILY 10/17/20 10/29/20 History (formulary)] Topiramate [Topamax] 25 mg PO HS 10/17/20 10/29/20 History Metoprolol Tartrate [Lopressor] 12.5 mg PO BID #0 10/20/20 10/29/20 Rx Allergies Allergy/AdvReac Type Severity Reaction Status Date / Time blue dye Allergy Rash/Hives Verified 10/29/20 16:46 Neuromuscular Blockers, AdvReac Nausea & Verified 10/29/20 16:46 Steroidal Vomiting [Steroidal Neuromuscular Blockers] Physical Exam Vitals: Vital Signs Temp Pulse Pulse Resp BP BP Pulse Ox 10/30/20 09:18 91 18 94/63 96 10/30/20 07:20 97.5 F L 96 18 106/63 98 10/30/20 04:00 98.1 F 95 19 92/60 98 10/30/20 00:00 97.5 F L 95 16 95/65 96 04/27/21 21:32 101/67 10/29/20 20:06 97.6 F 95 20 108/67 96 10/29/20 17:16 98 18 110/73 95 10/29/20 16:07 95 10/29/20 15:48 97.9 F 103 H 20 101/71 79 L Intake and Output 10/29/20 10/30/20 10/30/20 22:59 06:59 14:59 Output Total 700 Balance -700 Output: Urine 700 Other: # Voids 2 Weight 95.254 kg GENERAL EXAM: Arousable, poor historian, 55-year-old female patient, on 4 L nasal cannula, fairly comfortable in no apparent distress. HEAD: Normocephalic. EYES: Normal reaction of pupils, equal size. NOSE: Clear with pink turbinates. THROAT: No erythema or exudates. NECK: No masses, no JVD. CHEST: No chest wall deformity. LUNGS: Equal air entry with crackles in the right base, diminished. CVS: S1 and S2 normal with no audible murmur, regular rhythm. ABDOMEN: No hepatosplenomegaly, normal bowel sounds, no guarding or rigidity. SPINE: No scoliosis or deformity SKIN: No rashes CENTRAL NERVOUS SYSTEM: No focal deficits, tone is normal in all 4 extremities. EXTREMITIES: There is 1-2+ peripheral edema. No clubbing, no cyanosis. Peripheral pulses are intact. Results - Laboratory Findings CBC and BMP: 10/30/20 07:05 10/30/20 07:05 PT/INR, D-dimer PT 13.1 sec (9.0-12.0) H 10/29/20 16:08 INR 1.3 (<1.2) H 10/29/20 16:08 Abnormal lab findings: Abnormal Labs 10/29/20 10/29/20 10/29/20 16:08 16:08 16:08 WBC 13.0 H Hgb 11.0 L MCV MCH 23.7 L MCHC 29.1 L RDW 17.5 H Neutrophils # 10.8 H PT 13.1 H INR 1.3 H APTT 21.5 L Sodium Potassium Carbon Dioxide BUN Creatinine Glucose Phosphorus Magnesium Total Bilirubin AST Troponin I Total Protein Free T3 pg/mL Urine Appearance Cloudy H Urine Protein Trace H Urine Ketones Trace H Urine Blood Small H Ur Leukocyte Esterase Large H Urine WBC 7 H Urine WBC Clumps Few H Urine Bacteria Occasional H Hyaline Casts 3 H Urine Mucus Rare H Urine Yeast (Budding) Few H 10/29/20 10/29/20 10/29/20 16:08 16:08 19:48 WBC Hgb MCV MCH MCHC RDW Neutrophils # PT INR APTT Sodium 134 L Potassium 6.1 H* Carbon Dioxide 17 L BUN 71 H Creatinine 3.44 H Glucose Phosphorus 6.5 H 6.0 H Magnesium 2.5 H Total Bilirubin 2.3 H AST 46 H Troponin I 0.079 H* Total Protein 6.2 L Free T3 pg/mL 2.0 L Urine Appearance Urine Protein Urine Ketones Urine Blood Ur Leukocyte Esterase Urine WBC Urine WBC Clumps Urine Bacteria Hyaline Casts Urine Mucus Urine Yeast (Budding) 10/29/20 10/29/20 10/29/20 20:13 20:13 22:47 WBC Hgb MCV MCH MCHC RDW Neutrophils # PT INR APTT Sodium Potassium 5.5 H Carbon Dioxide BUN Creatinine Glucose Phosphorus Magnesium Total Bilirubin AST Troponin I 0.115 H* 0.109 H* Total Protein Free T3 pg/mL Urine Appearance Urine Protein Urine Ketones Urine Blood Ur Leukocyte Esterase Urine WBC Urine WBC Clumps Urine Bacteria Hyaline Casts Urine Mucus Urine Yeast (Budding) 10/30/20 10/30/20 07:05 07:05 WBC 11.2 H Hgb 11.1 L MCV 78.6 L MCH 23.9 L MCHC 30.4 L RDW 17.7 H Neutrophils # PT INR APTT Sodium Potassium Carbon Dioxide BUN 70 H Creatinine 2.73 H Glucose 68 L Phosphorus Magnesium Total Bilirubin 1.8 H AST 41 H Troponin I Total Protein Free T3 pg/mL Urine Appearance Urine Protein Urine Ketones Urine Blood Ur Leukocyte Esterase Urine WBC Urine WBC Clumps Urine Bacteria Hyaline Casts Urine Mucus Urine Yeast (Budding) - Diagnostic Findings Chest x-ray: image reviewed Assessment and Plan Assessment: 1 Acute on chronic hypoxemic respiratory failure secondary to right-sided pleural effusion, systolic versus diastolic congestive heart failure 2 Acute on chronic renal failure 3 Troponin leak, echocardiogram pending 4 History of dementia, poor historian 5 Chronic hypoxemic respiratory failure, on 2 L the outpatient setting 6 Anxiety/depression 7 Urinary tract infection, culture pending 8 History of multiple sclerosis 9 Previous hemodialysis 10 Anxiety/depression 11 Former smoker Plan: The patient was seen and evaluated by Dr. Little Chest x-ray and labs reviewed Obtain ultrasound of the chest, may require thoracentesis Echocardiogram pending Continue IV diuretics Titrate the FiO2 as tolerated We will continue to follow and make further recommendations based on her clinical status I, the cosigning physician, performed a history & physical examination of the patient. Lungs sounds are positive for right base, diminished. Maintaining good O2 saturations in the 90s on 4 L/m per nasal cannula. I discussed the as sessment and plan of care with my nurse practitioner, Kaur Parekh. I attest to the above consultation as dictated by her. Time with Patient: Greater than 30
--- NOTE | 2020-10-30 10:39 | ECHOF ---
Referral Reason:CHF MEASUREMENTS -------- HEIGHT: 175.3 cm WEIGHT: 95.3 kg BP: RVIDd: 3.2 cm (< 3.3) IVSd: 1.1 cm (0.6 - 1.1) LVIDd: 4.1 cm (3.9 - 5.3) LVPWd: 1.4 cm (0.6 - 1.1) IVSs: 1.4 cm LVIDs: 3.3 cm LVPWs: 1.8 cm LA Diam: 4.0 cm (2.7 - 3.8) Ao Diam: 3.1 cm (2.0 - 3.7) AV Cusp: 2.0 cm (1.5 - 2.6) MV EXCURSION: 16.312 mm (> 18.000) MV EF SLOPE: 78 mm/s (70 - 150) EPSS: 0.4 cm MV E Fransico: 0.88 m/s MV DecT: 185 ms MV A Fransico: 0.96 m/s MV E/A Ratio: 0.92 RAP: 15.00 mmHg RVSP: 71.68 mmHg FINDINGS -------- Sinus rhythm. This was a technically adequate study. LV size, wall thickness and systolic function are normal, with an EF greater than 55%. The left lilian tricular size is normal. The right ventricle is normal in size. The right ventricular systolic function is moderately impair ed. The left atrium is mildly dilated. The right atrial size is normal. The aortic valve is trileaflet, and appears structurally normal. No aortic stenosis or regurgitation. There is no evidence of aortic regurgitation. The mitral valve is normal. Mild mitral regurgitation is present. The tricuspid valve appears structurally normal. Moderate tricuspid regurgitation present. There is moderate to severe pulmonary hypertension. The right ventricular systolic pressure, as measured by Doppler, is 71.68mmHg. There is no pulmonic regurgitation present. The aortic root size is normal. There is a small, generalized pericardial effusion present. CONCLUSIONS -------- 1. LV size, wall thickness and systolic function are normal, with an EF greater than 55%. 2. The right ventricular systolic function is moderately impaired. 3. The left atrium is mildly dilated. 4. The aortic valve is trileaflet, and appears structurally normal. No aortic stenosis or regurgitati on. 5. Mild mitral regurgitation is present. 6. Moderate tricuspid regurgitation present. 7. There is moderate to severe pulmonary hypertension. 8. There is a small, generalized pericardial effusion present. MORPHOLOGY TEACHER: Kaila Driscoll RDCS
--- NOTE | 2020-10-30 14:48 | P.CRDCN ---
History of Present Illness History of present illness: HISTORY OF PRESENTING ILLNESS This is a pleasant 55-year-old female past medical history significant for Takotsubo in the past with full recovery, DVT, former smoker, Dementia She used to follow in the office with Dr. Santillan. We have been asked to see in consultation for congestive heart failure and elevated troponin. Patient is seen and examined in the emergency department, presents with generalized fatigue, worsening swelling and lower extremities. He also endorses nausea. Denies his tory of HI, Stroke, Diabetes. Patient was on Hemodialysis about 2 years ago. Patient was recently admitted on 10/17/20-2 feeling tired and sleepy, and decreased appetite and was discharged. Laboratory data reviewed, BNP 23,800, trop 0.07-->0.115-->0.10, WBC 11.2, hemoglobin 11.1, platelets 207, sodium 134, potassium 3.5, serum chronic 2.44, magnesium 2.5, BNP 23,800, c ovid-19 negative. DIAGNOSTICS EKG reveals sinus tachycardia, heart rate 11, no significant STT wave abnormalities. Chest xray Right sided consolidation and bilateral pleural effusion. Heart appears enlarged. Right chest ultrasound- right pleural effusion Ultrasound of the kidneys- Splenomegaly, bilateral renal cortical thinning renal cystic changes in the left kidney Current cardiac medications include aspirin 81mg daily, Lopressor 12.5mg BID Last cardiac catheterization in 2013- no significant obstructive CAD Most recent echo 2019EF between 5055 percent, mild MR, mild TR, no evidence of pulmonary hypertension. Echo 2014 from outside hospital revealed- 35-40%, severe MR, small pericardial effusion, Question of diastolic dysfucntion with moderate tricuspid insufficiency. REVIEW OF SYSTEMS At the time of my exam: CONSTITUTIONAL: Denies fever or chills. CARDIOVASCULAR: +shortness of breath Denies chest pain, orthopnea, PND or palpitations. RESPIRATORY: Denies cough. GASTROINTESTINAL: Denies abdominal pain, diarrhea, constipation, nausea or vomiting. MUSCULOSKELETAL: Denies myalgias. NEUROLOGIC: Denies numbness, tingling, headacbe or weakness. ENDOCRINE: +fatigue, Denies weight change, polydipsia or polyurina. GENITOURINARY: Denies burning, hematuria or urgency with micturation. HEMATOLOGIC: Denies history of anemia or bleeding. PHYSICAL EXAMINATION Blood pressure 94/63 heart rate 91 afebrile and maintaining oxygen saturation on 4L nasal cannula CONSTITUTIONAL: No apparent distress. HEENT: Head is normocephalic. Pupils are equal, round. Sclerae anicteric. Mucous membranes of the mouth are moist. +JVD. No carotid bruit. CHEST EXAMINATION: Lungs are essentially clear to auscultation. No chest wall tenderness is noted on palpation or with deep breathing. HEART EXAMINATION: Regular rate and rhythm. S1, S2 heard. No murmurs, gallops or rub. ABDOMEN: Soft, nontender. Positive bowel sounds. EXTREMITIES: 2+ peripheral pulses, 1+ lower extremity edema and no calf tenderness. NEUROLOGIC EXAMINATION: Patient is awake, alert and oriented x3. ASSESSMENT Acute on Chronic Kidney Disease Acute on Chronic Diastolic Heart Failure History of Takotsubo in the past with full recovery Hypotension Hyperkalemia, resolved Metabolic acidosis PLAN -Obtained 2D echo- EF greater than 55%, right ventricular systolic pressure is mildly impaired, mild MR, moderate TR, moderate to severe pulmonary hypertension -Will continue IV Diuresis -Pulmonary being consulted, appreciate recs -Nephrology being consulted, appreciate recs -Continue metoprolol tartrate 12.5 mg twice a day -Monitor renal function and electrolytes -I/Os, Daily weights Nurse Practitioner note has been reviewed, I agree with a documented findings and plan of care. Patient was seen and examined. Past Medical History Past Medical History: Cancer, Deep Vein Thrombosis (DVT), Fibromyalgia, Memory Impairment, Pneumonia, Renal Disease Additional Past Medical History / Comment(s): MIGRANES, MULTIPLE SCLEROSIS, BRAIN LESIONS, PVD, SOB, CONSTIPATION, DIARRHEA, KIDNEY INFECTION, UTI, BACK PAIN, ANEMIA, HYPERTHYROID, CERVICAL CA, CARPAL TUNNEL,septicemia, poly neuropathy ,HADHEMODIALYSIS TWICE, HAD CHEMOTHERAPY FOR TX OF MS, MOTORIZED CHAIR-ABLE TO STAND TO TRANSFER. History of Any Multi-Drug Resistant Organisms: None Reported Past Surgical History: Tonsillectomy, Tubal Ligation Additional Past Surgical History / Comment(s): DIALYSIS CATHETER (REMOVED), BIOPSY (UNKNOWN TYPE), CRYO SURGERY FOR CERVICAL CA, D&C. Past Anesthesia/Blood Transfusion Reactions: No Reported Reaction Past Psychological History: Anxiety, Bipolar, Depression Smoking Status: Former smoker Past Alcohol Use History: None Reported Past Drug Use History: None Reported - Past Family History Father Family Medical History: Cancer Additional Family Medical History / Comment(s): BRAIN Mother Family Medical History: Cancer Additional Family Medical History / Comment(s): BREAST Medications and Allergies Home Medications Medication Instructions Recorded Confirmed Type Aspirin EC [Ecotrin Low Dose] 81 mg PO HS 11/02/13 10/29/20 History Citalopram Hydrobromide [CeleXA] 40 mg PO HS 12/14/18 10/29/20 History Donepezil [Aricept] 5 mg PO HS 12/14/18 10/29/20 History Dimethyl Fumarate [Tecfidera] 240 mg PO BID 02/07/19 10/29/20 History Gabapentin [Neurontin] 300 mg PO TID PRN 09/24/19 10/29/20 History Montelukast [Singulair] 5 mg PO HS 09/24/19 10/29/20 History QUEtiapine FUMARATE [SEROquel] 75 mg PO HS 09/24/19 10/29/20 History risperiDONE [RisperDAL] 0.5 mg PO BID 09/24/19 10/29/20 History Diazepam [Valium] 5 mg PO BID PRN 10/17/20 10/29/20 History Memantine [Namenda] 5 mg PO DAILY 10/17/20 10/29/20 History Multivitamins, Thera [Multivitamin 1 tab PO DAILY 10/17/20 10/29/20 History (formulary)] Topiramate [Topamax] 25 mg PO HS 10/17/20 10/29/20 History Metoprolol Tartrate [Lopressor] 12.5 mg PO BID #0 10/20/20 10/29/20 Rx Allergies Allergy/AdvReac Type Severity Reaction Status Date / Time blue dye Allergy Rash/Hives Verified 10/29/20 16:46 Neuromuscular Blockers, AdvReac Nausea & Verified 10/29/20 16:46 Steroidal Vomiting [Steroidal Neuromuscular Blockers] Physical Exam Vitals: Vital Signs Temp Pulse Pulse Resp BP BP Pulse Ox 10/30/20 04:00 98.1 F 95 19 92/60 98 10/30/20 00:00 97.5 F L 95 16 95/65 96 10/29/20 21:32 101/67 10/29/20 20:06 97.6 F 95 20 108/67 96 10/29/20 17:16 98 18 110/73 95 10/29/20 16:07 95 10/29/20 15:48 97.9 F 103 H 20 101/71 79 L Intake and Output 10/29/20 10/30/20 10/30/20 22:59 06:59 14:59 Output Total 700 Balance -700 Output: Urine 700 Other: # Voids 2 Weight 95.254 kg Results 10/30/20 07:05 10/30/20 07:05 Cardiac Enzymes 10/29/20 10/29/20 10/29/20 Range/Units 16:08 16:08 20:13 AST 46 H (14-36) U/L Troponin I 0.079 H* 0.115 H* (0.000-0.034) ng/mL 10/29/20 Range/Units 22:47 AST (14-36) U/L Troponin I 0.109 H* (0.000-0.034) ng/mL Coagulation 10/29/20 Range/Units 16:08 PT 13.1 H (9.0-12.0) sec APTT 21.5 L (22.0-30.0) sec CBC 10/29/20 Range/Units 16:08 WBC 13.0 H (3.8-10.6) k/uL RBC 4.65 (3.80-5.40) m/uL Hgb 11.0 L (11.4-16.0) gm/dL Hct 37.7 (34.0-46.0) % Plt Count 234 (150-450) k/uL Comprehensive Metabolic Panel 10/29/20 10/29/20 Range/Units 16:08 20:13 Sodium 134 L (137-145) mmol/L Potassium 6.1 H* 5.5 H (3.5-5.1) mmol/L Chloride 102 (98-107) mmol/L Carbon Dioxide 17 L (22-30) mmol/L BUN 71 H (7-17) mg/dL Creatinine 3.44 H (0.52-1.04) mg/dL Glucose 84 (74-99) mg/dL Calcium 8.4 (8.4-10.2) mg/dL AST 46 H (14-36) U/L ALT 28 (4-34) U/L Alkaline Phosphatase 64 (38-126) U/L Total Protein 6.2 L (6.3-8.2) g/dL Albumin 3.5 (3.5-5.0) g/dL Current Medications Generic Name Dose Route Start Last Admin Trade Name Freq PRN Reason Stop Dose Admin Aspirin 81 mg 10/30/20 21:00 Aspirin 81 Mg PO HS GEM Citalopram Hydrobromide 40 mg 10/29/20 21:00 10/29/20 21:38 Citalopram Hydrobromide 20 Mg Tab PO 40 mg HS GEM Administration Donepezil HCl 5 mg 10/29/20 21:00 10/29/20 21:36 Donepezil 5 Mg Tab PO 5 mg HS GEM Administration Furosemide 80 mg 10/29/20 21:00 10/29/20 20:27 Furosemide 10 Mg/Ml 10 Ml Vial IV 80 mg BID GEM Administration Heparin Sodium (Porcine) 5,000 unit 10/29/20 21:00 10/29/20 20:31 Heparin Sodium,Porcine/Pf 5,000 Unit/0.5 Ml Syringe SQ 5,000 unit Q12HR GEM Administration Ceftriaxone Sodium 1 gm/ 50 mls @ 100 mls/hr 10/30/20 09:00 Sodium Chloride IVPB Q24HR [facility] Metoprolol Tartrate 12.5 mg 10/29/20 21:00 10/29/20 21:39 Metoprolol Tartrate 12.5 Mg Tab PO Not Given BID GEM Miscellaneous Information 1 each 10/29/20 18:09 Pneumonia Protocol Utilized 1 Each Misc PO ONCE PRN Per Protocol Montelukast Sodium 5 mg 10/29/20 21:00 10/29/20 21:38 Montelukast 10 Mg Tab PO 5 mg HS GEM Administration Multivitamins 1 each 10/30/20 09:00 Multivitamins, Thera 1 Each Tab PO DAILY [facility] Nitroglycerin 1 inch 10/29/20 18:15 10/29/20 23:03 Nitroglycerin Oint 1 Inch/Gm Packet TOPICAL Not Given QID GEM Patient's Own ( 240 mg 10/29/20 21:00 10/29/20 21:37 Dimethyl Fumarate [ PO Not Given Tecfidera] 240 Mg BID GEM Capsule.) Quetiapine Fumarate 50 mg 10/29/20 21:00 10/29/20 21:38 Quetiapine 50 Mg Tab PO 50 mg HS GEM Administration Risperidone 0.5 mg 10/29/20 21:00 10/29/20 21:36 Risperidone 0.5 Mg Tab PO 0.5 mg BID GEM Administration Topiramate 25 mg 10/29/20 21:00 10/29/20 21:39 Topiramate 25 Mg Tab PO 25 mg HS GEM Administration Intake and Output 10/29/20 10/30/20 10/30/20 22:59 06:59 14:59 Output Total 700 Balance -700 Output: Urine 700 Other: # Voids 2 Weight 95.254 kg 10/29/20 16:08 10/29/20 20:13
[2020-10-30] MEDS: MIDODRINE 5 MG TAB PO SCH ×2 (18:26→20:29)
[2020-10-30] MEDS: TOPIRAMATE 25 MG TAB PO SCH (20:29)
[2020-10-30] MEDS: MONTELUKAST 10 MG TAB PO SCH (20:29)
[2020-10-30] MEDS: ASPIRIN 81 MG PO SCH (20:29)
[2020-10-30] MEDS: CITALOPRAM HYDROBROMIDE 20 MG TAB PO SCH (20:29)
[2020-10-30] MEDS ORDERED: hydrALAZINE HCL 10 MG TAB PO SCH (21:00)
[2020-10-30] MEDS: DONEPEZIL 5 MG TAB PO SCH (21:53)
--- NOTE | 2020-10-30 22:14 | P.PN ---
Progress Note - Text Progress Note Date: 10/30/20 History of presenting complaint: This is a pleasant 55-year-old patient of Dr. Beltran./ neurologist Dr. Garsia. Chronic stable medical conditions include chronic kidney disease stage III, chronic medical debility from multiple sclerosis, chronic fibromyalgia, cognitive impairment, hypothyroid, polyneuropathy, bipolar disorder, chronic double incontinence. baseline patient has a motorized chair patient is able to stand and transfer. At baseline she is weak in her arms but able to feed he rself. Recently admitted with acute kidney injury. Improved Now presented with increased weakness tightness. Finding it difficult to do her ADLs. She was discharged on October 20 with a creatinine of 1.49. This occasionally admitted with a creatinine of 3.44. Nephrology was consulted. Acute kidney injury was felt to be from cardiorenal syndrome. Patient was placed on IV Lasix. Today: Laying in bed. Tired. Decreased oral intake. Did not get out of bed Review of systems: Was done for constitutional, cardiovascular, GI, pulmonary. relevant finding as above Active Medications Aspirin (Aspirin 81 Mg) 81 mg PO [facility] Last Admin: 10/30/20 20:29 Dose: 81 mg Documented by: Citalopram Hydrobromide (Citalopram Hydrobromide 20 Mg Tab) 40 mg PO [facility] Last Admin: 10/30/20 20:29 Dose: 40 mg Documented by: Donepezil HCl (Donepezil 5 Mg Tab) 5 mg PO [facility] Last Admin: 10/30/20 21:53 Dose: 5 mg Documented by: Furosemide (Furosemide 10 Mg/Ml 10 Ml Vial) 60 mg IV Q12HR [facility] Last Admin: 10/30/20 20:30 Dose: 60 mg Documented by: Heparin Sodium (Porcine) (Heparin Sodium,Porcine/Pf 5,000 Unit/0.5 Ml Syringe) 5,000 unit SQ Q12HR [facility] Last Admin: 10/30/20 20:30 Dose: 5,000 unit Documented by: Ceftriaxone Sodium 1 gm/ (Sodium Chloride) 50 mls @ 100 mls/hr IVPB Q24HR [facility] Last Admin: 10/30/20 09:16 Dose: 100 mls/hr Documented by: Metoprolol Tartrate (Metoprolol Tartrate 12.5 Mg Tab) 12.5 mg PO BID [facility] Last Admin: 10/30/20 20:29 Dose: 12.5 mg Documented by: Midodrine (Midodrine 5 Mg Tab) 5 mg PO AC-TID [facility] Last Admin: 10/30/20 20: Dose: 5 mg Documented by: Miscellaneous Information (Pneumonia Protocol Utilized 1 Each Misc) 1 each PO ONCE PRN PRN Reason: Per Protocol Montelukast Sodium (Montelukast 10 Mg Tab) 5 mg PO [facility] Last Admin: 10/30/20 20:29 Dose: 5 mg Documented by: Multivitamins (Multivitamins, Thera 1 Each Tab) 1 each PO DAILY [facility] Last Admin: 10/30/20 09:17 Dose: 1 each Documented by: Nitroglycerin (Nitroglycerin Oint 1 Inch/Gm Packet) 1 inch TOPICAL QID [facility] Last Admin: 10/30/20 20: Dose: Not Given Documented by: Patient's Own ( Dimethyl Fumarate [ Tecfidera] 240 Mg Capsule.Dr) 240 mg PO BID [facility] Last Admin: 10/30/20 21:52 Dose: Not Given Documented by: Topiramate (Topiramate 25 Mg Tab) 25 mg PO [facility] Last Admin: 10/30/20 20:29 Dose: 25 mg Documented by: Past medical history: DVT, fibromyalgia, memory impairment, multiple sclerosis, migraines, constipation, back pain, hypothyroid, cervical cancer, carpal tunnel, polyneuropathy, has had hemodialysis in the past chemotherapy treatment for MS, bipolar disorder Social history: Patient does smoke in the past. Lives with her . Family history: Brain cancer Physical examination: VITAL SIGNS: 97.5, 101, 18, 100/56, 97% on 4 L GENERAL: Laying in bed, tired EYES: Pupils equal. Conjunctiva normal. NECK: JVD not raised; masses not palpable. HEART: First and second heart sounds are normal; no edema. LUNGS: Respiratory rate normal; clear to auscultation. ABDOMEN: Soft, mild epigastric tenderness, no guarding or rigidity, liver spleen not palpable, no masses palpable. PSYCH: Answering questions appropriately NEUROLOGICAL: Cranial nerves grossly intact; no facial asymmetry, weakness of both the upper and lower extremities, generalized EXTREMITY: Some contracture of the hands INVESTIGATIONS, reviewed in the clinical context: WBC 11.2 hemoglobin 11.1 platelets 207 potassium 4 bun 70 creatinine 2.73 Admission labs: BUN 71 creatinine 3.44 potassium 5.5 Chest x-ray: Pulmonary edema 2-D echocardiogram: EF greater than 55%. Moderate tricuspid regurgitation. Moderate to severe pulmonary hypertension Previous labs: On 10/20/2020: BUN 22 creatinine 1.49 Assessment and plan: -Acute kidney injury, likely cardiorenal syndrome On IV Lasix per nephrology. Follow renal function -Right pleural effusion secondary to congestive heart failure [place] for thoracentesis by pulmonary -Acute on chronic congestive heart failure from diastolic dysfunction EF greater than 55%-uncontrolled On IV Lasix -Chronic kidney disease, possible stage III from nephrosclerosis. Baseline creatinine of 1.4 Follow labs -Hyperkalemia secondary to chronic kidney improved Received IV Lasix -Normocytic anemia of chronic kidney disease Follow H&H -Chronic medical debility from underlying multiple sclerosis baseline uses a wheelchair -Multiple sclerosis, with chronic paresis . 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 -Bipolar disorder On Risperdal, Seroquel, Celexa -Chronic hypoxic respiratory failure on 2 L of oxygen Discussed with the patient. Continue with IV Lasix. Follow electrolytes closely
[2020-10-31] MEDS: NITROGLYCERIN OINT 1 INCH/GM PACKET TOPICAL SCH ×5 (03:36→20:45)
[2020-10-31] MEDS: MIDODRINE 5 MG TAB PO SCH ×3 (06:26→18:16)
[2020-10-31] MEDS ORDERED: ASPIRIN 325 MG TAB PO SCH (09:00)
[2020-10-31] MEDS ORDERED: AZITHROMYCIN 500 MG TAB PO SCH (09:00)
[2020-10-31] MEDS: HEPARIN SODIUM,PORCINE/PF 5,000 UNIT/0.5 ML SYRINGE SQ SCH ×2 (09:08→20:14)
[2020-10-31] MEDS: FUROSEMIDE 10 MG/ML 10 ML VIAL IV SCH ×2 (09:08→20:13)
[2020-10-31] MEDS: MULTIVITAMINS, THERA 1 EACH TAB PO SCH (09:09)
[2020-10-31] MEDS: METOPROLOL TARTRATE 12.5 MG TAB PO SCH ×2 (09:09→20:13)
[2020-10-31] MEDS: PATIENT'S OWN (Dimethyl Fumarate [Tecfidera] 240 MG Capsule.Dr) PO SCH ×2 (09:09→20:14)
[2020-10-31 11:08] LABS: Anisocytosis Slight; Basophils % (A) 0 %; Eosinophils # (A) 0.1 k/uL (0-0.7); Eosinophils % (A) 1 %; HCT 34.1 % (34.0-46.0); HGB 10.8 gm/dL (11.4-16.0); Hypochromasia Marked; Lymphocytes % (A) 13 %; MCH 24.4 pg (25.0-35.0); MCHC 31.6 g/dL (31.0-37.0); MCV 77.3 fL (80.0-100.0); Mean Platelet Volume 8.7; Microcytosis Slight; Monocytes # (A) 0.5 k/uL (0-1.0); Monocytes % (A) 7 %; Neutrophils # (A) 5.9 k/uL (1.3-7.7); Neutrophils % (A) 77 %; Platelet Count 196 k/uL (150-450); Poikilocytosis Moderate; RBC 4.41 m/uL (3.80-5.40); RDW 17.4 % (11.5-15.5); WBC 7.6 k/uL (3.8-10.6)
[2020-10-31 11:25] LABS: Albumin 3.1 g/dL (3.5-5.0); Calcium 8.1 mg/dL (8.4-10.2); Magnesium 1.7 mg/dL (1.6-2.3); Potassium 2.9 mmol/L (3.5-5.1); Total Bilirubin 1.3 mg/dL (0.2-1.3); Total Protein 5.7 g/dL (6.3-8.2)
[2020-10-31 11:36] VITALS: BMI 31.0
[2020-10-31] MEDS ORDERED: POTASSIUM CHLORIDE ER 20 MEQ TAB.ER PO STA (11:58)
--- NOTE | 2020-10-31 11:59 | P.PN ---
Subjective Patient is seen in follow-up for acute kidney injury on chronic kidney disease. Renal function improving. Good urine output. Edema improved. Currently on 2 L nasal cannula. No vomiting or diarrhea. Oral intake fair. Vital signs are stable. General: The patient appeared well nourished and normally developed. HEENT: Head exam is unremarkable. Neck is without jugular venous distension. LUNGS: Breath sounds decreased. HEART: Rate and Rhythm are regular. ABDOMEN: Soft, nontender. EXTREMITITES: 1+ edema. Objective - Vital Signs Vital signs: Vital Signs Temp 98.1 F 10/30/20 20:00 Pulse 94 10/31/20 03:34 Resp 18 10/31/20 03:34 BP 95/54 10/31/20 03:34 Pulse Ox 94 L 10/31/20 03:34 Intake & Output 10/30/20 10/31/20 10/31/20 18:59 06:59 18:59 Intake Total 600 240 Output Total 1750 Balance -1150 240 Weight 95.254 kg Intake: Oral 600 240 Output: Urine 1750 Other: Voiding Method External Catheter # Voids 1 # Bowel Movements 1 - Labs CBC & Chem 7: 10/31/20 10:35 10/31/20 10:35 Labs: Abnormal Lab Results - Last 24 Hours (Table) 10/31/20 10/31/20 Range/Units 10:35 10:35 Hgb 10.8 L (11.4-16.0) gm/dL MCV 77.3 L (80.0-100.0) fL MCH 24.4 L (25.0-35.0) pg RDW 17.4 H (11.5-15.5) % Potassium 2.9 L (3.5-5.1) mmol/L Carbon Dioxide 36 H (22-30) mmol/L BUN 49 H (7-17) mg/dL Creatinine 1.88 H (0.52-1.04) mg/dL Calcium 8.1 L (8.4-10.2) mg/dL Total Protein 5.7 L (6.3-8.2) g/dL Albumin 3.1 L (3.5-5.0) g/dL Microbiology - Last 24 Hours (Table) 10/29/20 20:08 Blood Culture - Preliminary Blood No Growth after 24 hours Assessment and Plan Plan: Assessment: 1. Acute kidney injury mostly prerenal secondary to cardiorenal syndrome. Creatinine 3.4 on admission and is 1.88 this morning. Renal ultrasound revealed no evidence of hydronephrosis. Left kidney smaller in size. 2. Chronic kidney disease stage IIIB with baseline creatinine near 1.5 secondary to nephrosclerosis. 3. Volume overload. Improving with diuresis. 4. Acute on chronic diastolic CHF. 5. Hyperkalemia secondary to acute kidney injury and metabolic acidosis. Now hypokalemic from diuresis. 6. Hypotension. Likely from underlying cardiac status. Cortisol level normal. 7. Metabolic acidosis secondary to acute kidney injury and Topamax. resolved. Plan: Maintain Lasix 60 mg IV twice daily. Increase dose of midodrine. Avoid nephrotoxins. Continue to monitor renal function and urine output. Replace potassium.
--- NOTE | 2020-10-31 13:22 | XR ---
EXAMINATION TYPE: XR chest 1V portable DATE OF EXAM: 10/31/2020 COMPARISON: Chest x-ray 10/30/2020 HISTORY: Postthoracentesis TECHNIQUE: Single frontal view of the chest is obtained. FINDINGS: There is improved aeration in the right hemithorax. No evident pneumothorax. Cardiac silho uette somewhat prominent although there is rotation. Patchy basilar density persists. IMPRESSION: No complication status post thoracentesis
--- NOTE | 2020-10-31 14:17 | P.PN ---
Subjective HISTORY OF PRESENTING ILLNESS This is a pleasant 55-year-old female past medical history significant for Takotsubo in the past with full recovery, DVT, former smoker, Dementia She used to follow in the office with Dr. Santillan. We have been asked to see in consultation for congestive heart failure and elevated troponin. Patient is seen and examined in the emergency department, presents with generalized fatigue, worsening swelling and lower extremities. Denies history of [place], Stroke, Diabetes. Patient was on Hemodialysis about 2 years ago. Laboratory data reviewed, BNP 23,800, trop 0.07-->0.115-->0.10. covid-19 negative. DIAGNOSTICS EKG reveals sinus tachycardia, heart rate 11, no significant STT wave abnormalities. Chest xray Right sided consolidation and bilateral pleural effusion. Heart appears enlarged. Right chest ultrasound- right pleural effusion Ultrasound of the kidneys- Splenomegaly, bilateral renal cortical thinning renal cystic changes in the left kidney Current cardiac medications include aspirin 81mg daily, Lopressor 12.5mg BID Last cardiac catheterization in 2013- no significant obstructive CAD Most recent echo 2019EF between 5055 percent, mild MR, mild TR, no evidence of pulmonary hypertension. Echo 2014 from outside hospital revealed- 35-40%, severe MR, small pericardial effusion, Question of diastolic dysfucntion with moderate tricuspid insufficiency. Repeat Echocardiogram EF greater than 55%, right ventricular systolic pressure is mildly impaired, mild MR, moderate TR, moderate to severe pulmonary hypertension 10/31/20: Patient seen and examined at bedside, no acute distress. BP 95/54, heart rate 94, maintaining oxygen saturations 2 L nasal cannula 94%. She is currently being maintained on aspirin 81 mg daily, Lasix 60 mg twice a day, metoprolol tartrate 12.5 mg twice a day, midodrine 10 mg 3 times a day. Patient with 1.7 L urine output over the past 24 hours, no change in weight. Sodium 141, potassium is 2.9, serum creatinine is improved at 1.88, BUN 49, magnesium is 1.7 GENERAL: Well-appearing, well-nourished and in no acute distress. NECK: Supple without JVD or thyromegaly. LUNGS: Breath sounds clear to auscultation bilaterally. Respiration equal and unlabored. No wheezes, rales or rhonchi. HEART: Regular rate and rhythm without murmurs, rubs or gallops. S1 and S2 heard. EXTREMITIES: Normal range of motion, 2+ lower extremity edema No clubbing or cyanosis. Peripheral pulses intact. ASSESSMENT Acute on Chronic Kidney Disease Acute on Chronic Diastolic Heart Failure History of Takotsubo in the past with full recovery Hypotension Hypokalemia- being replaced Metabolic acidosis PLAN -Patient contniues to be hypotensive, Midodrine started. -Will continue IV Diuresis -Pulmonary being consulted, appreciate recs -Nephrology being consulted, appreciate recs -Continue metoprolol tartrate 12.5 mg twice a day -Monitor renal function and electrolytes -I/Os, Daily weights Nurse Practitioner note has been reviewed, I agree with a documented findings and plan of care. Patient was seen and examin Objective - Vital Signs Vital signs: Vital Signs Temp 98.1 F 10/30/20 20:00 Pulse 94 10/31/20 03:34 Resp 18 10/31/20 03:34 BP 95/54 10/31/20 03:34 Pulse Ox 94 L 10/31/20 03:34 Intake & Output 10/30/20 10/31/20 10/31/20 18:59 06:59 18:59 Intake Total 600 358 Output Total 1750 Balance -1150 358 Weight 95.254 kg Intake: Oral 600 358 Output: Urine 1750 Other: Voiding Method External Catheter # Voids 1 # Bowel Movements 1 - Labs CBC & Chem 7: 10/31/20 10:35 10/31/20 10:35 Labs: Abnormal Lab Results - Last 24 Hours (Table) 10/31/20 10/31/20 Range/Units 10:35 10:35 Hgb 10.8 L (11.4-16.0) gm/dL MCV 77.3 L (80.0-100.0) fL MCH 24.4 L (25.0-35.0) pg RDW 17.4 H (11.5-15.5) % Potassium 2.9 L (3.5-5.1) mmol/L Carbon Dioxide 36 H (22-30) mmol/L BUN 49 H (7-17) mg/dL Creatinine 1.88 H (0.52-1.04) mg/dL Calcium 8.1 L (8.4-10.2) mg/dL Total Protein 5.7 L (6.3-8.2) g/dL Albumin 3.1 L (3.5-5.0) g/dL Microbiology - Last 24 Hours (Table) 10/29/20 20:08 Blood Culture - Preliminary Blood No Growth after 24 hours
--- NOTE | 2020-10-31 15:14 | P.PN ---
Subjective Progress Note Date: 10/31/20 Principal diagnosis: Shortness of breath. This is a 55-year-old female patient who follows with Dr. Beltran as her primary care provider. She has a history of dementia, anxiety/depression, fibromyalgia, DVT, multiple sclerosis, renal failure, former smoker, home oxygen at 2 L/m. She was brought into the emergency room yesterday with altered mental status, fatigue, weakness. CAT scan of the brain revealed cerebral mild atrophy. No acute intracranial abnormality. Chest x-ray revealed a right-sided pleural effusion with some consolidation/atelectasis. White count 11.2. Hemoglobin 11.1. Sodium 142. Potassium 4.0. Creatinine 2.73. Glucose 68. Troponin 0.115, 0.109. ProBNP 23,800. INR 1.3. Influenza screen negative. COVID-19 screen negative. She is seen today in the emergency room. She is awake. Somewhat drowsy. Poor historian. Maintaining O2 saturations in the mid to upper 90s on 4 L/m per nasal cannula. Afebrile. Somewhat hypotensive. She's been initiated on IV diuretics, antibiotics, heparin for DVT prophylaxis. Progress note dated 10/31/2020. 55-year-old female, who we saw yesterday in consultation. She has a history of dementia, anxiety/depression, fibromyalgia, DVT, multiple sclerosis, chronic kidney disease, former tobacco user, and chronic hypoxemic respiratory failure. She was seen in the emergency department with mental status changes, fatigue, and weakness. He was also noted that she had a large right-sided pleural effusi on. Today, we did a right-sided thoracentesis. 1200 mL of yellow/ brown fluid was removed. Her coronavirus screen was negative. The fluid was sent for analysis including cytology, microbiology, and chemistry. Laboratory data today includes a white count of 7.6, hemoglobin 10.8, hematocrit 34.1, and platelet count 196,000. Sodium 141, potassium 2.9, chlorides 99, CO2 36, anion gap 6, BUN 49, and creatinine 1.88. Chest x-ray following the right-sided thoracentesis shows improved aeration in the right chest, without complication. Objective - Vital Signs Vital signs: Vital Signs Temp 98.1 F 10/30/20 20:00 Pulse 94 10/31/20 03:34 Resp 18 10/31/20 03:34 BP 95/54 10/31/20 03:34 Pulse Ox 94 L 10/31/20 03:34 Intake & Output 10/30/20 10/31/20 10/31/20 18:59 06:59 18:59 Intake Total 600 358 Output Total 1750 Balance -1150 358 Weight 95.254 kg Intake: Oral 600 358 Output: Urine 1750 Other: Voiding Method External Catheter # Voids 1 # Bowel Movements 1 1 - Exam No acute distress, oriented 3. Much more awake and alert today. On 2 L, with saturations of 94-96%. HEENT examination is grossly unremarkable. Neck supple. Full range of motion. No adenopathy thyromegaly or neck vein distention. Cardiovascular examination reveals regular rhythm rate. S1-S2 normal. No S3 or S4. No discernible murmur noted. Heart rate 94 bpm. Lungs reveal diminished breath sounds at the right base. Dullness at the right base. No wheezes or rhonchi or crackles. Abdomen soft bowel sounds are heard. No masses or tenderness. Extremities are intact. No cyanosis clubbing or edema. Skin is without rash or lesion. Neurologic examination is brief but nonfocal. - Labs CBC & Chem 7: 10/31/20 10:35 10/31/20 10:35 Labs: Abnormal Lab Results - Last 24 Hours (Table) 10/31/20 10/31/20 Range/Units 10:35 10:35 Hgb 10.8 L (11.4-16.0) gm/dL MCV 77.3 L (80.0-100.0) fL MCH 24.4 L (25.0-35.0) pg RDW 17.4 H (11.5-15.5) % Potassium 2.9 L (3.5-5.1) mmol/L Carbon Dioxide 36 H (22-30) mmol/L BUN 49 H (7-17) mg/dL Creatinine 1.88 H (0.52-1.04) mg/dL Calcium 8.1 L (8.4-10.2) mg/dL Total Protein 5.7 L (6.3-8.2) g/dL Albumin 3.1 L (3.5-5.0) g/dL Microbiology - Last 24 Hours (Table) 04/27/21 20:08 Blood Culture - Preliminary Blood No Growth after 24 hours Assessment and Plan Assessment: 1 Acute on chronic hypoxemic respiratory failure secondary to right-sided pleural effusion, systolic versus diastolic congestive heart failure. Patient underwent right-sided thoracentesis on October 31, and 1200 mL of fluid was removed. 2 Acute on chronic renal failure. 3 Troponin leak, echocardiogram pending. 4 History of dementia, poor historian. 5 Chronic hypoxemic respiratory failure, on 2 L the outpatient setting. 6 Anxiety/depression. 7 Urinary tract infection, culture pending. 8 History of multiple sclerosis. 9 Previous hemodialysis. 10 Anxiety/depression. 11 Former smoker. Plan: Plan dated 10/31/2020. Currently, the patient's doing well. She underwent thoracentesis on the right side today. The post-thoracentesis chest x-ray showed almost complete removal of all fluid from the right chest. The patient tolerated the procedure well. The fluid was sent for analysis including chemistry, cytology, and microbiology. Currently, she is on 2 L. We will continue to follow. No additional recommendations are made. Prognosis is guarded. Time with Patient: Less than 30
--- NOTE | 2020-10-31 15:58 | PCN ---
PROCEDURE NOTE PROCEDURE: Right thoracentesis. PREOPERATIVE DIAGNOSIS: Right pleural effusion. POSTOPERATIVE DIAGNOSIS: Right pleural effusion. OPERATORS: 1. Dr. Little. 2. Dr. Parekh. PROCEDURE DESCRIPTION: The posterior right chest was marked by ultrasound. There was informed consent and universal timeout. The patient was prepared in the usual fashion. One liter of yellow fluid was removed from the right pleural space. The patient tolerated the procedure well. There was no immediate complication. The fluid will be sent for analysis, including chemistry, cytology and microbiology. A chest x-ray was ordered to rule out pneumothorax. There was no immediate complication. The patient tolerated the procedure very well. MMODL / IJN: [id number] /
[2020-10-31] MEDS ORDERED: POTASSIUM CHLORIDE 20 MEQ in WATER FOR INJECTION 1 100ML.BAG IVPB STA (18:06)
[2020-10-31] MEDS: ACETAMINOPHEN TAB 500 MG TAB PO PRN (18:26)
--- NOTE | 2020-10-31 19:57 | P.PN ---
Progress Note - Text Progress Note Date: 10/31/20 History of presenting complaint: This is a pleasant 55-year-old patient of Dr. Beltran./ neurologist Dr. Garsia. Chronic stable medical conditions include chronic kidney disease stage III, chronic medical debility from multiple sclerosis, chronic fibromyalgia, cognitive impairment, hypothyroid, polyneuropathy, bipolar disorder, chronic double incontinence. baseline patient has a motorized chair patient is able to stand and transfer. At baseline she is weak in her arms but able to feed he rself. Recently admitted with acute kidney injury. Improved Now presented with increased weakness tightness. Finding it difficult to do her ADLs. She was discharged on October 20 with a creatinine of 1.49. This occasionally admitted with a creatinine of 3.44. Nephrology was consulted. Acute kidney injury was felt to be from cardiorenal syndrome. Patient was placed on IV Lasix. Today: Laying in bed. Tired. Oral intake about 25%. Right-sided thoracentesis carried out, 1 thousand cc removed. Review of systems: Was done for constitutional, cardiovascular, GI, pulmonary. relevant finding as above Active Medications Acetaminophen (Acetaminophen Tab 500 Mg Tab) 500 mg PO Q6HR PRN PRN Reason: Fever and/ or Pain Last Admin: 10/31/20 18:26 Dose: 500 mg Documented by: Aspirin (Aspirin 81 Mg) 81 mg PO [facility] Last Admin: 10/30/20 20:29 Dose: 81 mg Documented by: Citalopram Hydrobromide (Citalopram Hydrobromide 20 Mg Tab) 40 mg PO [facility] Last Admin: 10/30/20 20:29 Dose: 40 mg Documented by: Donepezil HCl (Donepezil 5 Mg Tab) 5 mg PO [facility] Last Admin: 10/30/20 21:53 Dose: 5 mg Documented by: Furosemide (Furosemide 10 Mg/Ml 10 Ml Vial) 60 mg IV Q12HR [facility] Last Admin: 10/31/20 09:08 Dose: 60 mg Documented by: Heparin Sodium (Porcine) (Heparin Sodium,Porcine/Pf 5,000 Unit/0.5 Ml Syringe) 5,000 unit SQ Q12HR [facility] Last Admin: 10/31/20 09:08 Dose: 5,000 unit Documented by: Ceftriaxone Sodium 1 gm/ (Sodium Chloride) 50 mls @ 100 mls/hr IVPB Q24HR [facility] Last Admin: 10/31/20 09:08 Dose: 100 mls/hr Documented by: Potassium Chloride 20 meq/ IV (Solution) 100 mls @ 50 mls/hr IVPB ONCE STA Stop: 10/31/20 20:05 Metoprolol Tartrate (Metoprolol Tartrate 12.5 Mg Tab) 12.5 mg PO BID [facility] Last Admin: 10/31/20 09:09 Dose: 12.5 mg Documented by: Midodrine (Midodrine 5 Mg Tab) 10 mg PO AC-TID [facility] Last Admin: 10/31/20 18:16 Dose: Not Given Documented by: Miscellaneous Information (Pneumonia Protocol Utilized 1 Each Misc) 1 each PO ONCE PRN PRN Reason: Per Protocol Montelukast Sodium (Montelukast 10 Mg Tab) 5 mg PO [facility] Last Admin: 10/30/20 20:29 Dose: 5 mg Documented by: Multivitamins (Multivitamins, Thera 1 Each Tab) 1 each PO DAILY [facility] Last Admin: 10/31/20 09:09 Dose: 1 each Documented by: Nitroglycerin (Nitroglycerin Oint 1 Inch/Gm Packet) 1 inch TOPICAL QID [facility] Last Admin: 10/31/20 18:15 Dose: Not Given Documented by: Patient's Own ( Dimethyl Fumarate [ Tecfidera] 240 Mg Capsule.Dr) 240 mg PO BID [facility] Last Admin: 10/31/20 09:09 Dose: Not Given Documented by: Topiramate (Topiramate 25 Mg Tab) 25 mg PO [facility] Last Admin: 10/30/20 20:29 Dose: 25 mg Documented by: Past medical history: DVT, fibromyalgia, memory impairment, multiple sclerosis, migraines, constipation, back pain, hypothyroid, cervical cancer, carpal tunnel, polyneuropathy, has had hemodialysis in the past chemotherapy treatment for MS, bipolar disorder Social history: Patient does smoke in the past. Lives with her . Family history: Brain cancer Physical examination: VITAL SIGNS: 98, 92, 16, 84/53, 94% on 2 L GENERAL: Laying in bed, tired EYES: Pupils equal. Conjunctiva normal. NECK: JVD not raised; masses not palpable. HEART: First and second heart sounds are normal; no edema. LUNGS: Respiratory rate normal; clear to auscultation. ABDOMEN: Soft, mild epigastric tenderness, no guarding or rigidity, liver spleen not palpable, no masses palpable. PSYCH: Answering questions appropriately NEUROLOGICAL: Cranial nerves grossly intact; no facial asymmetry, weakness of both the upper and lower extremities, generalized EXTREMITY: Some contracture of the hands INVESTIGATIONS, reviewed in the clinical context: October 31: WBC 7.6 hemoglobin 10.8 potassium 2.9 creatinine 1.8 date WBC 11.2 hemoglobin 11.1 platelets 207 potassium 4 bun 70 creatinine 2.73 Admission labs: BUN 71 creatinine 3.44 potassium 5.5 Chest x-ray: Pulmonary edema 2-D echocardiogram: EF greater than 55%. Moderate tricuspid regurgitation. Moderate to severe pulmonary hypertension Previous labs: On 10/20/2020: BUN 22 creatinine 1.49 Assessment and plan: -Acute kidney injury, likely cardiorenal syndrome On IV Lasix per nephrology. Follow renal function -Right pleural effusion secondary to congestive heart failure 1 Thousand cc of right side is thoracentesis done on October 31 -Acute on chronic congestive heart failure from diastolic dysfunction EF greater than 55%-uncontrolled On IV Lasix -Chronic kidney disease, possible stage III from nephrosclerosis. Baseline creatinine of 1.4 Follow labs -Hyperkalemia secondary to chronic kidney improved Received IV Lasix -Normocytic anemia of chronic kidney disease Follow H&H -Chronic medical debility from underlying multiple sclerosis baseline uses a wheelchair -Multiple sclerosis, with chronic paresis . 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 -Bipolar disorder On Risperdal, Seroquel, Celexa -Chronic hypoxic respiratory failure on 2 L of oxygen Dose of Lasix increased by nephrology to 60 mg every 12. Follow electrolytes closely.
[2020-10-31] MEDS: MONTELUKAST 10 MG TAB PO SCH (20:13)
[2020-10-31] MEDS: CITALOPRAM HYDROBROMIDE 20 MG TAB PO SCH (20:13)
[2020-10-31] MEDS: ASPIRIN 81 MG PO SCH (20:13)
[2020-10-31] MEDS: TOPIRAMATE 25 MG TAB PO SCH (20:13)
[2020-10-31] MEDS: DONEPEZIL 5 MG TAB PO SCH (20:45)
[2020-11-01] MEDS: MIDODRINE 5 MG TAB PO SCH ×3 (05:51→17:03)
[2020-11-01] MEDS: ACETAMINOPHEN TAB 500 MG TAB PO PRN ×2 (05:52→14:34)
[2020-11-01] MEDS ORDERED: ONDANSETRON 4 MG/2 ML VIAL IVP PRN (06:13)
[2020-11-01] MEDS: MULTIVITAMINS, THERA 1 EACH TAB PO SCH (08:09)
[2020-11-01] MEDS: PATIENT'S OWN (Dimethyl Fumarate [Tecfidera] 240 MG Capsule.Dr) PO SCH ×2 (08:09→20:38)
[2020-11-01] MEDS: NITROGLYCERIN OINT 1 INCH/GM PACKET TOPICAL SCH ×5 (08:10→20:47)
[2020-11-01 08:53] LABS: Calcium 8.1 mg/dL (8.4-10.2); Magnesium 1.4 mg/dL (1.6-2.3)
[2020-11-01 09:01] LABS: Potassium 2.7 mmol/L (3.5-5.1)
[2020-11-01] MEDS: HEPARIN SODIUM,PORCINE/PF 5,000 UNIT/0.5 ML SYRINGE SQ SCH ×2 (09:34→20:36)
[2020-11-01] MEDS: PROCHLORPERAZINE INJ 10 MG/2 ML VIAL IVP PRN ×2 (09:34→15:15)
[2020-11-01] MEDS: FUROSEMIDE 10 MG/ML 10 ML VIAL IV SCH (09:34)
[2020-11-01] MEDS: METOPROLOL TARTRATE 12.5 MG TAB PO SCH ×2 (09:36→20:37)
[2020-11-01] MEDS ORDERED: Potassium Replacement Protocol 1 EACH MISC MISCELLANE PRN (09:39)
[2020-11-01] MEDS ORDERED: Magnesium Replacement Protocol 1 EACH MISC MISCELLANE PRN (09:40)
[2020-11-01] MEDS: POTASSIUM CHLORIDE 10 MEQ in WATER FOR INJECTION 1 100ML.BAG IVPB SCH ×9 (09:52→23:40)
[2020-11-01] MEDS: MAGNESIUM SULFATE-D5W PMX 1 GM in DEXTROSE/WATER 1 100ML.BAG IVPB SCH ×2 (10:18→14:33)
--- NOTE | 2020-11-01 11:16 | XR ---
EXAMINATION TYPE: XR abdomen acute w cxr DATE OF EXAM: 11/01/2020 COMPARISON: Chest x-ray dated 10/31/2020, CT 09/24/2019 HISTORY: Abdominal pain TECHNIQUE: Supine, upright, and frontal chest views of the abdomen and chest are obtained on 4 image s. FINDINGS: Minimal patchy basilar lung density is again noted on the right. There is no evidence for pneumoperitoneum. The bowel gas pattern is unremarkable as there is air throughout nondilated small and large bowel. No sizeable air fluid levels. There is prominence of the liver, known enlargement of the spleen No unusual calcifications. IMPRESSION: Probable basilar atelectasis, correlate to exclude pneumonia. Suspect hepatosplenomegaly. There are o verlying artifacts.
[2020-11-01] MEDS: GABAPENTIN 300 MG CAP PO SCH ×3 (12:36→20:37)
--- NOTE | 2020-11-01 12:59 | P.GSCN ---
<Padmini Marie - Last Filed: 11/01/20 12:37> History of Present Illness Consult date: 11/01/20 History of present illness: CHIEF COMPLAINT: Weakness and altered mental status changes Reason for consult: Abdominal pain HISTORY OF PRESENT ILLNESS: This is a 55-year-old female with a known history of chronic kidney disease, multiple sclerosis, fibromyalgia, dementia and bipolar. Past surgical history of tubal ligation. Patient is admitted to the hospital with CHF exacerbation right-sided pleural effusion status post thoracentesis and acute kidney injury. Patient followed by multiple consultants. Surgical service was consulted in regards to patient's abdominal pain. Apparently patien t started having abdominal pain right upper quadrant yesterday with nausea vomiting and diarrhea. She continues to have vomiting and diarrhea. Her last stool was this morning. She's had no blood in the stools or emesis. She also is currently on antibiotic for a possible UTI. Patient denies any fever, chills or sweats. PAST MEDICAL HISTORY: See list. PAST SURGICAL HISTORY: See list. MEDICATIONS: See list. ALLERGIES: See list. SOCIAL HISTORY: No illicit drug use. REVIEW OF SYSTEMS: CONSTITUTIONAL: Denies fever or chills. HEENT: Denies blurred vision, vision changes, or eye pain. Denies hemoptysis ENDOCRINE: Denies heat or cold intolerance. CARDIOVASCULAR: Denies chest pain or pressure. RESPIRATORY: No shortness of breath. GASTROINTESTINAL: Denies abdominal pain. Denies nausea or vomiting. NEURO: Denies history of seizures. PSYCH: No depression or suicidal ideation HEMATOLOGIC: Denies bleeding disorders. LYMPHATIC: The patient denies any lumps and bumps around the neck. GENITOURINARY: Denies any blood in urine or increased urinary frequency. MUSCULOSKELETAL: Denies myalgias. Denies joint swelling. Denies decreased range of motion beyond patients baseline. SKIN: Denies pruitis. Denies rash. PHYSICAL EXAM: VITAL SIGNS: Reviewed GENERAL: Well-developed in no acute distress. HEENT: No sclera icterus. Extraocular movements grossly intact. Moist buccal mucosa. Head is atraumatic, normocephalic. Hears conversational speech. No nasal drainage. NECK: Supple without lymphadenopathy. CHEST: Non-labored respirations and equal bilateral excursions. CARDIOVASCULAR: Palpable 2+ radial pulses. ABDOMEN: Soft. Nondistended. Right upper quadrant tenderness MUSCULOSKELETAL: No clubbing or cyanosis. NEUROLOGIC: No focal or lateralizing signs. Cranial nerves II through XII grossly intact. PSYCH: Appropriate affect. Alert and oriented to person, place and time. SKIN: Well perfused. Good skin turgor. LABORATORY DATA: WBC 7.6 hemoglobin 10.8 platelets 196 sodium 144 potassium 2.7 creatinine 1.47 magnesium 1.4 ALT 21 AST has come down from 41-25 total bili 2.3 on admission has come down to 1.3 IMAGING: Abdominal x-ray with chest x-ray probable basilar atelectasis, correlate to exclude pneumonia. Suspect hepatosplenomegaly. There are overlying artifacts. Bowel gas pattern is unremarkable ASSESSMENT: 1. Right upper quadrant abdominal pain with nausea, vomiting and diarrhea 2. Acute hypoxic respiratory failure secondary right-sided pleural effusion status post thoracentesis during this admission 3. Acute on chronic diastolic heart failure 4. Acute on chronic renal failure 5. Cardiorenal syndrome 6. Multiple sclerosis is mostly wheelchair or bedbound 7. Fibromyalgia 8. Bipolar 9. Dementia 10. Possible UTI 11. Hypokalemia and hypomagnesemia PLAN: -Abdominal ultrasound ordered for further evaluation of patient's abdominal pain -Continue to replace electrolytes -Continue antiemetics -Further recommendations forthcoming per surgeon Thank you for this consultation Physician Garment Form Assembler note has been reviewed by physician. Signing provider agrees with the documented findings, assessment, and plan of care. Past Medical History Past Medical History: Cancer, Deep Vein Thrombosis (DVT), Fibromyalgia, Memory Impairment, Pneumonia, Renal Disease Additional Past Medical History / Comment(s): MIGRANES, MULTIPLE SCLEROSIS, BRAIN LESIONS, PVD, SOB, CONSTIPATION, DIARRHEA, KIDNEY INFECTION, UTI, BACK PAIN, ANEMIA, HYPERTHYROID, CERVICAL CA, CARPAL TUNNEL,septicemia, polyneuropathy ,HADHEMODIALYSIS TWICE, HAD CHEMOTHERAPY FOR TX OF MS, MOTORIZED CHAIR-ABLE TO STAND TO TRANSFER. History of Any Multi-Drug Resistant Organisms: None Reported Past Surgical History: Tonsillectomy, Tubal Ligation Additional Past Surgical History / Comment(s): DIALYSIS CATHETER (REMOVED), BIOPSY (UNKNOWN TYPE), CRYO SURGERY FOR CERVICAL CA, D&C. Past Anesthesia/Blood Transfusion Reactions: No Reported Reaction Past Psychological History: Anxiety, Bipolar, Depression Smoking Status: Former smoker Past Alcohol Use History: None Reported Past Drug Use History: None Reported - Past Family History Father Family Medical History: Cancer Additional Family Medical History / Comment(s): BRAIN Mother Family Medical History: Cancer Additional Family Medical History / Comment(s): BREAST Medications and Allergies Home Medications Medication Instructions Recorded Confirmed Type Aspirin EC [Ecotrin Low Dose] 81 mg PO HS 11/02/13 10/29/20 History Citalopram Hydrobromide [CeleXA] 40 mg PO HS 12/14/18 10/29/20 History Donepezil [Aricept] 5 mg PO HS 12/14/18 10/29/20 History Dimethyl Fumarate [Tecfidera] 240 mg PO BID 02/07/19 10/29/20 History Gabapentin [Neurontin] 300 mg PO TID PRN 09/24/19 10/29/20 History Montelukast [Singulair] 5 mg PO HS 09/24/19 10/29/20 History QUEtiapine FUMARATE [SEROquel] 75 mg PO HS 09/24/19 10/29/20 History risperiDONE [RisperDAL] 0.5 mg PO BID 09/24/19 10/29/20 History Diazepam [Valium] 5 mg PO BID PRN 10/17/20 10/29/20 History Memantine [Namenda] 5 mg PO DAILY 10/17/20 10/29/20 History Multivitamins, Thera [Multivitamin 1 tab PO DAILY 10/17/20 10/29/20 History (formulary)] Topiramate [Topamax] 25 mg PO HS 10/17/20 10/29/20 History Metoprolol Tartrate [Lopressor] 12.5 mg PO BID #0 10/20/20 10/29/20 Rx Allergies Allergy/AdvReac Type Severity Reaction Status Date / Time blue dye Allergy Rash/Hives Verified 10/29/20 16:46 Neuromuscular Blockers, AdvReac Nausea & Verified 10/29/20 16:46 Steroidal Vomiting [Steroidal Neuromuscular Blockers] Surgical - Exam Vital Signs Temp Pulse Resp BP Pulse Ox 97.9 F 103 H 20 101/71 79 L 10/29/20 15:48 10/29/20 15:48 10/29/20 15:48 10/29/20 15:48 10/29/20 15:48 Results - Labs 10/31/20 10:35 11/01/20 07:25 Abnormal Lab Results - Last 24 Hours (Table) 11/01/20 Range/Units 07:25 Potassium 2.7 L* (3.5-5.1) mmol/L Carbon Dioxide 38 H (22-30) mmol/L BUN 43 H (7-17) mg/dL Creatinine 1.47 H (0.52-1.04) mg/dL Glucose 112 H (74-99) mg/dL Calcium 8.1 L (8.4-10.2) mg/dL Magnesium 1.4 L (1.6-2.3) mg/dL Microbiology - Last 24 Hours (Table) 10/29/20 20:08 Blood Culture - Preliminary Blood No Growth after 48 hours Diabetes panel 11/01/20 Range/Units 07:25 Sodium 144 (137-145) mmol/L Potassium 2.7 L* (3.5-5.1) mmol/L Chloride 98 (98-107) mmol/L Carbon Dioxide 38 H (22-30) mmol/L BUN 43 H (7-17) mg/dL Creatinine 1.47 H (0.52-1.04) mg/dL Glucose 112 H (74-99) mg/dL Calcium 8.1 L (8.4-10.2) mg/dL Calcium panel 11/01/20 Range/Units 07:25 Calcium 8.1 L (8.4-10.2) mg/dL Pituitary panel 11/01/20 Range/Units 07:25 Sodium 144 (137-145) mmol/L Potassium 2.7 L* (3.5-5.1) mmol/L Chloride 98 (98-107) mmol/L Carbon Dioxide 38 H (22-30) mmol/L BUN 43 H (7-17) mg/dL Creatinine 1.47 H (0.52-1.04) mg/dL Glucose 112 H (74-99) mg/dL Calcium 8.1 L (8.4-10.2) mg/dL Adrenal panel 11/01/20 Range/Units 07:25 Sodium 144 (137-145) mmol/L Potassium 2.7 L* (3.5-5.1) mmol/L Chloride 98 (98-107) mmol/L Carbon Dioxide 38 H (22-30) mmol/L BUN 43 H (7-17) mg/dL Creatinine 1.47 H (0.52-1.04) mg/dL Glucose 112 H (74-99) mg/dL Calcium 8.1 L (8.4-10.2) mg/dL <Miesha Neil N - Last Filed: 11/01/20 19:53> Surgical - Exam Vital Signs Temp Pulse Resp BP Pulse Ox 97.9 F 103 H 20 101/71 79 L 10/29/20 15:48 10/29/20 15:48 10/29/20 15:48 10/29/20 15:48 10/29/20 15:48 Results - Labs 10/31/20 10:35 11/01/20 07:25 Abnormal Lab Results - Last 24 Hours (Table) 11/01/20 Range/Units 07:25 Potassium 2.7 L* (3.5-5.1) mmol/L Carbon Dioxide 38 H (22-30) mmol/L BUN 43 H (7-17) mg/dL Creatinine 1.47 H (0.52-1.04) mg/dL Glucose 112 H (74-99) mg/dL Calcium 8.1 L (8.4-10.2) mg/dL Magnesium 1.4 L (1.6-2.3) mg/dL Microbiology - Last 24 Hours (Table) 10/29/20 20:08 Blood Culture - Preliminary Blood No Growth after 48 hours Diabetes panel 11/01/20 Range/Units 07:25 Sodium 144 (137-145) mmol/L Potassium 2.7 L* (3.5-5.1) mmol/L Chloride 98 (98-107) mmol/L Carbon Dioxide 38 H (22-30) mmol/L BUN 43 H (7-17) mg/dL Creatinine 1.47 H (0.52-1.04) mg/dL Glucose 112 H (74-99) mg/dL Calcium 8.1 L (8.4-10.2) mg/dL Calcium panel 11/01/20 Range/Units 07:25 Calcium 8.1 L (8.4-10.2) mg/dL Pituitary panel 11/01/20 Range/Units 07:25 Sodium 144 (137-145) mmol/L Potassium 2.7 L* (3.5-5.1) mmol/L Chloride 98 (98-107) mmol/L Carbon Dioxide 38 H (22-30) mmol/L BUN 43 H (7-17) mg/dL Creatinine 1.47 H (0.52-1.04) mg/dL Glucose 112 H (74-99) mg/dL Calcium 8.1 L (8.4-10.2) mg/dL Adrenal panel 11/01/20 Range/Units 07:25 Sodium 144 (137-145) mmol/L Potassium 2.7 L* (3.5-5.1) mmol/L Chloride 98 (98-107) mmol/L Carbon Dioxide 38 H (22-30) mmol/L BUN 43 H (7-17) mg/dL Creatinine 1.47 H (0.52-1.04) mg/dL Glucose 112 H (74-99) mg/dL Calcium 8.1 L (8.4-10.2) mg/dL
--- NOTE | 2020-11-01 13:29 | P.PN ---
Subjective Patient is seen in follow-up for acute kidney injury on chronic kidney disease. Renal function improving. Good urine output. Edema improved. Currently on 4 L nasal cannula. No vomiting or diarrhea. Oral intake fair. Complaining of abdominal discomfort. Surgery consulted. Vital signs are stable. General: The patient appeared well nourished and normally developed. HEENT: Head exam is unremarkable. Neck is without jugular venous distension. LUNGS: Breath sounds decreased. HEART: Rate and Rhythm are regular. ABDOMEN: Soft, nontender. EXTREMITITES: 1+ edema. Objective - Vital Signs Vital signs: Vital Signs Temp 98.0 F 11/01/20 08:00 Pulse 101 H 11/01/20 08:00 Resp 18 11/01/20 08:00 BP 116/68 11/01/20 08:00 Pulse Ox 96 11/01/20 08:00 Intake & Output 10/31/20 11/01/20 11/01/20 18:59 06:59 18:59 Intake Total 358 Output Total 300 1380 Balance 58 -1380 Weight 95.254 kg 94.5 kg Intake: Oral 358 Output: Urine 300 900 Stool 2 Emesis 478 Other: Voiding Method External Catheter External Catheter External Catheter # Bowel Movements 1 - Labs CBC & Chem 7: 10/31/20 10:35 11/01/20 07:25 Labs: Abnormal Lab Results - Last 24 Hours (Table) 11/01/20 Range/Units 07:25 Potassium 2.7 L* (3.5-5.1) mmol/L Carbon Dioxide 38 H (22-30) mmol/L BUN 43 H (7-17) mg/dL Creatinine 1.47 H (0.52-1.04) mg/dL Glucose 112 H (74-99) mg/dL Calcium 8.1 L (8.4-10.2) mg/dL Magnesium 1.4 L (1.6-2.3) mg/dL Microbiology - Last 24 Hours (Table) 10/29/20 20:08 Blood Culture - Preliminary Blood No Growth after 48 hours Assessment and Plan Plan: Assessment: 1. Acute kidney injury mostly prerenal secondary to cardiorenal syndrome. Creatinine 3.4 on admission and is 1.47 this morning. Renal ultrasound revealed no evidence of hydronephrosis. Left kidney smaller in size. 2. Chronic kidney disease stage IIIB with baseline creatinine near 1.5 secondary to nephrosclerosis. 3. Volume overload. Improving with diuresis. 4. Acute on chronic diastolic CHF. 5. Hyperkalemia secondary to acute kidney injury and metabolic acidosis. Now hypokalemic from diuresis. 6. Hypotension. Likely from underlying cardiac status. Cortisol level normal. Blood pressure stable. 7. Hypomagnesemia from diuresis. Plan: Decrease Lasix to 40 mg IV once daily. Replace potassium and magnesium. Avoid nephrotoxins. Continue to monitor renal function and urine output.
--- NOTE | 2020-11-01 14:47 | P.PN ---
Subjective Progress Note Date: 11/01/20 Principal diagnosis: Shortness of breath. This is a 55-year-old female patient who follows with Dr. Beltran as her primary care provider. She has a history of dementia, anxiety/depression, fibromyalgia, DVT, multiple sclerosis, renal failure, former smoker, home oxygen at 2 L/m. She was brought into the emergency room yesterday with altered mental status, fatigue, weakness. CAT scan of the brain revealed cerebral mild atrophy. No acute intracranial abnormality. Chest x-ray revealed a right-sided pleural effusion with some consolidation/atelectasis. White count 11.2. Hemoglobin 11.1. Sodium 142. Potassium 4.0. Creatinine 2.73. Glucose 68. Troponin 0.115, 0.109. ProBNP 23,800. INR 1.3. Influenza screen negative. COVID-19 screen negative. She is seen today in the emergency room. She is awake. Somewhat drowsy. Poor historian. Maintaining O2 saturations in the mid to upper 90s on 4 L/m per nasal cannula. Afebrile. Somewhat hypotensive. She's been initiated on IV diuretics, antibiotics, heparin for DVT prophylaxis. Progress note dated 10/31/2020. 55-year-old female, who we saw yesterday in consultation. She has a history of dementia, anxiety/depression, fibromyalgia, DVT, multiple sclerosis, chronic kidney disease, former tobacco user, and chronic hypoxemic respiratory failure. She was seen in the emergency department with mental status changes, fatigue, and weakness. He was also noted that she had a large right-sided pleural effusi on. Today, we did a right-sided thoracentesis. 1200 mL of yellow/ brown fluid was removed. Her coronavirus screen was negative. The fluid was sent for analysis including cytology, microbiology, and chemistry. Laboratory data today includes a white count of 7.6, hemoglobin 10.8, hematocrit 34.1, and platelet count 196,000. Sodium 141, potassium 2.9, chlorides 99, CO2 36, anion gap 6, BUN 49, and creatinine 1.88. Chest x-ray following the right-sided thoracentesis shows improved aeration in the right chest, without complication. Progress note dated 11/01/2020. 55-year-old female, seen in consultation at couple days ago. She has a history of dementia, anxiety/depression, fibromyalgia, DVT, multiple sclerosis, chronic kidney disease, former tobacco use, and chronic hypoxemic respiratory failure. She was initially seen in the emergency department with mental status changes. Should a large right pleural effusion. She underwent thoracentesis yesterday. 1200 mL of fluid was removed. Unfortunately, accidentally, the fluid was discarded. The fluid was initially sent for analysis including cytology, microbiology, and chemistry. Currently, she is not receiving any IV fluids. She is on nasal O2 at 4 L. Sodium 144, potassium 2.7, chlorides 98, CO2 38, anion gap 8, BUN 43, creatinine 1.47. The patient is not having any difficulty with her breathing. She feels much better after the thoracentesis. Her major issue now is abdominal pain. Objective - Vital Signs Vital signs: Vital Signs Temp 98.0 F 11/01/20 08:00 Pulse 101 H 11/01/20 08:00 Resp 18 11/01/20 08:00 BP 116/68 11/01/20 08:00 Pulse Ox 96 11/01/20 08:00 Intake & Output 10/31/20 11/01/20 11/01/20 18:59 06:59 18:59 Intake Total 358 Output Total 300 1380 Balance 58 -1380 Weight 95.254 kg 94.5 kg Intake: Oral 358 Output: Urine 300 900 Stool 2 Emesis 478 Other: Voiding Method External Catheter External Catheter External Catheter # Bowel Movements 1 - Exam No acute distress, oriented 3. Much more awake and alert today. On 4 L, with saturations of 96%. HEENT examination is grossly unremarkable. Neck supple. Full range of motion. No adenopathy thyromegaly or neck vein distention. Cardiovascular examination reveals regular rhythm rate. S1-S2 normal. No S3 or S4. No discernible murmur noted. Heart rate 98 bpm. Lungs reveal clear bilateral breath sounds. No wheezes rhonchi or crackles. The dullness that was present prior to thoracentesis is no longer present. Breath sounds equal bilaterally. Abdomen soft bowel sounds are heard. No masses or tenderness. Extremities are intact. No cyanosis clubbing or edema. Skin is without rash or lesion. Neurologic examination is brief but nonfocal. - Labs CBC & Chem 7: 10/31/20 10:35 11/01/20 07:25 Labs: Abnormal Lab Results - Last 24 Hours (Table) 11/01/20 Range/Units 07:25 Potassium 2.7 L* (3.5-5.1) mmol/L Carbon Dioxide 38 H (22-30) mmol/L BUN 43 H (7-17) mg/dL Creatinine 1.47 H (0.52-1.04) mg/dL Glucose 112 H (74-99) mg/dL Calcium 8.1 L (8.4-10.2) mg/dL Magnesium 1.4 L (1.6-2.3) mg/dL Microbiology - Last 24 Hours (Table) 10/29/20 20:08 Blood Culture - Preliminary Blood No Growth after 48 hours Assessment and Plan Assessment: 1 Acute on chronic hypoxemic respiratory failure secondary to right-sided pleural effusion, systolic versus diastolic congestive heart failure. Patient underwent right-sided thoracentesis on October 31, and 1200 mL of fluid was removed. 2 Acute on chronic renal failure. 3 Troponin leak, echocardiogram pending. 4 History of dementia, poor historian. 5 Chronic hypoxemic respiratory failure, on 2 L the outpatient setting. 6 Anxiety/depression. 7 Urinary tract infection, culture pending. 8 History of multiple sclerosis. 9 Previous hemodialysis. 10 Anxiety/depression. 11 Former smoker. Plan: Plan dated 10/31/2020. Currently, the patient's doing well. She underwent thoracentesis on the right side today. The post-thoracentesis chest x-ray showed almost complete removal of all fluid from the right chest. The patient tolerated the procedure well. The fluid was sent for analysis including chemistry, cytology, and microbiology. Currently, she is on 2 L. We will continue to follow. No additional recommendations are made. Prognosis is guarded. Plan dated 11/01/2020. The patient's doing well. She stable from the pulmonary standpoint. We likely will only see the patient as needed and follow-up. Prognosis is guarded. The primary service is currently working upper abdominal pain. She's not having any respiratory issues at this time. We will be happy to come back and see her should she develop respiratory problems. Time with Patient: Less than 30
--- NOTE | 2020-11-01 15:18 | US ---
EXAMINATION TYPE: US abdomen complete DATE OF EXAM: 11/01/2020 COMPARISON: US, CT CLINICAL HISTORY: RUQ abdominal pain. Severe right lateral abdomen pain with nausea and vomiting; MS; splenomegaly EXAM MEASUREMENTS: Liver Length: 18.2 cm Gallbladder Wall: 0.1 cm CBD: 0.3 cm Spleen: 13.7 x 14.3 x 7.1 cm Right Kidney: 8.7 x 5.7 x 3.9 cm Left Kidney: 9.5 x 4.9 x 3.6 cm Pancreas: hyperechoic with tail obscured by overlying bowel gas Liver: enlarged Gallbladder: multiple and mobile shadowing stones and sludge noted within gallbladder. Evidence for sonographic Silver's sign: yes CBD: wnl Spleen: enlarged Right Kidney: No hydronephrosis or masses seen Left Kidney: couple of renal cysts seen with larger cyst at inferior cortex = 3.1 x 2.6 x 2.5cm Upper IVC: wnl Abd Aorta: size is wnl but limitedly seen due to overlying bowel gas. IMPRESSION: 1. Hepatomegaly correlate for hepatocellular disease. 2. Multiple gallstones with sludge. 3. Mild splenomegaly.
--- NOTE | 2020-11-01 15:38 | P.PN ---
Subjective HISTORY OF PRESENTING ILLNESS This is a pleasant 55-year-old female past medical history significant for Takotsubo in the past with full recovery, DVT, former smoker, Dementia She used to follow in the office with Dr. Santillan. We have been asked to see in consultation for congestive heart failure and elevated troponin. Patient is seen and examined in the emergency department, presents with generalized fatigue, worsening swelling and lower extremities. Denies history of AR, Stroke, Diabetes. Patient was on Hemodialysis about 2 years ago. Laboratory data reviewed, BNP 23,800, trop 0.07-->0.115-->0.10. covid-19 negative. DIAGNOSTICS EKG reveals sinus tachycardia, heart rate 11, no significant STT wave abnormalities. Chest xray Right sided consolidation and bilateral pleural effusion. Heart appears enlarged. Right chest ultrasound- right pleural effusion Ultrasound of the kidneys- Splenomegaly, bilateral renal cortical thinning renal cystic changes in the left kidney Current cardiac medications include aspirin 81mg daily, Lopressor 12.5mg BID Last cardiac catheterization in 2013- no significant obstructive CAD Most recent echo 2019EF between 5055 percent, mild MR, mild TR, no evidence of pulmonary hypertension. Echo 2013 from outside hospital revealed- 35-40%, severe MR, small pericardial effusion, Question of diastolic dysfucntion with moderate tricuspid insufficiency. Repeat Echocardiogram EF greater than 55%, right ventricular systolic pressure is mildly impaired, mild MR, moderate TR, moderate to severe pulmonary hypertension 10/31/20: Patient underwent right sided thoracentesis with 1 L revealed fluid removed 11/01/20: Patient seen and examined at bedside. Patient complaining of nausea, shortness of breath. BP 116/68, heart rate 98 patient needing increased oxygen requirements to 4 L nasal cannula. She is currently being maintained on aspirin 81 mg daily, Lasix 60 mg twice a day, metoprolol tartrate 12.5 mg twice a day, midodrine 10 mg 3 times a day. Patient with 1.7 L urine output over the past 24 hours, patient with 1 kg weight loss since yesterday. Sodium 141, potassium is 2.7, serum creatinine is improved at 1.47 BUN 43, magnesium is 1.4 GENERAL: Well-appearing, well-nourished and in no acute distress. NECK: Supple without JVD or thyromegaly. LUNGS: Breath sounds clear to auscultation bilaterally. Respiration equal and unlabored. No wheezes, rales or rhonchi. HEART: Regular rate and rhythm without murmurs, rubs or gallops. S1 and S2 heard. EXTREMITIES: Normal range of motion, 2+ lower extremity edema No clubbing or cyanosis. Peripheral pulses intact. ASSESSMENT Acute on Chronic Kidney Disease Acute on Chronic Diastolic Heart Failure History of Takotsubo in the past with full recovery Hypotension Hypokalemia- being replaced Hypomagnesmia - being replaced Metabolic acidosis PLAN -Patient is undergoing an abdominal ultrasound today for abdominal pain -Patient contniues to be hypotensive, Midodrine started. -Will hold Diuretics due to hypokalemia -Pulmonary being consulted, appreciate recs -Nephrology being consulted, appreciate recs -Continue metoprolol tartrate 12.5 mg twice a day -Monitor renal function and electrolytes -I/Os, Daily weights Nurse Practitioner note has been reviewed, I agree with a documented findings and plan of care. Patient was seen and examin Objective - Vital Signs Vital signs: Vital Signs Temp 98.0 F 11/01/20 12:00 Pulse 80 11/01/20 14:00 Resp 18 11/01/20 14:00 BP 118/61 11/01/20 12:00 Pulse Ox 94 L 11/01/20 12:00 Intake & Output 10/31/20 11/01/20 11/01/20 18:59 06:59 18:59 Intake Total 358 Output Total 300 1382 Balance 58 -1382 Weight 95.254 kg 94.5 kg Intake: Oral 358 Output: Urine 300 900 Stool 4 Emesis 478 Other: Voiding Method External Catheter External Catheter External Catheter # Bowel Movements 1 - Labs CBC & Chem 7: 10/31/20 10:35 11/01/20 07:25 Labs: Abnormal Lab Results - Last 24 Hours (Table) 11/01/20 Range/Units 07:25 Potassium 2.7 L* (3.5-5.1) mmol/L Carbon Dioxide 38 H (22-30) mmol/L BUN 43 H (7-17) mg/dL Creatinine 1.47 H (0.52-1.04) mg/dL Glucose 112 H (74-99) mg/dL Calcium 8.1 L (8.4-10.2) mg/dL Magnesium 1.4 L (1.6-2.3) mg/dL Microbiology - Last 24 Hours (Table) 10/29/20 20:08 Blood Culture - Preliminary Blood No Growth after 48 hours
--- NOTE | 2020-11-01 19:19 | P.PN ---
Progress Note - Text Progress Note Date: 11/01/20 History of presenting complaint: This is a pleasant 55-year-old patient of Dr. Beltran./ neurologist Dr. Garsia. Chronic stable medical conditions include chronic kidney disease stage III, chronic medical debility from multiple sclerosis, chronic fibromyalgia, cognitive impairment, hypothyroid, polyneuropathy, bipolar disorder, chronic double incontinence. baseline patient has a motorized chair patient is able to stand and transfer. At baseline she is weak in her arms but able to feed he rself. Recently admitted with acute kidney injury. Improved Now presented with increased weakness tightness. Finding it difficult to do her ADLs. She was discharged on October 20 with a creatinine of 1.49. This occasionally admitted with a creatinine of 3.44. Nephrology was consulted. Acute kidney injury was felt to be from cardiorenal syndrome. Patient was placed on IV Lasix. Right-sided thoracentesis carried out, thousand cc removed. Today: Patient is getting IV Lasix. Today complaining of upper abdominal pain. Some nausea vomiting. No fever no chills. Review of systems: Was done for constitutional, cardiovascular, GI, pulmonary. relevant finding as above Active Medications Acetaminophen (Acetaminophen Tab 500 Mg Tab) 500 mg PO Q6HR PRN PRN Reason: Fever and/ or Pain Last Admin: 11/01/20 14:34 Dose: 500 mg Documented by: Aspirin (Aspirin 81 Mg) 81 mg PO HS [facility] Last Admin: 10/31/20 20:13 Dose: 81 mg Documented by: Citalopram Hydrobromide (Citalopram Hydrobromide 20 Mg Tab) 40 mg PO [facility] Last Admin: 10/31/20 20:13 Dose: 40 mg Documented by: Donepezil HCl (Donepezil 5 Mg Tab) 5 mg PO [facility] Last Admin: 10/31/20 20:45 Dose: 5 mg Documented by: Furosemide (Furosemide 10 Mg/Ml 4 Ml Vial) 40 mg IV DAILY [facility] Gabapentin (Gabapentin 300 Mg Cap) 300 mg PO TID [facility] Last Admin: 11/01/20 17:03 Dose: Not Given Documented by: Heparin Sodium (Porcine) (Heparin Sodium,Porcine/Pf 5,000 Unit/0.5 Ml Syringe) 5,000 unit SQ Q12HR [facility] Last Admin: 11/01/20 09:34 Dose: 5,000 unit Documented by: Ceftriaxone Sodium 1 gm/ (Sodium Chloride) 50 mls @ 100 mls/hr IVPB Q24HR [facility] Last Admin: 11/01/20 09:34 Dose: 100 mls/hr Documented by: Metoprolol Tartrate (Metoprolol Tartrate 12.5 Mg Tab) 12.5 mg PO BID [facility] Last Admin: 11/01/20 09:36 Dose: 12.5 mg Documented by: Midodrine (Midodrine 5 Mg Tab) 10 mg PO AC-TID [facility] Last Admin: 11/01/20 17:03 Dose: Not Given Documented by: Miscellaneous Information (Pneumonia Protocol Utilized 1 Each Misc) 1 each PO ONCE PRN PRN Reason: Per Protocol Miscellaneous Information (Potassium Replacement Protocol 1 Each Mis) 1 each MISCELLANE DAILY PRN; Protocol PRN Reason: Per Protocol Miscellaneous Information (Magnesium Replacement Protocol 1 Each Mis) 1 each MISCELLANE DAILY PRN; Protocol PRN Reason: Per Protocol Montelukast Sodium (Montelukast 10 Mg Tab) 5 mg PO [facility] Last Admin: 10/31/20 20:13 Dose: 5 mg Documented by: Multivitamins (Multivitamins, Thera 1 Each Tab) 1 each PO DAILY [facility] Last Admin: 11/01/20 08:09 Dose: Not Given Documented by: Nitroglycerin (Nitroglycerin Oint 1 Inch/Gm Packet) 1 inch TOPICAL QID [facility] Last Admin: 11/01/20 17:03 Dose: Not Given Documented by: Patient's Own ( Dimethyl Fumarate [ Tecfidera] 240 Mg Capsule.Dr) 240 mg PO BID [facility] Last Admin: 11/01/20 08:09 Dose: Not Given Documented by: Ondansetron HCl (Ondansetron 4 Mg/2 Ml Vial) 4 mg IVP Q4HR PRN PRN Reason: Nausea And Vomiting Last Admin: 11/01/20 06:18 Dose: 4 mg Documented by: Prochlorperazine Edisylate (Prochlorperazine Inj 10 Mg/2 Ml Vial) 10 mg IVP Q6H PRN PRN Reason: Nausea And Vomiting Last Admin: 11/01/20 15:15 Dose: 10 mg Documented by: Topiramate (Topiramate 25 Mg Tab) 25 mg PO [facility] Last Admin: 10/31/20 20:13 Dose: 25 mg Documented by: Past medical history: DVT, fibromyalgia, memory impairment, multiple sclerosis, migraines, constipation, back pain, hypothyroid, cervical cancer, carpal tunnel, polyneuropathy, has had hemodialysis in the past chemotherapy treatment for MS, bipolar disorder Social history: Patient does smoke in the past. Lives with her . Family history: Brain cancer Physical examination: VITAL SIGNS: 98, 80, 18, 118/61, 94% on 4 L GENERAL: Laying in bed, tired EYES: Pupils equal. Conjunctiva normal. NECK: JVD not raised; masses not palpable. HEART: First and second heart sounds are normal; no edema. LUNGS: Respiratory rate normal; clear to auscultation. ABDOMEN: Soft, mild epigastric tenderness, no guarding or rigidity, liver spleen not palpable, no masses palpable. PSYCH: Answering questions appropriately NEUROLOGICAL: Cranial nerves grossly intact; no facial asymmetry, weakness of both the upper and lower extremities, generalized EXTREMITY: Some contracture of the hands INVESTIGATIONS, reviewed in the clinical context: November 01: Potassium 2.7 creatinine 1.47 magnesia 1.4 Acute abdominal series: Nonspecific Abdominal ultrasound: Hepatomegaly, audible gallstones with sludge, mild splenomegaly October 31: WBC 7.6 hemoglobin 10.8 potassium 2.9 creatinine 1.8 date WBC 11.2 hemoglobin 11.1 platelets 207 potassium 4 bun 70 creatinine 2.73 Admission labs: BUN 71 creatinine 3.44 potassium 5.5 Chest x-ray: Pulmonary edema 2-D echocardiogram: EF greater than 55%. Moderate tricuspid regurgitation. Moderate to severe pulmonary hypertension Previous labs: On 10/20/2020: BUN 22 creatinine 1.49 Assessment and plan: -Acute kidney injury, likely cardiorenal syndrome slow improvement On IV Lasix per nephrology. Follow renal function -Right pleural effusion secondary to congestive heart failure 1 Thousand cc of right side is thoracentesis done on October 31 -Acute on chronic congestive heart failure from diastolic dysfunction EF greater than 55%-uncontrolled IV Lasix dose cut back. -Acute abdominal pain. Upper abdominal. Possibly from gallstones Abdominal x-ray unremarkable. Abdominal ultrasound showing gallstones with sludge -Chronic kidney disease, possible stage III from nephrosclerosis. Baseline creatinine of 1.4 Follow labs -Hyperkalemia secondary to chronic kidney improved Received IV Lasix -Normocytic anemia of chronic kidney disease Follow H&H -Chronic medical debility from underlying multiple sclerosis baseline uses a wheelchair -Multiple sclerosis, with chronic paresis . -Chronic fibromyalgia Pain medications -Hepatomegaly possibly for hepatocellular disease --moderate cognitive impairment On Namenda, Aricept -Hypothyroid Continue with Synthroid -Polyneuropathy secondary to multiple sclerosis -Bipolar disorder On Risperdal, Seroquel, Celexa -Chronic hypoxic respiratory failure on 2 L of oxygen Today I ordered abdominal x-rays and surgical consultation. Abdominal ultrasound results noted. Follow with surgery. Care discussed with the patient. Patient be put on clear liquids.
[2020-11-01] MEDS: CITALOPRAM HYDROBROMIDE 20 MG TAB PO SCH (20:36)
[2020-11-01] MEDS: MONTELUKAST 10 MG TAB PO SCH (20:37)
[2020-11-01] MEDS: TOPIRAMATE 25 MG TAB PO SCH (20:37)
[2020-11-01] MEDS: ASPIRIN 81 MG PO SCH (20:38)
[2020-11-01] MEDS: DONEPEZIL 5 MG TAB PO SCH (20:38)
[2020-11-02] MEDS: POTASSIUM CHLORIDE 10 MEQ in WATER FOR INJECTION 1 100ML.BAG IVPB SCH ×2 (00:39→01:50)
[2020-11-02 03:48] LABS: Calcium 8.5 mg/dL (8.4-10.2); Potassium 3.7 mmol/L (3.5-5.1)
[2020-11-02] MEDS: NITROGLYCERIN OINT 1 INCH/GM PACKET TOPICAL SCH ×4 (07:17→20:07)
[2020-11-02] MEDS: PATIENT'S OWN (Dimethyl Fumarate [Tecfidera] 240 MG Capsule.Dr) PO SCH ×2 (07:18→19:43)
[2020-11-02] MEDS: MIDODRINE 5 MG TAB PO SCH ×3 (07:32→17:29)
[2020-11-02] MEDS: HEPARIN SODIUM,PORCINE/PF 5,000 UNIT/0.5 ML SYRINGE SQ SCH ×2 (09:28→20:05)
[2020-11-02] MEDS: METOPROLOL TARTRATE 12.5 MG TAB PO SCH ×2 (09:28→20:05)
[2020-11-02] MEDS: FUROSEMIDE 10 MG/ML 4 ML VIAL IV SCH (09:28)
[2020-11-02] MEDS: GABAPENTIN 300 MG CAP PO SCH ×3 (09:28→20:05)
[2020-11-02] MEDS: MULTIVITAMINS, THERA 1 EACH TAB PO SCH (09:28)
--- NOTE | 2020-11-02 12:05 | P.PN ---
Subjective Progress Note Date: 11/02/20 Follow-up for acute kidney injury. Objective - Vital Signs Vital signs: Vital Signs Temp 98.0 F 11/02/20 08:00 Pulse 99 11/02/20 08:00 Resp 20 11/02/20 04:00 BP 117/65 11/02/20 08:00 Pulse Ox 95 11/02/20 08:00 Intake & Output 11/01/20 11/02/20 11/02/20 18:59 06:59 18:59 Intake Total 1344 Output Total 1382 2 1400 Balance -1382 -2 -56 Weight 94 kg Intake: Oral 1344 Output: Urine 900 1400 Stool 4 2 Emesis 478 Other: Voiding Method External Catheter External Catheter External Catheter # Bowel Movements 1 - Exam No acute distress S1-S2 heard Lungs clear Trace edema - Labs CBC & Chem 7: 10/31/20 10:35 11/02/20 02:30 Labs: Abnormal Lab Results - Last 24 Hours (Table) 11/01/20 11/02/20 Range/Units 20:45 02:30 Potassium 3.2 L (3.5-5.1) mmol/L Chloride 95 L (98-107) mmol/L Carbon Dioxide 38 H (22-30) mmol/L BUN 30 H (7-17) mg/dL Creatinine 1.31 H (0.52-1.04) mg/dL Glucose 157 H (74-99) mg/dL Microbiology - Last 24 Hours (Table) 10/29/20 20:08 Blood Culture - Preliminary Blood No Growth after 72 hours Assessment and Plan Assessment: #1 acute kidney injury secondary to CRS. Peak creatinine of 3.4 MG per DL. #2 CK D stage IIIB with a baseline creatinine of 1.5 MG per DL secondary to nephrosclerosis #3 volume overload #4 hyperkalemia resolved with diuresis #5 low normal blood pressures #6 diastolic CHF Plan: #1 renal function stable and improving, Around baseline #2 currently on Lasix 40 mg IV, can be changed to torsemide 20 mg by mouth daily at discharge. #3 avoid nephrotoxic agents and hypotensive episodes. #4 midodrine for hemodynamic support
--- NOTE | 2020-11-02 14:11 | P.PN ---
Subjective Progress Note Date: 11/02/20 Principal diagnosis: Shortness of breath. This is a 55-year-old female patient who follows with Dr. Beltran as her primary care provider. She has a history of dementia, anxiety/depression, fibromyalgia, DVT, multiple sclerosis, renal failure, former smoker, home oxygen at 2 L/m. She was brought into the emergency room yesterday with altered mental status, fatigue, weakness. CAT scan of the brain revealed cerebral mild atrophy. No acute intracranial abnormality. Chest x-ray revealed a right-sided pleural effusion with some consolidation/atelectasis. White count 11.2. Hemoglobin 11.1. Sodium 142. Potassium 4.0. Creatinine 2.73. Glucose 68. Troponin 0.115, 0.109. ProBNP 23,800. INR 1.3. Influenza screen negative. COVID-19 screen negative. She is seen today in the emergency room. She is awake. Somewhat drowsy. Poor historian. Maintaining O2 saturations in the mid to upper 90s on 4 L/m per nasal cannula. Afebrile. Somewhat hypotensive. She's been initiated on IV diuretics, antibiotics, heparin for DVT prophylaxis. Progress note dated 10/31/2020. 55-year-old female, who we saw yesterday in consultation. She has a history of dementia, anxiety/depression, fibromyalgia, DVT, multiple sclerosis, chronic kidney disease, former tobacco user, and chronic hypoxemic respiratory failure. She was seen in the emergency department with mental status changes, fatigue, and weakness. He was also noted that she had a large right-sided pleural effusi on. Today, we did a right-sided thoracentesis. 1200 mL of yellow/ brown fluid was removed. Her coronavirus screen was negative. The fluid was sent for analysis including cytology, microbiology, and chemistry. Laboratory data today includes a white count of 7.6, hemoglobin 10.8, hematocrit 34.1, and platelet count 196,000. Sodium 141, potassium 2.9, chlorides 99, CO2 36, anion gap 6, BUN 49, and creatinine 1.88. Chest x-ray following the right-sided thoracentesis shows improved aeration in the right chest, without complication. Progress note dated 11/01/2020. 55-year-old female, seen in consultation at couple days ago. She has a history of dementia, anxiety/depression, fibromyalgia, DVT, multiple sclerosis, chronic kidney disease, former tobacco use, and chronic hypoxemic respiratory failure. She was initially seen in the emergency department with mental status changes. Should a large right pleural effusion. She underwent thoracentesis yesterday. 1200 mL of fluid was removed. Unfortunately, accidentally, the fluid was discarded. The fluid was initially sent for analysis including cytology, microbiology, and chemistry. Currently, she is not receiving any IV fluids. She is on nasal O2 at 4 L. Sodium 144, potassium 2.7, chlorides 98, CO2 38, anion gap 8, BUN 43, creatinine 1.47. The patient is not having any difficulty with her breathing. She feels much better after the thoracentesis. Her major issue now is abdominal pain. Progress note dated 11/02/2020. 55-year-old female seen in consultation a few days ago. The patient underwent a right-sided thoracentesis for large right pleural effusion. 1200 mL was removed. Currently, patient's doing well. She is on 4 L nasal cannula. She was complaining of abdominal pain yesterday, and that has resolved. She's not short of breath. She getting saline at 10 mL an hour. Current labs include a sodium 142, potassium 3.7, chloride 95, CO2 38, anion gap 9, BUN 30, creatinine 1.31. Objective - Vital Signs Vital signs: Vital Signs Temp 98.0 F 11/02/20 08:00 Pulse 99 11/02/20 08:00 Resp 20 11/02/20 04:00 BP 117/65 11/02/20 08:00 Pulse Ox 95 11/02/20 08:00 Intake & Output 11/01/20 11/02/20 11/02/20 18:59 06:59 18:59 Intake Total 1344 Output Total 1382 2 1400 Balance -1382 -2 -56 Weight 94 kg Intake: Oral 1344 Output: Urine 900 1400 Stool 4 2 Emesis 478 Other: Voiding Method External Catheter External Catheter External Catheter # Bowel Movements 1 - Exam No acute distress, oriented 3. Much more awake and alert today. On 4 L, with saturations of 95%. HEENT examination is grossly unremarkable. Neck supple. Full range of motion. No adenopathy thyromegaly or neck vein distention. Cardiovascular examination reveals regular rhythm rate. S1-S2 normal. No S3 or S4. No discernible murmur noted. Heart rate 99 bpm. Lungs reveal clear bilateral breath sounds. No wheezes rhonchi or crackles. The dullness that was present prior to thoracentesis is no longer present. Breath sounds equal bilaterally. Abdomen soft bowel sounds are heard. No masses or tenderness. Extremities are intact. No cyanosis clubbing or edema. Skin is without rash or lesion. Neurologic examination is brief but nonfocal. - Labs CBC & Chem 7: 10/31/20 10:35 11/02/20 02:30 Labs: Abnormal Lab Results - Last 24 Hours (Table) 11/01/20 11/02/20 Range/Units 20:45 02:30 Potassium 3.2 L (3.5-5.1) mmol/L Chloride 95 L (98-107) mmol/L Carbon Dioxide 38 H (22-30) mmol/L BUN 30 H (7-17) mg/dL Creatinine 1.31 H (0.52-1.04) mg/dL Glucose 157 H (74-99) mg/dL Microbiology - Last 24 Hours (Table) 10/29/20 20:08 Blood Culture - Preliminary Blood No Growth after 72 hours Assessment and Plan Assessment: 1 Acute on chronic hypoxemic respiratory failure secondary to right-sided pleural effusion, systolic versus diastolic congestive heart failure. Patient underwent right-sided thoracentesis on October 31, and 1200 mL of fluid was removed. 2 Acute on chronic renal failure. 3 Troponin leak, echocardiogram pending. 4 History of dementia, poor historian. 5 Chronic hypoxemic respiratory failure, on 2 L the outpatient setting. 6 Anxiety/depression. 7 Urinary tract infection, culture pending. 8 History of multiple sclerosis. 9 Previous hemodialysis. 10 Anxiety/depression. 11 Former smoker. Plan: Plan dated 10/31/2020. Currently, the patient's doing well. She underwent thoracentesis on the right side today. The post-thoracentesis chest x-ray showed almost complete removal of all fluid from the right chest. The patient tolerated the procedure well. The fluid was sent for analysis including chemistry, cytology, and microbiology. Currently, she is on 2 L. We will continue to follow. No additional recommendations are made. Prognosis is guarded. Plan dated 11/01/2020. The patient's doing well. She stable from the pulmonary standpoint. We likely will only see the patient as needed and follow-up. Prognosis is guarded. The primary service is currently working upper abdominal pain. She's not having any respiratory issues at this time. We will be happy to come back and see her should she develop respiratory problems. Plan dated 11/02/2020. Currently, the patient's doing well. She's not having any respiratory issues at this time. Unfortunately, the fluid that was removed from the right pleural space, was accidentally discarded. Apparently was not properly labeled by the nurse. It appeared to be a transudate just visually. Nonetheless, the patient will be seen only as needed. Prognosis is guarded. We'll be happy to come back and see her in the future should she develop any respiratory problems Time with Patient: Less than 30
--- NOTE | 2020-11-02 14:14 | P.PN ---
Subjective Progress Note Date: 11/02/20 HISTORY OF PRESENTING ILLNESS This is a pleasant 55-year-old female past medical history significant for T akotsubo in the past with full recovery, DVT, former smoker, Dementia She used to follow in the office with Dr. Santillan. We have been asked to see in consultation for congestive heart failure and elevated troponin. Patient is seen and examined in the emergency department, presents with generalized fatigue, worsening swelling and lower extremities. Denies history of VA, Stroke, Diabetes. Patient was on Hemodialysis about 2 years ago. Laboratory data reviewed, BNP 23,800, trop 0.07-->0.115-->0.10. covid-19 negative. DIAGNOSTICS EKG reveals sinus tachycardia, heart rate 11, no significant STT wave abnormalities. Chest xray Right sided consolidation and bilateral pleural effusion. Heart emilee ears enlarged. Right chest ultrasound- right pleural effusion Ultrasound of the kidneys- Splenomegaly, bilateral renal cortical thinning renal cystic changes in the left kidney Current cardiac medications include aspirin 81mg daily, Lopressor 12.5mg BID Last cardiac catheterization in 2013- no significant obstructive CAD Most recent echo 2019EF between 5055 percent, mild MR, mild TR, no evidence of pulmonary hypertension. Echo 2013 from outside hospital revealed- 35-40%, severe MR, small pericardial effusion, Question of diastolic dysfucntion with moderate tricuspid insufficiency. Repeat Echocardiogram EF greater than 55%, right ventricular systolic pressure is mildly impaired, mild MR, moderate TR, moderate to severe pulmonary hypertension 10/31/20: Patient underwent right sided thoracentesis with 1 L revealed fluid removed 11/01/20: Patient seen and examined at bedside. Patient complaining of nausea, shortness of breath. BP 116/68, heart rate 98 patient needing increased oxygen requirements to 4 L nasal cannula. She is currently being maintained on aspirin 81 mg daily, Lasix 60 mg twice a day, metoprolol tartrate 12.5 mg twice a day, midodrine 10 mg 3 times a day. Patient with 1.7 L urine output over the past 24 hours, patient with 1 kg weight loss since yesterday. Sodium 141, potassium is 2.7, serum creatinine is improved at 1.47 BUN 43, magnesium is 1.4 11/02: Abdominal ultrasound reveals hepatomegaly correlate for hepatocellular disease. Multiple gallstones with sludge. Mild splenomegaly. Patient has been seen by general surgery Patient denies any complaints today. Patient is followed by nephrology with recommendations to continue Lasix 40 mg IV daily and plan for torsemide 20 mg oral for discharge. Repeat blood work reveals sodium 142, potassium 3.7, chloride 95, CO2 38, BUN 30 and creatinine 1.31. Blood sugar 157. Patient has been afebrile. Heart rate 99, blood pressure 117/65, pulse ox 95% on 4 L nasal cannula. GENERAL: Well-appearing, well-nourished and in no acute distress. NECK: Supple without JVD or thyromegaly. LUNGS: Breath sounds clear to auscultation bilaterally. Respiration equal and unlabored. No wheezes, rales or rhonchi. HEART: Regular rate and rhythm without murmurs, rubs or gallops. S1 and S2 heard. EXTREMITIES: Normal range of motion, 2+ lower extremity edema No clubbing or cyanosis. Peripheral pulses intact. ASSESSMENT Acute on Chronic Kidney Disease Acute on Chronic Diastolic Heart Failure History of Takotsubo in the past with full recovery Hypotension Hypokalemia- being replaced Hypomagnesmia - being replaced Metabolic acidosis PLAN -Continue Midodrine -Continue Lasix 40 mg IV daily per nephrology -Patient is followed by pulmonary medicine -Continue metoprolol tartrate 12.5 mg twice a day -Monitor renal function and electrolytes -I/Os, Daily weights Nurse Practitioner note has been reviewed, I agree with a documented findings and plan of care. Patient was seen and examined. Objective - Vital Signs Vital signs: Vital Signs Temp 98.0 F 11/02/20 08:00 Pulse 99 11/02/20 08:00 Resp 20 11/02/20 04:00 BP 117/65 11/02/20 08:00 Pulse Ox 95 11/02/20 08:00 Intake & Output 11/01/20 11/02/20 11/02/20 18:59 06:59 18:59 Intake Total 1344 Output Total 1382 2 1400 Balance -1382 -2 -56 Weight 94 kg Intake: Oral 1344 Output: Urine 900 1400 Stool 4 2 Emesis 478 Other: Voiding Method External Catheter External Catheter External Catheter # Bowel Movements 1 - Labs CBC & Chem 7: 10/31/20 10:35 11/02/20 02:30 Labs: Abnormal Lab Results - Last 24 Hours (Table) 11/01/20 11/02/20 Range/Units 20:45 02:30 Potassium 3.2 L (3.5-5.1) mmol/L Chloride 95 L (98-107) mmol/L Carbon Dioxide 38 H (22-30) mmol/L BUN 30 H (7-17) mg/dL Creatinine 1.31 H (0.52-1.04) mg/dL Glucose 157 H (74-99) mg/dL Microbiology - Last 24 Hours (Table) 10/29/20 20:08 Blood Culture - Preliminary Blood No Growth after 72 hours
--- NOTE | 2020-11-02 16:19 | P.PN ---
Subjective Progress Note Date: 11/02/20 CHIEF COMPLAINT: Abdominal pain HISTORY OF PRESENT ILLNESS: The patient is a 55 year old female being seen for abdominal pain. She had an ultrasound of the abdomen. She reports her abdominal pain has resolved. She is tolerating clear liquid diet. No recent nauseg. REVIEW OF ORGAN SYSTEMS: No fevers or chills. No recent nausea or vomiting. No shortness of breath at assessment. PHYSICAL EXAM: VITALS: Reviewed CONSTITUTIONAL: Well developed and in no acute distress. EYES: Conjuctivae without sclera icterus. Extraocular movements grossly intact. HEAD, EARS, NOSE, THROAT: Moist buccal mucosa. Head is atraumatic, normocephalic. Hears conversational speech. RESPIRATORY: Non-labored respirations and equal bilateral excursions. No gross wheezes. CARDIOVASCULAR: Regular rate and rhythm. Palpable 2+ radial pulses. ABDOMEN: No peritonitis. NEUROLOGIC: Cranial nerves II through XII grossly intact. No focal or lateralizing signs. PSYCH: Alert to self, place and time CLINCAL LABS: Reviewed. LFTs are normal. WBC normal. Hgb low less than 11.0 STUDIES: US gallbladder reviewed independently with gallstones. GB wall less than 3.5 mm. ECHO: EF greater than 55%. No pulmonary hyeprtension or aortic stenosis ASSESSMENT: 1. Right upper quadrant abdominal pain 2. Chronic kidney disease 3. Cardiorenal syndrome 4. Acute kidney injury PLAN: 1. She is high surgical risk with acute kidney injury 2. Low fat diet, renal diet 3. Recommend dietitian assessment 4. Overall, she reports improvement of her symptoms. Objective - Vital Signs Vital signs: Vital Signs Temp 98.0 F 11/02/20 08:00 Pulse 100 11/02/20 12:00 Resp 20 11/02/20 04:00 BP 91/53 11/02/20 12:00 Pulse Ox 96 11/02/20 12:00 Intake & Output 11/01/20 11/02/20 11/02/20 18:59 06:59 18:59 Intake Total 2039 Output Total 1382 2 2049 Balance -1382 -2 -10 Weight 94 kg Intake: Oral 2039 Output: Urine 900 2049 Stool 4 2 Emesis 478 Other: Voiding Method External Catheter External Catheter External Catheter # Bowel Movements 1 - Labs CBC & Chem 7: 10/31/20 10:35 11/02/20 02:30 Labs: Abnormal Lab Results - Last 24 Hours (Table) 11/01/20 11/02/20 Range/Units 20:45 02:30 Potassium 3.2 L (3.5-5.1) mmol/L Chloride 95 L (98-107) mmol/L Carbon Dioxide 38 H (22-30) mmol/L BUN 30 H (7-17) mg/dL Creatinine 1.31 H (0.52-1.04) mg/dL Glucose 157 H (74-99) mg/dL Microbiology - Last 24 Hours (Table) 10/29/20 20:08 Blood Culture - Preliminary Blood No Growth after 72 hours
--- NOTE | 2020-11-02 16:59 | P.PN ---
Progress Note - Text Progress Note Date: 11/02/20 History of presenting complaint: This is a pleasant 55-year-old patient of Dr. Beltran./ neurologist Dr. Garsia. Chronic stable medical conditions include chronic kidney disease stage III, chronic medical debility from multiple sclerosis, chronic fibromyalgia, cognitive impairment, hypothyroid, polyneuropathy, bipolar disorder, chronic double incontinence. baseline patient has a motorized chair patient is able to stand and transfer. At baseline she is weak in her arms but able to feed he rself. Recently admitted with acute kidney injury. Improved Now presented with increased weakness tightness. Finding it difficult to do her ADLs. She was discharged on October 20 with a creatinine of 1.49. This occasionally admitted with a creatinine of 3.44. Nephrology was consulted. Acute kidney injury was felt to be from cardiorenal syndrome. Patient was placed on IV Lasix. Right-sided thoracentesis carried out, thousand cc removed. Patient developed abdominal pain. Ultrasound did show gallstones. Seen by Dr. Sunshine from general surgery. Not any intervention at the present time. Today: Tolerated clear liquids. Feeling much better. Remains on IV Lasix. Abdominal pain is resolved Review of systems: Was done for constitutional, cardiovascular, GI, pulmonary. relevant finding as above Active Medications Acetaminophen (Acetaminophen Tab 500 Mg Tab) 500 mg PO Q6HR PRN PRN Reason: Fever and/ or Pain Last Admin: 11/01/20 14:34 Dose: 500 mg Documented by: Aspirin (Aspirin 81 Mg) 81 mg PO [facility] Last Admin: 11/01/20 20:38 Dose: 81 mg Documented by: Citalopram Hydrobromide (Citalopram Hydrobromide 20 Mg Tab) 40 mg PO [facility] Last Admin: 11/01/20 20:36 Dose: 40 mg Documented by: Donepezil HCl (Donepezil 5 Mg Tab) 5 mg PO [facility] Last Admin: 11/01/20 20:38 Dose: 5 mg Documented by: Furosemide (Furosemide 10 Mg/Ml 4 Ml Vial) 40 mg IV DAILY [facility] Last Admin: 11/02/20 09:28 Dose: 40 mg Documented by: Gabapentin (Gabapentin 300 Mg Cap) 300 mg PO TID [facility] Last Admin: 11/02/20 09:28 Dose: 300 mg Documented by: Heparin Sodium (Porcine) (Heparin Sodium,Porcine/Pf 5,000 Unit/0.5 Ml Syringe) 5,000 unit SQ Q12HR [facility] Last Admin: 11/02/20 09:28 Dose: 5,000 unit Documented by: Ceftriaxone Sodium 1 gm/ (Sodium Chloride) 50 mls @ 100 mls/hr IVPB Q24HR [facility] Last Admin: 11/02/20 09:27 Dose: 100 mls/hr Documented by: Metoprolol Tartrate (Metoprolol Tartrate 12.5 Mg Tab) 12.5 mg PO BID [facility] Last Admin: 11/02/20 09:28 Dose: 12.5 mg Documented by: Midodrine (Midodrine 5 Mg Tab) 10 mg PO AC-TID [facility] Last Admin: 11/02/20 13:09 Dose: 10 mg Documented by: Miscellaneous Information (Pneumonia Protocol Utilized 1 Each Misc) 1 each PO ONCE PRN PRN Reason: Per Protocol Miscellaneous Information (Potassium Replacement Protocol 1 Each Misc) 1 each MISCELLANE DAILY PRN; Protocol PRN Reason: Per Protocol Miscellaneous Information (Magnesium Replacement Protocol 1 Each Misc) 1 each MISCELLANE DAILY PRN; Protocol PRN Reason: Per Protocol Montelukast Sodium (Montelukast 10 Mg Tab) 5 mg PO HS [facility] Last Admin: 11/01/20 20:37 Dose: 5 mg Documented by: Multivitamins (Multivitamins, Thera 1 Each Tab) 1 each PO DAILY [facility] Last Admin: 11/02/20 09:28 Dose: 1 each Documented by: Nitroglycerin (Nitroglycerin Oint 1 Inch/Gm Packet) 1 inch TOPICAL QID [facility] Last Admin: 11/02/20 13:09 Dose: 1 inch Documented by: Patient's Own ( Dimethyl Fumarate [ Tecfidera] 240 Mg Capsule.Dr) 240 mg PO BID [facility] Last Admin: 11/02/20 07:18 Dose: Not Given Documented by: Ondansetron HCl (Ondansetron 4 Mg/2 Ml Vial) 4 mg IVP Q4HR PRN PRN Reason: Nausea And Vomiting Last Admin: 11/01/20 06:18 Dose: 4 mg Documented by: Prochlorperazine Edisylate (Prochlorperazine Inj 10 Mg/2 Ml Vial) 10 mg IVP Q6H PRN PRN Reason: Nausea And Vomiting Last Admin: 11/01/20 15:15 Dose: 10 mg Documented by: Topiramate (Topiramate 25 Mg Tab) 25 mg PO HS [facility] Last Admin: 11/01/20 20:37 Dose: 25 mg Documented by: Past medical history: DVT, fibromyalgia, memory impairment, multiple sclerosis, migraines, constipatio n, back pain, hypothyroid, cervical cancer, carpal tunnel, polyneuropathy, has had hemodialysis in the past chemotherapy treatment for MS, bipolar disorder Social history: Patient does smoke in the past. Lives with her . Family history: Brain cancer Physical examination: VITAL SIGNS: 98, 99, 117/65, 95% on 4 L GENERAL: Laying in bed, tired EYES: Pupils equal. Conjunctiva normal. NECK: JVD not raised; masses not palpable. HEART: First and second heart sounds are normal; no edema. LUNGS: Respiratory rate normal; clear to auscultation. ABDOMEN: Soft, no tenderness, no guarding or rigidity, liver spleen not palpable, no masses palpable. PSYCH: Answering questions appropriately NEUROLOGICAL: Cranial nerves grossly intact; no facial asymmetry, weakness of both the upper and lower extremities, generalized EXTREMITY: Some contracture of the hands INVESTIGATIONS, reviewed in the clinical context: November 02: Potassium 3.7 bun 20 creatinine 1.31 November 01: Potassium 2.7 creatinine 1.47 magnesia 1.4 Acute abdominal series: Nonspecific Abdominal ultrasound: Hepatomegaly, audible gallstones with sludge, mild splenomegaly October 31: WBC 7.6 hemoglobin 10.8 potassium 2.9 creatinine 1.8 date WBC 11.2 hemoglobin 11.1 platelets 207 potassium 4 bun 70 creatinine 2.73 Admission labs: BUN 71 creatinine 3.44 potassium 5.5 Chest x-ray: Pulmonary edema 2-D echocardiogram: EF greater than 55%. Moderate tricuspid regurgitation. Moderate to severe pulmonary hypertension Previous labs: On 10/20/2020: BUN 22 creatinine 1.49 Assessment and plan: -Acute kidney injury, likely cardiorenal syndrome slow improvement On IV Lasix per nephrology. Follow renal function -Right pleural effusion secondary to congestive heart failure 1 Thousand cc of right side is thoracentesis done on October 31 -Acute on chronic congestive heart failure from diastolic dysfunction EF greater than 55%-uncontrolled IV Lasix dose cut back. -Acute abdominal pain. Upper abdominal. Possibly from gallstones Abdominal x-ray unremarkable. Abdominal ultrasound showing gallstones with sludge. Seen by Dr. Sunshine. Note for further intervention. -Chronic kidney disease, possible stage III from nephrosclerosis. Baseline creatinine of 1.4 Follow labs -Hyperkalemia secondary to chronic kidney improved Received IV Lasix -Normocytic anemia of chronic kidney disease Follow H&H -Chronic medical debility from underlying multiple sclerosis baseline uses a wheelchair -Multiple sclerosis, with chronic paresis . -Chronic fibromyalgia Pain medications -Hepatomegaly possibly for hepatocellular disease --moderate cognitive impairment On Namenda, Aricept -Hypothyroid Continue with Synthroid -Polyneuropathy secondary to multiple sclerosis -Bipolar disorder On Risperdal, Seroquel, Celexa -Chronic hypoxic respiratory failure on 2 L of oxygen Patient clinically doing better. Diet to be advanced. Cutback FiO2
[2020-11-02] MEDS: TOPIRAMATE 25 MG TAB PO SCH (20:05)
[2020-11-02] MEDS: CITALOPRAM HYDROBROMIDE 20 MG TAB PO SCH (20:05)
[2020-11-02] MEDS: DONEPEZIL 5 MG TAB PO SCH (20:05)
[2020-11-02] MEDS: ASPIRIN 81 MG PO SCH (20:05)
[2020-11-02] MEDS: MONTELUKAST 10 MG TAB PO SCH (20:06)
[2020-11-03] MEDS: MIDODRINE 5 MG TAB PO SCH ×2 (06:35→13:08)
[2020-11-03] MEDS: MULTIVITAMINS, THERA 1 EACH TAB PO SCH (08:20)
[2020-11-03] MEDS: METOPROLOL TARTRATE 12.5 MG TAB PO SCH ×2 (08:20→20:23)
[2020-11-03] MEDS: NITROGLYCERIN OINT 1 INCH/GM PACKET TOPICAL SCH ×2 (08:20→13:09)
[2020-11-03] MEDS: GABAPENTIN 300 MG CAP PO SCH ×3 (08:20→20:23)
[2020-11-03] MEDS: HEPARIN SODIUM,PORCINE/PF 5,000 UNIT/0.5 ML SYRINGE SQ SCH ×2 (08:20→20:24)
[2020-11-03] MEDS: FUROSEMIDE 10 MG/ML 4 ML VIAL IV SCH (08:20)
[2020-11-03] MEDS: PATIENT'S OWN (Dimethyl Fumarate [Tecfidera] 240 MG Capsule.Dr) PO SCH ×2 (08:21→20:03)
[2020-11-03 11:37] LABS: Anisocytosis Slight; Basophils # (A) 0.1 k/uL (0-0.2); Basophils % (A) 0 %; Calcium 8.2 mg/dL (8.4-10.2); Eosinophils # (A) 0.4 k/uL (0-0.7); Eosinophils % (A) 3 %; HCT 39.4 % (34.0-46.0); HGB 11.9 gm/dL (11.4-16.0); Hypochromasia Marked; Lymphocytes # (A) 1.1 k/uL (1.0-4.8); Lymphocytes % (A) 8 %; MCH 23.5 pg (25.0-35.0); MCHC 30.2 g/dL (31.0-37.0); Mean Platelet Volume 6.9; Microcytosis Slight; Monocytes # (A) 0.8 k/uL (0-1.0); Monocytes % (A) 6 %; Neutrophils # (A) 11.2 k/uL (1.3-7.7); Neutrophils % (A) 82 %; Platelet Count 185 k/uL (150-450); Poikilocytosis Moderate; Potassium 3.4 mmol/L (3.5-5.1); RBC 5.05 m/uL (3.80-5.40); WBC 13.7 k/uL (3.8-10.6)
[2020-11-03] MEDS ORDERED: POTASSIUM CHLORIDE ER 20 MEQ TAB.ER PO STA (13:59)
--- NOTE | 2020-11-03 14:00 | P.PN ---
Subjective Progress Note Date: 11/03/20 Follow-up for acute kidney injury. Objective - Vital Signs Vital signs: Vital Signs Temp 99.4 F 11/03/20 08:00 Pulse 101 H 11/03/20 08:00 Resp 22 11/03/20 03:35 BP 97/54 11/03/20 08:00 Pulse Ox 95 11/03/20 08:00 Intake & Output 11/02/20 11/03/20 11/03/20 18:59 06:59 18:59 Intake Total 2650 1200 100 Output Total 2050 Balance 600 1200 100 Weight 79 kg Intake: Intake, IV Titration 50 Amount cefTRIAXone 1 gm In 50 Sodium Chloride 0.9% 50 ml @ 100 mls/hr IVPB Q24HR [facility] Rx#:[id number] Oral 2600 1200 100 Output: Urine 2049 Other: Voiding Method External Catheter External Catheter Diaper # Bowel Movements 1 1 - Exam No acute distress S1-S2 heard Lungs clear No edema - Labs CBC & Chem 7: 11/03/20 11:00 11/03/20 11:00 Labs: Abnormal Lab Results - Last 24 Hours (Table) 11/03/20 11/03/20 Range/Units 11:00 11:00 WBC 13.7 H (3.8-10.6) k/uL MCV 78.0 L (80.0-100.0) fL MCH 23.5 L (25.0-35.0) pg MCHC 30.2 L (31.0-37.0) g/dL RDW 17.0 H (11.5-15.5) % Neutrophils # 11.2 H (1.3-7.7) k/uL Potassium 3.4 L (3.5-5.1) mmol/L Chloride 93 L (98-107) mmol/L Carbon Dioxide 42 H* (22-30) mmol/L BUN 23 H (7-17) mg/dL Creatinine 1.30 H (0.52-1.04) mg/dL Glucose 114 H (74-99) mg/dL Calcium 8.2 L (8.4-10.2) mg/dL Microbiology - Last 24 Hours (Table) 10/29/20 20:08 Blood Culture - Preliminary Blood No Growth after 96 hours Assessment and Plan Assessment: #1 acute kidney injury secondary to CRS. Peak creatinine of 3.4 MG per DL. #2 CK D stage IIIB with a baseline creatinine of 1.5 MG per DL secondary to nephrosclerosis #3 volume overload, improved with diuresis #4 hyperkalemia resolved with diuresis #5 low normal blood pressures #6 diastolic CHF Plan: #1 renal function stable and improving, around baseline. #2 currently on Lasix 40 mg IV, he should torsemide 10 mg by mouth daily starting tomorrow. #3 avoid nephrotoxic agents and hypotensive episodes. #4 midodrine for hemodynamic support #5 replace KCl.
--- NOTE | 2020-11-03 14:03 | P.PN ---
Progress Note - Text Progress Note Date: 11/03/20 History of presenting complaint: This is a pleasant 55-year-old patient of Dr. Beltran./ neurologist Dr. Garsia. Chronic stable medical conditions include chronic kidney disease stage III, chronic medical debility from multiple sclerosis, chronic fibromyalgia, cognitive impairment, hypothyroid, polyneuropathy, bipolar disorder, chronic double incontinence. baseline patient has a motorized chair patient is able to stand and transfer. At baseline she is weak in her arms but able to feed he rself. Recently admitted with acute kidney injury. Improved Now presented with increased weakness tightness. Finding it difficult to do her ADLs. She was discharged on October 20 with a creatinine of 1.49. This occasionally admitted with a creatinine of 3.44. Nephrology was consulted. Acute kidney injury was felt to be from cardiorenal syndrome. Patient was placed on IV Lasix. Right-sided thoracentesis carried out, thousand cc removed. Patient developed abdominal pain. Ultrasound did show gallstones. Seen by Dr. Sunshine from general surgery. Not any intervention at the present time. Today: Oral intake better. Breathing better. On nasal cannula 2 L. On IV Lasix Review of systems: Was done for constitutional, cardiovascular, GI, pulmonary. relevant finding as above Active Medications Acetaminophen (Acetaminophen Tab 500 Mg Tab) 500 mg PO Q6HR PRN PRN Reason: Fever and/ or Pain Last Admin: 11/01/20 14:34 Dose: 500 mg Documented by: Aspirin (Aspirin 81 Mg) 81 mg PO [facility] Last Admin: 11/02/20 20:05 Dose: 81 mg Documented by: Citalopram Hydrobromide (Citalopram Hydrobromide 20 Mg Tab) 40 mg PO [facility] Last Admin: 11/02/20 20:05 Dose: 40 mg Documented by: Donepezil HCl (Donepezil 5 Mg Tab) 5 mg PO [facility] Last Admin: 11/02/20 20:05 Dose: 5 mg Documented by: Gabapentin (Gabapentin 300 Mg Cap) 300 mg PO TID [facility] Last Admin: 11/03/20 08:20 Dose: 300 mg Documented by: Heparin Sodium (Porcine) (Heparin Sodium,Porcine/Pf 5,000 Unit/0.5 Ml Syringe) 5,000 unit SQ Q12HR [facility] Last Admin: 11/03/20 08:20 Dose: 5,000 unit Documented by: Ceftriaxone Sodium 1 gm/ (Sodium Chloride) 50 mls @ 100 mls/hr IVPB Q24HR [facility] Last Admin: 11/03/20 08:20 Dose: 100 mls/hr Documented by: Metoprolol Tartrate (Metoprolol Tartrate 12.5 Mg Tab) 12.5 mg PO BID [facility] Last Admin: 11/03/20 08:20 Dose: 12.5 mg Documented by: Midodrine (Midodrine 5 Mg Tab) 5 mg PO AC-BID [facility] Miscellaneous Information (Pneumonia Protocol Utilized 1 Each Misc) 1 each PO ONCE PRN PRN Reason: Per Protocol Miscellaneous Information (Potassium Replacement Protocol 1 Each Misc) 1 each MISCELLANE DAILY PRN; Protocol PRN Reason: Per Protocol Miscellaneous Information (Magnesium Replacement Protocol 1 Each Misc) 1 each MISCELLANE DAILY PRN; Protocol PRN Reason: Per Protocol Montelukast Sodium (Montelukast 10 Mg Tab) 5 mg PO [facility] Last Admin: 11/02/20 20:06 Dose: 5 mg Documented by: Multivitamins (Multivitamins, Thera 1 Each Tab) 1 each PO DAILY [facility] Last Admin: 11/03/20 08:20 Dose: 1 each Documented by: Nitroglycerin (Nitroglycerin Oint 1 Inch/Gm Packet) 1 inch TOPICAL QID [facility] Last Admin: 11/03/20 13:09 Dose: 1 inch Documented by: Patient's Own ( Dimethyl Fumarate [ Tecfidera] 240 Mg Capsule.Dr) 240 mg PO BID [facility] Last Admin: 11/03/20 08:21 Dose: Not Given Documented by: Ondansetron HCl (Ondansetron 4 Mg/2 Ml Vial) 4 mg IVP Q4HR PRN PRN Reason: Nausea And Vomiting Last Admin: 11/01/20 06:18 Dose: 4 mg Documented by: Prochlorperazine Edisylate (Prochlorperazine Inj 10 Mg/2 Ml Vial) 10 mg IVP Q6H PRN PRN Reason: Nausea And Vomiting Last Admin: 11/01/20 15:15 Dose: 10 mg Documented by: Topiramate (Topiramate 25 Mg Tab) 25 mg PO [facility] Last Admin: 11/02/20 20:05 Dose: 25 mg Documented by: Torsemide (Torsemide 20 Mg Tab) 10 mg PO DAILY [facility] Past medical history: DVT, fibromyalgia, memory impairment, multiple sclerosis, migraines, constipation, back pain, hypothyroid, cervical cancer, carpal tunnel, polyneuropathy, has had hemodialysis in the past chemotherapy treatment for MS, bipolar disorder Social history: Patient does smoke in the past. Lives with her . Family history: Brain cancer Physical examination: VITAL SIGNS: 99.4, 101, 97/54, 95% 2 L GENERAL: Laying in bed, looking more comfortable EYES: Pupils equal. Conjunctiva normal. NECK: JVD not raised; masses not palpable. HEART: First and second heart sounds are normal; no edema. LUNGS: Respiratory rate normal; clear to auscultation. ABDOMEN: Soft, no tenderness, no guarding or rigidity, liver spleen not palpable, no masses palpable. PSYCH: Answering questions appropriately NEUROLOGICAL: Cranial nerves grossly intact; no facial asymmetry, weakness of both the upper and lower extremities, generalized EXTREMITY: Some contracture of the hands INVESTIGATIONS, reviewed in the clinical context: November 03: Hemoglobin 11.9 potassium 3.4 creatinine 1.3 November 02: Potassium 3.7 bun 20 creatinine 1.31 November 01: Potassium 2.7 creatinine 1.47 magnesia 1.4 Acute abdominal series: Nonspecific Abdominal ultrasound: Hepatomegaly, audible gallstones with sludge, mild splenomegaly October 31: WBC 7.6 hemoglobin 10.8 potassium 2.9 creatinine 1.8 date WBC 11.2 hemoglobin 11.1 platelets 207 potassium 4 bun 70 creatinine 2.73 Admission labs: BUN 71 creatinine 3.44 potassium 5.5 Chest x-ray: Pulmonary edema 2-D echocardiogram: EF greater than 55%. Moderate tricuspid regurgitation. Moderate to severe pulmonary hypertension Previous labs: On 10/20/2020: BUN 22 creatinine 1.49 Assessment and plan: -Acute kidney injury, likely cardiorenal syndrome slow improvement On IV Lasix per nephrology. -Discontinued. Demadex added by nephrology -Right pleural effusion secondary to congestive heart failure 1 Thousand cc of right side is thoracentesis done on October 31 -Acute on chronic congestive heart failure from diastolic dysfunction EF greater than 55%-uncontrolled IV Lasix dose cut back. -Acute abdominal pain. Upper abdominal. Possibly from gallstones Abdominal x-ray unremarkable. Abdominal ultrasound showing gallstones with sludge. Seen by Dr. Sunshine. Note for further intervention. -Chronic kidney disease, possible stage III from nephrosclerosis. Baseline creatinine of 1.4 Follow labs -Hyperkalemia secondary to chronic kidney improved Received IV Lasix -Normocytic anemia of chronic kidney disease Follow H&H -Chronic medical debility from underlying multiple sclerosis baseline uses a wheelchair -Multiple sclerosis, with chronic paresis . -Chronic fibromyalgia Pain medications -Hepatomegaly possibly for hepatocellular disease --moderate cognitive impairment On Namenda, Aricept -Hypothyroid Continue with Synthroid -Polyneuropathy secondary to multiple sclerosis -Bipolar disorder On Risperdal, Seroquel, Celexa -Chronic hypoxic respiratory failure on 2 L of oxygen -Acute UTI with cystitis On IV ceftriaxone-completed course Doing much better. IV Lasix to be discontinued.. DC IV ceftriaxone
--- NOTE | 2020-11-03 17:15 | P.PN ---
Subjective Progress Note Date: 11/03/20 CHIEF COMPLAINT: Abdominal pain HISTORY OF PRESENT ILLNESS: The patient is a 55 year old female being seen for abdominal pain. No further abdominal pain. REVIEW OF ORGAN SYSTEMS: No fevers or chills. No recent nausea or vomiting. No shortness of breath at assessment. PHYSICAL EXAM: VITALS: Reviewed CONSTITUTIONAL: Well developed and in no acute distress. EYES: Conjuctivae without sclera icterus. Extraocular movements grossly intact. HEAD, EARS, NOSE, THROAT: Moist buccal mucosa. Head is atraumatic, normocephalic. Hears conversational speech. RESPIRATORY: Non-labored respirations and equal bilateral excursions. No gross wheezes. CARDIOVASCULAR: Regular rate and rhythm. Palpable 2+ radial pulses. ABDOMEN: No peritonitis. NEUROLOGIC: Cranial nerves II through XII grossly intact. No focal or lateralizing signs. PSYCH: Alert to self, place and time CLINCAL LABS: Reviewed. LFTs are normal. WBC normal. Hgb low less than 11.0 ASSESSMENT: 1. Right upper quadrant abdominal pain 2. Chronic kidney disease 3. Cardiorenal syndrome 4. Acute kidney injury PLAN: 1. Conservative management Objective - Vital Signs Vital signs: Vital Signs Temp 99.4 F 11/03/20 08:00 Pulse 96 11/03/20 12:00 Resp 22 11/03/20 03:35 BP 94/53 11/03/20 12:00 Pulse Ox 95 11/03/20 12:00 Intake & Output 11/02/20 11/03/20 11/03/20 18:59 06:59 18:59 Intake Total 2650 1200 100 Output Total 2049 Balance 600 1200 100 Weight 79 kg Intake: Intake, IV Titration 50 Amount cefTRIAXone 1 gm In 50 Sodium Chloride 0.9% 50 ml @ 100 mls/hr IVPB Q24HR [facility] Rx#:[id number] Oral 2600 1200 100 Output: Urine 2049 Other: Voiding Method External Catheter External Catheter Diaper # Bowel Movements 1 1 - Labs CBC & Chem 7: 11/03/20 11:00 11/03/20 11:00 Labs: Abnormal Lab Results - Last 24 Hours (Table) 11/03/20 11/03/20 Range/Units 11:00 11:00 WBC 13.7 H (3.8-10.6) k/uL MCV 78.0 L (80.0-100.0) fL MCH 23.5 L (25.0-35.0) pg MCHC 30.2 L (31.0-37.0) g/dL RDW 17.0 H (11.5-15.5) % Neutrophils # 11.2 H (1.3-7.7) k/uL Potassium 3.4 L (3.5-5.1) mmol/L Chloride 93 L (98-107) mmol/L Carbon Dioxide 42 H* (22-30) mmol/L BUN 23 H (7-17) mg/dL Creatinine 1.30 H (0.52-1.04) mg/dL Glucose 114 H (74-99) mg/dL Calcium 8.2 L (8.4-10.2) mg/dL Microbiology - Last 24 Hours (Table) 10/29/20 20:08 Blood Culture - Preliminary Blood No Growth after 96 hours
[2020-11-03] MEDS ORDERED: MIDODRINE 5 MG TAB PO SCH (17:30)
--- NOTE | 2020-11-03 19:41 | P.PN ---
Subjective Progress Note Date: 11/03/20 This is a 55-year-old female with history of apical ballooning syndrome with full recovery who was admitted to the hospital with fluid overload, pleural effusion and shortness of breath and also acute on chronic renal failure. Echo Cardigan showed normal LV function. Patient had a pleural tap. Overall patient condition is improved. She is feeling much better. Her blood pressure 130/60. Heart rate is about 90 to 100 systolic. Lab values showed hemoglobin of 11.9. Her potassium is 3.4 There is significant improvement in the renal function. Overall patient appears to be stable. She is currently on metoprolol 12.5 mg by mouth twice a day, aspirin, Demadex 10 mg daily. Continue current medical therapy Objective - Vital Signs Vital signs: Vital Signs Temp 99.4 F 11/03/20 08:00 Pulse 109 H 11/03/20 16:00 Resp 22 11/03/20 03:35 BP 113/61 11/03/20 16:00 Pulse Ox 97 11/03/20 16:00 Intake & Output 11/03/20 11/03/20 11/04/20 06:59 18:59 06:59 Intake Total 1200 690 Balance 1200 690 Weight 79 kg Intake: Intake, IV Titration 50 Amount cefTRIAXone 1 gm In 50 Sodium Chloride 0.9% 50 ml @ 100 mls/hr IVPB Q24HR [facility] Rx#:[id number] Oral 1200 640 Other: Voiding Method External Catheter Diaper # Bowel Movements 1 - Exam GENERAL EXAM: Patient is alert and oriented and doesn't appear to be in any acute distress HEENT: Normocephalic. Normal reaction of pupils, equal size, normal range of extraocular motion. No erythema or exudates in the throat. NECK: No masses, no nuchal rigidity. CHEST: No chest wall deformity. LUNGS: Equal air entry with no crackles or wheeze. HEART: S1 and S2 normal with no audible mumurs or gallops. Regular rhythm, femorals equal on both sides.. ABDOMEN: No hepatosplenomegaly, normal bowel sounds, no guarding or rigidity. SKIN: No rashes CENTRAL NERVOUS SYSTEM: No focal deficits. EXTREMITIES: No cyanosis, clubbing or edema. - Labs CBC & Chem 7: 11/03/20 11:00 11/03/20 11:00 Labs: Abnormal Lab Results - Last 24 Hours (Table) 11/03/20 11/03/20 Range/Units 11:00 11:00 WBC 13.7 H (3.8-10.6) k/uL MCV 78.0 L (80.0-100.0) fL MCH 23.5 L (25.0-35.0) pg MCHC 30.2 L (31.0-37.0) g/dL RDW 17.0 H (11.5-15.5) % Neutrophils # 11.2 H (1.3-7.7) k/uL Potassium 3.4 L (3.5-5.1) mmol/L Chloride 93 L (98-107) mmol/L Carbon Dioxide 42 H* (22-30) mmol/L BUN 23 H (7-17) mg/dL Creatinine 1.30 H (0.52-1.04) mg/dL Glucose 114 H (74-99) mg/dL Calcium 8.2 L (8.4-10.2) mg/dL Microbiology - Last 24 Hours (Table) 10/29/20 20:08 Blood Culture - Preliminary Blood No Growth after 96 hours Assessment and Plan (1) Transient left ventricular apical ballooning syndrome Current Visit: Yes Status: Acute Code(s): I51.81 - TAKOTSUBO SYNDROME SNOMED Code(s): 353127697 (2) DONALDO (acute kidney injury) Current Visit: Yes Status: Acute Code(s): N17.9 - ACUTE KIDNEY FAILURE, UNSPECIFIED SNOMED Code(s): 32097844 (3) CHF (congestive heart failure) Current Visit: Yes Status: Acute Code(s): I50.9 - HEART FAILURE, UNSPECIFIED SNOMED Code(s): 52155728 (4) Pleural effusion Current Visit: Yes Status: Acute Code(s): J90 - PLEURAL EFFUSION, NOT ELSEWHERE CLASSIFIED SNOMED Code(s): 23990028 (5) COPD (chronic obstructive pulmonary disease) Current Visit: No Status: Acute Code(s): J44.9 - CHRONIC OBSTRUCTIVE PULMONARY DISEASE, UNSPECIFIED SNOMED Code(s): 32825114 Plan: Continue current medical therapy. Follow up with Dr. KAMERON Santillan
[2020-11-03] MEDS: TOPIRAMATE 25 MG TAB PO SCH (20:23)
[2020-11-03] MEDS: DONEPEZIL 5 MG TAB PO SCH (20:23)
[2020-11-03] MEDS: CITALOPRAM HYDROBROMIDE 20 MG TAB PO SCH (20:23)
[2020-11-03] MEDS: ASPIRIN 81 MG PO SCH (20:23)
[2020-11-03] MEDS: MONTELUKAST 10 MG TAB PO SCH (20:23)
[2020-11-03] MEDS: ACETAMINOPHEN TAB 500 MG TAB PO PRN (20:24)
[2020-11-04] MEDS ORDERED: TORSEMIDE 20 MG TAB PO SCH (09:00)
[2020-11-04 09:18] LABS: Calcium 8.6 mg/dL (8.4-10.2); Potassium 3.9 mmol/L (3.5-5.1)
[2020-11-04 09:38] VITALS: RESP 16; TEMP 98.8
[2020-11-04] MEDS: PATIENT'S OWN (Dimethyl Fumarate [Tecfidera] 240 MG Capsule.Dr) PO SCH (09:43)
[2020-11-04] MEDS: MULTIVITAMINS, THERA 1 EACH TAB PO SCH (09:47)
[2020-11-04] MEDS: METOPROLOL TARTRATE 12.5 MG TAB PO SCH (09:47)
[2020-11-04] MEDS: GABAPENTIN 300 MG CAP PO SCH (09:47)
[2020-11-04] MEDS: HEPARIN SODIUM,PORCINE/PF 5,000 UNIT/0.5 ML SYRINGE SQ SCH (09:47)
[2020-11-04] MEDS ORDERED: NYSTATIN 100,000 UNIT/GM POWD 15 GM TOPICAL SCH (11:45)
[2020-11-04 11:48] VITALS: BP 100/57; PULSE 97
[2020-11-04 12:09] LABS: Glucose,Whole Blood 107 mg/dL (75-99)
--- NOTE | 2020-11-04 12:37 | P.PN ---
Subjective Progress Note Date: 11/04/20 CHIEF COMPLAINT: Abdominal pain HISTORY OF PRESENT ILLNESS: Patient is admitted to the hospital with CHF exacerbation right-sided pleural effusion status post thoracentesis and acute kidney injury. Surgical service is following regards to patient's abdominal pain. She denies any abdominal pain. Denies any nausea or vomiting. She is tolerating diet. Afebrile. WBC 13.7 from yesterday creatinine 1.16 PHYSICAL EXAM: VITAL SIGNS: Reviewed GENERAL: Well-developed in no acute distress. HEENT: No sclera icterus. Extraocular movements grossly intact. Moist buccal mucosa. Head is atraumatic, normocephalic. Hears conversational speech. No nasal drainage. NECK: Supple without lymphadenopathy. CHEST: Non-labored respirations and equal bilateral excursions. CARDIOVASCULAR: Palpable 2+ radial pulses. ABDOMEN: Soft. Nondistended. Mild right upper quadrant tenderness with palpation MUSCULOSKELETAL: No clubbing or cyanosis. NEUROLOGIC: No focal or lateralizing signs. Cranial nerves II through XII grossly intact. PSYCH: Appropriate affect. Alert and oriented to person, place and time. SKIN: Well perfused. Good skin turgor. ASSESSMENT: 1. Right upper quadrant abdominal pain improved 2. Chronic kidney disease 3. Cardiorenal syndrome 4. Acute kidney injury PLAN: -Continue low-fat diet -Patient is stable for discharge from surgical standpoint -Continue supportive care Physician Manager Convention note has been reviewed by physician. Signing provider agrees with the documented findings, assessment, and plan of care. Objective - Vital Signs Vital signs: Vital Signs Temp 98.8 F 11/04/20 08:00 Pulse 97 11/04/20 11:47 Resp 16 11/04/20 11:47 BP 100/57 11/04/20 11:47 Pulse Ox 95 11/04/20 11:47 Intake & Output 11/03/20 11/04/20 11/04/20 18:59 06:59 18:59 Intake Total 690 1280 Output Total 2 2 Balance 690 -2 1278 Weight 78 kg Intake: Intake, IV Titration 50 Amount cefTRIAXone 1 gm In 50 Sodium Chloride 0.9% 50 ml @ 100 mls/hr IVPB Q24HR [facility] Rx#:[id number] Oral 640 1280 Output: Stool 2 2 Other: Voiding Method Diaper Diaper Diaper # Voids 1 1 # Bowel Movements 1 - Labs CBC & Chem 7: 11/03/20 11:00 11/04/20 07:45 Labs: Abnormal Lab Results - Last 24 Hours (Table) 11/04/20 11/04/20 Range/Units 07:45 11:40 Carbon Dioxide 36 H (22-30) mmol/L BUN 19 H (7-17) mg/dL Creatinine 1.16 H (0.52-1.04) mg/dL POC Glucose (mg/dL) 107 H (75-99) mg/dL Microbiology - Last 24 Hours (Table) 10/29/20 20:08 Blood Culture - Preliminary Blood No Growth after 120 hours
--- NOTE | 2020-11-04 14:04 | PN ---
PROGRESS NOTE Patient is seen for followup for acute kidney injury. Her renal function has improved. There are plans for possible discharge today. Overall, patient states she is feeling better. PHYSICAL EXAMINATION: This morning blood pressure was 100/57, heart rate 106 per minute. She is afebrile. EXAMINATION OF THE HEART: S1, S2. EXAMINATION OF THE LUNGS: Bilateral breath sounds are heard. Abdomen is soft, nontender. Examination of lower extremities shows no evidence of edema. TOBACCO STRIPPER exam grossly intact. LABS: Labs show sodium 141, potassium 3.9, BUN 19, creatinine 1.16, hemoglobin 11.9 g/dL. ASSESSMENT: 1. Acute kidney injury mostly prerenal currently improved. There was an element of cardiorenal syndrome as well. Creatinine had peaked at 3.4 mg/dL. 2. Chronic kidney disease stage 3B. Baseline creatinine about 1.5 secondary to nephrosclerosis. 3. Hyperkalemia associated with acute kidney injury, now improved with diuresis. 4. Diastolic congestive heart failure. 5. Volume overload currently improved. PLAN: Continue with oral diuretics and followup as outpatient for CKD. MMODL / IJN: [id number] /
--- NOTE | 2020-11-04 15:06 | P.PN ---
Subjective HISTORY OF PRESENTING ILLNESS This is a pleasant 55-year-old female past medical history significant for Takotsubo in the past with full recovery, DVT, former smoker, Dementia She used to follow in the office with Dr. Santillan. We have been asked to see in consultation for congestive heart failure and elevated troponin. Patient is seen and examined in the emergency department, presents with generalized fatigue, worsening swelling and lower extremities. Denies history of OR, Stroke, Diabetes. Patient was on Hemodialysis about 2 years ago. Laboratory data reviewed, BNP 23,800, trop 0.07-->0.115-->0.10. covid-19 negative. EKG reveals sinus tachycardia, heart rate 11, no significant STT wave abnormalities. Chest xray Right sided consolidation and bilateral pleural effusion. Heart appears enlarged. Right chest ultrasound- right pleural effusion Ultrasound of the kidneys- Splenomegaly, bilateral renal cortical thinning renal cystic changes in the left kidney. Last cardiac catheterization in 2013- no significant obstructive CAD Most recent echo 2019EF between 5055 percent, mild MR, mild TR, no evidence of pulmonary hypertension. Echo 2013 from outside hospital revealed- 35-40%, severe MR, small pericardial effusion, Question of diastolic dysfucntion with moderate tricuspid insufficiency. Repeat Echocardiogram EF greater than 55%, right ventricular systolic pressure is mildly impaired, mild MR, moderate TR, moderate to severe pulmonary hypertension 10/31/20: Patient underwent right sided thoracentesis with 1 L revealed fluid removed 11/04/20 Patient seen and examined at bedside, no acute distress. Blood pressure 100/57, heart rate 90-100s, afebrile maintaining oxygen saturation is 95% on 2 L nasal cannula. Laboratory data reviewed sodium 141, potassium 3.9, renal function improved serum creatinine 1.16 patient currently being maintained on aspirin 81 mg daily, metoprolol tartrate 12.5 mg twice a GENERAL: Well-appearing, well-nourished and in no acute distress. NECK: Supple without JVD or thyromegaly. LUNGS: Breath sounds clear to auscultation bilaterally. Respiration equal and unlabored. No wheezes, rales or rhonchi. HEART: Regular rate and rhythm without murmurs, rubs or gallops. S1 and S2 heard. EXTREMITIES: Normal range of motion, 2+ lower extremity edema No clubbing or cyanosis. Peripheral pulses intact. ASSESSMENT Acute on Chronic Kidney Disease Acute on Chronic Diastolic Heart Failure History of Takotsubo in the past with full recovery Hypotension Hypokalemia- being replaced Hypomagnesmia - being replaced Metabolic acidosis PLAN -Patient being discharged today -Increase metoprolol tartrate 25 mg TID -Continue current medical therapy -Patient to follow-up with Dr. Santillan in the office Nurse Practitioner note has been reviewed, I agree with a documented findings and plan of care. Patient was seen and examin Objective - Vital Signs Vital signs: Vital Signs Temp 98.8 F 11/04/20 08:00 Pulse 97 11/04/20 11:47 Resp 16 11/04/20 11:47 BP 100/57 11/04/20 11:47 Pulse Ox 95 11/04/20 11:47 Intake & Output 11/03/20 11/04/20 11/04/20 18:59 06:59 18:59 Intake Total 690 1520 Output Total 2 2 Balance 690 -2 1518 Weight 78 kg Intake: Intake, IV Titration 50 Amount cefTRIAXone 1 gm In 50 Sodium Chloride 0.9% 50 ml @ 100 mls/hr IVPB Q24HR [facility] Rx#:[id number] Oral 640 1520 Output: Stool 2 2 Other: Voiding Method Diaper Diaper Diaper # Voids 1 1 # Bowel Movements 1 - Labs CBC & Chem 7: 11/03/20 11:00 11/04/20 07:45 Labs: Abnormal Lab Results - Last 24 Hours (Table) 11/04/20 11/04/20 Range/Units 07:45 11:40 Carbon Dioxide 36 H (22-30) mmol/L BUN 19 H (7-17) mg/dL Creatinine 1.16 H (0.52-1.04) mg/dL POC Glucose (mg/dL) 107 H (75-99) mg/dL Microbiology - Last 24 Hours (Table) 10/29/20 20:08 Blood Culture - Preliminary Blood No Growth after 120 hours
[2020-11-04] MEDS ORDERED: METOPROLOL TARTRATE 25 MG TAB PO SCH (16:00)
--- NOTE | 2020-11-04 19:43 | P.DS ---
Providers Date of admission: 10/29/20 18:09 Expected date of discharge: 11/04/20 Attending physician: Kyle Delatorre Consults: 10/29/20 18:09 Consult Physician Routine Consulting Provider: Jeff Little Consult Reason/Comments: r effusion Do you want consulting provider notified?: Yes Consult Physician Routine Consulting Provider: Tim Brumfield Consult Reason/Comments: андрей Do you want consulting provider notified?: Yes 10/29/20 18:12 Consult Physician Urgent Consulting Provider: Maritza Escalona Consult Reason/Comments: r effusion, chf Do you want consulting provider notified?: Yes 11/01/20 10:00 Consult Physician Urgent Consulting Provider: Miesha Neil Consult Reason/Comments: abd pain Do you want consulting provider notified?: Yes Primary care physician: [facility] Course: History of presenting complaint: This is a pleasant 55-year-old patient of Dr. Beltran./ neurologist Dr. Garsia. Chronic stable medical conditions include chronic kidney disease stage III, chronic medical debility from multiple sclerosis, chronic fibromyalgia, cognitive impairment, hypothyroid, polyneuropathy, bipolar disorder, chronic double incontinence. baseline patient has a motorized chair patient is able to stand and transfer. At baseline she is weak in her arms but able to feed herself. Recently admitted with acute kidney injury. Improved Now presented with increased weakness tightness. Finding it difficult to do her ADLs. She was discharged on October 20 with a creatinine of 1.49. This occasionally admitted with a creatinine of 3.44. Nephrology was consulted. Acute kidney injury was felt to be from cardiorenal syndrome. Patient was placed on IV Lasix. Right-sided thoracentesis carried out, 1000 cc removed. Also found to have acute on chronic congestive heart failure exacerbation from diastolic dysfunction. Patient developed abdominal pain. Ultrasound did show gallstones. Seen by Dr. Sunshine from general surgery. Not any intervention at the present time. Abdominal pain resolved. Patient completed course of IV ceftriaxone for UTI with cystitis. Today: Changed from IV Lasix to Demadex. Eating well. Breathing stable. Back at the baseline oxygen requirement of 2 L. Care was discussed with the patient. Questions answered. Consultation: Nephrology Dr. Sunshine from [facility] Past medical history: DVT, fibromyalgia, memory impairment, multiple sclerosis, migraines, constipation, back pain, hypothyroid, cervical cancer, carpal tunnel, polyneuropathy, has had hemodialysis in the past chemotherapy treatment for MS, bipolar disorder Social history: Patient does smoke in the past. Lives with her . Family history: Brain cancer Physical examination: VITAL SIGNS: 97, 16, 100/57, 95% on 2 L GENERAL: Laying in bed, comfortable EYES: Pupils equal. Conjunctiva normal. NECK: JVD not raised; masses not palpable. HEART: First and second heart sounds are normal; no edema. LUNGS: Respiratory rate normal; clear to auscultation. ABDOMEN: Soft, no tenderness, no guarding or rigidity, liver spleen not palpable, no masses palpable. PSYCH: Answering questions appropriately NEUROLOGICAL: Cranial nerves grossly intact; no facial asymmetry, weakness of both the upper and lower extremities, generalized EXTREMITY: Some contracture of the hands INVESTIGATIONS, reviewed in the clinical context: November 04: Potassium 3.9 creatinine 1.16 BUN 19 bicarbonate 36 November 01: Potassium 2.7 creatinine 1.47 magnesia 1.4 Acute abdominal series: Nonspecific Abdominal ultrasound: Hepatomegaly, audible gallstones with sludge, mild splenomegaly October 31: WBC 7.6 hemoglobin 10.8 potassium 2.9 creatinine 1.8 date WBC 11.2 hemoglobin 11.1 platelets 207 potassium 4 bun 70 creatinine 2.73 Admission labs: BUN 71 creatinine 3.44 potassium 5.5 Chest x-ray: Pulmonary edema 2-D echocardiogram: EF greater than 55%. Moderate tricuspid regurgitation. Moderate to severe pulmonary hypertension Previous labs: On 10/20/2020: BUN 22 creatinine 1.49 Assessment and plan: -Acute kidney injury, likely cardiorenal syndrome -improved On IV Lasix per nephrology. -Discontinued. Demadex started -Right pleural effusion secondary to congestive heart failure 1 Thousand cc of right side is thoracentesis done on October 31 -Acute on chronic congestive heart failure from diastolic dysfunction EF greater than 55%-improved IV Lasix -changed to Demadex -Acute abdominal pain. Upper abdominal. Possibly from gallstones Abdominal x-ray unremarkable. Abdominal ultrasound showing gallstones with sludge. Seen by Dr. Sunshine. Not for any further intervention -Chronic kidney disease, possible stage III from nephrosclerosis. Baseline creatinine of 1.4 Follow labs -Hyperkalemia secondary to chronic kidney improved Received IV Lasix -Normocytic anemia of chronic kidney disease Follow H&H -Chronic medical debility from underlying multiple sclerosis baseline uses a wheelchair -Multiple sclerosis, with chronic paresis . -Chronic fibromyalgia Pain medications -Hepatomegaly possibly for hepatocellular disease --moderate cognitive impairment On Namenda, Aricept -Hypothyroid Continue with Synthroid -Polyneuropathy secondary to multiple sclerosis -Bipolar disorder On Risperdal, Seroquel, Celexa -Chronic hypoxic respiratory failure on 2 L of oxygen -Acute UTI with cystitis On IV ceftriaxone-completed course Disposition: Home Plan - Discharge Summary Discharge Rx Participant: No New Discharge Prescriptions: New Torsemide [Demadex] 10 mg PO DAILY #30 tab Potassium Chloride 10 meq PO DAILY #30 tablet.er Nystatin [Nystop] 1 applic TOPICAL BID #60 gm Continue Aspirin EC [Ecotrin Low Dose] 81 mg PO HS Donepezil [Aricept] 5 mg PO HS Citalopram Hydrobromide [CeleXA] 40 mg PO HS Dimethyl Fumarate [Tecfidera] 240 mg PO BID QUEtiapine FUMARATE [SEROquel] 75 mg PO HS Gabapentin [Neurontin] 300 mg PO TID PRN PRN Reason: nerve pain Montelukast [Singulair] 5 mg PO HS Multivitamins, Thera [Multivitamin (formulary)] 1 tab PO DAILY Memantine [Namenda] 5 mg PO DAILY Metoprolol Tartrate [Lopressor] 12.5 mg PO BID #0 Diazepam [Valium] 5 mg PO BID PRN PRN Reason: Anxiety Topiramate [Topamax] 25 mg PO HS Discontinued risperiDONE [RisperDAL] 0.5 mg PO BID Discharge Medication List Aspirin EC [Ecotrin Low Dose] 81 mg PO HS 11/02/13 [History] Citalopram Hydrobromide [CeleXA] 40 mg PO HS 12/14/18 [History] Donepezil [Aricept] 5 mg PO HS 12/14/18 [History] Dimethyl Fumarate [Tecfidera] 240 mg PO BID 02/07/19 [History] Gabapentin [Neurontin] 300 mg PO TID PRN 09/24/19 [History] Montelukast [Singulair] 5 mg PO HS 09/24/19 [History] QUEtiapine FUMARATE [SEROquel] 75 mg PO HS 03/22/20 [History] Diazepam [Valium] 5 mg PO BID PRN 10/17/20 [History] Memantine [Namenda] 5 mg PO DAILY 10/17/20 [History] Multivitamins, Thera [Multivitamin (formulary)] 1 tab PO DAILY 10/17/20 [History] Topiramate [Topamax] 25 mg PO HS 10/17/20 [History] Metoprolol Tartrate [Lopressor] 12.5 mg PO BID #0 10/20/20 [Rx] Nystatin [Nystop] 1 applic TOPICAL BID #60 gm 11/04/20 [Rx] Potassium Chloride 10 meq PO DAILY #30 tablet.er 11/04/20 [Rx] Torsemide [Demadex] 10 mg PO DAILY #30 tab 11/04/20 [Rx] Follow up Appointment(s)/Referral(s): Micah Santillan MD [STAFF PHYSICIAN] - 2 Weeks (Office will contact you with appointment ) Abhishek Beltran DO [Primary Care Provider] - 11/06/20 11:00 am (11am 11/06/20 ) Miesha Neil MD [STAFF PHYSICIAN] - 11/12/20 3:45 pm [facility], [NON-STAFF] - Tim Brumfield DO [STAFF PHYSICIAN] - 11/18/20 10:20 am (Over the phone. Office will call you) Patient Instructions/Handouts: Heart Failure (GEN), Acute Kidney Injury (GEN) Discharge Disposition: HOME SELF-CARE
== END 2020-11-04 16:15 | disposition home health service (06) | DRG 682 ==
LOC: EC 15:45 → 3SCARD 18:09
PROVIDERS: ADMIT Hospitalist; ATTEND Hospitalist
PROC: 0W993ZZ Drainage of Right Pleural Cavity, Percutaneous Approach (ICD-10-PCS; principal; 2020-10-31)
DX: N17.9 Acute kidney failure, unspecified (principal); I50.33 Acute on chronic diastolic (congestive) heart failure; J96.21 Acute and chronic respiratory failure with hypoxia; J18.9 Pneumonia, unspecified organism; J91.8 Pleural effusion in other conditions classified elsewhere; E87.2 Acidosis; I13.0 Hypertensive heart and chronic kidney disease with heart failure and stage 1 through stage 4 chronic kidney disease, or unspecified chronic kidney disease; E87.1 Hypo-osmolality and hyponatremia; J44.0 Chronic obstructive pulmonary disease with (acute) lower respiratory infection; N30.00 Acute cystitis without hematuria; J98.11 Atelectasis; D63.1 Anemia in chronic kidney disease; I27.20 Pulmonary hypertension, unspecified; I95.9 Hypotension, unspecified; F03.90 Unspecified dementia, unspecified severity, without behavioral disturbance, psychotic disturbance, mood disturbance, and anxiety; G83.9 Paralytic syndrome, unspecified; G35 Multiple sclerosis; I73.9 Peripheral vascular disease, unspecified; F31.9 Bipolar disorder, unspecified; N18.32 Chronic kidney disease, stage 3b; Z20.822 Contact with and (suspected) exposure to COVID-19; R16.2 Hepatomegaly with splenomegaly, not elsewhere classified; E87.5 Hyperkalemia; I08.1 Rheumatic disorders of both mitral and tricuspid valves; E83.42 Hypomagnesemia; E87.6 Hypokalemia; G62.9 Polyneuropathy, unspecified; M79.7 Fibromyalgia; E03.9 Hypothyroidism, unspecified; F41.9 Anxiety disorder, unspecified; R32 Unspecified urinary incontinence; G56.00 Carpal tunnel syndrome, unspecified upper limb; T50.2X5A Adverse effect of carbonic-anhydrase inhibitors, benzothiadiazides and other diuretics, initial encounter; K80.20 Calculus of gallbladder without cholecystitis without obstruction; E05.90 Thyrotoxicosis, unspecified without thyrotoxic crisis or storm; K59.00 Constipation, unspecified; M54.9 Dorsalgia, unspecified; R19.7 Diarrhea, unspecified; Z99.81 Dependence on supplemental oxygen; Z79.82 Long term (current) use of aspirin; Z79.899 Other long term (current) drug therapy; Z86.718 Personal history of other venous thrombosis and embolism; Z86.69 Personal history of other diseases of the nervous system and sense organs; Z87.440 Personal history of urinary (tract) infections; Z90.89 Acquired absence of other organs; Z98.51 Tubal ligation status; Z85.41 Personal history of malignant neoplasm of cervix uteri; Z92.21 Personal history of antineoplastic chemotherapy; Z87.891 Personal history of nicotine dependence; Z86.19 Personal history of other infectious and parasitic diseases; Z99.3 Dependence on wheelchair; Z74.01 Bed confinement status; Z88.8 Allergy status to other drugs, medicaments and biological substances; Z91.02 Food additives allergy status; Z80.8 Family history of malignant neoplasm of other organs or systems; Z80.3 Family history of malignant neoplasm of breast
CPT/HCPCS: 36415; 70450; 71045; 71046; 74022; 76604; 76700; 76770; 80048; 80053; 81001; 82533; 82550; 82570; 83605; 83735; 83880; 84100; 84132; 84300; 84439; 84443; 84481; 84484; 85025; 85027; 85610; 85730; 86769; 87040; 87636; 93005; 93306; 94760; 99285

== ENCOUNTER 2022-03-23 12:14 | Emergency (ER) | payer BC ==
[2022-03-23 12:35] VITALS: TEMP 98.3
[2022-03-23 13:48] LABS: Anisocytosis Slight; Basophils % (A) 1 %; Eosinophils # (A) 0.2 k/uL (0-0.7); Eosinophils % (A) 4 %; HCT 49.8 % (34.0-46.0); HGB 15.3 gm/dL (11.4-16.0); Hypochromasia Marked; Lymphocytes # (A) 0.9 k/uL (1.0-4.8); Lymphocytes % (A) 14 %; MCH 24.9 pg (25.0-35.0); MCHC 30.8 g/dL (31.0-37.0); MCV 80.7 fL (80.0-100.0); Mean Platelet Volume 8.4; Monocytes # (A) 0.5 k/uL (0-1.0); Monocytes % (A) 7 %; Neutrophils # (A) 4.8 k/uL (1.3-7.7); Neutrophils % (A) 73 %; Platelet Count 153 k/uL (150-450); RBC 6.17 m/uL (3.80-5.40); RDW 17.1 % (11.5-15.5); WBC 6.6 k/uL (3.8-10.6)
[2022-03-23 13:56] LABS: INR 0.9 (<1.2); Partial Thromboplastin Time 23.7 sec (22.0-30.0); Prothrombin Time 10.2 sec (9.0-12.0)
[2022-03-23 13:57] LABS: Albumin 4.1 g/dL (3.5-5.0); Magnesium 1.5 mg/dL (1.6-2.3); Potassium 3.9 mmol/L (3.5-5.1); Total Bilirubin 1.2 mg/dL (0.2-1.3); Total Protein 6.9 g/dL (6.3-8.2)
--- NOTE | 2022-03-23 14:08 | XR ---
EXAMINATION TYPE: XR chest 2V DATE OF EXAM: 03/23/2022 COMPARISON: Chest x-ray 10/31/2020 HISTORY: Difficulty breathing and shortness of breath TECHNIQUE: Frontal and lateral views of the chest are obtained. FINDINGS: Patient is rotated. There is no focal air space opacity, pleural effusion, or pneumothorax seen. The cardiac silhouette size is upper limits of normal. The osseous structures are intact. IMPRESSION: No acute cardiopulmonary process.
[2022-03-23] MEDS ORDERED: IPRATROPIUM-ALBUTEROL 3 ML NEB INHALATION STA (14:48)
[2022-03-23] MEDS ORDERED: methylPREDNISolone SOD SUCCI 125 MG/2 ML VIAL IV STA (14:48)
[2022-03-23] MEDS ORDERED: SODIUM CHLORIDE 0.9% 1,000 ML IV ONE (14:48)
--- NOTE | 2022-03-23 15:03 | ED ---
General Adult HPI - General Chief complaint: Upper Respiratory Infection Stated complaint: cough, CHF Time Seen by Provider: 03/23/22 13:00 Source: patient Mode of arrival: wheelchair Limitations: no limitations - History of Present Illness Initial comments: 57-year-old female past history of multiple sclerosis, COPD, cervical cancer who presents to the emergency department with a cough. Patient normally wears 2 L of oxygen at night. States that she has had a cough for the past several days. She admits to nonproductive cough. No fevers or chills. No sick contacts with similar symptoms. She does not have a nebulizer or an inhaler. She denies any chest pain. Denies shortness of breath. Has not been wearing her oxygen. Does admit to a history of congestive heart failure. No peripheral swelling. Patient does not take a diuretic. No other alleviating, precipitating of modifying factors - Related Data Home Medications Medication Instructions Recorded Confirmed Aspirin EC [Ecotrin Low Dose] 81 mg PO DAILY 11/02/13 03/23/22 Citalopram Hydrobromide [CeleXA] 40 mg PO HS 12/14/18 03/23/22 Donepezil [Aricept] 5 mg PO HS 12/14/18 03/23/22 Gabapentin [Neurontin] 300 mg PO TID 09/24/19 03/23/22 QUEtiapine FUMARATE [SEROquel] 75 mg PO HS 09/24/19 03/23/22 Memantine [Namenda] 5 mg PO HS 10/17/20 03/23/22 Topiramate [Topamax] 25 mg PO HS 10/17/20 03/23/22 diazePAM [Valium] 7.5 mg PO BID PRN 10/17/20 03/23/22 Ascorbic Acid [Vitamin C] 1,000 mg PO DAILY 03/23/22 03/23/22 Baclofen 10 mg PO TID PRN 03/23/22 03/23/22 Cholecalciferol [Vitamin D3 (25 25 mcg PO DAILY 03/23/22 03/23/22 Mcg = 1000 Iu)] Ofatumumab [Kesimpta Pen] 20 mg SQ Q28D 03/23/22 03/23/22 Phenyleph/Acetaminophn/Doxylam 1 cap PO BID PRN 03/23/22 03/23/22 [Vicks Dayquil-Nyquil Sinex Cap] Zinc Gluconate [Zinc] 50 mg PO DAILY 03/23/22 03/23/22 guaiFENesin-DM 600/30MG [Mucinex 1 tab PO BID PRN 03/23/22 03/23/22 Dm] Previous Rx's Medication Instructions Recorded Albuterol Sulfate [Proair Hfa] 1 - 2 puff INHALATION Q4HR PRN 03/23/22 #8.5 gm Doxycycline Hyclate 100 mg PO BID 1 Days #20 tab 03/23/22 methylPREDNISolone [Medrol Dose 0 mg PO DIRECTED #1 packet 03/23/22 Pack] Allergies Allergy/AdvReac Type Severity Reaction Status Date / Time blue dye Allergy Rash/Hives Verified 03/23/22 15:01 COVID-19 (SARS-CoV-2) Allergy Anaphylaxis Verified 03/23/22 15:01 vaccine, keren Neuromuscular Blockers, AdvReac Nausea & Verified 03/23/22 15:01 Steroidal Vomiting [Steroidal Neuromuscular Blockers] Review of Systems ROS Statement: Those systems with pertinent positive or pertinent negative responses have been documented in the HPI. ROS Other: All systems not noted in ROS Statement are negative. Past Medical History Past Medical History: Cancer, Deep Vein Thrombosis (DVT), Fibromyalgia, Memory Impairment, Pneumonia, Renal Disease Additional Past Medical History / Comment(s): MIGRANES, MULTIPLE SCLEROSIS, BRAIN LESIONS, PVD, SOB, CONSTIPATION, DIARRHEA, KIDNEY INFECTION, UTI, BACK PAIN, ANEMIA, HYPERTHYROID, CERVICAL CA, CARPAL TUNNEL,septicemia, polyneuropathy ,HADHEMODIALYSIS TWICE, HAD CHEMOTHERAPY FOR TX OF MS, MOTORIZED CHAIR-ABLE TO STAND TO TRANSFER. History of Any Multi-Drug Resistant Organisms: None Reported Past Surgical History: Tonsillectomy, Tubal Ligation Additional Past Surgical History / Comment(s): DIALYSIS CATHETER (REMOVED), BIOPSY (UNKNOWN TYPE), CRYO SURGERY FOR CERVICAL CA, D&C. Past Anesthesia/Blood Transfusion Reactions: No Reported Reaction Past Psychological History: Anxiety, Bipolar, Depression Smoking Status: Former smoker Past Alcohol Use History: None Reported Past Drug Use History: None Reported - Past Family History Father Family Medical History: Cancer Additional Family Medical History / Comment(s): BRAIN Mother Family Medical History: Cancer Additional Family Medical History / Comment(s): BREAST General Exam Limitations: no limitations General appearance: alert, in no apparent distress Head exam: Present: atraumatic, normocephalic, normal inspection Eye exam: Present: normal appearance, PERRL, EOMI. Absent: scleral icterus, conjunctival injection, periorbital swelling ENT exam: Present: normal exam, mucous membranes moist Neck exam: Present: normal inspection. Absent: tenderness, meningismus, lymphadenopathy Respiratory exam: Present: decreased breath sounds. Absent: respiratory distress, wheezes, rales, rhonchi, stridor Cardiovascular Exam: Present: regular rate, normal rhythm, normal heart sounds. Absent: systolic murmur, diastolic murmur, rubs, gallop, clicks GI/Abdominal exam: Present: soft, normal bowel sounds. Absent: distended, tenderness, guarding, rebound, rigid Extremities exam: Present: normal inspection, full ROM, normal capillary refill. Absent: tenderness, pedal edema, joint swelling, calf tenderness Back exam: Present: normal inspection Neurological exam: Present: alert, oriented X3, CN II-XII intact Psychiatric exam: Present: normal affect, normal mood Skin exam: Present: warm, dry, intact, normal color. Absent: rash Course Vital Signs 03/23/22 03/23/22 03/23/22 12:31 13:25 14:30 Temperature 98.3 F Pulse Rate 100 99 85 Respiratory 20 20 20 Rate Blood Pressure 84/60 94/81 107/70 O2 Sat by Pulse 92 L 93 L 91 L Oximetry 03/23/22 03/23/22 03/23/22 15:00 15:15 15:25 Temperature Pulse Rate 98 95 84 Respiratory 16 Rate Blood Pressure 103/70 O2 Sat by Pulse 89 L Oximetry 03/23/22 03/23/22 15:48 16:05 Temperature Pulse Rate 96 86 Respiratory 22 20 Rate Blood Pressure 106/65 O2 Sat by Pulse 75 L 77 L Oximetry EKG Findings - EKG Comments: EKG Findings:: EKG demonstrates sinus rhythm with a rate of 82. Urine of 150. QRS 93. QTC of 382. Inverted T waves with ST depression in lead V3. No acute ST segment elevations Medical Decision Making - Medical Decision Making Upon arrival patient is placed in room 27. A thorough history and physical exam is performed. IV access is established. Laboratory studies were conducted. Patient has slight андрей with a creatinine of 1.6. She is given intravenous fluids that she reports to decreased oral intake. Covid is negative. Influenza is negative. Chest x-ray demonstrates no acute process. Patient does have diffuse wheeze on physical exam and is given a DuoNeb breathing treatment. Patient also provided with a dose of steroids. I did discuss diagnosis, differential and treatment options. Patient wants to go home. Instructed that she needs to go home and where her 2 L of oxygen as they are instructed. She'll be placed on doxycycline and a Medrol Dosepak. Take the medications as directed. Follow up with her primary care doctor to 4 days and return should her pulse ox read below 88%. Patient understood and was discharged home in stable condition - Lab Data Result diagrams: 03/23/22 13:29 03/23/22 13:29 Lab Results 03/23/22 03/23/22 03/23/22 Range/Units 13:29 13:29 13:29 WBC 6.6 (3.8-10.6) k/uL RBC 6.17 H (3.80-5.40) m/uL Hgb 15.3 (11.4-16.0) gm/dL Hct 49.8 H (34.0-46.0) % MCV 80.7 (80.0-100.0) fL MCH 24.9 L (25.0-35.0) pg MCHC 30.8 L (31.0-37.0) g/dL RDW 17.1 H (11.5-15.5) % Plt Count 153 (150-450) k/uL MPV 8.4 Neutrophils % 73 % Lymphocytes % 14 % Monocytes % 7 % Eosinophils % 4 % Basophils % 1 % Neutrophils # 4.8 (1.3-7.7) k/uL Lymphocytes # 0.9 L (1.0-4.8) k/uL Monocytes # 0.5 (0-1.0) k/uL Eosinophils # 0.2 (0-0.7) k/uL Basophils # 0.0 (0-0.2) k/uL Hypochromasia Marked Anisocytosis Slight PT 10.2 (9.0-12.0) sec INR 0.9 (<1.2) APTT 23.7 (22.0-30.0) sec Sodium 139 (137-145) mmol/L Potassium 3.9 (3.5-5.1) mmol/L Chloride 103 (98-107) mmol/L Carbon Dioxide 26 (22-30) mmol/L Anion Gap 10 mmol/L BUN 17 (7-17) mg/dL Creatinine 1.69 H (0.52-1.04) mg/dL Est GFR (CKD-EPI)AfAm 38 (>60 ml/min/1.73 sqM) Est GFR (CKD-EPI)NonAf 33 (>60 ml/min/1.73 sqM) Glucose 100 H (74-99) mg/dL Plasma Lactic Acid Dion (0.7-2.0) mmol/L Calcium 9.0 (8.4-10.2) mg/dL Magnesium 1.5 L (1.6-2.3) mg/dL Total Bilirubin 1.2 (0.2-1.3) mg/dL AST 32 (14-36) U/L ALT 15 (4-34) U/L Alkaline Phosphatase 95 (38-126) U/L Troponin I (0.000-0.034) ng/mL NT-Pro-B Natriuret Pep pg/mL Total Protein 6.9 (6.3-8.2) g/dL Albumin 4.1 (3.5-5.0) g/dL Urine Color Urine Appearance (Clear) Urine pH (5.0-8.0) Ur Specific [place] (1.001-1.035) Urine Protein (Negative) Urine Glucose (UA) (Negative) Urine Ketones (Negative) Urine Blood (Negative) Urine Nitrite (Negative) Urine Bilirubin (Negative) Urine Urobilinogen (<2.0) mg/dL Ur Leukocyte Esterase (Negative) Urine RBC (0-5) /hpf Urine WBC (0-5) /hpf Ur Squamous Epith Cells (0-4) /hpf Urine Bacteria (None) /hpf Urine Mucus (None) /hpf Coronavirus (PCR) (Not Detectd) Influenza Type A RNA (Not Detectd) Influenza Type B (PCR) (Not Detectd) 03/23/22 03/23/22 03/23/22 Range/Units 13:29 13:29 13:29 WBC (3.8-10.6) k/uL RBC (3.80-5.40) m/uL Hgb (11.4-16.0) gm/dL Hct (34.0-46.0) % MCV (80.0-100.0) fL MCH (25.0-35.0) pg MCHC (31.0-37.0) g/dL RDW (11.5-15.5) % Plt Count (150-450) k/uL MPV Neutrophils % % Lymphocytes % % Monocytes % % Eosinophils % % Basophils % % Neutrophils # (1.3-7.7) k/uL Lymphocytes # (1.0-4.8) k/uL Monocytes # (0-1.0) k/uL Eosinophils # (0-0.7) k/uL Basophils # (0-0.2) k/uL Hypochromasia Anisocytosis PT (9.0-12.0) sec INR (<1.2) APTT (22.0-30.0) sec Sodium (137-145) mmol/L Potassium (3.5-5.1) mmol/L Chloride (98-107) mmol/L Carbon Dioxide (22-30) mmol/L Anion Gap mmol/L BUN (7-17) mg/dL Creatinine (0.52-1.04) mg/dL Est GFR (CKD-EPI)AfAm (>60 ml/min/1.73 sqM) Est GFR (CKD-EPI)NonAf (>60 ml/min/1.73 sqM) Glucose (74-99) mg/dL Plasma Lactic Acid Dion 0.9 (0.7-2.0) mmol/L Calcium (8.4-10.2) mg/dL Magnesium (1.6-2.3) mg/dL Total Bilirubin (0.2-1.3) mg/dL AST (14-36) U/L ALT (4-34) U/L Alkaline Phosphatase (38-126) U/L Troponin I <0.012 (0.000-0.034) ng/mL NT-Pro-B Natriuret Pep 177 pg/mL Total Protein (6.3-8.2) g/dL Albumin (3.5-5.0) g/dL Urine Color Urine Appearance (Clear) Urine pH (5.0-8.0) Ur Specific [place] (1.001-1.035) Urine Protein (Negative) Urine Glucose (UA) (Negative) Urine Ketones (Negative) Urine Blood (Negative) Urine Nitrite (Negative) Urine Bilirubin (Negative) Urine Urobilinogen (<2.0) mg/dL Ur Leukocyte Esterase (Negative) Urine RBC (0-5) /hpf Urine WBC (0-5) /hpf Ur Squamous Epith Cells (0-4) /hpf Urine Bacteria (None) /hpf Urine Mucus (None) /hpf Coronavirus (PCR) (Not Detectd) Influenza Type A RNA (Not Detectd) Influenza Type B (PCR) (Not Detectd) 03/23/22 03/23/22 03/23/22 Range/Units 13:29 13:29 13:29 WBC (3.8-10.6) k/uL RBC (3.80-5.40) m/uL Hgb (11.4-16.0) gm/dL Hct (34.0-46.0) % MCV (80.0-100.0) fL MCH (25.0-35.0) pg MCHC (31.0-37.0) g/dL RDW (11.5-15.5) % Plt Count (150-450) k/uL MPV Neutrophils % % Lymphocytes % % Monocytes % % Eosinophils % % Basophils % % Neutrophils # (1.3-7.7) k/uL Lymphocytes # (1.0-4.8) k/uL Monocytes # (0-1.0) k/uL Eosinophils # (0-0.7) k/uL Basophils # (0-0.2) k/uL Hypochromasia Anisocytosis PT (9.0-12.0) sec INR (<1.2) APTT (22.0-30.0) sec Sodium (137-145) mmol/L Potassium (3.5-5.1) mmol/L Chloride (98-107) mmol/L Carbon Dioxide (22-30) mmol/L Anion Gap mmol/L BUN (7-17) mg/dL Creatinine (0.52-1.04) mg/dL Est GFR (CKD-EPI)AfAm (>60 ml/min/1.73 sqM) Est GFR (CKD-EPI)NonAf (>60 ml/min/1.73 sqM) Glucose (74-99) mg/dL Plasma Lactic Acid Dion (0.7-2.0) mmol/L Calcium (8.4-10.2) mg/dL Magnesium (1.6-2.3) mg/dL Total Bilirubin (0.2-1.3) mg/dL AST (14-36) U/L ALT (4-34) U/L Alkaline Phosphatase (38-126) U/L Troponin I (0.000-0.034) ng/mL NT-Pro-B Natriuret Pep pg/mL Total Protein (6.3-8.2) g/dL Albumin (3.5-5.0) g/dL Urine Color Yellow Urine Appearance Cloudy H (Clear) Urine pH 5.5 (5.0-8.0) Ur Specific [place] 1.009 (1.001-1.035) Urine Protein Negative (Negative) Urine Glucose (UA) Negative (Negative) Urine Ketones Negative (Negative) Urine Blood Negative (Negative) Urine Nitrite Negative (Negative) Urine Bilirubin Negative (Negative) Urine Urobilinogen <2.0 (<2.0) mg/dL Ur Leukocyte Esterase Large H (Negative) Urine RBC 3 (0-5) /hpf Urine WBC 8 H (0-5) /hpf Ur Squamous Epith Cells 3 (0-4) /hpf Urine Bacteria Occasional H (None) /hpf Urine Mucus Rare H (None) /hpf Coronavirus (PCR) Not Detected (Not Detectd) Influenza Type A RNA Not Detected (Not Detectd) Influenza Type B (PCR) Not Detected (Not Detectd) Disposition Clinical Impression: COPD (chronic obstructive pulmonary disease), Cough Disposition: HOME SELF-CARE Condition: Stable Instructions (If sedation given, give patient instructions): Acute Bronchitis (ED) Additional Instructions: Please wearing your oxygen. Check your pulse ox. Take the steroids and anti biotics as directed. Follow up with your doctor in 2-4 days. Please return if your oxygen level is low (less than 85%) or you have any new or worsening symptoms Prescriptions: Doxycycline Hyclate 100 mg PO BID 1 Days #20 tab methylPREDNISolone [Medrol Dose Pack] 0 mg PO DIRECTED #1 packet Albuterol Sulfate [Proair Hfa] 1 - 2 puff INHALATION Q4HR PRN #8.5 gm PRN Reason: difficulty in breathing Is patient prescribed a controlled substance at d/c from ED?: No Referrals: Abhishek Beltran DO [Primary Care Provider] - 1-2 days Time of Disposition: 16:16
[2022-03-23 16:10] VITALS: BP 106/65; PULSE 86; RESP 20
[2022-03-23 16:37] LABS: Appearance,Urine Cloudy (Clear); Bacteria,Urine Occasional /hpf; Bilirubin,Urine Negative (Negative); Blood,Urine Negative (Negative); Color,Urine Yellow; Glucose,Urine (UA) Negative (Negative); Ketones,Urine Negative (Negative); Leukocyte Esterase,Urine Large (Negative); Mucus,Urine Rare /hpf; Nitrite,Urine Negative (Negative); PH, Urine 5.5 (5.0-8.0); Protein,Urine Negative (Negative); RBC,Urine 3 /hpf (0-5); Specific Gravity,Urine 1.009 (1.001-1.035); Squamous Epithelial Cell,Urine 3 /hpf (0-4); Urobilinogen,Urine <2.0 mg/dL (<2.0); WBC,Urine 8 /hpf (0-5)
== END 2022-03-23 16:40 | disposition home or self-care (01) ==
LOC: EC 12:14
DX: J44.9 Chronic obstructive pulmonary disease, unspecified (principal); Z86.718 Personal history of other venous thrombosis and embolism; N18.9 Chronic kidney disease, unspecified; I50.22 Chronic systolic (congestive) heart failure; F41.9 Anxiety disorder, unspecified; F31.9 Bipolar disorder, unspecified; Z87.891 Personal history of nicotine dependence; Z91.041 Radiographic dye allergy status; Z88.7 Allergy status to serum and vaccine; Z88.6 Allergy status to analgesic agent; Z79.82 Long term (current) use of aspirin; Z79.899 Other long term (current) drug therapy; Z20.822 Contact with and (suspected) exposure to COVID-19
CPT/HCPCS: 36415; 94640; 93005; 83880; 80053; 83605; 83735; 84484; 85025; 85610; 85730; 81001; 87040; 87502; 87635; 71046; 99284; 96374; 96361; J2930

== ENCOUNTER 2022-07-31 13:46 | Observation (INO) | payer BC ==
[2022-07-31 14:39] LABS: Anisocytosis Slight; Basophils % (A) 0 %; Eosinophils % (A) 0 %; HCT 48.8 % (34.0-46.0); HGB 15.5 gm/dL (11.4-16.0); Lymphocytes # (A) 0.9 k/uL (1.0-4.8); Lymphocytes % (A) 9 %; MCH 25.6 pg (25.0-35.0); MCHC 31.7 g/dL (31.0-37.0); MCV 80.7 fL (80.0-100.0); Mean Platelet Volume 8.2; Microcytosis Slight; Monocytes # (A) 0.5 k/uL (0-1.0); Monocytes % (A) 5 %; Neutrophils # (A) 8.9 k/uL (1.3-7.7); Neutrophils % (A) 85 %; Platelet Count 150 k/uL (150-450); Poikilocytosis Slight; RBC 6.04 m/uL (3.80-5.40); RDW 18.3 % (11.5-15.5); WBC 10.4 k/uL (3.8-10.6)
--- NOTE | 2022-07-31 14:42 | ED ---
General Adult HPI - General Chief complaint: Nausea/Vomiting/Diarrhea Stated complaint: Nausea vomiting hypoxia Time Seen by Provider: 07/31/22 14:00 Source: patient, family (daughter), RN notes reviewed Mode of arrival: ambulatory Limitations: no limitations - History of Present Illness Initial comments: Patient is a 57-year-old female presenting to the emergency room via EMS with concerns of hypoxia today along with associated nausea and vomiting which began approximately 48 hours ago. Her daughter reports that after dinner once a night, 2 nights ago she developed nausea and vomiting and has had the symptoms persist since. She denies any abdominal pain not directly related to nausea and vomiting. She denies any diarrhea. She wears 2 L of oxygen at home but is able to tolerate room air at times but overall over the last 24 hours she has had significant episodes of hypoxia with readings in the 60s to 70s on room air. Application of 2 L nasal cannula resulted in improved oxygenation 93-95%. She is immobile due to multiple sclerosis that has progressed. She has been on her current mobility status for approximately 5 years. She is also incontinent. She has a chronic cough that is slightly worsened recently, she denies any significant dyspnea. She denies any chest pain, flushing or chills. She has not had her temperature checked. She has baseline memory impairment with a history of dementia in addition to her progressive multiple sclerosis, neuropathy, fibromyalgia, combined congestive heart failure, previous renal failure r equiring dialysis secondary to lithium overdose, bipolar depression and anxiety, peripheral neuropathy, cervical cancer, migraines, DVT along with cholelithiasis previously and deemed not a surgical candidate. - Related Data Home Medications Medication Instructions Recorded Confirmed Aspirin EC [Ecotrin Low Dose] 81 mg PO DAILY 11/02/13 03/23/22 Citalopram Hydrobromide [CeleXA] 40 mg PO HS 12/14/18 03/23/22 Donepezil [Aricept] 5 mg PO HS 12/14/18 03/23/22 Gabapentin [Neurontin] 300 mg PO TID 09/24/19 03/23/22 QUEtiapine FUMARATE [SEROquel] 75 mg PO HS 09/24/19 03/23/22 Memantine [Namenda] 5 mg PO HS 10/17/20 03/23/22 Topiramate [Topamax] 25 mg PO HS 10/17/20 03/23/22 diazePAM [Valium] 7.5 mg PO BID PRN 10/17/20 03/23/22 Ascorbic Acid [Vitamin C] 1,000 mg PO DAILY 03/23/22 03/23/22 Baclofen 10 mg PO TID PRN 03/23/22 03/23/22 Cholecalciferol [Vitamin D3 (25 25 mcg PO DAILY 03/23/22 03/23/22 Mcg = 1000 Iu)] Ofatumumab [Kesimpta Pen] 20 mg SQ Q28D 03/23/22 03/23/22 Phenyleph/Acetaminophn/Doxylam 1 cap PO BID PRN 03/23/22 03/23/22 [Vicks Dayquil-Nyquil Sinex Cap] Zinc Gluconate [Zinc] 50 mg PO DAILY 03/23/22 03/23/22 guaiFENesin-DM 600/30MG [Mucinex 1 tab PO BID PRN 03/23/22 03/23/22 Dm] Previous Rx's Medication Instructions Recorded Albuterol Sulfate [Proair Hfa] 1 - 2 puff INHALATION Q4HR PRN 03/23/22 #8.5 gm Doxycycline Hyclate 100 mg PO BID 1 Days #20 tab 03/23/22 methylPREDNISolone [Medrol Dose 0 mg PO DIRECTED #1 packet 03/23/22 Pack] Allergies Allergy/AdvReac Type Severity Reaction Status Date / Time blue dye Allergy Rash/Hives Verified 07/31/22 13:51 COVID-19 (SARS-CoV-2) Allergy Anaphylaxis Verified 07/31/22 13:51 vaccine, keren Neuromuscular Blockers, AdvReac Nausea & Verified 07/31/22 13:51 Steroidal Vomiting [Steroidal Neuromuscular Blockers] Review of Systems ROS Statement: Those systems with pertinent positive or pertinent negative responses have been documented in the HPI. ROS Other: All systems not noted in ROS Statement are negative. Past Medical History Past Medical History: Cancer, Deep Vein Thrombosis (DVT), Fibromyalgia, Memory Impairment, Pneumonia, Renal Disease Additional Past Medical History / Comment(s): MIGRANES, MULTIPLE SCLEROSIS, BRAIN LESIONS, PVD, SOB, CONSTIPATION, DIARRHEA, KIDNEY INFECTION, UTI, BACK PAIN, ANEMIA, HYPERTHYROID, CERVICAL CA, CARPAL TUNNEL,septicemia, polyneuropathy ,HADHEMODIALYSIS TWICE, HAD CHEMOTHERAPY FOR TX OF MS, MOTORIZED CHAIR-ABLE TO STAND TO TRANSFER. History of Any Multi-Drug Resistant Organisms: None Reported Past Surgical History: Tonsillectomy, Tubal Ligation Additional Past Surgical History / Comment(s): DIALYSIS CATHETER (REMOVED), BIOPSY (UNKNOWN TYPE), CRYO SURGERY FOR CERVICAL CA, D&C. Past Anesthesia/Blood Transfusion Reactions: No Reported Reaction Past Psychological History: Anxiety, Bipolar, Depression Smoking Status: Former smoker Past Alcohol Use History: None Reported Past Drug Use History: None Reported - Past Family History Father Family Medical History: Cancer Additional Family Medical History / Comment(s): BRAIN Mother Family Medical History: Cancer Additional Family Medical History / Comment(s): BREAST General Exam - General Exam Comments Initial Comments: GENERAL: No acute distress, well developed, well nourished. Appears older than stated age. HEENT: Normocephalic, atraumatic. Pupils equal, round, reactive to light. Moist mucous membranes. LUNGS: No respiratory distress. Upper lobe scattered rhonchi, Diminished bibasilar; no wheeze or crackles. No use of accessory muscles. HEART: Regular rate and rhythm, systolic murmur without diastolic murmur, rub, or gallop. ABDOMEN: Normal bowel sounds. Soft, non-tender, non-distended. Rounded. BACK: Normal inspection. EXTREMITIES: No edema. No tenderness. Moves all extremities but with generalized weakness. NEUROLOGIC: Slow response alert and orientated 2. CN II-XII grossly intact. PSYCHIATRIC: Normal affect and behavior. DERMATOLOGIC: Skin intact, without rashes or lesions noted. Course Vital Signs 07/31/22 07/31/22 07/31/22 13:47 14:51 15:42 Temperature 98.2 F Pulse Rate 92 89 90 Respiratory 20 20 18 Rate Blood Pressure 129/79 127/76 135/78 O2 Sat by Pulse 93 L 94 L 94 L Oximetry Medical Decision Making - Medical Decision Making Was pt. sent in by a medical professional or institution (, PA, SAP SECURITY ARCHITECT, urgent care, hospital, or care home...) When possible be specific @ -No Did you speak to anyone other than the patient for history (EMS, parent, family, police, friend...)? What history was obtained from this source @ -Daughter Did you review nursing and triage notes (agree or disagree)? Why? @ -I reviewed and agree with nursing and triage notes Were old charts reviewed (outside hosp., previous admission, EMS record, old EKG, old radiological studies, urgent care reports/EKG's, care home records)? Report findings @ -Previous pulmonary consult from 2020 Differential Diagnosis (chest pain, altered mental status, abdominal pain women, abdominal pain men, vaginal bleeding, weakness, fever, dyspnea, syncope, headache, dizziness, GI bleed, back pain, seizure, CVA, palpatations, mental health)? @ -Differential Abdominal Pain Women: Appendicitis, Cholecystitis, diverticulosis, ischemic bowel, pancreatitis, hepatitis, UTI, gastroenteritis, AAA, incarcerated hernia, bowel obstruction, constipation, inflammatory bowel, hepatitis, peptic ulcer disease, splenic infarction, perforated viscus, vulvitis, ovarian torsion, PID, kidney stone, pl acenta abruption, this is not meant to be an all-inclusive list Differential Dyspnea: Coronary syndrome, arrhythmia, tamponade, asthma, COPD, pulmonary embolism, pneumonia, pneumothorax, pulmonary effusion, anaphylaxis, diabetic ketoacidosis, flailed chest, pulmonary contusion, diaphragmatic rupture, anemia, neuromuscular, this is not meant to be an all-inclusive list. EKG interpreted by me (3pts min.). @ -Sinus rhythm with occasional PACs, ventricular rate 91 bpm, AL interval 192 ms, QRS duration 87 ms, QT/QTC 341/389 ms, PRT axes 56, 56, 51 X-rays interpreted by me (1pt min.). @ -2 chest x-ray demonstrates left basilar atelectasis. CT interpreted by me (1pt min.). @ -None done U/S interpreted by me (1pt. min.). @ -None done What testing was considered but not performed or refused? (CT, X-rays, U/S, labs)? Why? @ -Abdominal imaging considered but deferred due to soft overall nontender abdomen and What meds were considered but not given or refused? Why? @ -None Did you discuss the management of the patient with other professionals (pr ofessionals i.e. , PA, SAP SECURITY ARCHITECT, lab, RT, psych nurse, perinatal social worker, director medical writing, teacher, risk control officer, case management associate)? Give summary @ -Dr. Dockery with [facility] in regards to workup and recommendations for admission for hypoxemia, nausea vomiting and acute renal failure. He is accepting of admission and requested nephrology consult to be placed with admission orders. Was smoking cessation discussed for >3mins.? @ -No Was critical care preformed (if so, how long)? @ -No Were there social determinants of health that impacted care today? How? (Homelessness, low income, unemployed, alcoholism, drug addiction, transportation, low edu. Level, literacy, decrease access to med. care, long term, rehab)? @ -No Was there de-escalation of care discussed even if they declined (Discuss DNR or withdrawal of care, Hospice)? DNR status @ -No What co-morbidities impacted this encounter? (DM, HTN, Smoking, COPD, CAD, Cancer, CVA, ARF, Chemo, Hep., AIDS, mental health diagnosis, sleep apnea, morbid obesity)? @ -Immobility, renal failure, Please quarantine for 5 days after testing positive and restart quarantine if symptoms worsen. Please utilize Tylenol as needed for fevers and pain. Taking vitamin C, Zinc, vitamin D 50 mcg, and melatonin may help symptom recovery. Was patient admitted / discharged? Hospital course, mention meds given and route, prescriptions, significant lab abnormalities, going to OR and other pertinent info. @ -57-year-old female presents to the emergency room with nausea vomiting and hypoxemia. Will start workup for nausea and vomiting along with hypoxemia with chest x-ray, EKG, CBC, CMP, lactic acid, amylase, lipase, viral swab, and urinalysis. No current vomiting at this time. No indication for anti-medics. Hypoxemia improved on 2 L nasal cannula with oxygen saturation 93- 95%. CMP reveals acute renal failure on CKG stage III. BUN elevated at 27, creatinine elevated at 2.1, unknown urinary output due to urinary incontinence. Potassium slightly elevated at 5.2, sodium normal, bicarb elevated at 31. AST elevated at 45, amylase, lipase, AST and alkaline phosphatase all normal. CBC without significant abnormalities. Lactic acid elevated at 2.4. Will insert Romo catheter for accurate I's and O's and urine sample. Will give cautious hydration of 1 L normal saline at 125 an hour due to history of combined congestive heart failure previous pleural effusions. Increase in nausea will give Zofran. No episodes of vomiting. We catheter inserted without complication, urine sample obtained. Urinalysis without any leukocyte Estrace, moderate broad likely traumatic, +1 protein. Rare bacteria. No indication for treatment for UTI. At this time viral swab for COVID, RSV and flu still pending however will need admission for further evaluation of hypoxemia along with treatment for acute renal failure. Spoke with Dr. Dockery who is covering for Dr. Delatorre admitting for Dr. Beltran in regards to recommendation for admission of monitoring of nausea and vomiting and acute renal failure. He is accepting of admission. He requested nephrology consult. He agrees with deferring abdominal imaging at this time. No other orders received at this time. Undiagnosed new problem with uncertain prognosis? @ -No Drug Therapy requiring intensive monitoring for toxicity (Heparin, Nitro, Insulin, Cardizem)? @ -No Were any procedures done? @ -No Diagnosis/symptom? @ -Acute renal failure Acute, or Chronic, or Acute on Chronic? @ -Acute on chronic Uncomplicated (without systemic symptoms) or Complicated (systemic symptoms)? @ -Complicated Side effects of treatment? @ -No Exacerbation, Progression, or Severe Exacerbation? @ -No Poses a threat to life or bodily function? How? (Chest pain, [place], [place], pneumonia, PE, COPD, DKA, ARF, appy, cholecystitis, CVA, Diverticulitis, Homicidal, Suicidal, threat to staff... and all critical care pts) @ -Yes Diagnosis/symptom? @ -Left basilar atelectasis with hypoxemia Acute, or Chronic, or Acute on Chronic? @ -Acute on chronic Uncomplicated (without systemic symptoms) or Complicated (systemic symptoms)? @ -Complicated Side effects of treatment? @ -none Exacerbation, Progression, or Severe Exacerbation] @ -no Poses a threat to life or bodily function? @ -Yes Diagnosis/symptom? @ -Nausea vomiting Acute, or Chronic, or Acute on Chronic? @ -Acute Uncomplicated (without systemic symptoms) or Complicated (systemic symptoms)? @ -Complicated Side effects of treatment? @ -none Exacerbation, Progression, or Severe Exacerbation] @ -no Poses a threat to life or bodily function? @ -no Case discussed with Dr. Rios - Lab Data Result diagrams: 07/31/22 14:01 07/31/22 14:01 Lab Results 07/31/22 07/31/22 07/31/22 Range/Units 14:01 14:01 14:06 WBC 10.4 (3.8-10.6) k/uL RBC 6.04 H (3.80-5.40) m/uL Hgb 15.5 (11.4-16.0) gm/dL Hct 48.8 H (34.0-46.0) % MCV 80.7 (80.0-100.0) fL MCH 25.6 (25.0-35.0) pg MCHC 31.7 (31.0-37.0) g/dL RDW 18.3 H (11.5-15.5) % Plt Count 150 (150-450) k/uL MPV 8.2 Neutrophils % 85 % Lymphocytes % 9 % Monocytes % 5 % Eosinophils % 0 % Basophils % 0 % Neutrophils # 8.9 H (1.3-7.7) k/uL Lymphocytes # 0.9 L (1.0-4.8) k/uL Monocytes # 0.5 (0-1.0) k/uL Eosinophils # 0.0 (0-0.7) k/uL Basophils # 0.0 (0-0.2) k/uL Poikilocytosis Slight Anisocytosis Slight Microcytosis Slight Sodium 139 (137-145) mmol/L Potassium 5.2 H (3.5-5.1) mmol/L Chloride 102 (98-107) mmol/L Carbon Dioxide 31 H (22-30) mmol/L Anion Gap 6 mmol/L BUN 27 H (7-17) mg/dL Creatinine 2.12 H (0.52-1.04) mg/dL Est GFR (CKD-EPI)AfAm 29 (>60 ml/min/1.73 sqM) Est GFR (CKD-EPI)NonAf 25 (>60 ml/min/1.73 sqM) Glucose 159 H (74-99) mg/dL Plasma Lactic Acid Dion 2.4 H* (0.7-2.0) mmol/L Calcium 8.6 (8.4-10.2) mg/dL Total Bilirubin 1.0 (0.2-1.3) mg/dL AST 45 H (14-36) U/L ALT 20 (4-34) U/L Alkaline Phosphatase 86 (38-126) U/L Total Protein 7.3 (6.3-8.2) g/dL Albumin 4.2 (3.5-5.0) g/dL Amylase 49 (30-110) U/L Lipase 83 (23-300) U/L Urine Color Urine Appearance (Clear) Urine pH (5.0-8.0) Ur Specific [place] (1.001-1.035) Urine Protein (Negative) Urine Glucose (UA) (Negative) Urine Ketones (Negative) Urine Blood (Negative) Urine Nitrite (Negative) Urine Bilirubin (Negative) Urine Urobilinogen (<2.0) mg/dL Ur Leukocyte Esterase (Negative) Urine RBC (0-5) /hpf Urine WBC (0-5) /hpf Ur Squamous Epith Cells (0-4) /hpf Urine Bacteria (None) /hpf Hyaline Casts (0-2) /lpf Urine Mucus (None) /hpf Influenza Type A (PCR) (Not Detectd) Influenza Type B (PCR) (Not Detectd) RSV (PCR) (Not Detectd) SARS-CoV-2 (PCR) (Not Detectd) 07/31/22 07/31/22 Range/Units 14:51 15:38 WBC (3.8-10.6) k/uL RBC (3.80-5.40) m/uL Hgb (11.4-16.0) gm/dL Hct (34.0-46.0) % MCV (80.0-100.0) fL MCH (25.0-35.0) pg MCHC (31.0-37.0) g/dL RDW (11.5-15.5) % Plt Count (150-450) k/uL MPV Neutrophils % % Lymphocytes % % Monocytes % % Eosinophils % % Basophils % % Neutrophils # (1.3-7.7) k/uL Lymphocytes # (1.0-4.8) k/uL Monocytes # (0-1.0) k/uL Eosinophils # (0-0.7) k/uL Basophils # (0-0.2) k/uL Poikilocytosis Anisocytosis Microcytosis Sodium (137-145) mmol/L Potassium (3.5-5.1) mmol/L Chloride (98-107) mmol/L Carbon Dioxide (22-30) mmol/L Anion Gap mmol/L BUN (7-17) mg/dL Creatinine (0.52-1.04) mg/dL Est GFR (CKD-EPI)AfAm (>60 ml/min/1.73 sqM) Est GFR (CKD-EPI)NonAf (>60 ml/min/1.73 sqM) Glucose (74-99) mg/dL Plasma Lactic Acid Dion (0.7-2.0) mmol/L Calcium (8.4-10.2) mg/dL Total Bilirubin (0.2-1.3) mg/dL AST (14-36) U/L ALT (4-34) U/L Alkaline Phosphatase (38-126) U/L Total Protein (6.3-8.2) g/dL Albumin (3.5-5.0) g/dL Amylase (30-110) U/L Lipase (23-300) U/L Urine Color Yellow Urine Appearance Clear (Clear) Urine pH 6.0 (5.0-8.0) Ur Specific [place] 1.012 (1.001-1.035) Urine Protein 1+ H (Negative) Urine Glucose (UA) Negative (Negative) Urine Ketones Negative (Negative) Urine Blood Moderate H (Negative) Urine Nitrite Negative (Negative) Urine Bilirubin Negative (Negative) Urine Urobilinogen 2.0 (<2.0) mg/dL Ur Leukocyte Esterase Negative (Negative) Urine RBC 5 (0-5) /hpf Urine WBC 1 (0-5) /hpf Ur Squamous Epith Cells 2 (0-4) /hpf Urine Bacteria Rare H (None) /hpf Hyaline Casts 1 (0-2) /lpf Urine Mucus Rare H (None) /hpf Influenza Type A (PCR) Not Detected (Not Detectd) Influenza Type B (PCR) Not Detected (Not Detectd) RSV (PCR) Not Detected (Not Detectd) SARS-CoV-2 (PCR) Not Detected (Not Detectd) - Radiology Data Radiology results: report reviewed, image reviewed Disposition Clinical Impression: DONALDO (acute kidney injury), Nausea & vomiting, Atelectasis of left lung Disposition: ADMITTED IP TO THIS HOSP Condition: Fair Is patient prescribed a controlled substance at d/c from ED?: No Referrals: Abhishek Beltran DO [Primary Care Provider] - 1-2 days Time of Disposition: 16:12
[2022-07-31 14:46] LABS: Albumin 4.2 g/dL (3.5-5.0); Calcium 8.6 mg/dL (8.4-10.2); Potassium 5.2 mmol/L (3.5-5.1); Total Protein 7.3 g/dL (6.3-8.2)
[2022-07-31] MEDS ORDERED: SODIUM CHLORIDE 0.9% 1,000 ML IV STA (14:54)
--- NOTE | 2022-07-31 15:09 | XR ---
EXAMINATION TYPE: XR chest 2V DATE OF EXAM: 07/31/2022 COMPARISON: Chest x-ray March 23, 2022 HISTORY: Hypoxia. TECHNIQUE: Frontal and lateral views of the chest are obtained. FINDINGS: There is chronic parenchymal change with new left basilar linear scarring and/or atelectas is. The cardiac silhouette size is stable and mildly enlarged. The osseous structures are intact. IMPRESSION: Mild cardiomegaly and chronic parenchymal changes with new lateral left basilar linear s carring and/or atelectasis.
[2022-07-31] MEDS ORDERED: ONDANSETRON 4 MG/2 ML VIAL IVP STA (15:37)
[2022-07-31 15:47] LABS: Appearance,Urine Clear (Clear); Bacteria,Urine Rare /hpf; Bilirubin,Urine Negative (Negative); Blood,Urine Moderate (Negative); Color,Urine Yellow; Glucose,Urine (UA) Negative (Negative); Hyaline Casts,Urine 1 /lpf (0-2); Ketones,Urine Negative (Negative); Leukocyte Esterase,Urine Negative (Negative); Mucus,Urine Rare /hpf; Nitrite,Urine Negative (Negative); Protein,Urine 1+ (Negative); RBC,Urine 5 /hpf (0-5); Specific Gravity,Urine 1.012 (1.001-1.035); Squamous Epithelial Cell,Urine 2 /hpf (0-4); WBC,Urine 1 /hpf (0-5)
[2022-07-31] MEDS ORDERED: ONDANSETRON 4 MG/2 ML VIAL IVP PRN (16:12)
[2022-07-31] MEDS ORDERED: NALOXONE 0.4 MG/ML 1 ML VIAL IV PRN (16:12)
[2022-07-31] MEDS: SODIUM CHLORIDE 0.9% 1,000 ML IV SCH (17:58)
[2022-07-31] MEDS: PANTOPRAZOLE 40 MG/10 ML VIAL IVP SCH ×2 (18:02→21:49)
[2022-07-31] MEDS: HEPARIN SODIUM,PORCINE/PF 5,000 UNIT/0.5 ML SYRINGE SQ SCH (21:49)
[2022-08-01] MEDS: SODIUM CHLORIDE 0.9% 1,000 ML IV SCH ×3 (04:20→17:55)
--- NOTE | 2022-08-01 05:04 | HP ---
HISTORY AND PHYSICAL CHIEF COMPLAINT: Nausea, vomiting, weakness. HISTORY OF PRESENT ILLNESS: This is a 57-year-old woman with a past medical history of multiple medical problems, including DVT, history of multiple sclerosis, also had history of gallbladder disease previously, but was seen by _ and surgery was difficult according to the patient. The patient had nausea, vomiting, unable to keep anything down. The patient came to [facility]. The acute renal failure and admitted for further evaluation and treatment. There is no history of fever, rigors, chills at this time. The patient had some hypoxia also on admission. The patient also had lithium-induced renal failure and currently the patient had chronic kidney disease, stage 3. PAST MEDICAL HISTORY: Reviewed, include DVT. The rest of the history and rest of the chart is reviewed as mentioned earlier. HOME MEDICATIONS: Again reviewed, include methylprednisone. Dose and rest of the medications reviewed. ALLERGIES: Reviewed, include blue dye. Rest of the allergies reviewed. FAMILY HISTORY: Brain cancer. SOCIAL HISTORY: No history of current smoking, previous history of smoking. No history of alcohol intake. REVIEW OF SYSTEMS: A 14-point review of systems is negative except as mentioned earlier. PHYSICAL EXAMINATION: VITAL SIGNS: Pulse is 89, blood pressure 126/76, respirations 20. HEENT: Conjunctivae normal. NECK: No JVD. CARDIOVASCULAR: S1 and S2. RESPIRATION: Breath sounds diminished at the bases. ABDOMEN: Soft. Nontender. No mass palpable. Obese. LEGS: No edema. NERVOUS SYSTEM: Diffusely weak EXTREMITIES: ntd SKIN: No ulcers. JOINTS: No active deforming arthropathy. LABORATORY DATA: Reviewed, include creatinine 2.12. ASSESSMENT: 1. Intractable nausea and vomiting, possible acute gastritis. 2. Acute renal failure with acute prerenal factors. 3. Multiple sclerosis. 4. Multiple medical issues. 5. History of gallbladder disease. RECOMMENDATION: This 57-year-old woman who presented with multiple complex medical issues. I would recommend to continue with the current medications. IV hydration. Repeat labs. Nephrology consultation. We will resume the home medications once they are confirmed. DVT prophylaxis. Overall prognosis guarded. Further recommendations to follow. See orders for further details. Chest x-ray was reviewed and showed some chronic changes. MMODL / IJN: [id number] / [facility]
[2022-08-01 08:47] LABS: Basophils # (A) 0.04 X 10*3/uL (0.00-0.10); Basophils % (A) 0.5 %; Eosinophils # (A) 0.01 X 10*3/uL (0.04-0.35); Eosinophils % (A) 0.1 %; HCT 44.7 % (37.2-46.3); Immature Grans, Automated 0.9 %; Lymphocytes # (A) 1.04 X 10*3/uL (0.90-5.00); Lymphocytes % (A) 12.2 %; MCH 25.4 pg (27.0-32.0); MCHC 29.1 g/dL (32.0-37.0); MCV 87.3 fL (80.0-97.0); Mean Platelet Volume 10.6 fL (9.5-12.2); Monocytes # (A) 0.58 X 10*3/uL (0.20-1.00); Monocytes % (A) 6.8 %; NRBC Per 100 WBC 0.4 /100 WBCS (0.0-0.0); Neutrophils # (A) 6.76 X 10*3/uL (1.80-7.70); Neutrophils % (A) 79.5 %; Platelet Count 146 X 10*3/uL (140-440); RBC 5.12 X 10*6/uL (4.10-5.20); RDW 19.8 % (11.5-14.5); WBC 8.51 X 10*3/uL (4.50-10.00)
[2022-08-01 09:09] LABS: Albumin 3.6 g/dL (3.8-4.9); Albumin/Globulin Ratio 1.64 (1.60-3.17); Anion Gap 6.4 mmol/L (10.00-18.00); BUN/Creat Ratio 14.63 Ratio (12.00-20.00); Blood Urea Nitrogen 23.4 mg/dL (9.0-27.0); Calcium 8.3 mg/dL (8.7-10.3); Carbon Dioxide 31.6 mmol/L (20.0-27.5); Globulin 2.2 g/dL (1.6-3.3); Non-African American GFR(CKD) 35.4 (60.0-200.0); Potassium 4.2 mmol/L (3.5-5.5); Total Bilirubin 0.7 mg/dL (0.30-1.20); Total Protein 5.8 g/dL (6.2-8.2)
[2022-08-01] MEDS: DIVALPROEX ER 250 MG TAB.ER.24H PO SCH ×2 (09:29→20:40)
[2022-08-01] MEDS: DONEPEZIL 5 MG TAB PO SCH (09:29)
[2022-08-01] MEDS: PANTOPRAZOLE 40 MG/10 ML VIAL IVP SCH ×2 (09:40→20:41)
[2022-08-01] MEDS: HEPARIN SODIUM,PORCINE/PF 5,000 UNIT/0.5 ML SYRINGE SQ SCH ×2 (09:40→20:41)
--- NOTE | 2022-08-01 15:19 | P.NPCON ---
History of Present Illness - Reason for Consult Consult date: 08/01/22 acute renal failure - Chief Complaint Nausea vomiting and weakness. - History of Present Illness 57-year-old white female coming to the hospital with the above complaints. She has history of multiple sclerosis and gallbladder disease. She also has history of chronic kidney disease stage III with a baseline creatinine of 1.1-1.6 MG per DL. She has 2-3 days history of abdominal discomfort associated with nausea and vomiting. Denies any fevers chills or rigors. Denies any diarrhea. Denies a [place]'s sick contacts. On admission peak creatinine was 2.2 MG per DL, improved to 1.6 MG per DL today. She was given IV fluids. She does not take any antihypertensive medications. Urine analysis moderate blood with 5 RBCs. Otherwise Sharon. Review of Systems Constitutional: Reports as per HPI Past Medical History Past Medical History: Cancer, Deep Vein Thrombosis (DVT), Fibromyalgia, Memory Impairment, Pneumonia, Renal Disease Additional Past Medical History / Comment(s): MIGRANES, MULTIPLE SCLEROSIS, BRAIN LESIONS, PVD, SOB, CONSTIPATION, DIARRHEA, KIDNEY INFECTION, UTI, BACK PAIN, ANEMIA, HYPERTHYROID, CERVICAL CA, CARPAL TUNNEL,septicemia, polyneuropathy ,HADHEMODIALYSIS TWICE, HAD CHEMOTHERAPY FOR TX OF MS, MOTORIZED CHAIR-ABLE TO STAND TO TRANSFER. History of Any Multi-Drug Resistant Organisms: None Reported Past Surgical History: Tonsillectomy, Tubal Ligation Additional Past Surgical History / Comment(s): DIALYSIS CATHETER (REMOVED), BIOPSY (UNKNOWN TYPE), CRYO SURGERY FOR CERVICAL CA, D&C. Past Anesthesia/Blood Transfusion Reactions: No Reported Reaction Past Psychological History: Anxiety, Bipolar, Depression Smoking Status: Former smoker Past Alcohol Use History: None Reported Past Drug Use History: None Reported - Past Family History Father Family Medical History: Cancer Additional Family Medical History / Comment(s): BRAIN Mother Family Medical History: Cancer Additional Family Medical History / Comment(s): BREAST Medications and Allergies Home Medications Medication Instructions Recorded Confirmed Type Aspirin EC [Ecotrin Low Dose] 81 mg PO HS 11/02/13 07/31/22 History Citalopram Hydrobromide [CeleXA] 20 mg PO HS 12/14/18 07/31/22 History Donepezil [Aricept] 5 mg PO DAILY 12/14/18 07/31/22 History QUEtiapine FUMARATE [SEROquel] 75 mg PO HS 09/24/19 07/31/22 History diazePAM [Valium] 5 mg PO HS 10/17/20 07/31/22 History Baclofen 10 mg PO HS 03/23/22 07/31/22 History Ofatumumab [Kesimpta Pen] 20 mg SQ Q28D 03/23/22 07/31/22 History Divalproex ER [Depakote ER] 250 mg PO BID 07/31/22 07/31/22 History Gabapentin 600 mg PO DAILY PRN 07/31/22 07/31/22 History Gabapentin 600 mg PO HS 07/31/22 07/31/22 History Ipratropium-Albuterol Nebulize 3 ml INHALATION RT-QID PRN 07/31/22 07/31/22 History [Duoneb 0.5 mg-3 mg/3 ml Soln] Allergies Allergy/AdvReac Type Severity Reaction Status Date / Time blue dye Allergy Rash/Hives Verified 07/31/22 17:21 COVID-19 (SARS-CoV-2) Allergy Anaphylaxis Verified 07/31/22 17:21 vaccine, keren Neuromuscular Blockers, AdvReac Nausea & Verified 07/31/22 17:21 Steroidal Vomiting [Steroidal Neuromuscular Blockers] Physical Exam Vitals: Vital Signs Temp Pulse Pulse Pulse Resp BP BP 08/01/22 07:37 97.7 F 84 18 118/77 08/01/22 01:29 99.6 F 87 19 104/71 07/31/22 21:19 98.7 F 93 16 117/75 07/31/22 18:00 82 16 116/75 07/31/22 15:42 90 18 135/78 Pulse Ox 08/01/22 07:37 95 08/01/22 01:29 95 07/31/22 21:19 98 07/31/22 18:00 94 L 07/31/22 15:42 94 L Intake and Output 08/01/22 08/01/22 08/01/22 06:59 14:59 22:59 Output Total 1400 975 Balance -1400 -975 Output: Urine 1400 975 No acute distress S1-S2 heard Decreased breath sounds No edema Results - Lab Results Most recent lab results Calcium 8.3 mg/dL (8.7-10.3) L 08/01/22 06:21 08/01/22 06:21 08/01/22 06:21 Assessment and Plan Assessment: #1 acute kidney injury secondary to prerenal process with nausea vomiting. #2 chronic kidney disease stage III suspected nephrosclerosis with a baseline creatinine of 1.3-1.6 MG per DL. #3 lactic acidosis improved. #4 metabolic alkalosis secondary to vomiting Plan: #1 renal function improving, close to baseline. #2 continue with IV fluids #3 encourage by mouth intake #4 avoid nephrotoxic agents and hypotensive episodes
--- NOTE | 2022-08-01 17:49 | PN ---
PROGRESS NOTE DATE OF SERVICE: 08/01/2022 SUBJECTIVE: This is a 57-year-old woman, who was admitted with intractable nausea, vomiting, and possible acute gastritis. She is being closely monitored. The creatinine is improving at this time and the patient is able to tolerate some p.o. fluids also. PHYSICAL EXAMINATION: VITAL SIGNS: Pulse of 82 blood pressure 100/60, respiratory rate 19. CHEST: Clear to auscultation. CARDIOVASCULAR: S1 and S2. ABDOMEN: Soft, nontender. NERVOUS SYSTEM: Diffusely weak. LABORATORY DATA: Reviewed. Creatinine is 1.6. Rest of the labs are reviewed. ASSESSMENT: 1. Intractable nausea and vomiting, possible acute gastritis. 2. Acute renal failure with acute prerenal factors. 3. Multiple sclerosis. 4. Multiple medical issues. 5. History of gallbladder disease. RECOMMENDATIONS: Recommended to continue current medications. Symptomatic treatment. Otherwise, repeat labs. Closely follow with Nephrology. Guarded prognosis. Further recommendations to follow. MMKISHOREL / BKN: [id number] /
[2022-08-01] MEDS ORDERED: GABAPENTIN 300 MG CAP PO SCH (21:00)
[2022-08-01] MEDS ORDERED: ASPIRIN 81 MG PO SCH (21:00)
[2022-08-01] MEDS ORDERED: CITALOPRAM HYDROBROMIDE 20 MG TAB PO SCH (21:00)
[2022-08-01] MEDS ORDERED: QUEtiapine 25 MG TAB PO SCH (21:00)
[2022-08-02] MEDS: SODIUM CHLORIDE 0.9% 1,000 ML IV SCH ×2 (06:29→09:21)
[2022-08-02 08:23] VITALS: BP 109/67; PULSE 79; RESP 18; TEMP 98.2
[2022-08-02] MEDS: DONEPEZIL 5 MG TAB PO SCH (09:21)
[2022-08-02] MEDS: DIVALPROEX ER 250 MG TAB.ER.24H PO SCH (09:21)
[2022-08-02] MEDS: HEPARIN SODIUM,PORCINE/PF 5,000 UNIT/0.5 ML SYRINGE SQ SCH (09:21)
[2022-08-02] MEDS: PANTOPRAZOLE 40 MG/10 ML VIAL IVP SCH (09:21)
[2022-08-02 10:26] LABS: Basophils # (A) 0.01 X 10*3/uL (0.00-0.10); Basophils % (A) 0.2 %; Eosinophils # (A) 0.04 X 10*3/uL (0.04-0.35); Eosinophils % (A) 0.9 %; HCT 40.7 % (37.2-46.3); HGB 11.5 g/dL (12.0-15.0); Immature Grans, Automated 1.1 %; Lymphocytes # (A) 0.96 X 10*3/uL (0.90-5.00); Lymphocytes % (A) 21.2 %; MCH 25.3 pg (27.0-32.0); MCHC 28.3 g/dL (32.0-37.0); MCV 89.6 fL (80.0-97.0); Mean Platelet Volume 10.1 fL (9.5-12.2); Monocytes # (A) 0.35 X 10*3/uL (0.20-1.00); Monocytes % (A) 7.7 %; NRBC Per 100 WBC 0.4 /100 WBCS (0.0-0.0); Neutrophils # (A) 3.11 X 10*3/uL (1.80-7.70); Neutrophils % (A) 68.9 %; Platelet Count 107 X 10*3/uL (140-440); RBC 4.54 X 10*6/uL (4.10-5.20); RDW 19.1 % (11.5-14.5); WBC 4.52 X 10*3/uL (4.50-10.00)
[2022-08-02 10:40] LABS: African American GFR (CKD) 52.7 (60.0-200.0); Anion Gap 4.1 mmol/L (10.00-18.00); BUN/Creat Ratio 12.15 Ratio (12.00-20.00); Blood Urea Nitrogen 15.8 mg/dL (9.0-27.0); Calcium 7.7 mg/dL (8.7-10.3); Carbon Dioxide 31.9 mmol/L (20.0-27.5); Non-African American GFR(CKD) 45.5 (60.0-200.0)
--- NOTE | 2022-08-02 13:26 | P.PN ---
Subjective Progress Note Date: 08/02/22 Follow-up for acute kidney injury. Feeling better. No nausea vomiting. Tolerating diet. Objective - Vital Signs Vital signs: Vital Signs Temp 98.2 F 08/02/22 07:15 Pulse 79 08/02/22 07:15 Resp 18 08/02/22 07:15 BP 109/67 08/02/22 07:15 Pulse Ox 97 08/02/22 07:15 FiO2 Intake & Output 08/01/22 08/02/22 08/02/22 18:59 06:59 18:59 Output Total 1825 2225 Balance -1825 -2225 Output: Urine 1825 2225 Other: Voiding Method Indwelling Catheter - Exam No acute distress S1-S2 heard Lungs clear No edema - Labs CBC & Chem 7: 08/02/22 06:40 08/02/22 06:40 Labs: Abnormal Lab Results - Last 24 Hours (Table) 08/02/22 08/02/22 Range/Units 06:40 06:40 Hgb 11.5 L (12.0-15.0) g/dL MCH 25.3 L (27.0-32.0) pg MCHC 28.3 L (32.0-37.0) g/dL RDW 19.1 H (11.5-14.5) % Plt Count 107 L (140-440) X 10*3/uL Absolute Nucleated RBC 0.02 H (0.00-0.00) X 10*3/uL Immature Gran # 0.05 H (0.00-0.04) X 10*3/uL NRBC/100 WBC Diff 0.4 H (0.0-0.0) /100 WBCS Sodium 148 H (135-145) mmol/L Chloride 112 H (96-109) mmol/L Carbon Dioxide 31.9 H (20.0-27.5) mmol/L Anion Gap 4.10 L (10.00-18.00) mmol/L Est GFR (CKD-EPI)AfAm 52.7 L (60.0-200.0) Est GFR (CKD-EPI)NonAf 45.5 L (60.0-200.0) Calcium 7.7 L (8.7-10.3) mg/dL Assessment and Plan Assessment: #1 acute kidney injury secondary to prerenal process with nausea vomiting. #2 chronic kidney disease stage III suspected nephrosclerosis with a baseline creatinine of 1.3-1.6 MG per DL. #3 lactic acidosis improved. #4 metabolic alkalosis secondary to vomiting Plan: #1 renal function improving, close to baseline. #2 stop normal saline, tolerating diet and hypernatremic. #3 encourage by mouth intake #4 avoid nephrotoxic agents and hypotensive episodes
--- NOTE | 2022-08-02 19:24 | DS ---
DISCHARGE SUMMARY FINAL DIAGNOSES: 1. Intractable nausea, vomiting, possible acute gastritis, improved. 2. Acute renal failure with acute prerenal factors. 3. Multiple sclerosis. 4. Multiple medical issues. 5. History of gallbladder disease. DISCHARGE DISPOSITION: The patient will be discharged in stable condition and guarded prognosis. HISTORY OF PRESENT ILLNESS: A 57-year-old woman with a past medical history of multiple medical problems, admitted with intractable nausea, vomiting, acute renal failure, treated with IV fluids, symptomatic, improved significantly. Nephrology saw the patient. PHYSICAL EXAMINATION: VITAL SIGNS: Stable. CARDIOVASCULAR: S1, S2. ABDOMEN: Soft. NERVOUS SYSTEM: No focal deficits. The patient will be discharged in a stable condition and guarded prognosis. I would recommend continue the home medications and add Protonix 40 mg p.o. daily and follow up with Dr. Beltran in 3 to 4 days with CBC, BMP, and follow up with Nephrology p.r.n. DADA / RYLIE: [id number] /
[2022-08-19] MEDS ORDERED: OFATUMUMAB 20 MG/0.4 ML SQ SCH (09:00)
== END 2022-08-02 13:40 | disposition home or self-care (01) ==
LOC: EC 13:46 → 4SSUR 15:37
PROVIDERS: ADMIT Hospitalist; ATTEND Hospitalist
DX: N17.9 Acute kidney failure, unspecified (principal); N18.30 Chronic kidney disease, stage 3 unspecified; E87.20 Acidosis, unspecified; E87.3 Alkalosis; R11.2 Nausea with vomiting, unspecified; G35 Multiple sclerosis; K82.9 Disease of gallbladder, unspecified; R09.02 Hypoxemia; Z87.891 Personal history of nicotine dependence; M79.7 Fibromyalgia; Z86.718 Personal history of other venous thrombosis and embolism; F03.93 Unspecified dementia, unspecified severity, with mood disturbance; E05.90 Thyrotoxicosis, unspecified without thyrotoxic crisis or storm; Z87.01 Personal history of pneumonia (recurrent); G43.909 Migraine, unspecified, not intractable, without status migrainosus; J98.11 Atelectasis; G62.9 Polyneuropathy, unspecified; I73.9 Peripheral vascular disease, unspecified; D64.9 Anemia, unspecified; Z87.440 Personal history of urinary (tract) infections; Z20.822 Contact with and (suspected) exposure to COVID-19; M54.9 Dorsalgia, unspecified; F41.9 Anxiety disorder, unspecified; F31.9 Bipolar disorder, unspecified; Z85.41 Personal history of malignant neoplasm of cervix uteri; G56.00 Carpal tunnel syndrome, unspecified upper limb; Z92.21 Personal history of antineoplastic chemotherapy; Z80.3 Family history of malignant neoplasm of breast; Z80.8 Family history of malignant neoplasm of other organs or systems; Z98.51 Tubal ligation status; Z98.890 Other specified postprocedural states; Z79.82 Long term (current) use of aspirin; Z79.899 Other long term (current) drug therapy; Z79.51 Long term (current) use of inhaled steroids; Z88.8 Allergy status to other drugs, medicaments and biological substances; Z91.048 Other nonmedicinal substance allergy status; Z88.7 Allergy status to serum and vaccine
CPT/HCPCS: 96376 ×3; 96361 ×4; 96372 ×3; 96374; 96375; 99285; 36415; 93005; 80053 ×2; 80048; 82150; 83605; 83690; 85025 ×3; 81001; 87636; 71046; G0378 ×3; J2405 ×2; C9113 ×3; J1644 ×3

== ENCOUNTER 2022-10-30 18:18 | Emergency (ER) | payer BC ==
[2022-10-30 18:26] VITALS: TEMP 98.3
[2022-10-30] MEDS ORDERED: ONDANSETRON 4 MG/2 ML VIAL IVP STA (18:34)
[2022-10-30] MEDS ORDERED: FAMOTIDINE 20 MG/2 ML VIAL IV STA (18:34)
--- NOTE | 2022-10-30 18:36 | ED ---
General Adult HPI - General Chief complaint: Nausea/Vomiting/Diarrhea Stated complaint: Fever,vomiting Time Seen by Provider: 10/30/22 18:21 Source: patient, RN notes reviewed Mode of arrival: EMS Limitations: no limitations - History of Present Illness Initial comments: Patient is a pleasant 57-year-old female presenting to the emergency department with concerns for vomiting and diarrhea. Onset of symptoms was a few days ago. Patient did have upper a story symptoms and chest and nasal congestion a day or 2 prior to that and was started on Augmentin. Patient questions if she is reacting to the Augmentin. Patient has had subjective fevers at home. Patient is having diarrhea up to 8 times daily. Patient is also vomiting similar amount. No significant abdominal pain. Patient does have some cough. Patient does have history of chronic COPD and sometimes uses oxygen at home. - Related Data Home Medications Medication Instructions Recorded Confirmed Aspirin EC [Ecotrin Low Dose] 81 mg PO HS 11/02/13 07/31/22 Citalopram Hydrobromide [CeleXA] 20 mg PO HS 12/14/18 07/31/22 Donepezil [Aricept] 5 mg PO DAILY 12/14/18 07/31/22 QUEtiapine FUMARATE [SEROquel] 75 mg PO HS 09/24/19 07/31/22 diazePAM [Valium] 5 mg PO HS 10/17/20 07/31/22 Baclofen 10 mg PO HS 03/23/22 07/31/22 Ofatumumab [Kesimpta Pen] 20 mg SQ Q28D 03/23/22 07/31/22 Divalproex ER [Depakote ER] 250 mg PO BID 07/31/22 07/31/22 Gabapentin 600 mg PO HS 07/31/22 07/31/22 Gabapentin 600 mg PO TID 07/31/22 08/01/22 Ipratropium-Albuterol Nebulize 3 ml INHALATION RT-QID PRN 07/31/22 07/31/22 [Duoneb 0.5 mg-3 mg/3 ml Soln] Previous Rx's Medication Instructions Recorded Pantoprazole Sodium [Protonix] 40 mg PO DAILY #30 tab 08/02/22 Ondansetron Odt [Zofran Odt] 4 mg PO Q8HR PRN #10 tab 10/30/22 Allergies Allergy/AdvReac Type Severity Reaction Status Date / Time blue dye Allergy Rash/Hives Verified 10/30/22 18:26 COVID-19 (SARS-CoV-2) Allergy Anaphylaxis Verified 10/30/22 18:26 vaccine, keren Neuromuscular Blockers, AdvReac Nausea & Verified 10/30/22 18:26 Steroidal Vomiting [Steroidal Neuromuscular Blockers] Review of Systems ROS Statement: Those systems with pertinent positive or pertinent negative responses have been documented in the HPI. ROS Other: All systems not noted in ROS Statement are negative. Constitutional: Reports: as per HPI, fever, chills Eyes: Denies: eye pain ENT: Reports: congestion. Denies: ear pain Respiratory: Reports: cough Cardiovascular: Denies: chest pain Endocrine: Denies: fatigue Gastrointestinal: Reports: as per HPI, nausea, vomiting, diarrhea Genitourinary: Denies: dysuria Musculoskeletal: Denies: back pain Past Medical History Past Medical History: Cancer, Deep Vein Thrombosis (DVT), Fibromyalgia, Memory Impairment, Pneumonia, Renal Disease Additional Past Medical History / Comment(s): MIGRANES, MULTIPLE SCLEROSIS, BRAIN LESIONS, PVD, SOB, CONSTIPATION, DIARRHEA, KIDNEY INFECTION, UTI, BACK PAIN, ANEMIA, HYPERTHYROID, CERVICAL CA, CARPAL TUNNEL,septicemia, polyneuropathy ,HADHEMODIALYSIS TWICE, HAD CHEMOTHERAPY FOR TX OF MS, MOTORIZED CHAIR-ABLE TO STAND TO TRANSFER. History of Any Multi-Drug Resistant Organisms: None Reported Past Surgical History: Tonsillectomy, Tubal Ligation Additional Past Surgical History / Comment(s): DIALYSIS CATHETER (REMOVED), BIOPSY (UNKNOWN TYPE), CRYO SURGERY FOR CERVICAL CA, D&C. Past Anesthesia/Blood Transfusion Reactions: No Reported Reaction Past Psychological History: Anxiety, Bipolar, Depression Smoking Status: Former smoker Past Alcohol Use History: None Reported Past Drug Use History: None Reported - Past Family History Father Family Medical History: Cancer Additional Family Medical History / Comment(s): BRAIN Mother Family Medical History: Cancer Additional Family Medical History / Comment(s): BREAST General Exam Limitations: no limitations General appearance: alert, in no apparent distress Head exam: Present: normocephalic Eye exam: Present: normal appearance Neck exam: Present: normal inspection. Absent: meningismus Respiratory exam: Present: normal lung sounds bilaterally Cardiovascular Exam: Present: regular rate, normal rhythm GI/Abdominal exam: Present: soft. Absent: distended, tenderness, guarding, rebound, rigid Extremities exam: Present: normal inspection. Absent: pedal edema, calf tenderness Neurological exam: Present: alert Psychiatric exam: Present: normal affect, normal mood Skin exam: Present: normal color Course Vital Signs 10/30/22 10/30/22 10/30/22 18:20 18:30 19:43 Temperature 98.3 F Pulse Rate 94 95 93 Respiratory 18 20 18 Rate Blood Pressure 110/75 103/73 O2 Sat by Pulse 88 L 95 94 L Oximetry Medical Decision Making - Medical Decision Making Was pt. sent in by a medical professional or institution (, PA, TENNIS COACH, urgent care, hospital, or fpc...) When possible be specific @ -No Did you speak to anyone other than the patient for history (EMS, parent, family, police, friend...)? What history was obtained from this source @ -No Did you review nursing and triage notes (agree or disagree)? Why? @ -I reviewed and agree with nursing and triage notes Were old charts reviewed (outside hosp., previous admission, EMS record, old EKG, old radiological studies, urgent care reports/EKG's, fpc records)? Report findings @ -No old charts were reviewed Differential Diagnosis (chest pain, altered mental status, abdominal pain women, abdominal pain men, vaginal bleeding, weakness, fever, dyspnea, syncope, headache, dizziness, GI bleed, back pain, seizure, CVA, palpatations, mental health)? @ -Differential Abdominal Pain Women: Appendicitis, Cholecystitis, diverticulosis, ischemic bowel, pancreatitis, hepatitis, UTI, gastroenteritis, AAA, incarcerated hernia, bowel obstruction, constipation, inflammatory bowel, hepatitis, peptic ulcer disease, splenic infarction, perforated viscus, vulvitis, ovarian torsion, PID, kidney stone, placenta abruption, this is not meant to be an all-inclusive list EKG interpreted by me (3pts min.). @ -As above X-rays interpreted by me (1pt min.). @ -Chest x-ray shows no acute process CT interpreted by me (1pt min.). @ -None done U/S interpreted by me (1pt. min.). @ -None done What testing was considered but not performed or refused? (CT, X-rays, U/S, labs)? Why? @ -None What meds were considered but not given or refused? Why? @ -None Did you discuss the management of the patient with other professionals (professionals i.e. , PA, TENNIS COACH, lab, RT, psych nurse, social services analyst, administrative support manager, teacher, chief business officer, shoe caser)? Give summary @ -No Was smoking cessation discussed for >3mins.? @ -No Was critical care preformed (if so, how long)? @ -No Were there social determinants of health that impacted care today? How? (H omelessness, low income, unemployed, alcoholism, drug addiction, transportation, low edu. Level, literacy, decrease access to med. care, half-way, rehab)? @ -No Was there de-escalation of care discussed even if they declined (Discuss DNR or withdrawal of care, Hospice)? DNR status @ -No What co-morbidities impacted this encounter? (DM, HTN, Smoking, COPD, CAD, Cancer, CVA, ARF, Chemo, Hep., AIDS, mental health diagnosis, sleep apnea, morbid obesity)? @ -None Was patient admitted / discharged? Hospital course, mention meds given and route, prescriptions, significant lab abnormalities, going to OR and other pertinent info. @ -Patient reevaluated and feeling much better following fluids and medication. Patient is updated on results. Patient is comfortable with discharge home. Undiagnosed new problem with uncertain prognosis? @ -No Drug Therapy requiring intensive monitoring for toxicity (Heparin, Nitro, Insulin, Cardizem)? @ -No Were any procedures done? @ -No Diagnosis/symptom? @ -Vomiting, diarrhea Acute, or Chronic, or Acute on Chronic? @ -acute, acute Uncomplicated (without systemic symptoms) or Complicated (systemic symptoms)? @ -default Side effects of treatment? @ -No Exacerbation, Progression, or Severe Exacerbation? @ -No Poses a threat to life or bodily function? How? (Chest pain, [place], [place], pneumonia, PE, COPD, DKA, ARF, appy, cholecystitis, CVA, Diverticulitis, Homicidal, Suicidal, threat to staff... and all critical care pts) @ -No - Lab Data Result diagrams: 10/30/22 18:46 10/30/22 18:46 Lab Results 10/30/22 10/30/22 10/30/22 Range/Units 18:46 18:46 18:46 WBC 9.8 (3.8-10.6) k/uL RBC 5.51 H (3.80-5.40) m/uL Hgb 15.0 (11.4-16.0) gm/dL Hct 46.3 H (34.0-46.0) % MCV 84.1 (80.0-100.0) fL MCH 27.3 (25.0-35.0) pg MCHC 32.4 (31.0-37.0) g/dL RDW 16.3 H (11.5-15.5) % Plt Count 148 L (150-450) k/uL MPV 7.5 Neutrophils % 90 % Lymphocytes % 6 % Monocytes % 3 % Eosinophils % 1 % Basophils % 0 % Neutrophils # 8.9 H (1.3-7.7) k/uL Lymphocytes # 0.6 L (1.0-4.8) k/uL Monocytes # 0.2 (0-1.0) k/uL Eosinophils # 0.1 (0-0.7) k/uL Basophils # 0.0 (0-0.2) k/uL Hypochromasia Slight Poikilocytosis Slight Anisocytosis Slight PT 10.4 (9.0-12.0) sec INR 1.0 (<1.2) APTT 17.7 L (22.0-30.0) sec Sodium 138 (137-145) mmol/L Potassium 4.8 (3.5-5.1) mmol/L Chloride 101 (98-107) mmol/L Carbon Dioxide 29 (22-30) mmol/L Anion Gap 8 mmol/L BUN 11 (7-17) mg/dL Creatinine 1.72 H (0.52-1.04) mg/dL Est GFR (CKD-EPI)AfAm 38 (>60 ml/min/1.73 sqM) Est GFR (CKD-EPI)NonAf 33 (>60 ml/min/1.73 sqM) Glucose 166 H (74-99) mg/dL Plasma Lactic Acid Dion (0.7-2.0) mmol/L Calcium 8.7 (8.4-10.2) mg/dL Total Bilirubin 0.7 (0.2-1.3) mg/dL AST 23 (14-36) U/L ALT 18 (4-34) U/L Alkaline Phosphatase 116 (38-126) U/L Total Protein 7.1 (6.3-8.2) g/dL Albumin 3.9 (3.5-5.0) g/dL Influenza Type A (PCR) (Not Detectd) Influenza Type B (PCR) (Not Detectd) RSV (PCR) (Not Detectd) SARS-CoV-2 (PCR) (Not Detectd) 10/30/22 10/30/22 Range/Units 18:46 18:46 WBC (3.8-10.6) k/uL RBC (3.80-5.40) m/uL Hgb (11.4-16.0) gm/dL Hct (34.0-46.0) % MCV (80.0-100.0) fL MCH (25.0-35.0) pg MCHC (31.0-37.0) g/dL RDW (11.5-15.5) % Plt Count (150-450) k/uL MPV Neutrophils % % Lymphocytes % % Monocytes % % Eosinophils % % Basophils % % Neutrophils # (1.3-7.7) k/uL Lymphocytes # (1.0-4.8) k/uL Monocytes # (0-1.0) k/uL Eosinophils # (0-0.7) k/uL Basophils # (0-0.2) k/uL Hypochromasia Poikilocytosis Anisocytosis PT (9.0-12.0) sec INR (<1.2) APTT (22.0-30.0) sec Sodium (137-145) mmol/L Potassium (3.5-5.1) mmol/L Chloride (98-107) mmol/L Carbon Dioxide (22-30) mmol/L Anion Gap mmol/L BUN (7-17) mg/dL Creatinine (0.52-1.04) mg/dL Est GFR (CKD-EPI)AfAm (>60 ml/min/1.73 sqM) Est GFR (CKD-EPI)NonAf (>60 ml/min/1.73 sqM) Glucose (74-99) mg/dL Plasma Lactic Acid Dion 2.0 (0.7-2.0) mmol/L Calcium (8.4-10.2) mg/dL Total Bilirubin (0.2-1.3) mg/dL AST (14-36) U/L ALT (4-34) U/L Alkaline Phosphatase (38-126) U/L Total Protein (6.3-8.2) g/dL Albumin (3.5-5.0) g/dL Influenza Type A (PCR) Not Detected (Not Detectd) Influenza Type B (PCR) Not Detected (Not Detectd) RSV (PCR) Not Detected (Not Detectd) SARS-CoV-2 (PCR) Not Detected (Not Detectd) Disposition Clinical Impression: Nausea & vomiting, Diarrhea Disposition: HOME SELF-CARE Condition: Stable Instructions (If sedation given, give patient instructions): Acute Nausea and Vomiting (ED), Acute Diarrhea (ED) Additional Instructions: Please do follow-up with primary care physician in the next couple days for recheck. Return for not tolerating fluids, fevers, increased pain, difficulty breathing, worsening or changing symptoms or other concerns. Prescription sent to pharmacy. Prescriptions: Ondansetron Odt [Zofran Odt] 4 mg PO Q8HR PRN #10 tab PRN Reason: Nausea Is patient prescribed a controlled substance at d/c from ED?: No Referrals: Abhishek Beltran DO [Primary Care Provider] - 1-2 days Time of Disposition: 20:28
[2022-10-30] MEDS: SODIUM CHLORIDE 0.9% 500 ML 500 ML IV SCH ×3 (18:49→20:16)
[2022-10-30 18:57] LABS: Anisocytosis Slight; Basophils % (A) 0 %; Eosinophils # (A) 0.1 k/uL (0-0.7); Eosinophils % (A) 1 %; HCT 46.3 % (34.0-46.0); Hypochromasia Slight; Lymphocytes # (A) 0.6 k/uL (1.0-4.8); Lymphocytes % (A) 6 %; MCH 27.3 pg (25.0-35.0); MCHC 32.4 g/dL (31.0-37.0); MCV 84.1 fL (80.0-100.0); Mean Platelet Volume 7.5; Monocytes # (A) 0.2 k/uL (0-1.0); Monocytes % (A) 3 %; Neutrophils # (A) 8.9 k/uL (1.3-7.7); Neutrophils % (A) 90 %; Platelet Count 148 k/uL (150-450); Poikilocytosis Slight; RBC 5.51 m/uL (3.80-5.40); RDW 16.3 % (11.5-15.5); WBC 9.8 k/uL (3.8-10.6)
[2022-10-30 19:08] LABS: Albumin 3.9 g/dL (3.5-5.0); Calcium 8.7 mg/dL (8.4-10.2); Potassium 4.8 mmol/L (3.5-5.1); Total Bilirubin 0.7 mg/dL (0.2-1.3); Total Protein 7.1 g/dL (6.3-8.2)
--- NOTE | 2022-10-30 19:15 | XR ---
EXAMINATION TYPE: XR chest 2V DATE OF EXAM: 10/30/2022 7:05 PM COMPARISON: Chest radiographs from 07/31/2022 TECHNIQUE: XR chest 2V Frontal and lateral views of the chest. CLINICAL INDICATION:Female, 57 years old with history of Fever; FINDINGS: Lungs/Pleura: There is no evidence of pleural effusion, focal consolidation, or pneumothorax. Pulmonary vascularity: Unremarkable. Heart/mediastinum: Cardiomediastinal silhouette is unremarkable. Musculoskeletal: No acute osseous pathology. IMPRESSION: Similar appearance of lungs without evidence for acute process.
[2022-10-30 19:27] LABS: Prothrombin Time 10.4 sec (9.0-12.0)
[2022-10-30 19:43] LABS: Partial Thromboplastin Time 17.7 sec (22.0-30.0)
[2022-10-30 19:47] VITALS: BP 103/73; PULSE 93; RESP 18
== END 2022-10-30 21:06 | disposition home or self-care (01) ==
LOC: EC 18:18
DX: R11.2 Nausea with vomiting, unspecified (principal); R19.7 Diarrhea, unspecified; F41.9 Anxiety disorder, unspecified; F31.9 Bipolar disorder, unspecified; Z87.891 Personal history of nicotine dependence; Z79.82 Long term (current) use of aspirin; Z88.8 Allergy status to other drugs, medicaments and biological substances; Z88.7 Allergy status to serum and vaccine; Z91.041 Radiographic dye allergy status; Z20.822 Contact with and (suspected) exposure to COVID-19
CPT/HCPCS: 36415; 80053; 83605; 85025; 85610; 85730; 87636; 71046; 99284; 96374; 96375; 96361 ×2; J2405

== ENCOUNTER → 2022-12-11 | Outpatient (CLI) | payer BC ==
--- NOTE | 2022-12-11 10:37 | CT ---
EXAMINATION TYPE: CT lower leg RT wo con DATE OF EXAM: 12/11/2022 COMPARISON: None available HISTORY: 57-year-old female S82.301A, Fx to lower leg TECHNIQUE: Contiguous axial scanning of the right tibia/fibula without IV contrast. Coronal and sagit aguilar reconstructions performed.. Reconstructions generated on a dedicated workstation. CT DLP: 612.6 mGycm Automated exposure control for dose reduction was used. FINDINGS: The proximal third leg is limited as the patient. There is marked diffuse osteopenia. No knee joint effusion. Mild generalized muscle atrophy. Circumferential soft tissue swelling distal third leg and ankle. The degree of osteopenia markedly limits the examination. There is cortical buckling noted along the medial and posterior distal tibial metaphysis. Additional cortical buckling anterior margin of the di stal tibial metaphysis. Suspected slightly obliqued, transverse fracture here of the distal tibia. Mild joint space narrowing concentrically in the medial tibiotalar joint. No displaced fracture other [place] seen. IMPRESSION: 1. NOTE THAT ASSESSMENT OF THE PROXIMAL THIRD TIBIA AND FIBULA IS NONDIAGNOSTIC THE PATIENT FRANKL Y MOVED. UNABLE TO EXCLUDE ANY FRACTURES HERE. 2. SEVERE OSTEOPENIA FURTHER LIMITING EVALUATION FOR NONDISPLACED FRACTURE. 3. THERE IS CORTICAL BUCKLING NOTED ALONG THE MEDIAL AND POSTERIOR DISTAL TIBIAL METAPHYSIS AND ALSO ALONG THE ANTERIOR DISTAL TIBIAL METADIAPHYSIS. SUSPECT A NONDISPLACED, SLIGHTLY OBLIQUED FRACTURE HE RE OF THE DISTAL TIBIA.
== END | disposition home or self-care (01) ==
LOC: RADCTMAIN 08:24
PROVIDERS: ATTEND Orthopaedic Surgery Sports Medicine
DX: S82.301A Unspecified fracture of lower end of right tibia, initial encounter for closed fracture (principal)

== ENCOUNTER 2023-03-15 10:43 | Inpatient (IN) | payer BC ==
[2023-03-15] MEDS ORDERED: SODIUM CHLORIDE 0.9% 500 ML 500 ML IV ONE (10:51)
--- NOTE | 2023-03-15 10:54 | ED ---
General Adult HPI - General Stated complaint: AMS Time Seen by Provider: 03/15/23 10:45 Source: patient, RN notes reviewed, old records reviewed - History of Present Illness Initial comments: This is a 58-year-old female who was recently in the hospital at [facility] for renal failure and pneumonia. Patient was sent in today because family felt she was at her baseline neurologically and she was also vomiting last night. Patient also had a little bit of diarrhea. Patient denies any pain. Patient denies chest pain difficulty breathing shortness of breath per patient denies any abdominal pain. Patient denies headache patient denies numbness weakness patient denies lightheadedness or dizziness. Patient does states she has a little bit of dysuria but denies any hematuria. She denies any back pain. Patient denies any swelling or calf tenderness. - Related Data Home Medications Medication Instructions Recorded Confirmed Aspirin EC [Ecotrin Low Dose] 81 mg PO HS 11/02/13 03/15/23 Citalopram Hydrobromide [CeleXA] 20 mg PO HS 12/14/18 03/15/23 Donepezil [Aricept] 5 mg PO HS 12/14/18 03/15/23 Baclofen 10 mg PO TID PRN 03/23/22 03/15/23 Ofatumumab [Kesimpta Pen] 20 mg SQ Q28D 03/23/22 03/15/23 Gabapentin 600 mg PO TID 07/31/22 03/15/23 Albuterol Sulfate [Albuterol 1 - 2 puff PO RT-Q6H PRN 03/15/23 03/15/23 Sulfate Hfa] Clotrimazole/Betameth Cream 1 applic TOPICAL BID 03/15/23 03/15/23 [Lotrisone] HYDROcodone/APAP 10-325MG [[place] 1 tab PO Q6HR PRN 03/15/23 03/15/23 10-325] Imodium A-D Liquid 30 ml PO BID 03/15/23 03/15/23 QUEtiapine [SEROquel] 100 mg PO HS 03/15/23 03/15/23 cefUROXime axetiL [Ceftin] 500 mg PO BID 03/15/23 03/15/23 Allergies Allergy/AdvReac Type Severity Reaction Status Date / Time blue dye Allergy Rash/Hives Verified 03/15/23 13:51 COVID-19 (SARS-CoV-2) Allergy Anaphylaxis Verified 03/15/23 13:51 vaccine, keren Neuromuscular Blockers, AdvReac Nausea & Verified 03/15/23 13:51 Steroidal Vomiting [Steroidal Neuromuscular Blockers] Review of Systems ROS Statement: Those systems with pertinent positive or pertinent negative responses have been documented in the HPI. ROS Other: All systems not noted in ROS Statement are negative. Past Medical History Past Medical History: Cancer, Deep Vein Thrombosis (DVT), Fibromyalgia, Memory Impairment, Pneumonia, Renal Disease Additional Past Medical History / Comment(s): MIGRANES, MULTIPLE SCLEROSIS, BRAIN LESIONS, PVD, SOB, CONSTIPATION, DIARRHEA, KIDNEY INFECTION, UTI, BACK PAIN, ANEMIA, HYPERTHYROID, CERVICAL CA, CARPAL TUNNEL,septicemia, polyneuropathy ,HADHEMODIALYSIS TWICE, HAD CHEMOTHERAPY FOR TX OF MS, MOTORIZED CHAIR-ABLE TO STAND TO TRANSFER. History of Any Multi-Drug Resistant Organisms: None Reported Past Surgical History: Tonsillectomy, Tubal Ligation Additional Past Surgical History / Comment(s): DIALYSIS CATHETER (REMOVED), BIOPSY (UNKNOWN TYPE), CRYO SURGERY FOR CERVICAL CA, D&C. Past Anesthesia/Blood Transfusion Reactions: No Reported Reaction Past Psychological History: Anxiety, Bipolar, Depression Smoking Status: Former smoker Past Alcohol Use History: None Reported Past Drug Use History: None Reported - Past Family History Father Family Medical History: Cancer Additional Family Medical History / Comment(s): BRAIN Mother Family Medical History: Cancer Additional Family Medical History / Comment(s): BREAST General Exam - General Exam Comments Initial Comments: GENERAL: Patient is well-developed and well-nourished. Patient is nontoxic and well- hydrated and is in no acute distress. ENT: Neck is soft and supple. No significant lymphadenopathy is noted. Oropharynx is clear. Moist mucous membranes. Neck has full range of motion without eliciting any pain. EYES: The sclera were anicteric and conjunctiva were pink and moist. Extraocular movements were intact and pupils were equal round and reactive to light. Eyelids were unremarkable. PULMONARY: Unlabored respirations. Good breath sounds bilaterally. No audible rales rhonchi or wheezing was noted. CARDIOVASCULAR: There is a regular rate and rhythm without any murmurs gallops or rubs. ABDOMEN: Soft and nontender with normal bowel sounds. SKIN: Skin is clear with no lesions or rashes and otherwise unremarkable. NEUROLOGIC: Patient is alert and oriented x3. Cranial nerves II through XII are grossly intact. Motor and sensory are also intact. Normal speech, volume and content. Symmetrical smile. MUSCULOSKELETAL: Normal extremities with adequate strength and full range of motion. No lower extremity swelling or edema. No calf tenderness. LYMPHATICS: No significant lymphadenopathy is noted PSYCHIATRIC: Normal psychiatric evaluation. Course Vital Signs 03/15/23 03/15/23 03/15/23 10:45 10:55 12:00 Temperature 97.2 F L Pulse Rate 104 H 94 92 Respiratory 18 18 18 Rate Blood Pressure 107/74 107/74 O2 Sat by Pulse 80 L 93 L 89 L Oximetry 03/15/23 03/15/23 13:00 14:00 Temperature Pulse Rate 87 87 Respiratory 18 18 Rate Blood Pressure 112/75 119/73 O2 Sat by Pulse 93 L 90 L Oximetry Medical Decision Making - Medical Decision Making EKG shows a sinus rhythm at 90 bpm IL interval 222 QRS is 89 QT interval 380 QTC is 4:30. Patient's EKG shows no ST segment elevation or depression. Was pt. sent in by a medical professional or institution (, PA, SHORE WORKING SUPERVISOR, urgent care, hospital, or group home...) When possible be specific @ -No Did you speak to anyone other than the patient for history (EMS, parent, family, police, friend...)? What history was obtained from this source @ -No Did you review nursing and triage notes (agree or disagree)? Why? @ -I reviewed and agree with nursing and triage notes Were old charts reviewed (outside hosp., previous admission, EMS record, old EKG, old radiological studies, urgent care reports/EKG's, group home records)? Report findings @ -I reviewed prior radiological studies Differential Diagnosis (chest pain, altered mental status, abdominal pain women, abdominal pain men, vaginal bleeding, weakness, fever, dyspnea, syncope, headache, dizziness, GI bleed, back pain, seizure, CVA, palpatations, mental health, musculoskeletal)? @ -Differential Altered Mental Status: Hypoglycemia, DKA, hypercapnia, ETOH, overdose, CO poisoning, trauma, myxedema coma, HTN encephalopathy, infection, encephalitis, psychosis, intercranial hemorrhage, hepatic encephalopathy, meningitis, CVA, this is not meant to be an all-inclusive list EKG interpreted by me (3pts min.). @ -As above X-rays interpreted by me (1pt min.). @ -Chest x-ray shows an enlarged heart possibly pericardial effusion CT interpreted by me (1pt min.). @ -None done U/S interpreted by me (1pt. min.). @ -None done What testing was considered but not performed or refused? (CT, X-rays, U/S, labs)? Why? @ -None What meds were considered but not given or refused? Why? @ -None Did you discuss the management of the patient with other professionals (professionals i.e. , PA, SHORE WORKING SUPERVISOR, lab, RT, psych nurse, foster care social worker, rehab aid, teacher, national service officer, disease case manager)? Give summary @ -I spoke with Dr. Delatorre he agreed to admit the patient Was smoking cessation discussed for >3mins.? @ -No Was critical care preformed (if so, how long)? @ -No Were there social determinants of health that impacted care today? How? (Homele ssness, low income, unemployed, alcoholism, drug addiction, transportation, low edu. Level, literacy, decrease access to med. care, correction, rehab)? @ -No Was there de-escalation of care discussed even if they declined (Discuss DNR or withdrawal of care, Hospice)? DNR status @ -No What co-morbidities impacted this encounter? (DM, HTN, Smoking, COPD, CAD, Cancer, CVA, ARF, Chemo, Hep., AIDS, mental health diagnosis, sleep apnea, morbid obesity)? @ -None Was patient admitted / discharged? Hospital course, mention meds given and route, prescriptions, significant lab abnormalities, going to OR and other pertinent info. @ -Patient daughter states that she is in and out of being an altered mental status just a minute ago she touches home and was asking her about wearing shorts around the house today and she had to be reminded that she was in the hospital. Patient's chest x-ray showed cardiomegaly which seemed to be acute when compared to previous chest x-ray so an echo was ordered stat Undiagnosed new problem with uncertain prognosis? @ -No Drug Therapy requiring intensive monitoring for toxicity (Heparin, Nitro, Insulin, Cardizem)? @ -No Were any procedures done? @ -No Diagnosis/symptom? @ -Altered mental status Acute, or Chronic, or Acute on Chronic? @ -Acute Uncomplicated (without systemic symptoms) or Complicated (systemic symptoms)? @ -Complicated Side effects of treatment? @ -No Exacerbation, Progression, or Severe Exacerbation? @ -No Poses a threat to life or bodily function? How? (Chest pain, [place], [place], pneumonia, PE, COPD, DKA, ARF, appy, cholecystitis, CVA, Diverticulitis, Homicidal, Suicidal, threat to staff... and all critical care pts) @ -No Diagnosis/symptom? @ -Acute renal failure Acute, or Chronic, or Acute on Chronic? @ -Acute Uncomplicated (without systemic symptoms) or Complicated (systemic symptoms)? @ -Complicated Side effects of treatment? @ -none Exacerbation, Progression, or Severe Exacerbation] @ -no Poses a threat to life or bodily function? @ -no - Lab Data Result diagrams: 03/15/23 10:57 03/15/23 10:57 Lab Results 03/15/23 03/15/23 03/15/23 Range/Units 10:57 10:57 10:57 WBC 13.5 H (3.8-10.6) k/uL RBC 3.93 (3.80-5.40) m/uL Hgb 10.7 L (11.4-16.0) gm/dL Hct 34.6 (34.0-46.0) % MCV 88.0 (80.0-100.0) fL MCH 27.3 (25.0-35.0) pg MCHC 31.0 (31.0-37.0) g/dL RDW 17.4 H (11.5-15.5) % Plt Count 245 (150-450) k/uL MPV 8.3 Neutrophils % (Manual) 91 % Band Neuts % (Manual) 2 % Lymphocytes % (Manual) 5 % Monocytes % (Manual) 2 % Metamyelocytes % 1 % Myelocytes % 1 % Neutrophils # (Manual) 12.50 H (1.3-7.7) k/uL Lymphocytes # (Manual) 0.68 L (1.0-4.8) k/uL Monocytes # (Manual) 0.27 (0-1.0) k/uL Metamyelocytes # (Man) 0.14 H (0) k/uL Myelocytes # (Manual) 0.14 H (0) k/uL Nucleated RBCs 4 H (0-0) /100 WBC Manual Slide Review Performed Polychromasia Present Hypochromasia Marked Poikilocytosis Slight Anisocytosis Slight PT 11.8 (9.0-12.0) sec INR 1.1 (<1.2) APTT 22.2 (22.0-30.0) sec Sodium (137-145) mmol/L Potassium (3.5-5.1) mmol/L Chloride (98-107) mmol/L Carbon Dioxide (22-30) mmol/L Anion Gap mmol/L BUN (7-17) mg/dL Creatinine (0.52-1.04) mg/dL Est GFR (CKD-EPI)AfAm (>60 ml/min/1.73 sqM) Est GFR (CKD-EPI)NonAf (>60 ml/min/1.73 sqM) Glucose (74-99) mg/dL POC Glucose (mg/dL) (70-110) mg/dL POC Glu Pensionholder Information Clerk ID Calcium (8.4-10.2) mg/dL Total Bilirubin (0.2-1.3) mg/dL AST (14-36) U/L ALT (4-34) U/L Alkaline Phosphatase (38-126) U/L Troponin I (0.000-0.034) ng/mL Total Protein (6.3-8.2) g/dL Albumin (3.5-5.0) g/dL Urine Color Urine Appearance (Clear) Urine pH (5.0-8.0) Ur Specific [place] (1.001-1.035) Urine Protein (Negative) Urine Glucose (UA) (Negative) Urine Ketones (Negative) Urine Blood (Negative) Urine Nitrite (Negative) Urine Bilirubin (Negative) Urine Urobilinogen (<2.0) mg/dL Ur Leukocyte Esterase (Negative) Urine RBC (0-5) /hpf Urine WBC (0-5) /hpf Ur Squamous Epith Cells (0-4) /hpf Hyaline Casts (0-2) /lpf Urine Mucus (None) /hpf Urine Opiates Screen Detected H (NotDetected) Ur Oxycodone Screen Not Detected (NotDetected) Urine Methadone Screen Not Detected (NotDetected) Ur Propoxyphene Screen Not Detected (NotDetected) Ur Barbiturates Screen Not Detected (NotDetected) U Tricyclic Antidepress Detected H (NotDetected) Ur Phencyclidine Scrn Not Detected (NotDetected) Ur Amphetamines Screen Not Detected (NotDetected) U Methamphetamines Scrn Not Detected (NotDetected) U Benzodiazepines Scrn Detected H (NotDetected) Urine Cocaine Screen Not Detected (NotDetected) U Marijuana (THC) Screen Not Detected (NotDetected) Serum Alcohol mg/dL 03/15/23 03/15/23 03/15/23 Range/Units 10:57 10:57 10:57 WBC (3.8-10.6) k/uL RBC (3.80-5.40) m/uL Hgb (11.4-16.0) gm/dL Hct (34.0-46.0) % MCV (80.0-100.0) fL MCH (25.0-35.0) pg MCHC (31.0-37.0) g/dL RDW (11.5-15.5) % Plt Count (150-450) k/uL MPV Neutrophils % (Manual) % Band Neuts % (Manual) % Lymphocytes % (Manual) % Monocytes % (Manual) % Metamyelocytes % % Myelocytes % % Neutrophils # (Manual) (1.3-7.7) k/uL Lymphocytes # (Manual) (1.0-4.8) k/uL Monocytes # (Manual) (0-1.0) k/uL Metamyelocytes # (Man) (0) k/uL Myelocytes # (Manual) (0) k/uL Nucleated RBCs (0-0) /100 WBC Manual Slide Review Polychromasia Hypochromasia Poikilocytosis Anisocytosis PT (9.0-12.0) sec INR (<1.2) APTT (22.0-30.0) sec Sodium 135 L (137-145) mmol/L Potassium 4.4 (3.5-5.1) mmol/L Chloride 103 (98-107) mmol/L Carbon Dioxide 22 (22-30) mmol/L Anion Gap 10 mmol/L BUN 12 (7-17) mg/dL Creatinine 3.52 H (0.52-1.04) mg/dL Est GFR (CKD-EPI)AfAm 16 (>60 ml/min/1.73 sqM) Est GFR (CKD-EPI)NonAf 14 (>60 ml/min/1.73 sqM) Glucose 133 H (74-99) mg/dL POC Glucose (mg/dL) (70-110) mg/dL POC Glu Pensionholder Information Clerk ID Calcium 7.4 L (8.4-10.2) mg/dL Total Bilirubin 0.6 (0.2-1.3) mg/dL AST 40 H (14-36) U/L ALT 20 (4-34) U/L Alkaline Phosphatase 78 (38-126) U/L Troponin I 0.017 (0.000-0.034) ng/mL Total Protein 5.9 L (6.3-8.2) g/dL Albumin 3.1 L (3.5-5.0) g/dL Urine Color Yellow Urine Appearance Cloudy H (Clear) Urine pH 5.5 (5.0-8.0) Ur Specific [place] 1.012 (1.001-1.035) Urine Protein 1+ H (Negative) Urine Glucose (UA) Negative (Negative) Urine Ketones Negative (Negative) Urine Blood Trace H (Negative) Urine Nitrite Negative (Negative) Urine Bilirubin Negative (Negative) Urine Urobilinogen <2.0 (<2.0) mg/dL Ur Leukocyte Esterase Negative (Negative) Urine RBC 1 (0-5) /hpf Urine WBC 2 (0-5) /hpf Ur Squamous Epith Cells 4 (0-4) /hpf Hyaline Casts 5 H (0-2) /lpf Urine Mucus Rare H (None) /hpf Urine Opiates Screen (NotDetected) Ur Oxycodone Screen (NotDetected) Urine Methadone Screen (NotDetected) Ur Propoxyphene Screen (NotDetected) Ur Barbiturates Screen (NotDetected) U Tricyclic Antidepress (NotDetected) Ur Phencyclidine Scrn (NotDetected) Ur Amphetamines Screen (NotDetected) U Methamphetamines Scrn (NotDetected) U Benzodiazepines Scrn (NotDetected) Urine Cocaine Screen (NotDetected) U Marijuana (THC) Screen (NotDetected) Serum Alcohol <10 mg/dL 03/15/23 Range/Units 11:05 WBC (3.8-10.6) k/uL RBC (3.80-5.40) m/uL Hgb (11.4-16.0) gm/dL Hct (34.0-46.0) % MCV (80.0-100.0) fL MCH (25.0-35.0) pg MCHC (31.0-37.0) g/dL RDW (11.5-15.5) % Plt Count (150-450) k/uL MPV Neutrophils % (Manual) % Band Neuts % (Manual) % Lymphocytes % (Manual) % Monocytes % (Manual) % Metamyelocytes % % Myelocytes % % Neutrophils # (Manual) (1.3-7.7) k/uL Lymphocytes # (Manual) (1.0-4.8) k/uL Monocytes # (Manual) (0-1.0) k/uL Metamyelocytes # (Man) (0) k/uL Myelocytes # (Manual) (0) k/uL Nucleated RBCs (0-0) /100 WBC Manual Slide Review Polychromasia Hypochromasia Poikilocytosis Anisocytosis PT (9.0-12.0) sec INR (<1.2) APTT (22.0-30.0) sec Sodium (137-145) mmol/L Potassium (3.5-5.1) mmol/L Chloride (98-107) mmol/L Carbon Dioxide (22-30) mmol/L Anion Gap mmol/L BUN (7-17) mg/dL Creatinine (0.52-1.04) mg/dL Est GFR (CKD-EPI)AfAm (>60 ml/min/1.73 sqM) Est GFR (CKD-EPI)NonAf (>60 ml/min/1.73 sqM) Glucose (74-99) mg/dL POC Glucose (mg/dL) 135 H (70-110) mg/dL POC Glu Pensionholder Information Clerk ID Waqas, Andres Calcium (8.4-10.2) mg/dL Total Bilirubin (0.2-1.3) mg/dL AST (14-36) U/L ALT (4-34) U/L Alkaline Phosphatase (38-126) U/L Troponin I (0.000-0.034) ng/mL Total Protein (6.3-8.2) g/dL Albumin (3.5-5.0) g/dL Urine Color Urine Appearance (Clear) Urine pH (5.0-8.0) Ur Specific [place] (1.001-1.035) Urine Protein (Negative) Urine Glucose (UA) (Negative) Urine Ketones (Negative) Urine Blood (Negative) Urine Nitrite (Negative) Urine Bilirubin (Negative) Urine Urobilinogen (<2.0) mg/dL Ur Leukocyte Esterase (Negative) Urine RBC (0-5) /hpf Urine WBC (0-5) /hpf Ur Squamous Epith Cells (0-4) /hpf Hyaline Casts (0-2) /lpf Urine Mucus (None) /hpf Urine Opiates Screen (NotDetected) Ur Oxycodone Screen (NotDetected) Urine Methadone Screen (NotDetected) Ur Propoxyphene Screen (NotDetected) Ur Barbiturates Screen (NotDetected) U Tricyclic Antidepress (NotDetected) Ur Phencyclidine Scrn (NotDetected) Ur Amphetamines Screen (NotDetected) U Methamphetamines Scrn (NotDetected) U Benzodiazepines Scrn (NotDetected) Urine Cocaine Screen (NotDetected) U Marijuana (THC) Screen (NotDetected) Serum Alcohol mg/dL Disposition Clinical Impression: Acute renal failure, Hematuria, Altered mental status Disposition: ADMITTED IP TO THIS [facility] Referrals: Abhishek Beltran DO [Primary Care Provider] - 1-2 days Time of Disposition: 15:35
[2023-03-15 11:06] LABS: Glucose,Whole Blood 135 mg/dL (70-110)
[2023-03-15 11:39] LABS: Appearance,Urine Cloudy (Clear); Bilirubin,Urine Negative (Negative); Blood,Urine Trace (Negative); Color,Urine Yellow; Glucose,Urine (UA) Negative (Negative); Hyaline Casts,Urine 5 /lpf (0-2); Ketones,Urine Negative (Negative); Leukocyte Esterase,Urine Negative (Negative); Mucus,Urine Rare /hpf; Nitrite,Urine Negative (Negative); PH, Urine 5.5 (5.0-8.0); Protein,Urine 1+ (Negative); RBC,Urine 1 /hpf (0-5); Specific Gravity,Urine 1.012 (1.001-1.035); Squamous Epithelial Cell,Urine 4 /hpf (0-4); Urobilinogen,Urine <2.0 mg/dL (<2.0); WBC,Urine 2 /hpf (0-5)
[2023-03-15 11:42] LABS: INR 1.1 (<1.2); Partial Thromboplastin Time 22.2 sec (22.0-30.0); Prothrombin Time 11.8 sec (9.0-12.0)
[2023-03-15 11:51] LABS: Amphetamine Screen,Urine Not Detected (NotDetected); Barbiturate Screen,Urine Not Detected (NotDetected); Benzodiazepines Screen,Urine Detected (NotDetected); Cocaine Screen,Urine Not Detected (NotDetected); Methadone Screen, Urine Not Detected (NotDetected); Opiate Screen,Urine Detected (NotDetected); Oxycodone Screen, Urine Not Detected (NotDetected); Phencyclidine Screen,Urine Not Detected (NotDetected); Tricyclic Antidepressant,Urine Detected (NotDetected); Urn Cannabinoid Scrn Not Detected (NotDetected)
[2023-03-15 11:53] LABS: ALT 20 U/L (4-34); AST 40 U/L (14-36); African American GFR (CKD) 16 (>60 ml/min/1.73 sqM); Albumin 3.1 g/dL (3.5-5.0); Alcohol <10 mg/dL; Alkaline Phosphatase 78 U/L (38-126); Anion Gap 10 mmol/L; Blood Urea Nitrogen 12 mg/dL (7-17); Calcium 7.4 mg/dL (8.4-10.2); Carbon Dioxide 22 mmol/L (22-30); Chloride 103 mmol/L (98-107); Glucose 133 mg/dL (74-99); Non-African American GFR(CKD) 14 (>60 ml/min/1.73 sqM); Potassium 4.4 mmol/L (3.5-5.1); Sodium 135 mmol/L (137-145); Total Bilirubin 0.6 mg/dL (0.2-1.3); Total Protein 5.9 g/dL (6.3-8.2)
[2023-03-15 12:03] LABS: Anisocytosis Slight; HCT 34.6 % (34.0-46.0); HGB 10.7 gm/dL (11.4-16.0); Hypochromasia Marked; MCH 27.3 pg (25.0-35.0); Mean Platelet Volume 8.3; Platelet Count 245 k/uL (150-450); Poikilocytosis Slight; RBC 3.93 m/uL (3.80-5.40); RDW 17.4 % (11.5-15.5)
--- NOTE | 2023-03-15 12:07 | XR ---
EXAMINATION TYPE: XR chest 2V DATE OF EXAM: 03/15/2023 12:00 PM COMPARISON: Chest radiographs from 10/30/2022 TECHNIQUE: XR chest 2V Frontal and lateral views of the chest. CLINICAL INDICATION:Female, 58 years old with history of altered mental status; FINDINGS: Lungs/Pleura: There is no evidence of pleural effusion, focal consolidation, or pneumothorax. Chronic senescent parenchyma change. Pulmonary vascularity: Unremarkable. Heart/mediastinum: Cardiomediastinal silhouette is enlarged. Musculoskeletal: No acute osseous pathology. IMPRESSION: Cardiomegaly without evidence for focal consolidation.
[2023-03-15 13:20] LABS: Band Neutrophils % 2 %; Metamyelocytes # (M) 0.14 k/uL (0); Metamyelocytes % 1 %; Myelocytes # (M) 0.14 k/uL (0); Myelocytes % 1 %; Neutrophils % (M) 91 %; Nucleated Red Blood Cells 4 /100 WBC (0-0); Total Cells Counted 200
[2023-03-15 13:21] LABS: Lymphocytes # (M) 0.68 k/uL (1.0-4.8); Monocytes # (M) 0.27 k/uL (0-1.0); Polychromasia Present; WBC 13.5 k/uL (3.8-10.6)
[2023-03-15] MEDS ORDERED: BACLOFEN 10 MG TAB PO PRN (17:43)
--- NOTE | 2023-03-15 18:09 | CA ---
Transthoracic Echo Report Name: Jada Faustin Age: 58 Gender: F : 1965 Exam Date: 03/15/2023 15:42 Exam Location: [facility] Ht (in): 69 Wt (lb): 168 Ordering Physician: Bobo Gonzales MD Attending/Referring Phys: Electrical Equipment Technician Martínez Baptiste Procedure CPT: Indications: Cardiomegaly acutely Cardiac Hx: Technical Quality: Fair Contrast 1: Total Dose (mL): Contrast 2: Total Dose (mL): MEASUREMENTS (Male / Female) Normal Values FINDINGS Left Ventricle Normal LV size and wall thickness. Left ventricular ejection fraction is estimated at 50-55%. The ventricle systolic function borderline normal Right Ventricle Moderate right ventricular dilatation. RVSP= 37mmHg. flattened septum Right Atrium Moderate RA enlargement. RA area= 17.5cm2. Left Atrium Normal left atrial size. Mitral Valve Structurally normal mitral valve. Mild MR. Aortic Valve Trileaflet aortic valve. No aortic valve stenosis or regurgitation. Tricuspid Valve Tricuspid valve not well visualized. Moderate to severe TR. Pulmonic Valve Structurally normal pulmonic valve. Mild PI. Pericardium Normal pericardium. Aorta Normal size aortic root . CONCLUSIONS Technically difficult study. 1. Left ventricle systolic function borderline normal 2. Dilated right ventricle was flattened septum and global hypokinesis. 3. Moderate severe tricuspid regurgitation 4. Mobile intra-atrial septum 5. Dilated IVC Previewed by: Dr. Melania Burt MD (Electronically Signed) Final Date: 15 March 2023 18:08
--- NOTE | 2023-03-15 21:22 | P.HPIM ---
History of Present Illness H&P Date: 03/15/23 Chief Complaint: Vomiting. This is a pleasant 58-year-old patient of Dr. Beltran./ neurologist Dr. Garsia. Chronic stable medical conditions include chronic kidney disease stage III, chronic medical debility from multiple sclerosis, chronic fibromyalgia, cognitive impairment, hypothyroid, polyneuropathy, bipolar disorder, chronic double incontinence. baseline patient has a motorized chair patient is able to stand and transfer. At baseline she is weak in her arms but able to feed herself. Patient was discharged from [facility] in [facility] , being admitted that on March 05 and discharged on March 10. That is 5 days ago. Patient then had Klebsiella pneumoniae UTI with sepsis. Including positive blood cultures. Patient completed a course IV ceftriaxone and some oral antibiotic. When discharge patient was creatinine was 1.5. Creatinine was 1.72 and October of this year. Review of systems: GEN.: Generalized tiredness EYES: None HEENT: None NECK: None RESPIRATORY: None CARDIOVASCULAR: None GASTROINTESTINAL: As above GENITOURINARY: Double incontinence MUSCULOSKELETAL: Generalized aches and pains LYMPHATICS: None HEMATOLOGICAL: None PSYCHIATRY: Some anxiety NEUROLOGICAL: MS has affected in different parts of the body including weakness in the arms Past medical history: DVT, fibromyalgia, memory impairment, multiple sclerosis, migraines, constipation, back pain, hypothyroid, cervical cancer, carpal tunnel, polyneuropathy, has had hemodialysis in the past chemotherapy treatment for MS, bipolar disorder Social history: Smoked about 2 packs a day for 40 years stopped 4 years ago. No alcohol. . Physical examination: VITAL SIGNS: 97.7, 92, 18, 11 1 x 63, 91% on 2 L GENERAL: BMI 26.3, declining in bed EYES: Pupils equal. Conjunctiva normal. HEENT: External appearance of nose and ears normal, oral cavity dry mucous membranes NECK: JVD not raised; masses not palpable. HEART: First and second heart sounds are normal; no edema. LUNGS: Respiratory rate normal; clear to auscultation. ABDOMEN: Soft, mild epigastric tenderness, no guarding or rigidity, liver spleen not palpable, no masses palpable. PSYCH: Answering questions appropriately NEUROLOGICAL: Cranial nerves grossly intact; no facial asymmetry, weakness of both the upper and lower extremities, generalized LYMPHATICS: No lymph nodes palpable in the axilla and neck EXTREMITY: Some contracture of the hands INVESTIGATIONS, reviewed in the clinical context: March 15: White count 13.5 hemoglobin 10.7 platelets 245 sodium 135 potassium 4.4 BUN 12 creatinine 3.5 to AST 40 ALT 20 Troponin I 0.017 UA: Negative nitrite. Negative leukoesterase. Urine drug screen: Positive for opiates, tricyclic antidepressants, benzodiazepine. EKG tracing personally reviewed by me-sinus rhythm. Chest x-ray film personally reviewed by me-cardiomegaly Previous labs: Creatinine 1.5 on 03/10/2023. Creatinine 1.7 to on 10/04/2022 Assessment and plan: -Acute kidney injury, likely ATN and prerenal component. Patient's creatinine was 1.5 on March 10. Currently 3.5. Half saline. 1 50 mL an hour. Follow renal function closely. -Significant nausea vomiting secondary to acute kidney injury. IV fluids -chronic congestive heart failure from diastolic dysfunction EF greater than 55% -Gallstones -Chronic kidney disease, possible stage III from nephrosclerosis. Baseline creatinine of 1.4 Follow labs -Normocytic anemia of chronic kidney disease Follow H&H -Chronic medical debility from underlying multiple sclerosis baseline uses a wheelchair -Multiple sclerosis, with chronic paresis Follows with Dr. coreas . 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 Patient is having significant vomiting. IV fluids. Cutback on diet. Because of renal failure cutback nose of Neurontin. Discussion and discharge planning more than 35 minutes Past Medical History Past Medical History: Cancer, Deep Vein Thrombosis (DVT), Fibromyalgia, Memory Impairment, Pneumonia, Renal Disease Additional Past Medical History / Comment(s): MIGRANES, MULTIPLE SCLEROSIS, BRAIN LESIONS, PVD, SOB, CONSTIPATION, DIARRHEA, KIDNEY INFECTION, UTI, BACK PAIN, ANEMIA, HYPERTHYROID, CERVICAL CA, CARPAL TUNNEL,septicemia, polyneuropathy ,HADHEMODIALYSIS TWICE, HAD CHEMOTHERAPY FOR TX OF MS, MOTORIZED CHAIR-ABLE TO STAND TO TRANSFER. History of Any Multi-Drug Resistant Organisms: None Reported Past Surgical History: Tonsillectomy, Tubal Ligation Additional Past Surgical History / Comment(s): DIALYSIS CATHETER (REMOVED), BIOPSY (UNKNOWN TYPE), CRYO SURGERY FOR CERVICAL CA, D&C. Past Anesthesia/Blood Transfusion Reactions: No Reported Reaction Past Psychological History: Anxiety, Bipolar, Depression Smoking Status: Former smoker Past Alcohol Use History: None Reported Past Drug Use History: None Reported - Past Family History Father Family Medical History: Cancer Additional Family Medical History / Comment(s): BRAIN Mother Family Medical History: Cancer Additional Family Medical History / Comment(s): BREAST Medications and Allergies Home Medications Medication Instructions Recorded Confirmed Type Aspirin EC [Ecotrin Low Dose] 81 mg PO HS 11/02/13 03/15/23 History Citalopram Hydrobromide [CeleXA] 20 mg PO HS 12/14/18 03/15/23 History Donepezil [Aricept] 5 mg PO HS 12/14/18 03/15/23 History Baclofen 10 mg PO TID PRN 03/23/22 03/15/23 History Ofatumumab [Kesimpta Pen] 20 mg SQ Q28D 03/23/22 03/15/23 History Gabapentin 600 mg PO TID 07/31/22 03/15/23 History Albuterol Sulfate [Albuterol 1 - 2 puff PO RT-Q6H PRN 03/15/23 03/15/23 History Sulfate Hfa] Clotrimazole/Betameth Cream 1 applic TOPICAL BID 03/15/23 03/15/23 History [Lotrisone] HYDROcodone/APAP 10-325MG [[place] 1 tab PO Q6HR PRN 03/15/23 03/15/23 History 10-325] Imodium A-D Liquid 30 ml PO BID 03/15/23 03/15/23 History QUEtiapine [SEROquel] 100 mg PO HS 03/15/23 03/15/23 History cefUROXime axetiL [Ceftin] 500 mg PO BID 03/15/23 03/15/23 History Allergies Allergy/AdvReac Type Severity Reaction Status Date / Time blue dye Allergy Rash/Hives Verified 03/15/23 13:51 COVID-19 (SARS-CoV-2) Allergy Anaphylaxis Verified 03/15/23 13:51 vaccine, keren Neuromuscular Blockers, AdvReac Nausea & Verified 03/15/23 13:51 Steroidal Vomiting [Steroidal Neuromuscular Blockers] Physical Exam Vitals: Vital Signs Temp Pulse Resp BP Pulse Ox 03/15/23 18:19 97.7 F 92 18 91 L 03/15/23 17:37 95 18 111/63 92 L 03/15/23 16:31 86 18 88 L 03/15/23 14:00 87 18 119/73 90 L 03/15/23 13:00 87 18 112/75 93 L 03/15/23 12:00 92 18 107/74 89 L 03/15/23 10:55 94 18 93 L 03/15/23 10:45 97.2 F L 104 H 18 107/74 80 L Intake and Output 03/15/23 03/15/23 03/15/23 06:59 14:59 22:59 Other: Weight 80.739 kg Results CBC & Chem 7: 03/15/23 10:57 03/15/23 10:57 Labs: Abnormal Lab Results - Last 24 Hours (Table) 03/15/23 03/15/23 03/15/23 Range/Units 10:57 10:57 10:57 WBC 13.5 H (3.8-10.6) k/uL Hgb 10.7 L (11.4-16.0) gm/dL RDW 17.4 H (11.5-15.5) % Neutrophils # (Manual) 12.50 H (1.3-7.7) k/uL Lymphocytes # (Manual) 0.68 L (1.0-4.8) k/uL Metamyelocytes # (Man) 0.14 H (0) k/uL Myelocytes # (Manual) 0.14 H (0) k/uL Nucleated RBCs 4 H (0-0) /100 WBC Sodium 135 L (137-145) mmol/L Creatinine 3.52 H (0.52-1.04) mg/dL Glucose 133 H (74-99) mg/dL POC Glucose (mg/dL) (70-110) mg/dL Calcium 7.4 L (8.4-10.2) mg/dL AST 40 H (14-36) U/L Total Protein 5.9 L (6.3-8.2) g/dL Albumin 3.1 L (3.5-5.0) g/dL Urine Appearance (Clear) Urine Protein (Negative) Urine Blood (Negative) Hyaline Casts (0-2) /lpf Urine Mucus (None) /hpf Urine Opiates Screen Detected H (NotDetected) U Tricyclic Antidepress Detected H (NotDetected) U Benzodiazepines Scrn Detected H (NotDetected) 03/15/23 03/15/23 Range/Units 10:57 11:05 WBC (3.8-10.6) k/uL Hgb (11.4-16.0) gm/dL RDW (11.5-15.5) % Neutrophils # (Manual) (1.3-7.7) k/uL Lymphocytes # (Manual) (1.0-4.8) k/uL Metamyelocytes # (Man) (0) k/uL Myelocytes # (Manual) (0) k/uL Nucleated RBCs (0-0) /100 WBC Sodium (137-145) mmol/L Creatinine (0.52-1.04) mg/dL Glucose (74-99) mg/dL POC Glucose (mg/dL) 135 H (70-110) mg/dL Calcium (8.4-10.2) mg/dL AST (14-36) U/L Total Protein (6.3-8.2) g/dL Albumin (3.5-5.0) g/dL Urine Appearance Cloudy H (Clear) Urine Protein 1+ H (Negative) Urine Blood Trace H (Negative) Hyaline Casts 5 H (0-2) /lpf Urine Mucus Rare H (None) /hpf Urine Opiates Screen (NotDetected) U Tricyclic Antidepress (NotDetected) U Benzodiazepines Scrn (NotDetected)
[2023-03-15] MEDS: ASPIRIN 81 MG PO SCH (22:08)
[2023-03-15] MEDS: QUEtiapine 100 MG TAB PO SCH (22:08)
[2023-03-15] MEDS: CLOTRIMAZOLE/BETAMETH 1-0.05% CREAM 45 GM TUBE TOPICAL SCH (22:09)
[2023-03-15] MEDS: DONEPEZIL 5 MG TAB PO SCH (22:09)
[2023-03-15] MEDS: ENOXAPARIN 40 MG/0.4 ML SYRINGE SQ SCH (22:09)
[2023-03-15] MEDS: CITALOPRAM HYDROBROMIDE 20 MG TAB PO SCH (22:09)
[2023-03-15] MEDS: HYDROcodone/APAP 10-325MG 1 EACH TAB PO PRN (22:10)
[2023-03-15] MEDS: SODIUM CHLORIDE 0.45% 1,000 ML IV SCH (23:14)
[2023-03-16] MEDS: SODIUM CHLORIDE 0.45% 1,000 ML IV SCH ×3 (06:42→20:21)
[2023-03-16] MEDS: GABAPENTIN 100 MG CAP PO SCH ×3 (08:10→20:36)
[2023-03-16] MEDS: ENOXAPARIN 40 MG/0.4 ML SYRINGE SQ SCH (08:10)
[2023-03-16] MEDS: CLOTRIMAZOLE/BETAMETH 1-0.05% CREAM 45 GM TUBE TOPICAL SCH ×2 (08:11→20:36)
[2023-03-16 09:42] LABS: African American GFR (CKD) 25 (>60 ml/min/1.73 sqM); Anion Gap 9 mmol/L; Blood Urea Nitrogen 14 mg/dL (7-17); Calcium 7.9 mg/dL (8.4-10.2); Carbon Dioxide 26 mmol/L (22-30); Chloride 106 mmol/L (98-107); Glucose 70 mg/dL (74-99); Non-African American GFR(CKD) 22 (>60 ml/min/1.73 sqM); Potassium 3.4 mmol/L (3.5-5.1); Sodium 141 mmol/L (137-145)
--- NOTE | 2023-03-16 11:28 | US ---
EXAMINATION TYPE: US kidneys/renal and bladder DATE OF EXAM: 03/16/2023 COMPARISON: NONE CLINICAL INDICATION: Female, 58 years old with history of DONALDO; DONALDO EXAM MEASUREMENTS: Right Kidney: 9.5 x 3.6 x 4.1 cm Left Kidney: 10.1 x 3.5 x 3.9 cm Right Kidney: No hydronephrosis or masses seen Left Kidney: 2 anechoic lesions seen, superior pole lesion more complex measuring at 2.4 x 2.1 x 2.3c m Bladder: wnl incidental finding of splenomegaly Renal cortex appears thinned bilaterally. Spleen is prominent in size. No hydronephrosis or nephrolit hiasis. IMPRESSION: 1. No hydronephrosis or nephrolithiasis. There is a complex lesion involving the superior pole the le ft kidney measuring 2.4 cm. Recommend MRI. 2. Cortical thinning correlate for chronic medical renal disease.
[2023-03-16] MEDS ORDERED: POTASSIUM CHLORIDE ER 20 MEQ TAB.ER PO STA (11:53)
--- NOTE | 2023-03-16 11:54 | P.NPCON ---
History of Present Illness - Reason for Consult acute renal failure - History of Present Illness Patient is a 58-year-old female with history of hypothyroidism, and bipolar disorder and chronic kidney disease. 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 She is admitted to the hospital with complaints of increased weakness abdominal pain diarrhea. Patient has also had nausea and decreased oral intake. Underlying history of repeated urinary tract infections and status post recent admission to [facility] for UTI status post treatment with IV antibiotics. Patient had Klebsiella pneumonia UTI with sepsis and was discharged home on oral antibiotics. No history of use of NSAIDs Good urine output per patient Currently maintained on IV fluids. Serum creatinine improved from 3.5-2.3. Previous creatinine at 1.6-1.7 mg/dL in July and October 2022 Blood pressure has been low with systolic in the s Review of Systems As per HPI Past Medical History Past Medical History: Cancer, Heart Failure, Deep Vein Thrombosis (DVT), Fibromyalgia, Memory Impairment, Pneumonia, Renal Disease Additional Past Medical History / Comment(s): MIGRANES, MULTIPLE SCLEROSIS, BRAIN LESIONS, PVD, SOB, CONSTIPATION, DIARRHEA, KIDNEY INFECTION, UTI, BACK PAIN, ANEMIA, HYPERTHYROID, CERVICAL CA, CARPAL TUNNEL,septicemia, polyneuropathy ,HAD HEMODIALYSIS TWICE, MOTORIZED CHAIR-ABLE TO STAND TO TRANSFER, leaky heart valve History of Any Multi-Drug Resistant Organisms: None Reported Past Surgical History: Tonsillectomy, Tubal Ligation Additional Past Surgical History / Comment(s): DIALYSIS CATHETER (REMOVED), BIOPSY (UNKNOWN TYPE), CRYO SURGERY FOR CERVICAL CA, D&C. Past Anesthesia/Blood Transfusion Reactions: No Reported Reaction Past Psychological History: Anxiety, Bipolar, Depression Smoking Status: Former smoker Past Alcohol Use History: None Reported Past Drug Use History: None Reported - Past Family History Father Family Medical History: Cancer Additional Family Medical History / Comment(s): BRAIN Mother Family Medical History: Cancer Additional Family Medical History / Comment(s): BREAST Medications and Allergies Home Medications Medication Instructions Recorded Confirmed Type Aspirin EC [Ecotrin Low Dose] 81 mg PO HS 11/02/13 03/15/23 History Citalopram Hydrobromide [CeleXA] 20 mg PO HS 12/14/18 03/15/23 History Donepezil [Aricept] 5 mg PO HS 12/14/18 03/15/23 History Baclofen 10 mg PO TID PRN 03/23/22 03/15/23 History Ofatumumab [Kesimpta Pen] 20 mg SQ Q28D 03/23/22 03/15/23 History Gabapentin 600 mg PO TID 07/31/22 03/15/23 History Albuterol Sulfate [Albuterol 1 - 2 puff PO RT-Q6H PRN 03/15/23 03/15/23 History Sulfate Hfa] Clotrimazole/Betameth Cream 1 applic TOPICAL BID 03/15/23 03/15/23 History [Lotrisone] HYDROcodone/APAP 10-325MG [[place] 1 tab PO Q6HR PRN 03/15/23 03/15/23 History 10-325] Imodium A-D Liquid 30 ml PO BID 03/15/23 03/15/23 History QUEtiapine [SEROquel] 100 mg PO HS 03/15/23 03/15/23 History cefUROXime axetiL [Ceftin] 500 mg PO BID 03/15/23 03/15/23 History Allergies Allergy/AdvReac Type Severity Reaction Status Date / Time blue dye Allergy Rash/Hives Verified 03/15/23 13:51 COVID-19 (SARS-CoV-2) Allergy Anaphylaxis Verified 03/15/23 13:51 vaccine, keren Neuromuscular Blockers, AdvReac Nausea & Verified 03/15/23 13:51 Steroidal Vomiting [Steroidal Neuromuscular Blockers] Physical Exam Vitals: Vital Signs Temp Pulse Pulse Resp BP BP Pulse Ox 03/16/23 08:05 97.8 F 95 19 91/60 88 L 03/16/23 04:00 97.7 F 81 18 91/54 95 03/16/23 00:44 85/54 03/15/23 23:05 98.4 F 89 16 83/50 92 L 03/15/23 19:31 99.2 F 90 16 111/64 95 03/15/23 18:19 97.7 F 92 18 91 L 03/15/23 17:37 95 18 111/63 92 L 03/15/23 16:31 86 18 88 L 03/15/23 14:00 87 18 119/73 90 L 03/15/23 13:00 87 18 112/75 93 L 03/15/23 12:00 92 18 107/74 89 L Intake and Output 03/15/23 03/16/23 03/16/23 22:59 06:59 14:59 Output Total 800 Balance -800 Output: Urine 800 Other: Voiding Method External Catheter External Catheter External Catheter # Voids 1 # Bowel Movements 1 1 Weight 80.739 kg Patient is awake, comfortable, no acute distress Examination of the heart S1 and S2 Examination of the lungs bilateral breath sounds are heard Abdomen is soft nontender Examination of the lower extremities shows no significant edema 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 Acute kidney injury, ATN associated with hypotension. Currently nonoliguric and improving renal function. 2. Chronic kidney disease, stage IIIB with baseline creatinine 1.6-1.7 mg/dL. UA shows 1+ protein. No history of diabetes. Check ultrasound of the kidneys. 3. History of recent sepsis with UTI. 4. Hypokalemia, will be replaced 5. History of multiple sclerosis 6. Nausea, vomiting and diarrhea possibly related to recent antibiotics. C. diff toxin is pending. Plan: Continue IV fluids. Check ultrasound of the kidneys Replace potassium Repeat labs in a.m. Patient will need follow-up as outpatient for CK D. Thank you for the consultation. We will continue to follow the patient with you during her hospitalization.
--- NOTE | 2023-03-16 16:19 | P.PN ---
Progress Note - Text Progress Note Date: 03/16/23 Chief Complaint: Vomiting. This is a pleasant 58-year-old patient of Dr. Beltran./ neurologist Dr. Garsia. Chronic stable medical conditions include chronic kidney disease stage III, chronic medical debility from multiple sclerosis, chronic fibromyalgia, cognitive impairment, hypothyroid, polyneuropathy, bipolar disorder, chronic double incontinence. baseline patient has a motorized chair patient is able to stand and transfer. At baseline she is weak in her arms but able to feed herself. Patient was discharged from [facility] in [facility] , being admitted that on March 05 and discharged on March 10. That is 5 days ago. Patient then had Klebsiella pneumoniae UTI with sepsis. Including positive blood cultures. Patient completed a course IV ceftriaxone and some oral antibiotic. When discharge patient was creatinine was 1.5. Creatinine was 1.72 and October of this year. March 16: Feeling better. Was receiving IV fluids. Creatinine started to come down. No more vomiting. No more diarrhea. Advance to full liquid diet. Cutback IV fluids. Active Medications Hydrocodone Bitart/Acetaminophen (Hydrocodone/Apap 10-325mg 1 Each Tab) 1 each PO Q6HR PRN PRN Reason: Pain Last Admin: 03/15/23 22:10 Dose: 1 each Aspirin (Aspirin 81 Mg) 81 mg PO HS [facility] Last Admin: 03/15/23 22:08 Dose: 81 mg Baclofen (Baclofen 10 Mg Tab) 10 mg PO TID PRN PRN Reason: Muscle Spasm Betamethasone/Clotrimazole (Clotrimazole/Betameth 1-0.05% Cream 45 Gm Tube) 1 applic TOPICAL BID GEM; Protocol Last Admin: 03/16/23 08:11 Dose: 1 applic Citalopram Hydrobromide (Citalopram Hydrobromide 20 Mg Tab) 20 mg PO HS [facility] Last Admin: 03/15/23 22:09 Dose: 20 mg Donepezil HCl (Donepezil 5 Mg Tab) 5 mg PO HS [facility] Last Admin: 03/15/23 22:09 Dose: 5 mg Enoxaparin Sodium (Enoxaparin 30 Mg/0.3 Ml Syringe) 30 mg SQ DAILY GEM Gabapentin (Gabapentin 100 Mg Cap) 200 mg PO TID [facility] Last Admin: 03/16/23 15:27 Dose: 200 mg Sodium Chloride (Saline 0.45%) 1,000 mls @ 125 mls/hr IV .Q8H [facility] Last Admin: 03/16/23 12:14 Dose: 125 mls/hr Quetiapine Fumarate (Quetiapine 100 Mg Tab) 100 mg PO HS [facility] Last Admin: 03/15/23 22:08 Dose: 100 mg Past medical history: DVT, fibromyalgia, memory impairment, multiple sclerosis, migraines, constipation, back pain, hypothyroid, cervical cancer, carpal tunnel, polyneuropathy, has had hemodialysis in the past chemotherapy treatment for MS, bipolar disorder Social history: Smoked about 2 packs a day for 40 years stopped 4 years ago. No alcohol. . Physical examination: VITAL SIGNS: 97.8, 95, 19, 91/60, GENERAL: Declining, comfortable EYES: Pupils equal. Conjunctiva normal. HEENT: External appearance of nose and ears normal, oral cavity dry mucous membranes NECK: JVD not raised; masses not palpable. HEART: First and second heart sounds are normal; no edema. LUNGS: Respiratory rate normal; clear to auscultation. ABDOMEN: Soft, mild epigastric tenderness, no guarding or rigidity, liver spleen not palpable, no masses palpable. PSYCH: Answering questions appropriately NEUROLOGICAL: Cranial nerves grossly intact; no facial asymmetry, weakness of both the upper and lower extremities, generalized EXTREMITY: Some contracture of the hands INVESTIGATIONS, reviewed in the clinical context: March 16: Potassium 3.4 BUN 14 creatinine 2.38 March 15: White count 13.5 hemoglobin 10.7 platelets 245 sodium 135 potassium 4.4 BUN 12 creatinine 3.5 to AST 40 ALT 20 Troponin I 0.017 UA: Negative nitrite. Negative leukoesterase. Urine drug screen: Positive for opiates, tricyclic antidepressants, benzodiazepine. EKG tracing personally reviewed by me-sinus rhythm. Chest x-ray film personally reviewed by me-cardiomegaly Previous labs: Creatinine 1.5 on 03/10/2023. Creatinine 1.7 to on 10/04/2022 Assessment and plan: -Acute kidney injury, likely ATN and prerenal component.: Slow improvement Patient's creatinine was 1.5 on March 10. Upon admission 3.5. Half saline. 125 mL an hour. Follow renal function closely. -Significant nausea vomiting secondary to acute kidney injury: Improved. IV fluids -chronic congestive heart failure from diastolic dysfunction EF greater than 55%: Stable -Gallstones -Chronic kidney disease, possible stage III from nephrosclerosis. Baseline creatinine of 1.4 Follow labs -Normocytic anemia of chronic kidney disease Follow H&H -Chronic medical debility from underlying multiple sclerosis baseline uses a wheelchair -Multiple sclerosis, with chronic paresis Follows with Dr. coreas . 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 Cutback IV fluids. Follow labs. Discussed with patient. Advance diet as tolerated. Past Medical History Past Medical History: Cancer, Deep Vein Thrombosis (DVT), Fibromyalgia, Memory Impairment, Pneumonia, Renal Disease Additional Past Medical History / Comment(s): MIGRANES, MULTIPLE SCLEROSIS, BRAIN LESIONS, PVD, SOB, CONSTIPATION, DIARRHEA, KIDNEY INFECTION, UTI, BACK PAIN, ANEMIA, HYPERTHYROID, CERVICAL CA, CARPAL TUNNEL,septicemia, polyneuropathy ,HADHEMODIALYSIS TWICE, HAD CHEMOTHERAPY FOR TX OF MS, MOTORIZED CHAIR-ABLE TO STAND TO TRANSFER. History of Any Multi-Drug Resistant Organisms: None Reported Past Surgical History: Tonsillectomy, Tubal Ligation Additional Past Surgical History / Comment(s): DIALYSIS CATHETER (REMOVED), BIOPSY (UNKNOWN TYPE), CRYO SURGERY FOR CERVICAL CA, D&C. Past Anesthesia/Blood Transfusion Reactions: No Reported Reaction Past Psychological History: Anxiety, Bipolar, Depression Smoking Status: Former smoker Past Alcohol Use History: None Reported Past Drug Use History: None Reported - Past Family History Father Family Medical History: Cancer Additional Family Medical History / Comment(s): BRAIN Mother Family Medical History: Cancer Additional Family Medical History / Comment(s): BREAST Medications and Allergies Home Medications Medication Instructions Recorded Confirmed Type Aspirin EC [Ecotrin Low Dose] 81 mg PO HS 11/02/13 03/15/23 History Citalopram Hydrobromide [CeleXA] 20 mg PO HS 12/14/18 03/15/23 History Donepezil [Aricept] 5 mg PO HS 12/14/18 03/15/23 History Baclofen 10 mg PO TID PRN 03/23/22 03/15/23 History Ofatumumab [Kesimpta Pen] 20 mg SQ Q28D 03/23/22 03/15/23 History Gabapentin 600 mg PO TID 07/31/22 03/15/23 History Albuterol Sulfate [Albuterol 1 - 2 puff PO RT-Q6H PRN 03/15/23 03/15/23 History Sulfate Hfa] Clotrimazole/Betameth Cream 1 applic TOPICAL BID 03/15/23 03/15/23 History [Lotrisone] HYDROcodone/APAP 10-325MG [[place] 1 tab PO Q6HR PRN 03/15/23 03/15/23 History 10-325] Imodium A-D Liquid 30 ml PO BID 03/15/23 03/15/23 History QUEtiapine [SEROquel] 100 mg PO HS 03/15/23 03/15/23 History cefUROXime axetiL [Ceftin] 500 mg PO BID 03/15/23 03/15/23 History Allergies Allergy/AdvReac Type Severity Reaction Status Date / Time blue dye Allergy Rash/Hives Verified 03/15/23 13:51 COVID-19 (SARS-CoV-2) Allergy Anaphylaxis Verified 03/15/23 13:51 vaccine, keren Neuromuscular Blockers, AdvReac Nausea & Verified 03/15/23 13:51 Steroidal Vomiting [Steroidal Neuromuscular Blockers]
[2023-03-16] MEDS: CITALOPRAM HYDROBROMIDE 20 MG TAB PO SCH (20:36)
[2023-03-16] MEDS: DONEPEZIL 5 MG TAB PO SCH (20:36)
[2023-03-16] MEDS: ASPIRIN 81 MG PO SCH (20:36)
[2023-03-16] MEDS: QUEtiapine 100 MG TAB PO SCH (20:36)
[2023-03-16] MEDS: HYDROcodone/APAP 10-325MG 1 EACH TAB PO PRN (20:48)
[2023-03-16] MEDS ORDERED: DIPHENOX-ATROP 2.5-0.025 MG 1 EACH TAB PO PRN (22:32)
[2023-03-17] MEDS: SODIUM CHLORIDE 0.45% 1,000 ML IV SCH (04:50)
[2023-03-17 05:09] VITALS: RESP 18
[2023-03-17 08:22] LABS: African American GFR (CKD) 40 (>60 ml/min/1.73 sqM); Anion Gap 4 mmol/L; Blood Urea Nitrogen 12 mg/dL (7-17); Carbon Dioxide 28 mmol/L (22-30); Chloride 113 mmol/L (98-107); Glucose 112 mg/dL (74-99); Non-African American GFR(CKD) 35 (>60 ml/min/1.73 sqM); Potassium 4.2 mmol/L (3.5-5.1); Sodium 145 mmol/L (137-145)
[2023-03-17] MEDS ORDERED: ENOXAPARIN 30 MG/0.3 ML SYRINGE SQ SCH (09:00)
[2023-03-17] MEDS: CLOTRIMAZOLE/BETAMETH 1-0.05% CREAM 45 GM TUBE TOPICAL SCH (09:41)
[2023-03-17] MEDS: GABAPENTIN 100 MG CAP PO SCH (09:41)
[2023-03-17 10:02] VITALS: BP 98/54; PULSE 80; TEMP 97.5
--- NOTE | 2023-03-17 11:43 | P.PN ---
Subjective Patient is seen for follow-up for acute kidney injury which appears to be prerenal and improving with IV hydration. Serum creatinine decreased to 1.6 today. Ultrasound shows no evidence of obstruction however small lesion was noted on the left kidney which appears to be complex and needs further investigation. Overall feels well. Objective - Vital Signs Vital signs: Vital Signs Temp 97.5 F L 03/17/23 08:00 Pulse 80 03/17/23 08:00 Resp 18 03/17/23 08:00 BP 98/54 03/17/23 08:00 Pulse Ox 97 03/17/23 08:00 FiO2 Intake & Output 03/16/23 03/17/23 03/17/23 18:59 06:59 18:59 Intake Total 445 Output Total 1450 1325 400 Balance -1005 -1325 -400 Intake: Oral 445 Output: Urine 1450 1325 400 Other: Voiding Method External Catheter External Catheter External Catheter # Bowel Movements 1 - Exam Patient is awake, comfortable, no acute distress Examination of the heart S1 and S2 Examination of the lungs bilateral breath sounds are heard Abdomen is soft nontender Examination of the lower extremities shows no significant edema [employer] exam grossly intact - Labs CBC & Chem 7: 03/15/23 10:57 03/17/23 08:00 Labs: Abnormal Lab Results - Last 24 Hours (Table) 03/17/23 Range/Units 08:00 Chloride 113 H (98-107) mmol/L Creatinine 1.63 H (0.52-1.04) mg/dL Glucose 112 H (74-99) mg/dL Calcium 8.0 L (8.4-10.2) mg/dL Assessment and Plan Assessment: 1. Acute kidney injury, ATN associated with hypotension. Currently nonoliguric and improving renal function. 2. Chronic kidney disease, stage IIIB with baseline creatinine 1.6-1.7 mg/dL. UA shows 1+ protein. No history of diabetes. Ultrasound shows no evidence of obstruction. 2.4 cm lesion noted on left kidney which needs further evaluation 3. History of recent sepsis with UTI. 4. Hypokalemia, will be replaced 5. History of multiple sclerosis 6. Nausea, vomiting and diarrhea possibly related to recent antibiotics. C. diff toxin is pending. 7. Left renal cyst/lesion which needs further evaluation down the road Plan: Continue IV fluids. Follow-up with urology post discharge Patient will need follow-up as outpatient for BRITTANIE Mathis.
--- NOTE | 2023-03-17 14:35 | P.DS ---
Providers Date of admission: 03/15/23 15:54 Expected date of discharge: 03/17/23 Attending physician: Kyle Delatorre Consults: 03/15/23 15:36 Consult Physician Urgent Consulting Provider: Ariadne Hathaway Consult Reason/Comments: Acute renal failure Do you want consulting provider notified?: Yes Primary care physician: [facility] Course: Chief Complaint: Vomiting. This is a pleasant 58-year-old patient of Dr. Beltran./ neurologist Dr. Garsia. Chronic stable medical conditions include chronic kidney disease stage III, chronic medical debility from multiple sclerosis, chronic fibromyalgia, cognitive impairment, hypothyroid, polyneuropathy, bipolar disorder, chronic double incontinence. baseline patient has a motorized chair patient is able to stand and transfer. At baseline she is weak in her arms but able to feed herself. Patient was discharged from [facility] in [facility] , being admitted that on March 05 and discharged on March 10. That is 5 days ago. Patient then had Klebsiella pneumoniae UTI with sepsis. Including positive blood cultures. Patient completed a course IV ceftriaxone and some oral antibiotic. When discharge patient was creatinine was 1.5. Creatinine was 1.72 and October of this year. March 16: Feeling better. Was receiving IV fluids. Creatinine started to come down. No more vomiting. No more diarrhea. Advance to full liquid diet. Cutback IV fluids. March 17: Patient doing much better. Creatinine down to 1.63 quite close to baseline. Discussed with patient. Follow-up with nephrology outpatient. Questions answered. Past medical history: DVT, fibromyalgia, memory impairment, multiple sclerosis, migraines, constipation, back pain, hypothyroid, cervical cancer, carpal tunnel, polyneuropathy, has had hemodialysis in the past chemotherapy treatment for MS, bipolar disorder Social history: Smoked about 2 packs a day for 40 years stopped 4 years ago. No alcohol. . Physical examination: VITAL SIGNS: 97.5, 80, 18, 90/54, 97% on 2 L GENERAL: Laying in bed, comfortable EYES: Pupils equal. Conjunctiva normal. HEENT: External appearance of nose and ears normal, oral cavity dry mucous membranes NECK: JVD not raised; masses not palpable. HEART: First and second heart sounds are normal; no edema. LUNGS: Respiratory rate normal; clear to auscultation. ABDOMEN: Soft, mild epigastric tenderness, no guarding or rigidity, liver spleen not palpable, no masses palpable. PSYCH: Answering questions appropriately NEUROLOGICAL: Cranial nerves grossly intact; no facial asymmetry, weakness of both the upper and lower extremities, generalized EXTREMITY: Some contracture of the hands INVESTIGATIONS, reviewed in the clinical context: March 17: Potassium 4.2 creatinine 1.63 March 16: Potassium 3.4 BUN 14 creatinine 2.38 March 15: White count 13.5 hemoglobin 10.7 platelets 245 sodium 135 potassium 4.4 BUN 12 creatinine 3.5 to AST 40 ALT 20 Troponin I 0.017 UA: Negative nitrite. Negative leukoesterase. Urine drug screen: Positive for opiates, tricyclic antidepressants, benzodiazepine. EKG tracing personally reviewed by me-sinus rhythm. Chest x-ray film personally reviewed by me-cardiomegaly Previous labs: Creatinine 1.5 on 03/10/2023. Creatinine 1.7 to on 10/04/2022 Assessment and plan: -Acute kidney injury, likely ATN and prerenal component.: Improved Patient's creatinine was 1.5 on March 10. Upon admission 3.5. -Significant nausea vomiting secondary to acute kidney injury: Improved. IV fluids -chronic congestive heart failure from diastolic dysfunction EF greater than 55%: Stable -Gallstones -Chronic kidney disease, possible stage III from nephrosclerosis. Baseline creatinine of 1.4 Follow with nephrology outpatient -Normocytic anemia of chronic kidney disease Follow H&H -Chronic medical debility from underlying multiple sclerosis baseline uses a wheelchair -Multiple sclerosis, with chronic paresis Follows with Dr. coreas . 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 Disposition: Home Labs: BMP 1 week Past Medical History Past Medical History: Cancer, Deep Vein Thrombosis (DVT), Fibromyalgia, Memory Impairment, Pneumonia, Renal Disease Additional Past Medical History / Comment(s): MIGRANES, MULTIPLE SCLEROSIS, BRAIN LESIONS, PVD, SOB, CONSTIPATION, DIARRHEA, KIDNEY INFECTION, UTI, BACK PAIN, ANEMIA, HYPERTHYROID, CERVICAL CA, CARPAL TUNNEL,septicemia, polyneuropathy ,HADHEMODIALYSIS TWICE, HAD CHEMOTHERAPY FOR TX OF MS, MOTORIZED CHAIR-ABLE TO STAND TO TRANSFER. History of Any Multi-Drug Resistant Organisms: None Reported Past Surgical History: Tonsillectomy, Tubal Ligation Additional Past Surgical History / Comment(s): DIALYSIS CATHETER (REMOVED), BIOPSY (UNKNOWN TYPE), CRYO SURGERY FOR CERVICAL CA, D&C. Past Anesthesia/Blood Transfusion Reactions: No Reported Reaction Past Psychological History: Anxiety, Bipolar, Depression Smoking Status: Former smoker Past Alcohol Use History: None Reported Past Drug Use History: None Reported - Past Family History Father Family Medical History: Cancer Additional Family Medical History / Comment(s): BRAIN Mother Family Medical History: Cancer Additional Family Medical History / Comment(s): BREAST Medications and Allergies Home Medications Medication Instructions Recorded Confirmed Type Aspirin EC [Ecotrin Low Dose] 81 mg PO HS 11/02/13 03/15/23 History Citalopram Hydrobromide [CeleXA] 20 mg PO HS 12/14/18 03/15/23 History Donepezil [Aricept] 5 mg PO HS 12/14/18 03/15/23 History Baclofen 10 mg PO TID PRN 03/23/22 03/15/23 History Ofatumumab [Kesimpta Pen] 20 mg SQ Q28D 03/23/22 03/15/23 History Gabapentin 600 mg PO TID 07/31/22 03/15/23 History Albuterol Sulfate [Albuterol 1 - 2 puff PO RT-Q6H PRN 03/15/23 03/15/23 History Sulfate Hfa] Clotrimazole/Betameth Cream 1 applic TOPICAL BID 03/15/23 03/15/23 History [Lotrisone] HYDROcodone/APAP 10-325MG [[place] 1 tab PO Q6HR PRN 03/15/23 03/15/23 History 10-325] Imodium A-D Liquid 30 ml PO BID 03/15/23 03/15/23 History QUEtiapine [SEROquel] 100 mg PO HS 03/15/23 03/15/23 History cefUROXime axetiL [Ceftin] 500 mg PO BID 03/15/23 03/15/23 History Allergies Allergy/AdvReac Type Severity Reaction Status Date / Time blue dye Allergy Rash/Hives Verified 03/15/23 13:51 COVID-19 (SARS-CoV-2) Allergy Anaphylaxis Verified 03/15/23 13:51 vaccine, keren Neuromuscular Blockers, AdvReac Nausea & Verified 03/15/23 13:51 Steroidal Vomiting [Steroidal Neuromuscular Blockers] Plan - Discharge Summary Discharge Rx Participant: Yes New Discharge Prescriptions: New Psyllium Husk 100% [Metamucil Packet] 1 packet PO DAILY #30 packet Continue Aspirin EC [Ecotrin Low Dose] 81 mg PO HS Donepezil [Aricept] 5 mg PO HS Citalopram Hydrobromide [CeleXA] 20 mg PO HS Baclofen 10 mg PO TID PRN PRN Reason: Muscle Spasm Albuterol Sulfate [Albuterol Sulfate Hfa] 1 - 2 puff PO RT-Q6H PRN PRN Reason: Shortness Of Breath QUEtiapine [SEROquel] 100 mg PO HS HYDROcodone/APAP 10-325MG [[place] 10-325] 1 tab PO Q6HR PRN PRN Reason: Pain Clotrimazole/Betameth Cream [Lotrisone] 1 applic TOPICAL BID Ofatumumab [Kesimpta Pen] 20 mg SQ Q28D Imodium A-D Liquid 30 ml PO BID Changed Gabapentin 600 mg PO HS #0 Discontinued cefUROXime axetiL [Ceftin] 500 mg PO BID Discharge Medication List Aspirin EC [Ecotrin Low Dose] 81 mg PO HS 11/02/13 [History] Citalopram Hydrobromide [CeleXA] 20 mg PO HS 12/14/18 [History] Donepezil [Aricept] 5 mg PO HS 12/14/18 [History] Baclofen 10 mg PO TID PRN 03/23/22 [History] Ofatumumab [Kesimpta Pen] 20 mg SQ Q28D 03/23/22 [History] Albuterol Sulfate [Albuterol Sulfate Hfa] 1 - 2 puff PO RT-Q6H PRN 03/15/23 [History] Clotrimazole/Betameth Cream [Lotrisone] 1 applic TOPICAL BID 03/15/23 [History] HYDROcodone/APAP 10-325MG [[place] 10-325] 1 tab PO Q6HR PRN 03/15/23 [History] Imodium A-D Liquid 30 ml PO BID 03/15/23 [History] QUEtiapine [SEROquel] 100 mg PO HS 03/15/23 [History] Gabapentin 600 mg PO HS #0 03/17/23 [Rx] Psyllium Husk 100% [Metamucil Packet] 1 packet PO DAILY #30 packet 03/17/23 [Rx] Follow up Appointment(s)/Referral(s): Ariadne Hathaway MD [STAFF PHYSICIAN] - 04/05/23 1:00 pm (Need referral to be seen ) Abhishek Beltran DO [Primary Care Provider] - 1-2 days (Office will call with appointment date and time. Office aware of need for referral to see Dr. Hathaway) Patient Instructions/Handouts: Acute Kidney Injury (DC) Discharge Disposition: HOME SELF-CARE
[2023-03-18] MEDS ORDERED: ENOXAPARIN 40 MG/0.4 ML SYRINGE SQ SCH (09:00)
--- NOTE | 2023-03-19 10:52 | CDI ---
Documentation Clarification Form Date: 03/19/2023 10:28:55 AM From: Haylee Armando RN, CCDS Email: [email or web address] Admit Date: 03/15/2023 03:54:00 PM Patient Name: Jada Faustin Visit Number: [id number] Discharge Date: 03/17/2023 01:24:00 PM ATTENTION: The Clinical Documentation Specialists (CDI) and [facility] Coding Staff appreciate your assistance in clarifying documentation. Please respond to the clarification below the line at the bottom and electronically sign. The CDI & [facility] Coding staff will review the response and follow-up if needed. Please note: Queries are made part of the Legal Health Record. If you have any questions, please contact the author of this message via ITS. Dr. Kyle Delatorre Your patient had acute renal failure, an elevated HR and white blood cell count. Based on this information and the findings below, is there an additional diagnosis that is clinically appropriate for this patient? History/Risk Factors: CKD 3, MS, fibromyalgia, cognitive impairment, hypothyroid and chronic diastolic CHF. Recent admission for UTI with sepsis, discharged home on antibiotics. Presented with AMS and vomiting. Admitted with acute kidney injury, likely ATN. Clinical Indicators: 03/15 VS: HR 104-94-86, BP 83/50-111/64 03/15-03/17 Cr: 3.52-2.38-1.63 03/15 WBC: 13.5 03/16 Nephrology consult: "Acute kidney injury, ATN associated with hypotension. Nausea, vomiting and diarrhea possibly related to recent antibiotics." 03/17 Discharge summary: "Acute kidney injury, likely ATN." Treatment: IV bolus 500ml 0.9 NS on 03/15 then 0.45NS @125ml/hr; Lomotil po Q6H prn Is there an additional diagnosis that is clinically appropriate for this patient? [ + ] SIRS, due to nausea, vomiting and diarrhea, with acute kidney injury and ATN [ ] Other, please specify [ ] Unable to determine MTDD
== END 2023-03-17 13:24 | disposition home or self-care (01) | DRG 682 ==
LOC: EC 10:43 → OBSVTOIN 15:54 → INTOOBSV 15:54 → 3SCARD 15:54
PROVIDERS: ADMIT Hospitalist; ATTEND Hospitalist
DX: N17.0 Acute kidney failure with tubular necrosis (principal); R65.11 Systemic inflammatory response syndrome (SIRS) of non-infectious origin with acute organ dysfunction; I13.0 Hypertensive heart and chronic kidney disease with heart failure and stage 1 through stage 4 chronic kidney disease, or unspecified chronic kidney disease; J96.11 Chronic respiratory failure with hypoxia; K80.10 Calculus of gallbladder with chronic cholecystitis without obstruction; I50.32 Chronic diastolic (congestive) heart failure; M62.442 Contracture of muscle, left hand; M62.441 Contracture of muscle, right hand; E11.649 Type 2 diabetes mellitus with hypoglycemia without coma; E11.42 Type 2 diabetes mellitus with diabetic polyneuropathy; E11.51 Type 2 diabetes mellitus with diabetic peripheral angiopathy without gangrene; G35 Multiple sclerosis; R31.9 Hematuria, unspecified; N18.32 Chronic kidney disease, stage 3b; M79.7 Fibromyalgia; F31.9 Bipolar disorder, unspecified; D63.1 Anemia in chronic kidney disease; E11.22 Type 2 diabetes mellitus with diabetic chronic kidney disease; I08.1 Rheumatic disorders of both mitral and tricuspid valves; G43.909 Migraine, unspecified, not intractable, without status migrainosus; E87.6 Hypokalemia; N28.1 Cyst of kidney, acquired; F41.9 Anxiety disorder, unspecified; R32 Unspecified urinary incontinence; Z87.01 Personal history of pneumonia (recurrent); Z86.718 Personal history of other venous thrombosis and embolism; Z92.21 Personal history of antineoplastic chemotherapy; Z79.899 Other long term (current) drug therapy; Z85.41 Personal history of malignant neoplasm of cervix uteri; Z88.7 Allergy status to serum and vaccine; Z91.048 Other nonmedicinal substance allergy status
CPT/HCPCS: 36415; 71046; 76770; 80048; 80053; 80306; 80320; 81001; 84484; 85025; 85610; 85730; 93005; 93306; 99285

== ENCOUNTER → 2023-07-09 | Outpatient (CLI) | payer BC ==
[2023-07-09 18:25] LABS: HCT 48.7 % (37.2-46.3); HGB 15.4 g/dL (12.0-15.0); MCH 27.8 pg (27.0-32.0); MCHC 31.6 g/dL (32.0-37.0); MCV 88.1 FL (80.0-97.0); Mean Platelet Volume 10.5 FL (9.5-12.2); NRBC Per 100 WBC 0 X 10*3/uL (0.00-0.01); Platelet Count 178 X 10*3/uL (140-440); RBC 5.53 X 10*6/uL (4.10-5.20); RDW 15.5 % (11.5-14.5); WBC 5.97 X 10*3/uL (4.50-10.00)
[2023-07-09 18:59] LABS: Magnesium 1.9 mg/dL (1.5-2.4)
[2023-07-09 19:00] LABS: % Iron Saturation 14.81 (12.00-45.00); ALT 19 U/L (8-44); AST 22 U/L (13-35); Albumin 4.3 g/dL (3.8-4.9); Albumin/Globulin Ratio 1.54 Ratio (1.60-3.17); Alkaline Phosphatase 114 U/L (41-126); BUN/Creat Ratio 7.81 Ratio (12.00-20.00); Blood Urea Nitrogen 12.5 mg/dL (9.0-27.0); Calcium 9.7 mg/dL (8.7-10.3); Carbon Dioxide 27.7 mmol/L (21.6-31.8); Chloride 104 mmol/L (96-109); Ferritin 50.1 ng/mL (10.0-291.0); Globulin 2.8 g/dL (1.6-3.3); Glucose 101 mg/dL (70-110); Iron 57 UG/DL (50-170); Phosphorus 3.3 mg/dL (2.4-5.1); Potassium 4.4 mmol/L (3.5-5.5); Sodium 143 mmol/L (135-145); Total Bilirubin 0.5 mg/dL (0.3-1.2); Total Iron Binding Capacity 385 UG/DL (228-460); Total Protein 7.1 g/dL (6.2-8.2)
== END | disposition home or self-care (01) ==
LOC: LABWHC1 16:18
PROVIDERS: ATTEND Internal Medicine Nephrology
DX: N18.30 Chronic kidney disease, stage 3 unspecified (principal); D63.1 Anemia in chronic kidney disease; N25.81 Secondary hyperparathyroidism of renal origin; E55.9 Vitamin D deficiency, unspecified; N39.0 Urinary tract infection, site not specified
CPT/HCPCS: 36415; 80053; 82306; 82728; 83540; 83550; 83735; 83970; 84100; 85027

== ENCOUNTER → 2023-08-31 | Outpatient (CLI) | payer BC ==
[2023-09-01 03:09] LABS: Blood Urea Nitrogen 15.7 mg/dL (9.0-27.0)
== END | disposition home or self-care (01) ==
LOC: LABWHC1 16:17
PROVIDERS: ATTEND Psychiatry & Neurology Neurology
DX: Z01.812 Encounter for preprocedural laboratory examination (principal)
CPT/HCPCS: 36415; 82565; 84520

== ENCOUNTER → 2023-10-12 | Outpatient (CLI) | payer BC ==
[2023-10-12 18:42] LABS: HCT 48.4 % (37.2-46.3); HGB 15.3 g/dL (12.0-15.0); MCH 27.7 pg (27.0-32.0); MCHC 31.6 g/dL (32.0-37.0); MCV 87.7 FL (80.0-97.0); Mean Platelet Volume 10.5 FL (9.5-12.2); NRBC Per 100 WBC 0 X 10*3/uL (0.00-0.01); Platelet Count 188 X 10*3/uL (140-440); RBC 5.52 X 10*6/uL (4.10-5.20); WBC 6.26 X 10*3/uL (4.50-10.00)
[2023-10-12 19:22] LABS: % Iron Saturation 19.42 (12.00-45.00); BUN/Creat Ratio 7.41 Ratio (12.00-20.00); Blood Urea Nitrogen 12.6 mg/dL (9.0-27.0); Chloride 101 mmol/L (96-109); Glucose 123 mg/dL (70-110); Iron 81 UG/DL (50-170); Magnesium 1.8 mg/dL (1.5-2.4); Phosphorus 2.7 mg/dL (2.4-5.1); Potassium 3.6 mmol/L (3.5-5.5); Sodium 141 mmol/L (135-145); Total Iron Binding Capacity 417 UG/DL (228-460); Uric Acid 6.4 mg/dL (2.9-7.7)
[2023-10-12 19:23] LABS: ALT 18 U/L (8-44); AST 31 U/L (13-35); Albumin 4.5 g/dL (3.8-4.9); Albumin/Globulin Ratio 1.55 Ratio (1.60-3.17); Alkaline Phosphatase 130 U/L (41-126); Calcium 9.9 mg/dL (8.7-10.3); Ferritin 49.5 ng/mL (10.0-291.0); Globulin 2.9 g/dL (1.6-3.3); Total Bilirubin 0.6 mg/dL (0.3-1.2); Total Protein 7.4 g/dL (6.2-8.2)
== END | disposition home or self-care (01) ==
LOC: LABWHC1 13:56
PROVIDERS: ATTEND Internal Medicine
DX: N18.32 Chronic kidney disease, stage 3b (principal)
CPT/HCPCS: 36415; 80053; 82306; 82728; 83540; 83550; 83735; 83883; 83970; 84100; 84550; 85027; 86334

== ENCOUNTER 2024-01-14 14:46 | Emergency (ER) | payer BC ==
[2024-01-14 14:52] VITALS: TEMP 97.9
--- NOTE | 2024-01-14 15:13 | ED ---
General Adult HPI - General Chief complaint: Nausea/Vomiting/Diarrhea Stated complaint: nausea, neck pain, numbness Time Seen by Provider: 01/14/24 14:52 Source: patient Mode of arrival: wheelchair Limitations: no limitations - History of Present Illness Initial comments: Dictation was produced using [employer] dictation software. please excuse any grammatical, word or spelling errors. Chief Complaint: 58-year-old female presents with total left-sided body paresthesias History of Present Illness: Patient is a 50-year-old female presents to the emergency department with her . Patient has been diagnosed with multiple sclerosis for approximately 12 years. Since January 05 patient has been having symptoms of nausea and left-sided paresthesias. She had been to [facility] 3 times. She decided for this time she would come here because she feels like she was not getting any help at [facility]. Patient states that she has been having persistent paresthesias and decreased sensory to light touch of her left forehead left lower face, left arm left chest, left abdomen and left lower extremity. Patient is wheelchair-bound due to gait imbalance is secondary to multiple sclerosis. She has not seen her multiple sclerosis physician and a pproximately 2 months. The ROS documented in this emergency department record has been reviewed and confirmed by me. Those systems with pertinent positive or negative responses have been documented in the HPI. All other systems are other negative and/or noncontributory. - Related Data Home Medications Medication Instructions Recorded Confirmed Aspirin EC [Ecotrin Low Dose] 81 mg PO HS 11/02/13 03/15/23 Citalopram Hydrobromide [CeleXA] 20 mg PO HS 12/14/18 03/15/23 Donepezil [Aricept] 5 mg PO HS 12/14/18 03/15/23 Baclofen 10 mg PO TID PRN 03/23/22 03/15/23 Ofatumumab [Kesimpta Pen] 20 mg SQ Q28D 03/23/22 03/15/23 Albuterol Sulfate [Albuterol 1 - 2 puff PO RT-Q6H PRN 03/15/23 03/15/23 Sulfate Hfa] Clotrimazole/Betameth Cream 1 applic TOPICAL BID 03/15/23 03/15/23 [Lotrisone] HYDROcodone/APAP 10-325MG [[place] 1 tab PO Q6HR PRN 03/15/23 03/15/23 10-325] Imodium A-D Liquid 30 ml PO BID 03/15/23 03/15/23 QUEtiapine [SEROquel] 100 mg PO HS 03/15/23 03/15/23 Previous Rx's Medication Instructions Recorded Gabapentin 600 mg PO HS #0 03/17/23 Psyllium Husk 100% [Metamucil 1 packet PO DAILY #30 packet 03/17/23 Packet] Allergies Allergy/AdvReac Type Severity Reaction Status Date / Time blue dye Allergy Rash/Hives Verified 01/14/24 14:52 COVID-19 (SARS-CoV-2) Allergy Anaphylaxis Verified 01/14/24 14:52 vaccine, keren Neuromuscular Blockers, AdvReac Nausea & Verified 01/14/24 14:52 Steroidal Vomiting [Steroidal Neuromuscular Blockers] Review of Systems ROS Statement: Those systems with pertinent positive or pertinent negative responses have been documented in the HPI. ROS Other: All systems not noted in ROS Statement are negative. Past Medical History Past Medical History: Cancer, Heart Failure, Deep Vein Thrombosis (DVT), Fibromyalgia, Memory Impairment, Pneumonia, Renal Disease Additional Past Medical History / Comment(s): MIGRANES, MULTIPLE SCLEROSIS, B RAIN LESIONS, PVD, SOB, CONSTIPATION, DIARRHEA, KIDNEY INFECTION, UTI, BACK PAIN, ANEMIA, HYPERTHYROID, CERVICAL CA, CARPAL TUNNEL,septicemia, polyneuropathy ,HAD HEMODIALYSIS TWICE, MOTORIZED CHAIR-ABLE TO STAND TO TRANSFER, leaky heart valve History of Any Multi-Drug Resistant Organisms: None Reported Past Surgical History: Tonsillectomy, Tubal Ligation Additional Past Surgical History / Comment(s): DIALYSIS CATHETER (REMOVED), BIOPSY (UNKNOWN TYPE), CRYO SURGERY FOR CERVICAL CA, D&C. Past Anesthesia/Blood Transfusion Reactions: No Reported Reaction Past Psychological History: Anxiety, Bipolar, Depression Smoking Status: Former smoker Past Alcohol Use History: None Reported Past Drug Use History: None Reported - Past Family History Father Family Medical History: Cancer Additional Family Medical History / Comment(s): BRAIN Mother Family Medical History: Cancer Additional Family Medical History / Comment(s): BREAST General Exam - General Exam Comments Initial Comments: PHYSICAL EXAM: General Impression: Alert and oriented x3, not in acute distress HEENT: Normocephalic atraumatic, extra-ocular movements intact, pupils equal and reactive to light bilaterally, mucous membranes moist. Cardiovascular: Heart regular rate and rhythm Chest: Able to complete full sentences, no retractions, no tachypnea Abdomen: abdomen soft, non-tender, non-distended, no organomegaly Musculoskeletal: Pulses present and equal in all extremities, no peripheral edema Motor: no focal deficits noted Neurological: CN II-XII grossly intact, no focal motor deficits noted, gait not tested, reported diminished sensation to light touch on the entire left side of her body Skin: Intact with no visualized rashes Psych: Normal affect and mood Limitations: no limitations Course Vital Signs 01/14/24 14:49 Temperature 97.9 F Pulse Rate 81 Respiratory 16 Rate Blood Pressure 106/79 O2 Sat by Pulse 93 L Oximetry EKG Findings - EKG Comments: EKG Findings:: My EKG interpretation: Ventricular rate 80, sinus rhythm,. 116, cures 93, QTc 4 7. No [place] prolongation, no QTC prolongation, no ST or T-wave changes noted. Overall, this EKG is unremarkable Medical Decision Making - Medical Decision Making Was pt. sent in by a medical professional or institution (, PA, ELECTRICAL CONSTRUCTION PROJECT MANAGER, urgent care, hospital, or group home...) When possible be specific @ -No Did you speak to anyone other than the patient for history (EMS, parent, family, police, friend...)? What history was obtained from this source @ - at the bedside did provide some history of present illness as described above Did you review nursing and triage notes (agree or disagree)? Why? @ -I reviewed and agree with nursing and triage notes Were old charts reviewed (outside hosp., previous admission, EMS record, old EK G, old radiological studies, urgent care reports/EKG's, group home records)? Report findings @ -No old charts were reviewed Differential Diagnosis (chest pain, altered mental status, abdominal pain women, abdominal pain men, vaginal bleeding, musculoskeletal, weakness, fever, dyspnea, syncope, headache, dizziness, GI bleed, back pain, seizure, CVA, palpatations, mental health)? @ - Ischemic stroke, hemorrhagic stroke, brain tumor, atypical migraine, Wernicke's encephalopathy, seizure, multiple sclerosis, meningitis, encephalitis, hypoglycemia, Guillain-Molina, electrolytes disturbance, myasthenia gravis.... This is not meant to be an all-inclusive list EKG interpreted by me (3pts min.). @ -See above X-rays interpreted by me (1pt min.). @ -None done CT interpreted by me (1pt min.). @ -CT brain shows no acute processes U/S interpreted by me (1pt. min.). @ -None done What testing was considered but not performed or refused? (CT, X-rays, U/S, labs)? Why? @ -None What meds were considered but not given or refused? Why? @ -None Was smoking cessation discussed for >3mins.? @ -No Were there social determinants of health that impacted care today? How? (Homelessness, low income, unemployed, alcoholism, drug addiction, transportation, low edu. Level, literacy, decrease access to med. care, long-term, rehab)? @ -No Was there de-escalation of care discussed even if they declined (Discuss DNR or withdrawal of care, Hospice)? DNR status @ -No What co-morbidities impacted this encounter? (DM, HTN, Smoking, COPD, CAD, Cancer, CVA, ARF, Chemo, Hep., AIDS, mental health diagnosis, sleep apnea, morbid obesity)? @ -History of multiple sclerosis Was patient admitted / discharged? Hospital course, mention meds given and route, prescriptions, significant lab abnormalities, going to OR and other pertinent info. @ -58-year-old female presents to the emergency department with what she reported to be as decree sensation to light touch of her entire left side of her body. Patient states that she does have chronic pain and nausea and neck discomfort. She states that she is not here for that. Vital signs upon arrival are within acceptable limits. Patient well-appearing no acute distress. Physical examination is benign. CT and labs are negative. This likely related to aggression of her MS. She states she has a follow-up appointment with her MS physician with scheduled outpatient MRIs. Patient is taking MS medications. States that she feels like those medications are not working as well as when she was previously on however due to insurance issues she is not qualified for them. Patient offered observation admission. She refused and preferred to be discharged given that she has an upcoming appointment. Patient agreeable to plan. Patient discharged Did you discuss the management of the patient with other professionals (professionals i.e. Dr., PA, ELECTRICAL CONSTRUCTION PROJECT MANAGER, lab, RT, psych nurse, foster care social worker, formula clerk, teacher, court officer, case packer and sealer)? Give summary @ -No Was critical care preformed (if so, how long)? @ -No Undiagnosed new problem with uncertain prognosis? @ -No Drug Therapy requiring intensive monitoring for toxicity (Heparin, Nitro, Insulin, Cardizem)? @ -No Were any procedures done? @ -No Diagnosis/symptom? Acute, or Chronic, or Acute on Chronic? Uncomplicated (without systemic symptoms) or Complicated (systemic symptoms)? @ -Left-sided paresthesias Side effects of treatment? @ -No Exacerbation, Progression, or Severe Exacerbation? @ -No Poses a threat to life or bodily function? How? (Chest pain, [place], [place], pneumonia, PE, COPD, DKA, ARF, appy, cholecystitis, CVA, Diverticulitis, Homicidal, Suicidal, threat to staff... and all critical care pts) @ -No - Lab Data Result diagrams: 01/14/24 15:23 01/14/24 15:23 Lab Results 01/14/24 01/14/24 Range/Units 15:23 15:23 WBC 7.8 (3.8-10.6) k/uL RBC 5.23 (3.80-5.40) m/uL Hgb 14.0 (11.4-16.0) gm/dL Hct 45.5 (34.0-46.0) % MCV 87.1 (80.0-100.0) fL MCH 26.8 (25.0-35.0) pg MCHC 30.7 L (31.0-37.0) g/dL RDW 16.4 H (11.5-15.5) % Plt Count 184 (150-450) k/uL MPV 8.9 Neutrophils % 76 % Lymphocytes % 16 % Monocytes % 4 % Eosinophils % 4 % Basophils % 0 % Neutrophils # 5.9 (1.3-7.7) k/uL Lymphocytes # 1.2 (1.0-4.8) k/uL Monocytes # 0.3 (0-1.0) k/uL Eosinophils # 0.3 (0-0.7) k/uL Basophils # 0.0 (0-0.2) k/uL Hypochromasia Slight Anisocytosis Slight Sodium 142 (137-145) mmol/L Potassium 3.7 (3.5-5.1) mmol/L Chloride 108 H (98-107) mmol/L Carbon Dioxide 25 (22-30) mmol/L Anion Gap 9 mmol/L BUN 10 (7-17) mg/dL Creatinine 1.43 H (0.52-1.04) mg/dL Est GFR (CKD-EPI)AfAm 47 (>60 ml/min/1.73 sqM) Est GFR (CKD-EPI)NonAf 40 (>60 ml/min/1.73 sqM) Glucose 149 H (74-99) mg/dL Calcium 9.4 (8.4-10.2) mg/dL Magnesium 1.9 (1.6-2.3) mg/dL Total Bilirubin 0.8 (0.2-1.3) mg/dL AST 29 (14-36) U/L ALT 21 (4-34) U/L Alkaline Phosphatase 88 (38-126) U/L Total Protein 6.6 (6.3-8.2) g/dL Albumin 4.2 (3.5-5.0) g/dL Disposition Clinical Impression: Paresthesias Disposition: HOME SELF-CARE Condition: Good Instructions (If sedation given, give patient instructions): Multiple Sclerosis (DC) Additional Instructions: follow up with your MS neurologist Is patient prescribed a controlled substance at d/c from ED?: No Referrals: Abhishek Beltran DO [Primary Care Provider] - 1-2 days Time of Disposition: 16:17
[2024-01-14 15:38] LABS: Anisocytosis Slight; Basophils % (A) 0 %; Eosinophils # (A) 0.3 k/uL (0-0.7); Eosinophils % (A) 4 %; HCT 45.5 % (34.0-46.0); Hypochromasia Slight; Lymphocytes # (A) 1.2 k/uL (1.0-4.8); Lymphocytes % (A) 16 %; MCH 26.8 pg (25.0-35.0); MCHC 30.7 g/dL (31.0-37.0); MCV 87.1 fL (80.0-100.0); Mean Platelet Volume 8.9; Monocytes # (A) 0.3 k/uL (0-1.0); Monocytes % (A) 4 %; Neutrophils # (A) 5.9 k/uL (1.3-7.7); Neutrophils % (A) 76 %; Platelet Count 184 k/uL (150-450); RBC 5.23 m/uL (3.80-5.40); RDW 16.4 % (11.5-15.5); WBC 7.8 k/uL (3.8-10.6)
--- NOTE | 2024-01-14 15:56 | CT ---
EXAMINATION TYPE: CT brain wo con DATE OF EXAM: 01/14/2024 COMPARISON: 10/29/2020 HISTORY: Left sided paresthesias, history of MS. CT DLP: 1184.3 mGycm Automated exposure control for dose reduction was used. Findings: The ventricles, basal cisterns and sulci over the convexities are within normal limits and there is n o mass effect or shift of midline structures. No abnormal density is seen throughout the brain parenchyma and there is no acute intra or extra-axia l hemorrhage. The posterior fossa including the brainstem, fourth ventricle and cerebellar pontine angles appear no rmal. Intraorbital contents appear normal and symmetric. Visualized paranasal sinuses and mastoid air cells are well aerated. The calvarium is intact. IMPRESSION: No significant abnormality seen. There is no acute bleed or mass effect.
[2024-01-14 16:01] LABS: ALT 21 U/L (4-34); AST 29 U/L (14-36); African American GFR (CKD) 47 (>60 ml/min/1.73 sqM); Albumin 4.2 g/dL (3.5-5.0); Alkaline Phosphatase 88 U/L (38-126); Anion Gap 9 mmol/L; Blood Urea Nitrogen 10 mg/dL (7-17); Calcium 9.4 mg/dL (8.4-10.2); Carbon Dioxide 25 mmol/L (22-30); Chloride 108 mmol/L (98-107); Glucose 149 mg/dL (74-99); Magnesium 1.9 mg/dL (1.6-2.3); Non-African American GFR(CKD) 40 (>60 ml/min/1.73 sqM); Potassium 3.7 mmol/L (3.5-5.1); Sodium 142 mmol/L (137-145); Total Bilirubin 0.8 mg/dL (0.2-1.3); Total Protein 6.6 g/dL (6.3-8.2)
[2024-01-14 16:25] VITALS: BP 113/75; PULSE 78; RESP 18
== END 2024-01-14 16:25 | disposition home or self-care (01) ==
LOC: EC 14:46
DX: R20.2 Paresthesia of skin (principal); G35 Multiple sclerosis; Z87.891 Personal history of nicotine dependence; Z88.8 Allergy status to other drugs, medicaments and biological substances; Z91.018 Allergy to other foods
CPT/HCPCS: 36415; 70450; 80053; 83735; 85025; 93005; 99284

== ENCOUNTER 2024-01-22 01:50 | Inpatient (IN) | payer BC ==
[2024-01-22 03:40] LABS: Anisocytosis Slight; Basophils % (A) 0 %; Eosinophils # (A) 0.3 k/uL (0-0.7); Eosinophils % (A) 3 %; HCT 41.2 % (34.0-46.0); HGB 13.2 gm/dL (11.4-16.0); Hypochromasia Slight; Lymphocytes # (A) 1.4 k/uL (1.0-4.8); Lymphocytes % (A) 15 %; MCH 27.6 pg (25.0-35.0); MCHC 32.1 g/dL (31.0-37.0); MCV 85.9 fL (80.0-100.0); Mean Platelet Volume 9.3; Monocytes # (A) 0.6 k/uL (0-1.0); Monocytes % (A) 7 %; Neutrophils # (A) 6.9 k/uL (1.3-7.7); Neutrophils % (A) 74 %; Platelet Count 156 k/uL (150-450); Poikilocytosis Slight; RBC 4.79 m/uL (3.80-5.40); RDW 16.7 % (11.5-15.5); WBC 9.3 k/uL (3.8-10.6)
[2024-01-22 04:12] LABS: ALT 18 U/L (4-34); AST 28 U/L (14-36); African American GFR (CKD) 42 (>60 ml/min/1.73 sqM); Albumin 3.9 g/dL (3.5-5.0); Alkaline Phosphatase 82 U/L (38-126); Anion Gap 5 mmol/L; Blood Urea Nitrogen 17 mg/dL (7-17); C Reactive Protein 1.9 mg/dL (<1.0); Carbon Dioxide 29 mmol/L (22-30); Chloride 105 mmol/L (98-107); Glucose 110 mg/dL (74-99); Non-African American GFR(CKD) 36 (>60 ml/min/1.73 sqM); Potassium 3.9 mmol/L (3.5-5.1); Sodium 139 mmol/L (137-145); Total Bilirubin 0.7 mg/dL (0.2-1.3); Total Protein 6.4 g/dL (6.3-8.2)
--- NOTE | 2024-01-22 07:52 | CT ---
EXAMINATION TYPE: CT brain wo con CT DLP: 1090.4 mGycm, Automated exposure control for dose reduction was used. DATE OF EXAM: 01/22/2024 7:44 AM COMPARISON: 01/14/2024. CLINICAL INDICATION:Female, 58 years old with history of vertigo, vertigo TECHNIQUE: Brain: Axial CT images of the brain were obtained with coronal and sagittal reformats created and rev iewed. Contrast used: None. Oral contrast used: None. FINDINGS: Brain: Extra-axial spaces: No abnormal extra-axial fluid collections. Ventricular system: Within normal limits Cerebral parenchyma: No acute intraparenchymal hemorrhage or mass effect. The del valle-white junction is well differentiated. Cerebellum: Unremarkable. Mass effect: No evidence of midline shift. Intracranial vasculature: unremarkable Soft tissues: Normal. Calvarium/osseous structures: No depressed skull fracture. Paranasal sinuses and mastoid air cells: Mild scattered paranasal sinus disease. Visualized orbits: Orbital contents are intact. IMPRESSION: No acute intracranial process.
--- NOTE | 2024-01-22 08:32 | ED ---
General Adult HPI - General Chief complaint: Recheck/Abnormal Lab/Rx Stated complaint: PAIN Time Seen by Provider: 01/22/24 02:10 Source: EMS Mode of arrival: EMS Limitations: altered mental status - History of Present Illness Initial comments: This patient is a 58-year-old woman with history of chronic back pain who arrives by EMS to have evaluation for back pain. It is reported by EMS that her had called because she was having flareup of her symptoms. On arrival, the patient very somnolent. She will briefly arouse to tactile stimuli but then goes back to sleep. She denied dyspnea. Denied chest pain. Acknowledge back pain but was not able to further characterize. -: unknown Location: back Improves with: none Worsens with: none Treatments Prior to Arrival: other (gabapentin, [place]) - Related Data Home Medications Medication Instructions Recorded Confirmed Aspirin EC [Ecotrin Low Dose] 81 mg PO DAILY 11/02/13 01/22/24 Citalopram Hydrobromide [CeleXA] 40 mg PO HS 12/14/18 01/22/24 Donepezil [Aricept] 5 mg PO DAILY 12/14/18 01/22/24 Ofatumumab [Kesimpta Pen] 20 mg SQ Q30D 03/23/22 01/22/24 Albuterol Sulfate [Albuterol 1 - 2 puff PO RT-Q6H PRN 03/15/23 01/22/24 Sulfate Hfa] HYDROcodone/APAP 10-325MG [[place] 1 tab PO TID PRN 03/15/23 01/22/24 10-325] QUEtiapine [SEROquel] 100 mg PO HS 03/15/23 01/22/24 Baclofen [Lyvispah] 20 mg PO TID PRN 01/22/24 01/22/24 Ergocalciferol (Vitamin D2) 1,250 mcg PO [id number] 01/22/24 01/22/24 [Drisdol (50,000 Iu)] Gabapentin 600 mg PO TID 01/22/24 01/22/24 methylPREDNISolone Dose Pack See Taper PO DIRECTED 01/22/24 01/22/24 [Medrol Dose Pack] Allergies Allergy/AdvReac Type Severity Reaction Status Date / Time blue dye Allergy Rash/Hives Verified 01/22/24 13:14 COVID-19 (SARS-CoV-2) Allergy Anaphylaxis Verified 01/22/24 13:14 vaccine, keren Neuromuscular Blockers, AdvReac Nausea & Verified 01/22/24 13:14 Steroidal Vomiting [Steroidal Neuromuscular Blockers] Review of Systems ROS Statement: Those systems with pertinent positive or pertinent negative responses have been documented in the HPI. ROS Other: All systems not noted in ROS Statement are negative. Limitations: ROS unobtainable due to patients medical condition Constitutional: Denies: fever Respiratory: Denies: cough, dyspnea Cardiovascular: Denies: chest pain Gastrointestinal: Denies: abdominal pain Musculoskeletal: Reports: back pain (Chronic) Neurological: Denies: headache Past Medical History Past Medical History: Cancer, Heart Failure, Deep Vein Thrombosis (DVT), Fib romyalgia, Memory Impairment, Pneumonia, Renal Disease Additional Past Medical History / Comment(s): MIGRANES, MULTIPLE SCLEROSIS, BRAIN LESIONS, PVD, SOB, CONSTIPATION, DIARRHEA, KIDNEY INFECTION, UTI, BACK PAIN, ANEMIA, HYPERTHYROID, CERVICAL CA, CARPAL TUNNEL,septicemia, polyneuropathy ,HAD HEMODIALYSIS TWICE, MOTORIZED CHAIR-ABLE TO STAND TO TRANSFER, leaky heart valve History of Any Multi-Drug Resistant Organisms: None Reported Past Surgical History: Tonsillectomy, Tubal Ligation Additional Past Surgical History / Comment(s): DIALYSIS CATHETER (REMOVED), BIOPSY (UNKNOWN TYPE), CRYO SURGERY FOR CERVICAL CA, D&C. Past Anesthesia/Blood Transfusion Reactions: No Reported Reaction Past Psychological History: Anxiety, Bipolar, Depression Smoking Status: Former smoker Past Alcohol Use History: None Reported Past Drug Use History: None Reported - Past Family History Father Family Medical History: Cancer Additional Family Medical History / Comment(s): BRAIN Mother Family Medical History: Cancer Additional Family Medical History / Comment(s): BREAST General Exam General appearance: obtunded Head exam: Present: atraumatic, normocephalic Eye exam: Present: normal appearance, EOMI, nystagmus. Absent: scleral icterus, conjunctival injection Pupils: Present: miosis ENT exam: Present: mucous membranes dry Neck exam: Present: normal inspection, full ROM. Absent: tenderness, meningismus Respiratory exam: Present: rhonchi. Absent: respiratory distress, wheezes, rales, stridor, accessory muscle use Cardiovascular Exam: Present: regular rate, normal rhythm, normal heart sounds. Absent: systolic murmur, diastolic murmur, rubs, gallop GI/Abdominal exam: Present: soft. Absent: distended, tenderness, guarding, rebound, rigid, mass Extremities exam: Present: normal inspection, normal capillary refill. Absent: pedal edema, calf tenderness Back exam: Present: normal inspection. Absent: CVA tenderness (R), CVA tenderness (L), vertebral tenderness Neurological exam: Present: altered, CN II-XII intact. Absent: motor sensory deficit Skin exam: Present: warm, dry, intact, normal color. Absent: rash Course Vital Signs 01/22/24 01/22/24 01/22/24 02:05 03:23 05:07 Temperature 98.3 F Pulse Rate 95 79 77 Respiratory 20 20 18 Rate Blood Pressure 93/68 94/64 104/77 O2 Sat by Pulse 92 L 96 96 Oximetry 01/22/24 01/22/24 01/22/24 07:15 08:21 08:30 Temperature Pulse Rate 75 75 Respiratory 16 16 Rate Blood Pressure 110/74 86/56 89/59 O2 Sat by Pulse 97 96 Oximetry 01/22/24 01/22/24 01/22/24 09:33 10:00 11:00 Temperature Pulse Rate 100 Respiratory 19 Rate Blood Pressure 115/82 121/78 82/53 O2 Sat by Pulse 92 L Oximetry 01/22/24 01/22/24 01/22/24 12:21 12:30 13:03 Temperature Pulse Rate 111 H 99 95 Respiratory 18 18 18 Rate Blood Pressure 136/93 131/92 125/80 O2 Sat by Pulse 96 92 L Oximetry Medical Decision Making - Medical Decision Making The patient had CT scan of the brain that I interpreted to show no acute intracranial hemorrhage and no bony trauma. Was pt. sent in by a medical professional or institution (, PA, NUTRITION INSTRUCTOR, urgent care, hospital, or half-way...) When possible be specific @ -[No] Did you speak to anyone other than the patient for history (EMS, parent, family, police, friend...)? What history was obtained from this source @ -[No] Did you review nursing and triage notes (agree or disagree)? Why? @ -[I reviewed and agree with nursing and triage notes] Were old charts reviewed (outside hosp., previous admission, EMS record, old EKG, old radiological studies, urgent care reports/EKG's, half-way records)? Report findings @ -[No old charts were reviewed] Differential Diagnosis (chest pain, altered mental status, abdominal pain women, abdominal pain men, vaginal bleeding, weakness, fever, dyspnea, syncope, hea dache, dizziness, GI bleed, back pain, seizure, CVA, palpatations, mental health, musculoskeletal)? @ -[Differential Altered Mental Status: Hypoglycemia, DKA, hypercapnia, ETOH, overdose, CO poisoning, trauma, myxedema coma, HTN encephalopathy, infection, encephalitis, psychosis, intercranial hemo rrhage, hepatic encephalopathy, meningitis, CVA, this is not meant to be an all- inclusive list EKG interpreted by me (3pts min.). @ -[ X-rays interpreted by me (1pt min.). @ -[None done] CT interpreted by me (1pt min.). @ -I interpreted as above U/S interpreted by me (1pt. min.). @ -[None done] What testing was considered but not performed or refused? (CT, X-rays, U/S, labs)? Why? @ -[None] What meds were considered but not given or refused? Why? @ -[None] Did you discuss the management of the patient with other professionals (professionals i.e. , PA, NUTRITION INSTRUCTOR, lab, RT, psych nurse, child welfare social worker, instrument checker, teacher, chief data officer, child welfare caseworker)? Give summary @ -[No] Was smoking cessation discussed for >3mins.? @ -[No] Was critical care preformed (if so, how long)? @ -[No] Were there social determinants of health that impacted care today? How? (Homelessness, low income, unemployed, alcoholism, drug addiction, transportation, low edu. Level, literacy, decrease access to med. care, senior care, rehab)? @ -[No] Was there de-escalation of care discussed even if they declined (Discuss DNR or withdrawal of care, Hospice)? DNR status @ -[No] What co-morbidities impacted this encounter? (DM, HTN, Smoking, COPD, CAD, Cancer, CVA, ARF, Chemo, Hep., AIDS, mental health diagnosis, sleep apnea, morbid obesity)? @ -[None] Was patient admitted / discharged? Hospital course, mention meds given and route, prescriptions, significant lab abnormalities, going to OR and other pertinent info. @ -[Patient is a 58-year-old woman who was brought here by EMS reportedly to have evaluation for back pain. On arrival the patient was very somnolent and could not give history. After number of hours her mental status improved but she was suffering severe vertigo. The patient initial workup largely unremarkable other than having vertigo. At this point we will have admission to have further evaluation related to vertigo. Undiagnosed new problem with uncertain prognosis? @ -[No] Drug Therapy requiring intensive monitoring for toxicity (Heparin, Nitro, Insulin, Cardizem)? @ -[No] Were any procedures done? @ -[No] Diagnosis/symptom? @ -[Acute severe vertigo Chronic neck and back pain Acute, or Chronic, or Acute on Chronic? @ -Acute Uncomplicated (without systemic symptoms) or Complicated (systemic symptoms)? @ -[Uncomplicated Side effects of treatment? @ -[No] Exacerbation, Progression, or Severe Exacerbation? @ -[No] Poses a threat to life or bodily function? How? (Chest pain, [place], [place], pneumonia, PE, COPD, DKA, ARF, appy, cholecystitis, CVA, Diverticulitis, Homicidal, Suicidal, threat to staff... and all critical care pts) @ -[No] - Lab Data Result diagrams: 01/24/24 05:58 01/24/24 05:58 Lab Results 01/22/24 01/22/24 01/22/24 Range/Units 03:26 03:26 03:26 WBC 9.3 (3.8-10.6) k/uL RBC 4.79 (3.80-5.40) m/uL Hgb 13.2 (11.4-16.0) gm/dL Hct 41.2 (34.0-46.0) % MCV 85.9 (80.0-100.0) fL MCH 27.6 (25.0-35.0) pg MCHC 32.1 (31.0-37.0) g/dL RDW 16.7 H (11.5-15.5) % Plt Count 156 (150-450) k/uL MPV 9.3 Neutrophils % 74 % Lymphocytes % 15 % Monocytes % 7 % Eosinophils % 3 % Basophils % 0 % Neutrophils # 6.9 (1.3-7.7) k/uL Lymphocytes # 1.4 (1.0-4.8) k/uL Monocytes # 0.6 (0-1.0) k/uL Eosinophils # 0.3 (0-0.7) k/uL Basophils # 0.0 (0-0.2) k/uL Hypochromasia Slight Poikilocytosis Slight Anisocytosis Slight Sodium 139 (137-145) mmol/L Potassium 3.9 (3.5-5.1) mmol/L Chloride 105 (98-107) mmol/L Carbon Dioxide 29 (22-30) mmol/L Anion Gap 5 mmol/L BUN 17 (7-17) mg/dL Creatinine 1.57 H (0.52-1.04) mg/dL Est GFR (CKD-EPI)AfAm 42 (>60 ml/min/1.73 sqM) Est GFR (CKD-EPI)NonAf 36 (>60 ml/min/1.73 sqM) Glucose 110 H (74-99) mg/dL Calcium 9.0 (8.4-10.2) mg/dL Total Bilirubin 0.7 (0.2-1.3) mg/dL AST 28 (14-36) U/L ALT 18 (4-34) U/L Alkaline Phosphatase 82 (38-126) U/L Troponin I <0.012 (0.000-0.034) ng/mL C-Reactive Protein 1.9 H (<1.0) mg/dL Total Protein 6.4 (6.3-8.2) g/dL Albumin 3.9 (3.5-5.0) g/dL Vitamin B12 (200.0-944.0) pg/mL Folate (4.40-31.00) ng/mL TSH (0.465-4.680) mIU/L Urine Color Urine Appearance (Clear) Urine pH (5.0-8.0) Ur Specific [place] (1.001-1.035) Urine Protein (Negative) Urine Glucose (UA) (Negative) Urine Ketones (Negative) Urine Blood (Negative) Urine Nitrite (Negative) Urine Bilirubin (Negative) Urine Urobilinogen (<2.0) mg/dL Ur Leukocyte Esterase (Negative) Urine RBC (0-5) /hpf Urine WBC (0-5) /hpf Ur Squamous Epith Cells (0-4) /hpf Urine Bacteria (None) /hpf Urine Mucus (None) /hpf 01/22/24 01/22/24 01/22/24 Range/Units 03:26 03:26 09:58 WBC (3.8-10.6) k/uL RBC (3.80-5.40) m/uL Hgb (11.4-16.0) gm/dL Hct (34.0-46.0) % MCV (80.0-100.0) fL MCH (25.0-35.0) pg MCHC (31.0-37.0) g/dL RDW (11.5-15.5) % Plt Count (150-450) k/uL MPV Neutrophils % % Lymphocytes % % Monocytes % % Eosinophils % % Basophils % % Neutrophils # (1.3-7.7) k/uL Lymphocytes # (1.0-4.8) k/uL Monocytes # (0-1.0) k/uL Eosinophils # (0-0.7) k/uL Basophils # (0-0.2) k/uL Hypochromasia Poikilocytosis Anisocytosis Sodium (137-145) mmol/L Potassium (3.5-5.1) mmol/L Chloride (98-107) mmol/L Carbon Dioxide (22-30) mmol/L Anion Gap mmol/L BUN (7-17) mg/dL Creatinine (0.52-1.04) mg/dL Est GFR (CKD-EPI)AfAm (>60 ml/min/1.73 sqM) Est GFR (CKD-EPI)NonAf (>60 ml/min/1.73 sqM) Glucose (74-99) mg/dL Calcium (8.4-10.2) mg/dL Total Bilirubin (0.2-1.3) mg/dL AST (14-36) U/L ALT (4-34) U/L Alkaline Phosphatase (38-126) U/L Troponin I (0.000-0.034) ng/mL C-Reactive Protein (<1.0) mg/dL Total Protein (6.3-8.2) g/dL Albumin (3.5-5.0) g/dL Vitamin B12 418.0 (200.0-944.0) pg/mL Folate 5.50 (4.40-31.00) ng/mL TSH 1.690 (0.465-4.680) mIU/L Urine Color Colorless Urine Appearance Clear (Clear) Urine pH 6.0 (5.0-8.0) Ur Specific [place] 1.007 (1.001-1.035) Urine Protein Negative (Negative) Urine Glucose (UA) Negative (Negative) Urine Ketones Negative (Negative) Urine Blood Small H (Negative) Urine Nitrite Negative (Negative) Urine Bilirubin Negative (Negative) Urine Urobilinogen <2.0 (<2.0) mg/dL Ur Leukocyte Esterase Trace H (Negative) Urine RBC 1 (0-5) /hpf Urine WBC <1 (0-5) /hpf Ur Squamous Epith Cells 1 (0-4) /hpf Urine Bacteria Rare H (None) /hpf Urine Mucus Rare H (None) /hpf Disposition Clinical Impression: Vertigo Disposition: ADMITTED IP TO THIS HOSP Condition: Good Is patient prescribed a controlled substance at d/c from ED?: No
[2024-01-22] MEDS: SODIUM CHLORIDE 0.9% 2,000 ML IV ONE (08:40)
[2024-01-22] MEDS: MECLIZINE 12.5 MG TAB PO STA (09:36)
[2024-01-22 10:09] LABS: Appearance,Urine Clear (Clear); Bacteria,Urine Rare /hpf; Bilirubin,Urine Negative (Negative); Blood,Urine Small (Negative); Color,Urine Colorless; Glucose,Urine (UA) Negative (Negative); Ketones,Urine Negative (Negative); Leukocyte Esterase,Urine Trace (Negative); Mucus,Urine Rare /hpf; Nitrite,Urine Negative (Negative); Protein,Urine Negative (Negative); RBC,Urine 1 /hpf (0-5); Specific Gravity,Urine 1.007 (1.001-1.035); Squamous Epithelial Cell,Urine 1 /hpf (0-4); Urobilinogen,Urine <2.0 mg/dL (<2.0); WBC,Urine <1 /hpf (0-5)
[2024-01-22] MEDS ORDERED: NALOXONE 0.4 MG/ML 1 ML VIAL IV PRN (10:52)
[2024-01-22] MEDS: SODIUM CHLORIDE 0.9% 1,000 ML IV SCH (11:13)
[2024-01-22] MEDS: ONDANSETRON 4 MG/2 ML VIAL IVP STA (12:54)
[2024-01-22] MEDS: HYDROcodone/APAP 10-325MG 1 EACH TAB PO PRN (17:30)
[2024-01-22] MEDS: GABAPENTIN 300 MG CAP PO SCH (20:13)
[2024-01-22] MEDS: HYDROcodone/APAP 5-325MG 1 EACH TAB PO STA (20:13)
[2024-01-22] MEDS ORDERED: OLANZapine 10 MG VIAL IM PRN (21:56)
[2024-01-22] MEDS: HYDROmorphone 1 MG/ML 1 ML SYRINGE IVP PRN (22:04)
[2024-01-23] MEDS: ONDANSETRON 4 MG/2 ML VIAL IVP PRN (09:01)
[2024-01-23] MEDS ORDERED: BACLOFEN 10 MG TAB PO PRN (11:12)
[2024-01-23] MEDS ORDERED: ALBUTEROL NEBULIZED 2.5 MG/3 ML INHALATION PRN (11:12)
--- NOTE | 2024-01-23 11:24 | P.CNNES ---
History of Present Illness Consult date: 01/23/24 Requesting physician: Timmy Stevens Reason for Consult: vertigo, ams, MS flare up History of Present Illness: This is a 58-year-old woman with history of multiple sclerosis, polyneuropathy, congestive heart failure, COPD presented emergency department because of multiple issues. Main issue was that she is having numbness over the entire left side from the face down for the past 1 to 2 days prior to present to the [facility]. Also states neck pain and she stated that it happened since January and the pain has got worse initially started on 1 side and she thinks was the left side now it is both sides posterior region but she feels the neck is reading up the occipital region as well as having shoulder pain that shooting up. She also has chronic lower back pain over the entire lower back but she stated that is chronic. She states that she has underlying history of multiple sclerosis follows up with Dr. Garsia's and she is on Kseimpta and last treatment was on January 18, 2024 and been on it for couple years. Stated that she is having chronic pain and this seems that she was offered a pain pump but she refused. She is on gabapentin 600 mg 3 times daily, she is on baclofen 20 mg 3 times daily as needed, she is on multiple psychiatric medication Seroquel, Celexa. She stated that she was on lithium in the past and she overdosed on lithium by accident. She has been to [facility] multiple times for her neck and pain issues and they did multiple imaging and she was told that everything was negative. It seems that the patient was seen by Dr. Conroy on 12/2018 and it was felt probable MS exacerbation and he started on Solu-Medrol. Please refer to his note for further detail. Also she was seen by Dr. Berg, neurohospitalist on 02/07/2019 for generalized weakness. Some of the workup during this hospital visit consisted of: I reviewed the lab workup CT of the head is reported as no acute intracranial process. I reviewed the CT and agree with the report Review of Systems The positive and negative as per HPI. Past Medical History Past Medical History: Cancer, Heart Failure, Deep Vein Thrombosis (DVT), Fibromyalgia, Memory Impairment, Pneumonia, Renal Disease Additional Past Medical History / Comment(s): MIGRANES, MULTIPLE SCLEROSIS, BRAIN LESIONS, PVD, SOB, CONSTIPATION, DIARRHEA, KIDNEY INFECTION, UTI, BACK PAIN, ANEMIA, HYPERTHYROID, CERVICAL CA, CARPAL TUNNEL,septicemia, polyneuropat hy ,HAD HEMODIALYSIS TWICE, MOTORIZED CHAIR-ABLE TO STAND TO TRANSFER, leaky heart valve History of Any Multi-Drug Resistant Organisms: None Reported Past Surgical History: Tonsillectomy, Tubal Ligation Additional Past Surgical History / Comment(s): DIALYSIS CATHETER (REMOVED), BIOPSY (UNKNOWN TYPE), CRYO SURGERY FOR CERVICAL CA, D&C. Past Anesthesia/Blood Transfusion Reactions: No Reported Reaction Past Psychological History: Anxiety, Bipolar, Depression Smoking Status: Former smoker Past Alcohol Use History: None Reported Past Drug Use History: None Reported - Past Family History Father Family Medical History: Cancer Additional Family Medical History / Comment(s): BRAIN Mother Family Medical History: Cancer Additional Family Medical History / Comment(s): BREAST Medications and Allergies Home Medications Medication Instructions Recorded Confirmed Type Aspirin EC [Ecotrin Low Dose] 81 mg PO DAILY 11/02/13 01/22/24 History Citalopram Hydrobromide [CeleXA] 40 mg PO HS 12/14/18 01/22/24 History Donepezil [Aricept] 5 mg PO DAILY 12/14/18 01/22/24 History Ofatumumab [Kesimpta Pen] 20 mg SQ Q30D 03/23/22 01/22/24 History Albuterol Sulfate [Albuterol 1 - 2 puff PO RT-Q6H PRN 03/15/23 01/22/24 History Sulfate Hfa] HYDROcodone/APAP 10-325MG [[place] 1 tab PO TID PRN 03/15/23 01/22/24 History 10-325] QUEtiapine [SEROquel] 100 mg PO HS 03/15/23 01/22/24 History Baclofen [Lyvispah] 20 mg PO TID PRN 01/22/24 01/22/24 History Ergocalciferol (Vitamin D2) 1,250 mcg PO [id number] 01/22/24 01/22/24 History [Drisdol (50,000 Iu)] Gabapentin 600 mg PO TID 01/22/24 01/22/24 History methylPREDNISolone Dose Pack See Taper PO DIRECTED 01/22/24 01/22/24 History [Medrol Dose Pack] Allergies Allergy/AdvReac Type Severity Reaction Status Date / Time blue dye Allergy Rash/Hives Verified 01/22/24 13:14 COVID-19 (SARS-CoV-2) Allergy Anaphylaxis Verified 01/22/24 13:14 vaccine, keren Neuromuscular Blockers, AdvReac Nausea & Verified 01/22/24 13:14 Steroidal Vomiting [Steroidal Neuromuscular Blockers] Physical Examination - Vital Signs Vital Signs: Vital Signs Temp Pulse Pulse Resp BP BP BP 01/23/24 07:25 98.2 F 99 18 105/63 01/23/24 02:00 93 01/23/24 01:00 98.2 F 93 103/72 01/22/24 20:00 100.1 F H 98 22 128/75 01/22/24 14:10 98.3 F 106 H 20 119/78 01/22/24 14:00 106 H 20 01/22/24 13:03 95 18 125/80 01/22/24 12:30 99 18 131/92 01/22/24 12:21 111 H 18 136/93 Pulse Ox 01/23/24 07:25 99 01/23/24 02:00 01/23/24 01:00 98 01/22/24 20:00 92 L 01/22/24 14:10 96 01/22/24 14:00 01/22/24 13:03 92 L 01/22/24 12:30 01/22/24 12:21 96 Intake and Output 01/22/24 01/23/24 01/23/24 22:59 06:59 14:59 Output Total 200 Balance -200 Output: Urine 200 Other: Voiding Method External Catheter External Catheter # Voids 2 GENERAL: The patient is lying in bed and is not in acute distress. NEUROLOGICAL: Higher mental function: The patient is slightly drowsy but is awake to voice, oriented to self, place and time. Patient is following simple commands. No aphasia and no neglect. Cranial nerves: The pupils are round, equal and reactive to light and accommodation. Visual orr are full to confrontation throughout. Extraocular movement is intact no nystagmus is noted. Facial sensation is normal to touch throughout. The facial strength is normal throughout. Hearing is mildly decreased bilaterally to hand rub. Tongue is midline and moved [id number] without any difficulty. No dysarthria is noted. Shoulder shrug is normal bila terally. Motor: The strength is limited in uppers and lowers because of her cooperation. She is able to lift bilateral upper extremities and had hard time appreciting focal weakness because of cooperation. In the lowers, felt the right lower is weakness than right lower. Normal bulk. Had arched feet bilaterally. Cerebellum: Normal finger to nose bilaterally. Sensation: Decrease to touch over the left side. Reflexes (right/left): Biceps 2+/1+; triceps 1+/1+; brachioradialis 2+/1+; Limited in lowers because of cooperation but appears 1+. Plantars are mute bilaterally. Results - Laboratory Findings CBC and BMP: 01/22/24 03:26 01/22/24 03:26 Abnormal Lab Findings: Abnormal Labs 01/22/24 01/22/24 01/22/24 03:26 03:26 09:58 RDW 16.7 H Creatinine 1.57 H Glucose 110 H C-Reactive Protein 1.9 H Urine Blood Small H Ur Leukocyte Esterase Trace H Urine Bacteria Rare H Urine Mucus Rare H Assessment and Plan Assessment: This is a 58-year-old woman with history of multiple sclerosis who is wheelchai r-bound, polyneuropathy, memory impairment who presents because of issues but the main 1 was left-sided numbness involving the face all the way down for the last 1 to 2 days prior to present to the hospital. She is also having neck pain in the posterior region since January 05 with shoulder pain and feels the pain radiates up to the posterior region of the neck. She has chronic lower back pain. Acute left-sided numbness: Possible MS exacerbation Posterior neck pain since January 05 Chronic lower back pain Underlying history of multiple sclerosis and patient is wheelchair-bound. Is on Kesimpta and last dose was January 18 2024 Underlying cognitive impairment Chronic kidney insufficiency Bipolar Polypharmacy Plan: I ordered CT cervical and lumbar spine. Patient is adamant on being on IV Solu-Medrol for MS exacerbation. I started the patient on IV Solu-Medrol 500 mg twice a day for 5 days. I placed the patient on IV Protonix. Recommend sugar monitoring because of the steroids. I ordered TSH, vitamin B12, folate, hemoglobin A1c. I recommend MRI of the brain and cervical spine with and without once the kidney improves assess if there is any enhancement or new lesion. I consulted PT and OT Neurochecks I feel the patient is on polypharmacy which can give her some of her confusion she is on gabapentin, Celexa, Seroquel. She follows up with her pain/neurology specialist Dr. Garsia. Meant consideration of modifying her medication with her outpatient neurologist and psychiatrist. Psychiaty team is consulted. For the rest of the medical management to primary and other specialist Plan discussed with the patient and her nurse Thank you for the consultation Dr. Conroy will resume the neurology service tomorrow AM. Time with Patient: Greater than 30
--- NOTE | 2024-01-23 12:59 | CT ---
EXAMINATION TYPE: CT cervical spine wo con CT DLP: 1434.4 mGycm, Automated exposure control for dose reduction was used. DATE OF EXAM: 01/23/2024 12:42 PM COMPARISON: None. CLINICAL INDICATION:Female, 58 years old with history of neck pain with numbness on the left side, ne ck pain with numbness on the left side. TECHNIQUE: Axial CT images from the skull base to the inferior aspect of T2 we obtained without intra venous contrast. Coronal and sagittal reformatted images were also reviewed. Contrast used: mL of , (if blank None) Oral contrast used: (if blank None) FINDINGS: Fracture: None. Osseous structures: Multilevel degenerative disc disease changes with endplate spurring and disc oste ophyte complex's. Vertebral alignment: Alignment within normal limits. Spinal canal/Neural Foramina: Disc osteophyte complexes at C5-C6 with at least mild spinal canal sten osis. Facet joint uncovertebral joint arthropathy scattered throughout the cervical spine with varyin g degrees of neural foraminal stenosis. No foraminal stenosis worse at C5-C6 and C6-C7 bilaterally wi th at least mild stenosis. Neck soft tissues: Prevertebral soft tissues are within normal limits. Other: The airway is patent. Mild centrilobular emphysema changes throughout the lungs. Left parotid gland calculus measuring 2 mm. Elongated styloid processes bilaterally. IMPRESSION: 1. No evidence of cervical spine fracture. 2. Mild multilevel degenerative disc disease. Neural foraminal stenosis worse at C5-C6 and C6-7 bilat erally with at least mild stenosis.
--- NOTE | 2024-01-23 13:04 | CT ---
EXAMINATION TYPE: CT lumbar spine wo con CT DLP: 1583.1 mGycm, Automated exposure control for dose reduction was used. DATE OF EXAM: 01/23/2024 12:42 PM COMPARISON: 09/24/2019. CLINICAL INDICATION:Female, 58 years old with history of low back pain; PHH, neck pain with numbness on the left side. TECHNIQUE: Multiple axial images were obtained from the midportion of T11 through the sacroiliac joel nts. Soft tissue and bone windows in coronal and sagittal planes were obtained and reviewed. Contrast used: mL of , (None, if empty). Oral contrast used: (None, if empty). FINDINGS: Alignment: There are 5 lumbar type vertebral bodies within normal alignment. Bone: No evidence of fracture is identified. Multilevel degeneration changes with osteophyte formati on, disc space narrowing, facet joint arthropathy. Discs: T12-L1: No spinal canal or neural foraminal stenosis is identified. L1-L2: No spinal canal or neural foraminal stenosis is identified. L2-L3: No spinal canal or neural foraminal stenosis is identified. L3-L4: No spinal canal or neural foraminal stenosis is identified. L4-L5: No spinal canal or neural foraminal stenosis is identified. L5-S1: No spinal canal or neural foraminal stenosis is identified. Other: Colonic diverticulosis. Left renal simple appearing cyst. IMPRESSION: 1. No evidence for spinal fracture. 2. Mild degeneration no evidence for significant spinal canal stenosis. No evidence for significant n eural foraminal stenosis.
[2024-01-23] MEDS: PANTOPRAZOLE 40 MG/10 ML VIAL IVP SCH (13:26)
[2024-01-23] MEDS: DONEPEZIL 5 MG TAB PO SCH (13:26)
[2024-01-23] MEDS: ASPIRIN 81 MG PO SCH (13:26)
[2024-01-23] MEDS: methylPREDNISolone SOD SUCCIN 500 MG in SODIUM CHLORIDE 0.9% 100 ML IVPB SCH (13:27)
--- NOTE | 2024-01-23 13:37 | P.CN ---
Psychiatric Consult - . Consult:: IDENTIFYING DATA: Ms Faustin is a 58 year unemployed female who lives with her . She is admitted for vertigo and MS exacerbation and psychiatry is consulted for SI. HPI: States that she is having an MS exacerbation resulting in significant pain and some of the worst pain she has ever felt. During these painful exacerbations, she tendds to get very angry and unlike herself. During these angry moments, she will make statements that she does not mean, including a suicidal statement that she made overnight. she denies suicidal thoughts, homicidal thoughts, past suicide attempts, substance abuse, family history of suicide attempts, command hallucinations. She states that she does not want to go to hell and suicide will lead to that. She also states that she wants to live for her family. There is a gun at home that her has locked in a safe and states that her would not give her the gun. Predictive Maintenance Technician also spoke with daughter, who verbalized no mental health concerns. Patient denies any suicidal or homicidal ideations intent or plan. At this time patient denies any auditory or visual hallucinations. Patient denies any flight of ideas racing thoughts and increased in goal directed behavior. PAST PSYCHIATRIC HISTORY: patient has bipolar disorder and was hospitalized in 1983 for ronnie. She is stable on Celexa 40 mg daily at bedtime and Seroquel 100 mg daily at bedtime. She also takes Aricept 5 mg.[Patient denies any history of suicide attempts in the past.] PMH:MS ALLERGIES: as per EMR CHEMICAL DEPENDENCY HISTORY: as per HPI FAMILY PSYCHIATRIC/SUBSTANCE USE HISTORY: mother had undiagnosed mental illness. No suicide attempts or substance abuse in the family. SOCIAL HISTORY: lives with her . Unemployed. MENTAL STATUS EXAM: General Appearance: 58 year-old overweight female who appears older than stated age, appears to be uncomfortable and in pain Behavior: operative Speech: Patient's speech is [fluent and nonpressured.] Mood/Affect: dysthymic, full range affect Suicidality/Homicidality: Patient denies having any homicidal ideation intent or plan. [Denies any suicidal ideations intent or plan] Perceptions: Patient denies any visual hallucinations [and denies any auditory hallucinations] Though content/process: [There is no evidence of any delusional thought content and thought process is linear and goal-directed.] Memory and concentration: AOX3, grossly intact for the purposes of this session. Can spell "WORLD" backwards Judgment and insight: fair STRENGTHS/WEAKNESSES: strength is that patient is [resilient]. Weakness is that patient [has chronic medical conditions INTELLECT: [average] IMPRESSIONS: Mr. Dailey is a [age]-year-old female with history of bipolar disorder. Psychiatry is consulted for suicidal thoughts. After assessment, the suicidal statement was made during a painful moment of frustration in the middle of her MS exacerbation. She is future oriented, and did not mean the suicidal statement. Objectively, significant depression is not observed. Family denies any safety concerns. PLAN: -d/c 1:1 sitter -continue home psychiatric meds -if primary team wants to lower medication burder as recommended by neurology, may lower celexa to 20 mg daily -psychiatry will sign off 01/23/24 13:23 01/23/24 13:30
--- NOTE | 2024-01-23 15:41 | P.HPIM ---
History of Present Illness H&P Date: 01/23/24 History of present illness; 58-year-old female with past medical history significant for multiple sclerosis, polyneuropathy, CHF, COPD who presented to ER with multiple complaints. Patient poor historian. Patient stated that she was having generalized bodyaches and pains which were excruciating and whole body. Patient reported that she was having numbness over the left side of her face for the past 1 to 2 days prior to presenting to hospital. Patient also stated that she was feeling left leg worsening weakness and numbness. Patient also complained of neck pain, stated that it has been going on since January and has gotten worse, was initially on 1 side, not sure whether it was left, now it is bilateral also complain of neck pain radiating to head and complains of bilateral shoulder pains with shooting pain. Patient complains of chronic lower back pain which is chronic and unchanged. Patient follows neurology for multiple sclerosis and currently on KSeimpta and was last treatment on January 17. Patient reported that she has been on this medication for last 2 years. Patient has concern of polypharmacy, takes gabapentin 60 mg 3 times daily, also takes baclofen 20 mg 3 times daily. Also takes multiple psychiatric medications including Seroquel and Celexa. Reported being on lithium in the past, reported being overdosed on lithium by accident. Patient has been truly acute on facility multiple times for neck and pain issues reported that had multiple imaging. CT head negative for acute process. Patient afebrile, heart rate 99, respiratory rate 18, blood pressure 109/69, saturating 99% on 3 liter. CBC unremarkable. BMP showed creatinine 1.57. CRP 1.9. UA unremarkable. Patient admitted to internal medicine service REVIEW OF SYSTEMS: CONSTITUTIONAL: No fever, no malaise, no fatigue. HEENT: No recent visual problems or hearing problems. Denied any sore throat. CARDIOVASCULAR: No chest pain, orthopnea, PND, no palpitations, no syncope. PULMONARY: No shortness of breath, no cough, no hemoptysis. GASTROINTESTINAL: No diarrhea, no nausea, no vomiting, no abdominal pain. NEUROLOGICAL: No headaches, no weakness, no numbness. HEMATOLOGICAL: Denies any bleeding or petechiae. GENITOURINARY: Denies any burning micturition, frequency, or urgency. MUSCULOSKELETAL/RHEUMATOLOGICAL: Denies any joint pain, swelling, or any muscle pain. ENDOCRINE: Denies any polyuria or polydipsia. The rest of the 14-point review of systems is negative. PHYSICAL EXAMINATION: GENERAL: The patient is alert and oriented x3, not in any acute distress. Well developed, well nourished. HEENT: Pupils are round and equally reacting to light. EOMI. No scleral icterus. No conjunctival pallor. Normocephalic, atraumatic. No pharyngeal erythema. No thyromegaly. CARDIOVASCULAR: S1 and S2 present. No murmurs, rubs, or gallops. PULMONARY: Chest is clear to auscultation, no wheezing or crackles. ABDOMEN: Soft, nontender, nondistended, normoactive bowel sounds. No palpable organomegaly. MUSCULOSKELETAL: No joint swelling or deformity. EXTREMITIES: No cyanosis, clubbing, or pedal edema. NEUROLOGICAL: Gross neurological examination did not reveal any focal deficits. SKIN: No rashes. Assessment and plan Acute left-sided numbness: Posterior neck pain: Chronic low back pain History of multiple sclerosiswheelchair-bound Underlying cognitive impairment Polypharmacy Acute toxic encephalopathy: Resolved Bipolar disorder: CKD: Fibromyalgia Presented with multiple complaints, history of multiple sclerosis, concern for MS flareup, complaint of acute left-sided numbness, posterior neck pain, worsening chronic lower back pain, generalized bodyaches. Neurology consultedordered CT cervical and lumbar spine, TSH, vitamin B12, folate, HbA1c, recommended MRI brain and cervical spine with and without contrast once kidney function better Monitor with neurochecks PT/OT Continue home meds. Bipolar disorder: Depression: Suicidal ideation: Ruled out Initially patient made suicidal statement out of frustration, was monitored with sitter and suicide precautions. Psychiatry consulted, okay to DC one-to-one sitter, recommended to continue home psychiatric meds. CKD: Baseline creatinine ranges from 1.3-1.6. Creatinine baseline. Monitor renal function. Dictation was produced using [employer] software. please excuse any grammatical, word or spelling errors. Past Medical History Past Medical History: Cancer, Heart Failure, Deep Vein Thrombosis (DVT), Fibromyalgia, Memory Impairment, Pneumonia, Renal Disease Additional Past Medical History / Comment(s): MIGRANES, MULTIPLE SCLEROSIS, BRAIN LESIONS, PVD, SOB, CONSTIPATION, DIARRHEA, KIDNEY INFECTION, UTI, BACK PAIN, ANEMIA, HYPERTHYROID, CERVICAL CA, CARPAL TUNNEL,septicemia, polyneuropathy ,HAD HEMODIALYSIS TWICE, MOTORIZED CHAIR-ABLE TO STAND TO TRANSFER, leaky heart valve History of Any Multi-Drug Resistant Organisms: None Reported Past Surgical History: Tonsillectomy, Tubal Ligation Additional Past Surgical History / Comment(s): DIALYSIS CATHETER (REMOVED), BIOPSY (UNKNOWN TYPE), CRYO SURGERY FOR CERVICAL CA, D&C. Past Anesthesia/Blood Transfusion Reactions: No Reported Reaction Past Psychological History: Anxiety, Bipolar, Depression Smoking Status: Former smoker Past Alcohol Use History: None Reported Past Drug Use History: None Reported - Past Family History Father Family Medical History: Cancer Additional Family Medical History / Comment(s): BRAIN Mother Family Medical History: Cancer Additional Family Medical History / Comment(s): BREAST Medications and Allergies Home Medications Medication Instructions Recorded Confirmed Type Aspirin EC [Ecotrin Low Dose] 81 mg PO DAILY 11/02/13 01/22/24 History Citalopram Hydrobromide [CeleXA] 40 mg PO HS 12/14/18 01/22/24 History Donepezil [Aricept] 5 mg PO DAILY 12/14/18 01/22/24 History Ofatumumab [Kesimpta Pen] 20 mg SQ Q30D 03/23/22 01/22/24 History Albuterol Sulfate [Albuterol 1 - 2 puff PO RT-Q6H PRN 03/15/23 01/22/24 History Sulfate Hfa] HYDROcodone/APAP 10-325MG [[place] 1 tab PO TID PRN 03/15/23 01/22/24 History 10-325] QUEtiapine [SEROquel] 100 mg PO HS 03/15/23 01/22/24 History Baclofen [Lyvispah] 20 mg PO TID PRN 01/22/24 01/22/24 History Ergocalciferol (Vitamin D2) 1,250 mcg PO [id number] 01/22/24 01/22/24 History [Drisdol (50,000 Iu)] Gabapentin 600 mg PO TID 01/22/24 01/22/24 History methylPREDNISolone Dose Pack See Taper PO DIRECTED 01/22/24 01/22/24 History [Medrol Dose Pack] Allergies Allergy/AdvReac Type Severity Reaction Status Date / Time blue dye Allergy Rash/Hives Verified 01/22/24 13:14 COVID-19 (SARS-CoV-2) Allergy Anaphylaxis Verified 01/22/24 13:14 vaccine, keren Neuromuscular Blockers, AdvReac Nausea & Verified 01/22/24 13:14 Steroidal Vomiting [Steroidal Neuromuscular Blockers] Physical Exam Vitals: Vital Signs Temp Pulse Resp BP Pulse Ox 01/23/24 13:55 98.3 F 99 18 109/69 93 L 01/23/24 07:25 98.2 F 99 18 105/63 99 01/23/24 02:00 93 01/23/24 01:00 98.2 F 93 103/72 98 01/22/24 20:00 100.1 F H 98 22 128/75 92 L Intake and Output 01/23/24 01/23/24 01/23/24 06:59 14:59 22:59 Intake Total 118 Output Total 200 Balance -200 118 Intake: Oral 118 Output: Urine 200 Other: Voiding Method External Catheter External Catheter Results CBC & Chem 7: 01/22/24 03:26 01/22/24 03:26 Thrombosis Risk Factor Assmnt - Choose All That Apply Any of the Below Risk Factors Present?: Yes Each Factor Represents 1 point: Abnormal pulmonary function (COPD), Age 41-60 years Other Risk Factors: No Other congenital or acquired thrombophilia - If yes, enter type in comment: No Thrombosis Risk Factor Assessment Total Risk Factor Score: 2 Thrombosis Risk Factor Assessment Level: Low Risk
[2024-01-23] MEDS: HEPARIN SODIUM,PORCINE 5,000 UNIT/ML 1 ML VIAL SQ SCH (20:59)
[2024-01-23] MEDS: CITALOPRAM HYDROBROMIDE 20 MG TAB PO SCH (21:00)
[2024-01-23] MEDS: QUEtiapine 100 MG TAB PO SCH (22:03)
[2024-01-24 07:11] VITALS: BP 118/77; PULSE 85; RESP 16; TEMP 97.5
[2024-01-24 10:21] LABS: Basophils # (A) 0 X 10*3/uL (0.00-0.10); Basophils % (A) 0 %; Eosinophils # (A) 0 X 10*3/uL (0.04-0.35); Eosinophils % (A) 0 %; HGB 12.2 g/dL (12.0-15.0); Lymphocytes # (A) 0.39 X 10*3/uL (0.90-5.00); Lymphocytes % (A) 7.5 %; MCH 26.2 pg (27.0-32.0); MCHC 29.8 g/dL (32.0-37.0); Mean Platelet Volume 11.7 FL (9.5-12.2); Monocytes # (A) 0.04 X 10*3/uL (0.20-1.00); Monocytes % (A) 0.8 %; NRBC Per 100 WBC 0 X 10*3/uL (0.00-0.01); Neutrophils # (A) 4.73 X 10*3/uL (1.80-7.70); Neutrophils % (A) 91.5 %; Platelet Count 153 X 10*3/uL (140-440); RBC 4.66 X 10*6/uL (4.10-5.20); RDW 15.9 % (11.5-14.5); WBC 5.17 X 10*3/uL (4.50-10.00)
[2024-01-24 10:28] LABS: BUN/Creat Ratio 11.27 Ratio (12.00-20.00); Blood Urea Nitrogen 16.9 mg/dL (9.0-27.0); Calcium 8.5 mg/dL (8.7-10.3); Carbon Dioxide 26.7 mmol/L (21.6-31.8); Chloride 109 mmol/L (96-109); Glucose 156 mg/dL (70-110); Potassium 4.7 mmol/L (3.5-5.5); Sodium 143 mmol/L (135-145)
--- NOTE | 2024-01-24 13:38 | P.PN ---
Subjective Progress Note Date: 01/24/24 58-year-old female with past medical history significant for multiple sclerosis, polyneuropathy, CHF, COPD who presented to ER with multiple complaints. Patient poor historian. Patient stated that she was having generalized bodyaches and pains which were excruciating and whole body. Patient reported that she was having numbness over the left side of her face for the past 1 to 2 days prior to presenting to hospital. Patient also stated that she was feeling left leg worsening weakness and numbness. Patient also complained of neck pain, stated that it has been going on since January and has gotten worse, was initially on 1 side, not sure whether it was left, now it is bilateral also complain of neck pain radiating to head and complains of bilateral shoulder pains with shooting pain. Patient complains of chronic lower back pain which is chronic and unchanged. Patient follows neurology for multiple sclerosis and currently on KSeimpta and was last treatment on January 17. Patient reported that she has been on this medication for last 2 years. Patient has concern of polypharmacy, takes gabapentin 60 mg 3 times daily, also takes baclofen 20 mg 3 times daily. Also takes multiple psychiatric medications including Seroquel and Celexa. Reported being on lithium in the past, reported being overdosed on lithium by accident. Patient has been truly acute on facility multiple times for neck and pain issues reported that had multiple imaging. CT head negative for acute process. Patient afebrile, heart rate 99, respiratory rate 18, blood pressure 109/69, saturating 99% on 3 liter. CBC unremarkable. BMP showed creatinine 1.57. CRP 1.9. UA unremarkable. Patient admitted to internal medicine service 01/23. Patient seen and examined. Patient complaining of neck and back pains. MRI brain and cervical spine ordered REVIEW OF SYSTEMS: CONSTITUTIONAL: No fever, no malaise,. CARDIOVASCULAR: No chest pain, no palpitations, no syncope. PULMONARY: No shortness of breath, no cough, GASTROINTESTINAL: No diarrhea, no nausea, no vomiting, no abdominal pain. NEUROLOGICAL: No headaches, no weakness, PHYSICAL EXAMINATION: GENERAL: The patient is alert and oriented x3, not in any acute distress. Well developed, well nourished. HEENT: Pupils are round and equally reacting to light. EOMI. No scleral icterus. No conjunctival pallor. Normocephalic, atraumatic. No pharyngeal erythema. No thyromegaly. CARDIOVASCULAR: S1 and S2 present. No murmurs, rubs, or gallops. PULMONARY: Chest is clear to auscultation, no wheezing or crackles. ABDOMEN: Soft, nontender, nondistended, normoactive bowel sounds. No palpable organomegaly. MUSCULOSKELETAL: No joint swelling or deformity. EXTREMITIES: No cyanosis, clubbing, or pedal edema. NEUROLOGICAL: Gross neurological examination did not reveal any focal deficits. SKIN: No rashes. Assessment and plan Acute left-sided numbness: Posterior neck pain: Chronic low back pain History of multiple sclerosiswheelchair-bound Underlying cognitive impairment Polypharmacy Acute toxic encephalopathy: Resolved Bipolar disorder: CKD: Fibromyalgia Presented with multiple complaints, history of multiple sclerosis, concern for MS flareup, complaint of acute left-sided numbness, posterior neck pain, worsening chronic lower back pain, generalized bodyaches. CT cervical spine done showed no evidence of cervical spine fracture CT lumbar spine done showed no evidence for any fractures Neurology ordered MRI brain and cervical spine, start patient on IV Solu-Medrol 5 days Bipolar disorder: Depression: Suicidal ideation: Ruled out Initially patient made suicidal statement out of frustration, was monitored with sitter and suicide precautions. Psychiatry consulted, okay to DC one-to-one sitter, recommended to continue home psychiatric meds. CKD: Baseline creatinine ranges from 1.3-1.6. Creatinine baseline. Monitor renal function Labs and medication were reviewed.. Continue same treatment. Continue with symptomatic treatment. Resume home medication. Monitor labs and vitals. DVT and GI prophylaxis. Further recommendations as per clinical course of the p atient Dictation was produced using [employer] dictation software. please excuse any grammatical, word or spelling errors. Objective - Vital Signs Vital signs: Vital Signs Temp 97.5 F L 01/24/24 07:00 Pulse 85 01/24/24 07:00 Resp 16 01/24/24 07:00 BP 118/77 01/24/24 07:00 Pulse Ox 94 L 01/24/24 07:00 FiO2 Intake & Output 01/23/24 01/24/24 01/24/24 18:59 06:59 18:59 Intake Total 118 709 Output Total 900 1300 200 Balance -782 -1300 509 Intake: Oral 118 709 Output: Urine 900 1300 200 Other: Voiding Method External Catheter External Catheter External Catheter # Voids 1 - Labs CBC & Chem 7: 01/24/24 05:58 01/24/24 05:58 Labs: Abnormal Lab Results - Last 24 Hours (Table) 01/24/24 01/24/24 Range/Units 05:58 05:58 MCH 26.2 L (27.0-32.0) pg MCHC 29.8 L (32.0-37.0) g/dL RDW 15.9 H (11.5-14.5) % Lymphocytes # 0.39 L (0.90-5.00) X 10*3/uL Monocytes # 0.04 L (0.20-1.00) X 10*3/uL Eosinophils # 0 L (0.04-0.35) X 10*3/uL Est GFR (CKD-EPI) 40 L (>=60) BUN/Creatinine Ratio 11.27 L (12.00-20.00) Ratio Glucose 156 H (70-110) mg/dL Calcium 8.5 L (8.7-10.3) mg/dL
--- NOTE | 2024-01-26 09:24 | P.DS ---
Providers Date of admission: 01/22/24 10:53 Expected date of discharge: 01/24/24 Attending physician: Mani Dockery Consults: 01/22/24 21:57 Consult Physician Urgent Consulting Provider: Abhishek Odonnell Consult Reason/Comments: Suicidal statements Do you want consulting provider notified?: Yes 01/23/24 09:07 Consult Physician Routine Consulting Provider: Patel Little Consult Reason/Comments: vertigo, AMS, MS flare up Do you want consulting provider notified?: Yes Primary care physician: [facility] Course: Discharge diagnoses; Acute left-sided numbness: Posterior neck pain: Chronic low back pain History of multiple sclerosiswheelchair-bound Underlying cognitive impairment Polypharmacy Acute toxic encephalopathy: Resolved Bipolar disorder: CKD: Fibromyalgia Presented with multiple complaints, history of multiple sclerosis, concern for MS flareup, complaint of acute left-sided numbness, posterior neck pain, worsening chronic lower back pain, generalized bodyaches. CT cervical spine done showed no evidence of cervical spine fracture CT lumbar spine done showed no evidence for any fractures Neurology ordered MRI brain and cervical spine, start patient on IV Solu-Medrol 5 days Patient did not want to complete MRIs, wanted to leave AGAINST MEDICAL ADVICE. Patient was counseled to stay in the hospital and get MRIs done but patient refused and left AMA Bipolar disorder: Depression: Suicidal ideation: Ruled out Initially patient made suicidal statement out of frustration, was monitored with sitter and suicide precautions. Psychiatry consulted, okay to DC one-to-one sitter, recommended to continue home psychiatric meds. CKD: Baseline creatinine ranges from 1.3-1.6. Creatinine baseline. Monitor renal function Hospital course; 58-year-old female with past medical history significant for multiple sclerosis, polyneuropathy, CHF, COPD who presented to ER with multiple complaints. Patient poor historian. Patient stated that she was having generalized bodyaches and pains which were excruciating and whole body. Patient reported that she was having numbness over the left side of her face for the past 1 to 2 days prior to presenting to hospital. Patient also stated that she was feeling left leg worsening weakness and numbness. Patient also complained of neck pain, stated that it has been going on since January and has gotten worse, was initially on 1 side, not sure whether it was left, now it is bilateral also complain of neck pain radiating to head and complains of bilateral shoulder pains with shooting pain. Patient complains of chronic lower back pain which is chronic and unchanged. Patient follows neurology for multiple sclerosis and currently on KSeimpta and was last treatment on January 17. Patient reported that she has been on this medication for last 2 years. Patient has concern of polypharmacy, takes gabapentin 60 mg 3 times daily, also takes baclofen 20 mg 3 times daily. Also takes multiple psychiatric medications including Seroquel and Celexa. Reported being on lithium in the past, reported being overdosed on lithium by accident. Patient has been truly acute on facility multiple times for neck and pain issues reported that had multiple imaging. CT head negative for acute process. Patient afebrile, heart rate 99, respiratory rate 18, blood pressure 109/69, saturating 99% on 3 liter. CBC unremarkable. BMP showed creatinine 1.57. CRP 1.9. UA unremarkable. Patient admitted to internal medicine service 01/23. Patient seen and examined. Patient complaining of neck and back pains. MRI brain and cervical spine ordered Patient did not want to complete MRIs, wanted to leave AGAINST MEDICAL ADVICE. Patient was counseled to stay in the hospital and get MRIs done but patient refused and left AMA Dictation was produced using [employer] dictation software. please excuse any grammatical, word or spelling errors. Patient Condition at Discharge: Fair Plan - Discharge Summary New Discharge Prescriptions: No Action Aspirin EC [Ecotrin Low Dose] 81 mg PO DAILY Donepezil [Aricept] 5 mg PO DAILY Citalopram Hydrobromide [CeleXA] 40 mg PO HS Albuterol Sulfate [Albuterol Sulfate Hfa] 1 - 2 puff PO RT-Q6H PRN PRN Reason: Shortness Of Breath QUEtiapine [SEROquel] 100 mg PO HS HYDROcodone/APAP 10-325MG [[place] 10-325] 1 tab PO TID PRN PRN Reason: Pain Gabapentin 600 mg PO TID methylPREDNISolone Dose Pack [Medrol Dose Pack] See Taper PO DIRECTED Ergocalciferol (Vitamin D2) [Drisdol (50,000 Iu)] 1,250 mcg PO [id number] Ofatumumab [Kesimpta Pen] 20 mg SQ Q30D Baclofen [Lyvispah] 20 mg PO TID PRN PRN Reason: Muscle Spasm Discharge Medication List Aspirin EC [Ecotrin Low Dose] 81 mg PO DAILY 11/02/13 [History] Citalopram Hydrobromide [CeleXA] 40 mg PO HS 12/14/18 [History] Donepezil [Aricept] 5 mg PO DAILY 12/14/18 [History] Ofatumumab [Kesimpta Pen] 20 mg SQ Q30D 03/23/22 [History] Albuterol Sulfate [Albuterol Sulfate Hfa] 1 - 2 puff PO RT-Q6H PRN 03/15/23 [H istory] HYDROcodone/APAP 10-325MG [[place] 10-325] 1 tab PO TID PRN 03/15/23 [History] QUEtiapine [SEROquel] 100 mg PO HS 03/15/23 [History] Baclofen [Lyvispah] 20 mg PO TID PRN 01/22/24 [History] Ergocalciferol (Vitamin D2) [Drisdol (50,000 Iu)] 1,250 mcg PO [id number] 01/22/24 [History] Gabapentin 600 mg PO TID 01/22/24 [History] methylPREDNISolone Dose Pack [Medrol Dose Pack] See Taper PO DIRECTED 01/22/24 [History] Follow up Appointment(s)/Referral(s): Abhishek Beltran DO [Primary Care Provider] - 1-2 days Patient Instructions/Handouts: Vertigo (ED) Discharge Disposition: LEFT AGAINST MEDICAL ADVICE
== END 2024-01-24 14:57 | disposition left against medical advice (07) | DRG 91 ==
LOC: EC 01:50 → 6NMEDSUR 10:52 → OBSVTOIN 10:53 → 6NMEDSUR 12:50
PROVIDERS: ADMIT Hospitalist; ATTEND Hospitalist
DX: R20.0 Anesthesia of skin (principal); G92.8 Other toxic encephalopathy; G35 Multiple sclerosis; G89.29 Other chronic pain; F41.9 Anxiety disorder, unspecified; Z53.29 Procedure and treatment not carried out because of patient's decision for other reasons; F31.9 Bipolar disorder, unspecified; I73.9 Peripheral vascular disease, unspecified; M79.7 Fibromyalgia; I50.9 Heart failure, unspecified; D64.9 Anemia, unspecified; G62.9 Polyneuropathy, unspecified; J44.9 Chronic obstructive pulmonary disease, unspecified; N18.9 Chronic kidney disease, unspecified; E05.90 Thyrotoxicosis, unspecified without thyrotoxic crisis or storm; T43.591A Poisoning by other antipsychotics and neuroleptics, accidental (unintentional), initial encounter; Z79.82 Long term (current) use of aspirin; Z79.899 Other long term (current) drug therapy; Z85.41 Personal history of malignant neoplasm of cervix uteri; Z87.891 Personal history of nicotine dependence; Z99.3 Dependence on wheelchair; Z91.041 Radiographic dye allergy status; Z88.7 Allergy status to serum and vaccine
CPT/HCPCS: 36415; 70450; 72125; 72131; 80048; 80053; 81001; 82607; 82746; 83735; 84443; 84484; 85025; 86140; 96361; 96374; 99285

== ENCOUNTER → 2024-10-25 | Outpatient (CLI) | payer BC, MEDICARE ==
[2024-10-25 18:24] LABS: BUN/Creat Ratio 9.71 Ratio (12.00-20.00); Blood Urea Nitrogen 16.5 mg/dL (9.0-27.0); Carbon Dioxide 25.3 mmol/L (21.6-31.8); Chloride 103 mmol/L (96-109); Glucose 110 mg/dL (70-110); Potassium 3.9 mmol/L (3.5-5.5); Sodium 143 mmol/L (135-145)
[2024-10-25 18:25] LABS: ALT 16 U/L (8-44); AST 28 U/L (13-35); Albumin 4.4 g/dL (3.8-4.9); Albumin/Globulin Ratio 1.57 Ratio (1.60-3.17); Alkaline Phosphatase 118 U/L (41-126); Globulin 2.8 g/dL (1.6-3.3); Total Bilirubin 0.3 mg/dL (0.3-1.2); Total Protein 7.2 g/dL (6.2-8.2)
== END | disposition home or self-care (01) ==
LOC: LABWHC1 14:49
PROVIDERS: ATTEND Nurse Practitioner Family
DX: E87.8 Other disorders of electrolyte and fluid balance, not elsewhere classified (principal)
CPT/HCPCS: 36415; 80053